=== PATIENT | female | born 1990 | race Caucasian/White ===

== ENCOUNTER → 2018-04-20 10:17 | Outpatient (CLI) | payer BC, SELFPAY ==
--- NOTE | 2018-04-20 10:20 | MR_ITS ---
MR head/brain wo/w con HISTORY: Right arm and shoulder pain and numbness, blurred vision, abnormal CT ITS.REASON: ABNORMAL FINDINGS ON DIAGNOSTIC IMAGING OF SKULL AND HEAD ORDERING PHYSICIAN: Anaya Vargas PATIENT AGE: 27 years Comparison: 04/11/2018 TECHNIQUE: Standard multiplanar multiecho sequences are performed without and with gadolinium enhancement. 15 mL ProHance given IV. FINDINGS: There is an expansile mass involves the right petrous bone measuring 3.2 cm in maximum transverse dimension and 2.6 cm AP with an anterior extension into the anterior aspect of the petrous bone laterally near the carotid canal. A CT of the skull base with contrast is suggested for better delineation of the structures. Cannot exclude involvement of the carotid canal.. This mass is hyperintense on T1 and hyperintense on T2 without significant enhancement and is consistent with a cholesterol granuloma. This does extend into the right cerebellopontine angle measuring 2.4 cm cephalad to caudad causing some minimal mass effect upon the midbrain on the right and mass effect on the right extracanalicular nerve VII and VIII complexes. No midline shift. No intracranial hemorrhage or hydrocephalus. There is some fluid in the right mastoid sinus. Years of patient has had prior nasomaxillary surgery. Please correlate with patient's surgical history. No acute infarction. The pituitary and optic chiasm have an unremarkable appearance. Hypertrophic changes are present at the odontoid but no cord compression. There is mild cerebellar tonsillar ectopia on the right of approximately 5 mm. No hydrocephalus. IMPRESSION: Right petrous bone mass 2.6 x 3.2 cm x 2.5 cm consistent with a cholesterol granuloma with extension into the right cerebellopontine angle and possibly anterior near the carotid canal region. Recommend thin section CT of the skull base/temporal bone without and with contrast for more thorough evaluation and to better evaluate the bony integrity of the petrous bone and possible carotid canal extension
== END ==
PROVIDERS: PCP Nurse Practitioner Family; Visit Provider Nurse Practitioner Family
DX: R93.0 Abnormal findings on diagnostic imaging of skull and head, not elsewhere classified (principal)
CPT/HCPCS: 70553; A9576

== ENCOUNTER 2018-10-08 13:30 | Outpatient (RCR) | payer BC, SELFPAY | END 2018-10-08 13:35 | disposition home or self-care (01) | LOC: OT 13:30 | DX: R53.1 Weakness (principal) | CPT/HCPCS: 97110; 97164; 97165 ==

== ENCOUNTER 2018-10-08 14:30 | Outpatient (RCR) | payer BC, SELFPAY | END 2018-10-08 14:35 | disposition home or self-care (01) | LOC: PT 14:30 | DX: G97.81 Other intraoperative complications of nervous system (principal); R53.1 Weakness | CPT/HCPCS: 97110; 97112; 97116; 97163; 97164 ==

== ENCOUNTER 2022-03-12 18:43 | Emergency (ER) | payer SELFPAY ==
[2022-03-12 18:45] VITALS: RESP 18; TEMP 37; O2SAT 98; BMI 26.6
[2022-03-12 19:02] LABS: Microscopic, Urine URINE MICROSCOPIC (MICROSCOPIC)
[2022-03-12 19:03] LABS: Appearance,Urine SL CLOUDY (Clear); Blood, Urine 3+ (Negative); Color,Urine YELLOW (Yellow); Glucose,Urine (UA) Negative (Negative); Ketones,Urine TRACE (Negative); Leukocyte Esterase,Urine 1+ (Negative); Nitrate,Urine Negative (Negative); Protein,Urine 1+ (Negative); Specific Gravity, Urine 1.025 (1.005-1.030)
--- NOTE | 2022-03-12 19:03 | CT_ITS ---
PROCEDURE INFORMATION: Exam: CT Abdomen And Pelvis With Contrast Exam date and time: 03/12/2022 7:26 PM Age: 31 years old Clinical indication: Abdominal pain; Localized; Right lower quadrant (rlq); Patient HX: Rlq pain since noon today. Patient stated it hurt when er md press on right lower quadrant. Patient has mirena iud. TECHNIQUE: Imaging protocol: Computed tomography of the abdomen and pelvis with contrast. Radiation optimization: All CT scans at this facility use at least one of these dose optimization techniques: automated exposure control; mA and/or kV adjustment per patient size (includes targeted exams where dose is matched to clinical indication); or iterative reconstruction. Contrast material: ISOVUE; Contrast volume: 75 ml; Contrast route: IV; Other protocol: This patient has received 0 known CTs and 0 known cardiac nuclear medicine studies in the 12 months prior to the current study. COMPARISON: CR CXR2V XR chest 2V 04/10/2018 11:19 PM FINDINGS: Liver: Normal. No mass. Gallbladder and bile ducts: Normal. No calcified stones. No ductal dilation. Pancreas: Normal. No ductal dilation. Spleen: Normal. No splenomegaly. Adrenal glands: Normal. No mass. Kidneys and ureters: Parapelvic cyst involving the left kidney. No obstructive uropathy. Stomach and bowel: Unremarkable. No obstruction. No mucosal thickening. Appendix: No evidence of appendicitis. Intraperitoneal space: Unremarkable. No free air. No significant fluid collection. Vasculature: Unremarkable. No abdominal aortic aneurysm. Lymph nodes: Unremarkable. No enlarged lymph nodes. Urinary bladder: Unremarkable as visualized. Reproductive: IUD. Bones/joints: Unremarkable. No acute fracture. Soft tissues: Unremarkable. IMPRESSION: No acute findings. COMMENTS: Consistent with the [employer]'s Incidental Findings Committee white paper (J Am Manan Radiol 2018): Any incidental renal lesion less than 1 cm or classified as too small to characterize, or any incidental cystic renal lesion characterized as simple-appearing, is likely benign. No follow-up imaging is recommended for these lesions per consensus recommendations based on imaging criteria.
--- NOTE | 2022-03-12 19:05 | PC.NURSE ---
shift change report given to ines schafer and maria teresarn
[2022-03-12 19:06] LABS: Urine Pregnancy, HCG Qual. Negative (Negative)
[2022-03-12 19:14] LABS: Bilirubin,Urine Negative (Negative)
[2022-03-12 19:19] LABS: Bacteria,Urine 3+ /lpf; Mucus,Urine 3+ /lpf; Squamous Epithelial Cell,Urine 20-50 #/hpf (0-5)
--- NOTE | 2022-03-12 19:19 | PC.NURSE ---
Pt gone to RAD via stretcher
[2022-03-12 19:23] LABS: Basophils # 0.1 K/mm3 (0-0.2); Basophils % 1.3 % (0.1-2.0); Eosinophils # 0.1 K/mm3 (0.0-0.4); Eosinophils % 2.1 % (0.1-12.0); Hemoglobin 14.4 g/dL (12.2-16.2); Lymphocytes # 0.9 K/mm3 (0.7-4.5); Lymphocytes % 17.2 % (10-50); Mean Corpuscular HGB Conc 34.2 g/dL (31.8-35.4); Mean Corpuscular Hemoglobin 29.1 pg (27.0-31.2); Mean Platelet Volume 8.5 fl (7.4-10.4); Monocytes # 0.3 K/mm3 (0.1-1.0); Monocytes % 5.3 % (1.7-9.3); Neutrophils # 3.9 K/mm3 (1.8-7.8); Neutrophils % 74.2 % (37.0-80.0); Platelet Count 200 K/mm3 (142-424); Red Blood Count 4.94 M/mm3 (4.20-5.40); Red Cell Distribution Width 13.3 % (11.5-17.5); White Blood Count 5.3 K/mm3 (4.8-10.8)
[2022-03-12 19:26] LABS: Chloride 105 mmol/L (98-107); Potassium 3.3 mmoL/L (3.5-5.1); Sodium 138 mmol/L (136-145)
[2022-03-12 19:28] LABS: Alanine Aminotransferase 21 U/L (12-78); Aspartate Amino Transferase 28 U/L (14-36); Blood Urea Nitrogen 14 mg/dl (7-17); Creatinine Clearance Estimated 127 mL/min (50-200); Estimated Glomerular Filt Rate 96 ml/min (>60); GFR (African American) 117 ML/MIN (>60)
[2022-03-12 19:29] LABS: Albumin Level 4.2 g/dl (3.5-5.0); Albumin/Globulin Ratio 1.4 (1.1-1.8); Alkaline Phosphatase 56 U/L (38-126); Anion Gap 12.3 mEq/L (5-15); Calcium 8.2 mg/dl (8.4-10.2); Carbon Dioxide 24 mmol/L (22.0-30.0); Globulin 2.9 g/dL (1.3-3.2); Glucose 85 mg/dl (74-100); Lipase 22 U/L (23-300); Total Protein,Serum 7.1 g/dl (6.3-8.2)
--- NOTE | 2022-03-12 19:43 | PC.NURSE ---
Pt back from RAD
--- NOTE | 2022-03-12 19:49 | HMH.EDGENADL ---
Discharge Plan Disposition Patient Disposition: Home, Self-Care Condition: Good Prescriptions Prescriptions: New nitrofurantoin monohyd/m-cryst [Macrobid] 100 mg capsule 100 mg PO Q12H 5 Days Qty: 10 0RF Rx Instructions: must administer with a meal/food phenazopyridine [Pyridium] 100 mg tablet 100 mg PO Q8H PRN (Reason: pain) Qty: 20 0RF ondansetron 4 mg tablet,disintegrating 4 mg PO Q8H PRN (Reason: nausea and vomiting) 4 Days Qty: 12 0RF No Action levonorgestrel [Mirena] 20 mcg/24 hr (5 years) intrauterine device 1 insert INTRAUTERI ONCE Referrals Follow up/Referrals: Anaya Vargas APRN [Primary Care Provider] - See instructions Activity Restrictions/Add. Instructions Additional Instructions/Restrictions: You were evaluated in the emergency department today. Please follow-up with your primary care provider over the next 48 hours. Return to the emergency department for any new or worsening symptoms. field service supervisor your prescriptions at the pharmacy and take the full course of antibiotics as prescribed. Take Tylenol and ibuprofen at home as needed for pain. Clinical Impressions Clinical Impression: UTI (urinary tract infection) Qualifiers: Urinary tract infection type: acute cystitis Hematuria presence: without hematuria Qualified Code(s): N30.00 - Acute cystitis without hematuria Abdominal pain Qualifiers: Abdominal location: right lower quadrant Qualified Code(s): R10.31 - Right lower quadrant pain Instructions Patient Instructions: DI for Urinary Tract Infection (UTI), DI for Acute Abdominal Pain Discharge ED Provider: Meseret Florentino General Adult HPI General Chief complaint: Abdominal Pain Stated complaint: lower RT side abd stabbing pain Time Seen by Provider: 03/12/22 19:03 Mode of Arrival: Ambulatory Source of Information: Patient Limitations: No Limitations Description of Symptoms (Recalled from ER Triage Doc. by RN): Patient began having lower abdominal pain last PM associated with some nausea/vomiting. Denies fever or chills History of Present Illness HPI narrative: This patient is a 31-year-old female with no significant past medical history presented to the emergency department for evaluation with concern for right lower quadrant abdominal pain. She states that last night, she began having nausea and vomiting. The pain started today, and she states it has been progressively worsening throughout the day. Nothing seems to make it better or worse. She is still able to eat and drink, but her appetite is significantly decreased. She denies any blood in her urine, changes in bowel movements, rashes, or swelling. Related Data Home Medications Medication Instructions Recorded Confirmed levonorgestrel 20 mcg/24 hours (8 1 insert intrauterine ONCE 02/20/17 03/12/22 yrs) 52 mg intrauterine device control (Mirena) Previous Rx's Medication Instructions Recorded nitrofurantoin 100 mg PO Q12H 5 days #10 caps 03/12/22 monohydrate/macrocrystals 100 mg capsule (Macrobid) ondansetron 4 mg disintegrating 4 mg PO Q8H PRN nausea and 03/12/22 tablet vomiting 4 days #12 tabs phenazopyridine 100 mg tablet 100 mg PO Q8H PRN pain 6 doses #20 03/12/22 (Pyridium) tabs Allergies Allergy/AdvReac Type Severity Reaction Status Date / Time No Known Allergies Allergy Verified 04/10/18 23:21 [facility] Disclaimer: The information contained in this section may have been updated after the patient was seen, as this information can be updated by other users. Social History Smoking Status: Never smoker alcohol intake: never substance use type: denies use current occupational status: employed Travel in the last 8 weeks: None current occupational exposures/hazards: No ROS Obtained: Yes All systems reviewed & no additional complaints except as documented 14 point review of systems obtained and neg
[2022-03-12 19:58] VITALS: BP 125/78; PULSE 81; RESP 18; TEMP 37; O2SAT 98
--- NOTE | 2022-03-12 19:58 | PC.NURSE ---
Dr. Florentino at to update pt on results
== END 2022-03-12 20:08 | disposition home or self-care (01) ==
PROVIDERS: Emergency Provider Emergency Medicine; PCP Nurse Practitioner Family
DX: N30.00 Acute cystitis without hematuria (principal); R10.31 Right lower quadrant pain
CPT/HCPCS: 74177; 80053; 81001; 81025; 83690; 85025; 87086; 87088; 96361; 96374; 96375; 99285; J2405; Q9967

== ENCOUNTER 2022-10-18 21:49 | Emergency (ER) | payer SELFPAY ==
[2022-10-18 21:51] VITALS: BP 129/74; PULSE 78; RESP 16; TEMP 36.6; O2SAT 100; BMI 29.0
[2022-10-18 22:14] LABS: Microscopic, Urine URINE MICROSCOPIC (MICROSCOPIC)
--- NOTE | 2022-10-18 22:19 | US_ITS ---
PROCEDURE INFORMATION: Exam: US , Transvaginal Exam date and time: 10/18/2022 10:55 PM Age: 32 years old Clinical indication: Lmp or gestational age (in weeks): 6w by US; Antepartum complications; Bleeding; ; Additional info: Bleeding, iup vs. Threatened ab. Vs. Ectopic LABS AND CLINICAL REPORTS: Last menstrual period start date: 08/19/2022 Gestational age (Established): 8 w 4 d Estimated due date (Established): 05/26/2023 TECHNIQUE: Imaging protocol: Real-time transvaginal obstetrical ultrasound of the maternal pelvis with image documentation. Transvaginal imaging was used for better evaluation of the fetus, adnexa, and/or cervix. COMPARISON: CT ABDOMEN PELVIS W CON 03/12/2022 7:26 PM FINDINGS: Gestation: Yolk sac measures 5.3 mm. heart rate: No cardiac activity detected. BIOMETRY: Gestational age (AUA): 5 weeks 7 days. Estimated due date (AUA): 06/13/2023 [employer]-Rump length (CRL): 3.35 mm. EGA (CRL) is 5 w 7 d MATERNAL: Right ovary/adnexa: Right ovary measures 3.11 cm x 1.91 cm x 2.32 cm. Right ovarian volume is 7.22 mL. Left ovary/adnexa: Left ovary measures 2.59 cm x 2.29 cm x 1.93 cm. Left ovarian volume is 5.99 mL. IMPRESSION: 1. Pyle intrauterine gestation with estimated gestational age based on today's ultrasound at 5 weeks 7 days. 2. No cardiac activity identified.
--- NOTE | 2022-10-18 22:19 | PC.NURSE ---
at bedside w/ ultrasound at this time.
--- NOTE | 2022-10-18 22:20 | PC.NURSE ---
George FRANKLIN called radiology to call in US.
--- NOTE | 2022-10-18 22:21 | HMH.EDGENADL ---
Discharge Plan Disposition Patient Disposition: Home, Self-Care Condition: Good Prescriptions Prescriptions: New nitrofurantoin macrocrystal 100 mg capsule 100 mg PO BID 5 Days Qty: 10 0RF Rx Instructions: must administer with a meal/food No Action progesterone micronized 200 mg capsule 200 mg PO DAILY folic acid 1 mg tablet 1 mg PO DAILY PNV cmb#95-ferrous fumarate-FA [] 28 mg iron- 800 mcg tablet 1 tab PO DAILY Referrals Follow up/Referrals: Anaya Vargas APRN [Primary Care Provider] - See instructions Mane León MD [Staff Physician] - See instructions Activity Restrictions/Add. Instructions Additional Instructions/Restrictions: Please follow-up with your primary care provider and your QUICK SERVICE TECHNICIAN. Feel free to call our QUICK SERVICE TECHNICIAN to begin establishing care here. Please take antibiotics as prescribed for asymptomatic bacteriuria. Please return to the emergency department if you develop any new or worsening symptoms or become concerned for your health. Clinical Impressions Clinical Impression: Intrauterine , Vaginal bleeding before 22 weeks gestation, Asymptomatic bacteriuria Discharge ED Provider: Francesco Santiago General Adult HPI <Francesco Santiago MD - Last Filed: 10/18/22 23:08> General Chief complaint: Vaginal Bleeding Stated complaint: covid + 10/13 poss miscarriage Time Seen by Provider: 10/18/22 22:09 Mode of Arrival: Ambulatory Source of Information: Patient Limitations: No Limitations Description of Symptoms (Recalled from ER Triage Doc. by RN): pt states she had ultrasound and hcg level check on thursday in ob office. was told there was a sac and was a early pregnacy. started on progestone on thursday. pt c/o pink tinge blood when wiping and today began passing clots. pt denies pain, cramping. pt tested positive for covid on thursday History of Present Illness HPI narrative: Patient is a 32-year-old female at 6 to 8 weeks by LMP presenting today with vaginal bleeding and some small clots. Denies any significant cramping. She had a home positive test and went to her QUICK SERVICE TECHNICIAN doctor stated that her hCG level is above 1500 they did an ultrasound on Thursday with solid gestational sac but no obvious pole or yolk sac and told her it was a of unknown location at this point. Told her to come to the emergency department with any worsening of her symptoms which is what prompted her visit tonight. She denies any urinary symptoms. No fevers or chills. No loss of fluid. She believes that her Rh status is positive she has not had to have RhoGAM in the past but she is unsure. No history of smoking no history of ectopic no history of pelvic inflammatory disease. Related Data Home Medications Medication Instructions Recorded Confirmed folic acid 1 mg tablet 1 mg PO DAILY Supplement 10/18/22 10/18/22 vit no.95-ferrous 1 tab PO DAILY Supplement 10/18/22 10/18/22 fumarate 28 mg-folic acid 800 mcg tablet () progesterone micronized 200 mg 200 mg PO DAILY . 10/18/22 10/18/22 capsule Previous Rx's Medication Instructions Recorded nitrofurantoin macrocrystal 100 mg 100 mg PO BID 5 days #10 caps 10/19/22 capsule Allergies Allergy/AdvReac Type Severity Reaction Status Date / Time No Known Allergies Allergy Verified 04/10/18 23:21 [facility] <Francesco Santiago MD - Last Filed: 10/18/22 23:08> PFS Disclaimer: The information contained in this section may have been updated after the patient was seen, as this information can be updated by other users. Social History Smoking Status: Never smoker alcohol intake: never substance use type: denies use current occupational status: employed Travel in the last 8 weeks: None current occupational exposures/hazards: No <Francesco Santiago MD - Last Filed: 10/18/22 23:08> ROS Obtained: Yes All syst
[2022-10-18 22:30] VITALS: BP 110/66; PULSE 78; O2SAT 98
[2022-10-18 22:34] LABS: Color,Urine Yellow (Yellow)
[2022-10-18 22:35] LABS: Appearance,Urine Slightly Cloudy (Clear); Blood, Urine 3+ (Negative); Glucose,Urine (UA) Negative (Negative); Ketones,Urine Negative (Negative); Nitrate,Urine Negative (Negative); Protein,Urine Negative (Negative); Specific Gravity, Urine >= 1.030 (1.005-1.030)
[2022-10-18 22:36] LABS: Bacteria,Urine 2+ /lpf; Bilirubin,Urine Negative (Negative); Leukocyte Esterase,Urine 2+ (Negative); RBC,Urine Occasional #/hpf (0-3)
--- NOTE | 2022-10-18 22:39 | PC.NURSE ---
BBK labs given to Uma in the LAB at bedside. Patient changing into gown and given warm blankets. Updated on wait time for labs and ultrasound. Patient agreeable. SAI, VSS
--- NOTE | 2022-10-18 22:45 | PC.NURSE ---
Rounded on patient, no concerns at this time.
[2022-10-18 22:47] LABS: Basophils % 0.5 % (0.1-2.0); Eosinophils # 0.2 K/mm3 (0.0-0.4); Hemoglobin 12.9 g/dL (12.2-16.2); Lymphocytes # 2.2 K/mm3 (0.7-4.5); Lymphocytes % 31.3 % (10-50); Mean Corpuscular HGB Conc 33.2 g/dL (31.8-35.4); Mean Corpuscular Hemoglobin 28.5 pg (27.0-31.2); Mean Corpuscular Volume 85.7 fl (81-99); Mean Platelet Volume 8.8 fl (7.4-10.4); Monocytes # 0.4 K/mm3 (0.1-1.0); Monocytes % 5.2 % (1.7-9.3); Neutrophils # 4.2 K/mm3 (1.8-7.8); Neutrophils % 60.1 % (37.0-80.0); Platelet Count 242 K/mm3 (142-424); Red Blood Count 4.55 M/mm3 (4.20-5.40); Red Cell Distribution Width 14.2 % (11.5-17.5)
--- NOTE | 2022-10-18 22:54 | PC.NURSE ---
Ultrasound has arrived and taking patient up to department at this time
[2022-10-18 22:57] LABS: Chloride 103 mmol/L (98-107); Potassium 3.8 mmoL/L (3.5-5.1); Sodium 137 mmol/L (136-145)
[2022-10-18 23:00] LABS: Alanine Aminotransferase 83 U/L (12-78); Albumin Level 3.9 g/dl (3.5-5.0); Albumin/Globulin Ratio 1.3 (1.1-1.8); Alkaline Phosphatase 64 U/L (38-126); Anion Gap 12.8 mEq/L (5-15); Aspartate Amino Transferase 80 U/L (14-36); Bilirubin,Total 0.4 mg/dl (0.2-1.3); Blood Urea Nitrogen 9 mg/dl (7-17); Calcium 9.2 mg/dl (8.4-10.2); Carbon Dioxide 25 mmol/L (22.0-30.0); Creatinine Clearance Estimated 137 mL/min (50-200); Estimated Glomerular Filt Rate 96 ml/min (>60); GFR (African American) 116 ML/MIN (>60); Glucose 84 mg/dl (74-100); Total Protein,Serum 6.9 g/dl (6.3-8.2)
[2022-10-18 23:07] LABS: Activated Partial Thrombo Time 31.2 seconds (22.8-30.6); INR 0.95 (0.9-1.1); Prothrombin Time 10.3 seconds (10.1-12.5)
--- NOTE | 2022-10-18 23:37 | PC.NURSE ---
Rounded on patient; nothing needed at this time. Call [facility] within reach of patient
[2022-10-18 23:52] LABS: HCG,Quantitative 25705 mIU/ml (0-5.42)
[2022-10-19 00:15] VITALS: BP 106/64; PULSE 83; RESP 16; TEMP 36.6; O2SAT 98
== END 2022-10-19 00:17 | disposition home or self-care (01) ==
PROVIDERS: Emergency Provider Student in an Organized Health Care Education/Training Program; PCP Nurse Practitioner Family
DX: O98.511 Other viral diseases complicating pregnancy, first trimester (principal); O23.41 Unspecified infection of urinary tract in pregnancy, first trimester; O26.851 Spotting complicating pregnancy, first trimester; U07.1 COVID-19; Z3A.01 Less than 8 weeks gestation of pregnancy
CPT/HCPCS: 76817; 80053; 81001; 84702; 85025; 85610; 85730; 86850; 87086; 99285

== ENCOUNTER 2022-10-29 10:44 | Emergency (ER) | payer SELFPAY ==
--- NOTE | 2022-10-29 10:58 | US_ITS ---
PROCEDURE INFORMATION: Exam: US , Transvaginal Exam date and time: 10/29/2022 11:35 AM Age: 32 years old Clinical indication: Lmp or gestational age (in weeks): 7-10w ? ; antepartum complications; Bleeding; ; Additional info: Concern for loss of tones LABS AND CLINICAL REPORTS: Last menstrual period start date: 08/19/2022 Gestational age (Established): 10 w 1 d Estimated due date (Established): 05/26/2023 TECHNIQUE: Imaging protocol: Real-time transvaginal obstetrical ultrasound of the maternal pelvis with image documentation. Transvaginal imaging was used for better evaluation of the fetus, adnexa, and/or cervix. Total images: 458 COMPARISON: US OB TRANSVAGINAL 10/18/2022 10:55 PM FINDINGS: Gestation: Yolk sac measures 4.2 mm. Single intrauterine gestation. No definite heart tones on today's examination as imaged. BIOMETRY: Gestational age (AUA): 6 w 5 d Estimated due date (AUA): 06/19/2023 Mean sac diameter: 2.95 cm. [employer]-Rump length (CRL): 3.4 mm. EGA (CRL) is 5 w 7 d MATERNAL: Right ovary/adnexa: Right ovary measures 2.99 cm x 2.36 cm x 1.96 cm. Right ovarian volume is 7.24 mL. Left ovary/adnexa: Left ovary measures 2.88 cm x 2.56 cm x 1.69 cm. Left ovarian volume is 6.52 mL. IMPRESSION: 1. Single intrauterine gestation. 2. Average gestational age 6 weeks 5 days. 3. No definite heart tones on today's examination as imaged. Short-term follow-up is recommended.
[2022-10-29 11:15] VITALS: BP 104/60; PULSE 82; RESP 18; TEMP 36.9; O2SAT 95; BMI 29.0
[2022-10-29 11:30] VITALS: BP 126/67; PULSE 85; O2SAT 97
--- NOTE | 2022-10-29 11:31 | PC.NURSE ---
To US via wheelchair
--- NOTE | 2022-10-29 11:35 | HMH.EDGENADL ---
Discharge Plan Disposition Patient Disposition: Home, Self-Care Chief Complaint: Urogenital-Female Prescriptions Prescriptions: No Action progesterone micronized 200 mg capsule 200 mg PO DAILY folic acid 1 mg tablet 1 mg PO DAILY PNV cmb#95-ferrous fumarate-FA [] 28 mg iron- 800 mcg tablet 1 tab PO DAILY nitrofurantoin macrocrystal 100 mg capsule 100 mg PO BID 5 Days Qty: 10 0RF Rx Instructions: must administer with a meal/food Referrals Follow up/Referrals: Anaya Vargas APRN [Primary Care Provider] - See instructions Activity Restrictions/Add. Instructions Additional Instructions/Restrictions: Follow-up with [facility] in 48 hours from now for repeat hCG. Call your family doctor to establish care for this visit to the emergency department and schedule follow-up within 48 hours to ensure improvement. If you have any worsening of your condition or any other concerning signs or symptoms, return to the emergency department or your primary care doctor for further evaluation. Clinical Impressions Clinical Impression: Intrauterine Instructions Patient Instructions: DI for Urinary Tract Infection (UTI), DI for Urinary Tract Infection in Children Discharge ED Provider: Phillip Long General Adult HPI General Chief complaint: Urogenital-Female Stated complaint: 7-8 weeks , can't find hb on ultrasound Time Seen by Provider: 10/29/22 10:52 Mode of Arrival: Ambulatory Source of Information: Patient Limitations: No Limitations Description of Symptoms (Recalled from ER Triage Doc. by RN): pt presents to ED for possible miscarriage. pt reports that she has been seen [facility]. pt is established at [facility], pt had last period in august/september. third . pt reports that [facility] is telling her there is no , but at [facility] she has been told there is a flicker . no cramping, no bleeding. History of Present Illness HPI narrative: 32-year-old female presenting with concern for loss of tones. Patient was told 2 weeks ago that she was about 6 weeks . Had follow-up appointment at outside hospital yesterday, was told that they did not see heart tones. Patient was told that she needs medication in order to expel the , but wanted to seek second opinion prior to starting medication. Came to the ER for further evaluation. No nausea, vomiting, fevers, chills, flank pain, dysuria, hematuria, abnormal vaginal discharge or bleeding, abdominal pain, or any other concerns. Related Data Home Medications Medication Instructions Recorded Confirmed folic acid 1 mg tablet 1 mg PO DAILY Supplement 10/18/22 10/18/22 vit no.95-ferrous 1 tab PO DAILY Supplement 10/18/22 10/18/22 fumarate 28 mg-folic acid 800 mcg tablet () progesterone micronized 200 mg 200 mg PO DAILY . 10/18/22 10/18/22 capsule Previous Rx's Medication Instructions Recorded nitrofurantoin macrocrystal 100 mg 100 mg PO BID 5 days #10 caps 10/19/22 capsule Allergies Allergy/AdvReac Type Severity Reaction Status Date / Time No Known Allergies Allergy Verified 04/10/18 23:21 [facility] Disclaimer: The information contained in this section may have been updated after the patient was seen, as this information can be updated by other users. Social History Smoking Status: Never smoker alcohol intake: never substance use type: denies use current occupational status: employed Travel in the last 8 weeks: None current occupational exposures/hazards: No ROS Obtained: Yes All systems reviewed & no additional complaints except as documented Physical Exam General General appearance: alert, in no apparent distress and other ( ) Head Head exam: atraumatic and normocephalic Eye Eye exam: Present normal appearance, PERRL and EOMI ENT ENT exam: Present mucous membranes m
[2022-10-29 13:06] LABS: HCG,Quantitative 35171 mIU/ml (0-5.42)
[2022-10-29 13:35] VITALS: BP 120/65; PULSE 75; RESP 17; TEMP 36.8; O2SAT 98
== END 2022-10-29 13:44 | disposition home or self-care (01) ==
PROVIDERS: Emergency Provider Emergency Medicine; PCP Nurse Practitioner Family
DX: O36.8310 Maternal care for abnormalities of the fetal heart rate or rhythm, first trimester, not applicable or unspecified (principal); Z3A.01 Less than 8 weeks gestation of pregnancy
CPT/HCPCS: 76817; 84702; 99284

== ENCOUNTER → 2022-10-30 10:38 | Outpatient (CLI) | payer SELFPAY ==
[2022-10-30 11:17] LABS: Basophils # 0.1 K/mm3 (0-0.2); Basophils % 0.7 % (0.1-2.0); Eosinophils # 0.2 K/mm3 (0.0-0.4); Eosinophils % 2.3 % (0.1-12.0); Hematocrit 41.5 % (37.0-47.0); Hemoglobin 13.6 g/dL (12.2-16.2); Lymphocytes # 1.8 K/mm3 (0.7-4.5); Mean Corpuscular HGB Conc 32.8 g/dL (31.8-35.4); Mean Corpuscular Hemoglobin 28.1 pg (27.0-31.2); Mean Corpuscular Volume 85.7 fl (81-99); Mean Platelet Volume 8.3 fl (7.4-10.4); Monocytes # 0.4 K/mm3 (0.1-1.0); Monocytes % 4.7 % (1.7-9.3); Neutrophils # 5.4 K/mm3 (1.8-7.8); Neutrophils % 69.3 % (37.0-80.0); Platelet Count 297 K/mm3 (142-424); Red Blood Count 4.84 M/mm3 (4.20-5.40); White Blood Count 7.7 K/mm3 (4.8-10.8)
[2022-10-30 11:42] LABS: Chloride 105 mmol/L (98-107); Sodium 140 mmol/L (136-145)
[2022-10-30 11:43] LABS: Potassium 3.9 mmoL/L (3.5-5.1)
[2022-10-30 11:45] LABS: Alanine Aminotransferase 28 U/L (12-78); Albumin Level 4.1 g/dl (3.5-5.0); Albumin/Globulin Ratio 1.6 (1.1-1.8); Alkaline Phosphatase 56 U/L (38-126); Anion Gap 14.9 mEq/L (5-15); Aspartate Amino Transferase 21 U/L (14-36); Bilirubin,Total 0.6 mg/dl (0.2-1.3); Blood Urea Nitrogen 9 mg/dl (7-17); Calcium 9.4 mg/dl (8.4-10.2); Carbon Dioxide 24 mmol/L (22.0-30.0); Estimated Glomerular Filt Rate 114 ml/min (>60); GFR (African American) 138 ML/MIN (>60); Globulin 2.5 g/dL (1.3-3.2); Glucose 85 mg/dl (74-100); Total Protein,Serum 6.6 g/dl (6.3-8.2)
== END ==
LOC: LAB 10:39
PROVIDERS: PCP Nurse Practitioner Family; Visit Provider Obstetrics & Gynecology
DX: O03.9 Complete or unspecified spontaneous abortion without complication (principal)
CPT/HCPCS: 36415; 80053; 85025; 86850

== ENCOUNTER 2022-11-04 07:06 | Day surgery (SDC) | payer SELFPAY ==
[2022-10-31 11:32] VITALS: BMI 28.8
[2022-11-04] VITALS (11 sets, daily range): BP systolic 97–117; BP diastolic 44–71; PULSE 65–72; RESP 16–189; TEMP 36.6–36.8; O2SAT 90–99
--- NOTE | 2022-11-04 08:20 | P.PNANES_ITS ---
[facility] Disclaimer: The information contained in this section may have been updated after the patient was seen, as this information can be updated by other users. Medical History Atypical chest pain Cholesterin granuloma Ora's disease Migraine Radicular neuropathy Surgical History H/O brain surgery Family History Grandmother Cancer Paternal-Breast (diagnosed at 58) Social History Smoking Status: Never smoker alcohol intake: never substance use type: denies use current occupational status: employed Travel in the last 8 weeks: None current occupational exposures/hazards: No [facility] Anesthesia Checklist Patient Identification Patient Identification: Arm Band Structural Data Admitted From: Home Planned Operative Procedure/s: D&C with Aida Suction Consent for Planned Operative Procedure(s) Verified: Yes Verified Documents: Surgical Consent and History and Physical NPO Status Verified Time NPO: 00:00 Additional verifications Anesthesia Reactions: No Hx Blood Transfusions: No Blood Transfusion Reaction: No Airway Assessment Mallampati Score:: Class II C-Spine Mobility Assessed: Yes TMJ Mobility Assessed: Yes Dentition: Good Dentition Neurological Assessment Level of Consciousness: Awake and Alert Anesthesia Plan Anesthesia Risk discussed: Yes Anesthesia Plan: Verified ASA Class: II Anesthesia Type: General
--- NOTE | 2022-11-04 08:44 | EXP.ANES.I ---
[facility] Anesthesia Record Part I Anesthesia Record I Intake, IV Amount: 700 Hydration: Adequate Estimated blood loss (mL): 20 Urine output (mL): 0 Blood Products used (#): none Blood Pressure: 117/44 SaO2: 92 Pulse Rate: 72 Airway Patency: Patent Respiratory Rate: 16 Temperature: 97.8 F Patient is:: Drowsy and Stable Stable to PACU at:: 08:40
--- NOTE | 2022-11-04 09:03 | EXP.OP.NOTE ---
Date of procedure: 11/04/22 Pre-op Diagnosis:: 1. 5week SAB 2. Desired surgical management 3. Rh positive Post-op Diagnosis:: 1. 5week SAB 2. Desired surgical management 3. Rh positive Procedure performed:: Dilation and suction curettage Surgeon:: Georgia Ruiz DO HOSPITAL NURSING ASSISTANT:: Tera Agarwal Anesthesia: GETA Estimated blood loss (mL): 25 Clinical Note:: Complications: None UOP: 200mL Operative findings:: Normal-appearing external genitalia. Cervical os was already dilated with a small amount of bleeding. The cervix was enlarged and very hard. A pap smear was collected secondary to a small suspicion for cervical dysplasia. Operative note:: Lillian Sutton is a 32yo G3, P2 presenting for surgical management of a spontaneous . Expectant, medical, and surgical management were explained to the patient and she elected to undergo surgical management. She was consented for suction D&C. Risk, benefits, and alternatives were reviewed. Risk including but not limited to uterine perforation, bleeding, and infection were discussed. Medications: Doxycycline 200 mg The patient was taken back to the operating room where anesthesia was administered. She was placed in the dorsolithotomy position with blue gildardo stirrups and sterilely prepped and draped with Hibiclens in the usual fashion. In and out catheter was used to drain her bladder. Weighted speculum and a right angle retractor was used to visualize the cervix. Cervix noted to be enlarged with a small amount of bleeding already occurring. A single-tooth tenaculum applied to the anterior lip cervix. Sen dilators were used to dilate the cervix which was noted to already be dilated enough to accommodate a #9 rigid suction curette. The suction curette was inserted to the fundus, hooked to suction, and twisted in a clockwise fashion until the curette was removed. Products noted in the tubing system. This process was repeated until all uterine contents were removed. Following this careful attention was given to the bleeding from the cervical os and was noted to be moderate. A ring forcep was applied to the posterior lip of the ectocervix secondary to bleeding. This was left in place for 2 minutes. Upon removal there was still a small amount of bleeding which was made hemostatic with silver nitrate stick. The single-tooth tenaculum was removed and hemostasis was noted. The speculum was removed and this completed the procedure. The patient tolerated the procedure well and all instrument and sponge counts were correct x2. The patient was awakened from general anesthesia and taken to the recovery room in a stable condition. The patient will be sent home after meeting all discharge criteria and follow-up with me in 2 weeks. Condition: stable Disposition: PACU Specimens:: Products of conception Complications:: None
--- NOTE | 2022-11-04 09:14 | SUR.PHASEI ---
Pt denies pain or any C/O. Still drowsy. VSS, scant vaginal bleeding. Pt stable for transfer to post op at this tiime. Report to Henrietta Iyer.
--- NOTE | 2022-11-04 10:52 | P.PNANES_ITS ---
[facility] Anesthesia Record Part II Anesthesia Record Part II Discharge Time: 09:11 Destination: Surgical Day Care (OP Surgery) PACU nurse assessment reviewed?: Yes Patient Condition:: Good Anesthesia Complications:: None Swallowing reflex intact?: Yes Airway Patency: Patent Cyanosis?: No Blood Pressure: 107/61 SaO2: 97 Respiratory Rate: 18 Pulse Rate: 65 Temperature: 97.8 F Mental Status: Alert & Oriented Pain level:: 0 Nausea and/or vomitting:: None Intake, IV Amount: 0 Hydration: Adequate
--- NOTE | 2022-11-04 10:52 | SUR.PHASEII ---
10:00-10:50 patient waiting on meds to beds.
== END 2022-11-04 10:53 | disposition home or self-care (01) ==
PROVIDERS: PCP Nurse Practitioner Family; Visit Provider Obstetrics & Gynecology
PROC: (CPT 59812; principal; 2022-11-04 08:30)
DX: O03.4 Incomplete spontaneous abortion without complication (principal); Z67.90 Unspecified blood type, Rh positive
CPT/HCPCS: 59812; 96374; J2405

== ENCOUNTER 2023-06-25 15:11 | Outpatient (CLI) | payer MEDICAID, SELFPAY ==
[2023-06-25 16:47] LABS: HCG,Quantitative 540 mIU/ml (0-5.42)
[2023-06-27 10:28] LABS: Progesterone 9.4 ng/mL (.)
== END 2023-06-25 23:59 | disposition home or self-care (01) ==
LOC: LAB 15:14
PROVIDERS: PCP Nurse Practitioner Family; Visit Provider Obstetrics & Gynecology
DX: N92.6 Irregular menstruation, unspecified (principal); Z32.00 Encounter for pregnancy test, result unknown
CPT/HCPCS: 36415; 84144; 84702

== ENCOUNTER 2023-06-27 09:56 | Outpatient (CLI) | payer MEDICAID, SELFPAY ==
[2023-06-27 10:45] LABS: HCG,Quantitative 1144 mIU/ml (0-5.42)
== END 2023-06-27 23:59 | disposition home or self-care (01) ==
PROVIDERS: PCP Nurse Practitioner Family; Visit Provider Obstetrics & Gynecology
DX: Z32.01 Encounter for pregnancy test, result positive (principal)
CPT/HCPCS: 84702

== ENCOUNTER 2023-06-29 15:34 | Outpatient (CLI) | payer MEDICAID, SELFPAY ==
[2023-06-29 17:12] LABS: HCG,Quantitative 3660 mIU/ml (0-5.42)
== END 2023-06-29 23:59 | disposition home or self-care (01) ==
LOC: LAB 15:35
PROVIDERS: PCP Nurse Practitioner Family; Visit Provider Obstetrics & Gynecology
DX: O26.891 Other specified pregnancy related conditions, first trimester (principal); Z3A.01 Less than 8 weeks gestation of pregnancy
CPT/HCPCS: 36415; 84702

== ENCOUNTER 2023-07-09 20:16 | Emergency (ER) | payer MEDICAID, SELFPAY ==
[2023-07-09 20:25] VITALS: BP 124/74; PULSE 82; RESP 18; O2SAT 100
[2023-07-09 20:28] VITALS: BP 124/74; PULSE 84; RESP 17; TEMP 37.7; O2SAT 100; BMI 29.7
[2023-07-09 20:30] VITALS: BP 104/68; PULSE 77; RESP 16; O2SAT 100
--- NOTE | 2023-07-09 20:32 | ED_ITS ---
<Statement entered by Francesco Santiago MD - 07/09/23 22:54> I was consulted by the ED, and we discussed the complexity of the problems being addressed. I approved the treatment and management plan for this patient's care in the emergency department, thus performing a substantive portion of the medical decision making. Francesco Santiago MD, AXEL, FACEP Discharge Plan Disposition Chief Complaint: Vaginal Bleeding Prescriptions Prescriptions: No Action nitrofurantoin monohyd/m-cryst [Macrobid] 100 mg capsule 100 mg PO BID 7 Days Qty: 14 0RF Rx Instructions: must administer with a meal/food progesterone micronized [Prometrium] 100 mg capsule 100 mg vaginal DAILY 30 Days Qty: 30 2RF Rx Instructions: Please place one tablet vaginally each night until 12 weeks gestation Referrals Follow up/Referrals: Isaac Vargas MD [Primary Care Provider] - See instructions Discharge ED Provider: Francesco Santiago General Adult HPI <STEFAN Watts - Last Filed: 07/09/23 22:29> General Chief complaint: Vaginal Bleeding Stated complaint: pos miscarriage Time Seen by Provider: 07/09/23 20:32 History of Present Illness HPI narrative: Patient presents for vaginal bleeding. Patient is approximately 8 weeks and is due to have a ultrasound next week however she started having abdominal cramping and bleeding after sex and has not stopped. Patient denies chest pain shortness of breath fever chills hemoptysis hematochezia melena nausea vomit diarrhea. Patient had previous miscarriage last fall. Related Data Previous Rx's Medication Instructions Recorded progesterone micronized 100 mg 100 mg vaginal DAILY 30 days #30 06/28/23 capsule (Prometrium) caps nitrofurantoin 100 mg PO BID 7 days #14 caps 06/29/23 monohydrate/macrocrystals 100 mg capsule (Macrobid) Allergies Allergy/AdvReac Type Severity Reaction Status Date / Time No Known Allergies Allergy Verified 11/18/22 13:57 PFS <STEFAN Watts - Last Filed: 07/09/23 22:29> [facility] Disclaimer: The information contained in this section may have been updated after the patient was seen, as this information can be updated by other users. Medical History Ora's disease Migraine Cholesterin granuloma Atypical chest pain Radicular neuropathy Surgical History (Updated 11/18/22 @ 13:58 by COREY Watson) Status post D&C H/O brain surgery Family History Grandmother Cancer Paternal-Breast (diagnosed at 58) Social History Smoking Status: Unknown if ever smoked alcohol intake: never substance use type: denies use current occupational status: employed Travel in the last 8 weeks: None current occupational exposures/hazards: No <STEFAN Watts - Last Filed: 07/09/23 22:29> ROS Obtained: Yes Systems reviewed as appropriate & no additional complaints except as documented Physical Exam <STEFAN Watts - Last Filed: 07/09/23 22:29> General General appearance: alert and in no apparent distress Respiratory Respiratory exam: Present normal lung sounds bilaterally Cardiovascular Cardiovascular exam: Present regular rate and normal rhythm Abdominal Exam Abdominal exam: Present soft, tenderness (Tender to palp in the bilateral lower quadrants mildly) and normal bowel sounds; Absent guarding, rebound or rigidity Back Exam Back exam: Present normal inspection and full ROM; Absent tenderness Neurological Exam Neurological exam: Present alert and oriented X3 Medical Decision Making <STEFAN Watts - Last Filed: 07/09/23 22:29> Medical Records Medical records reviewed: Yes I reviewed the patient's medical records. Zaid Inquiry Pt receiving controlled substance: No Vital Signs: 07/09/23 20:25 07/09/23 20:28 07/09/23 20:30 Temperature 100 F H Temperature Source Oral Pulse Rate 82 77 Pulse Rate [Right Brachial] 84 Respiratory Rate 18 17 16 Blood Pressure 124/74 104/68 L Blood Pressure [Right Arm] 124/74 Blood Pressure Mean [Right Arm] 90 Blood Pressure Source [Right Arm] Automatic Cuff Blood Pressure Position [Right Arm] Sitting 02 Sat by Pulse Oximetry 100 100 100 Oxygen Delivery Method Room Air Room Air Room Air 07/09/23 21:00 Temperature Temperature Source Pulse Rate 79 Pulse Rate [Right Brachial] Respiratory Rate 18 Blood Pressure 112/69 Blood Pressure [Right Arm] Blood Pressure Mean [Right Arm] Blood Pressure Source [Right Arm] Blood Pressure Position [Right Arm] 02 Sat by Pulse Oximetry 100 Oxygen Delivery Method Room Air Lab Data Lab results reviewed: Yes I reviewed the patient's lab results. Lab Results 07/09/23 20:32: WBC 11.2 H, RBC 4.68, Hgb 13.5, Hct 40.6, MCV 86.8, MCH 28.8, MCHC 33.2, RDW 14.2, Plt Count 264, MPV 8.5, Neut % (Auto) 68.6, Lymph % (Auto) 24.4, [place] % (Auto) 4.3, Eos % (Auto) 1.9, Baso % (Auto) 0.8, Neut # (Auto) 7.7, Lymph # (Auto) 2.7, [place] # (Auto) 0.5, Eos # (Auto) 0.2, Baso # (Auto) 0.1, Sodium 136, Potassium 3.4 L, Chloride 103 07/09/23 20:32 07/09/23 20:32 Orders (Tests/Meds): ORDERS Category Date Time Status POCUS Point of Care (ER Only) Stat Exams 07/09/23 21:23 Taken US transvaginal Stat Exams 07/09/23 22:15 Ordered CBC w/Auto Diff [Complete Blood Count Auto Diff] Stat Lab 07/09/23 20:32 Completed CMP [Comprehensive Metabolic Panel] Stat Lab 07/09/23 20:32 Results HCG,Quantitative Stat Lab 07/09/23 20:32 Received INR [Prothrombin Time INR] Stat Lab 07/09/23 20:32 Received Magnesium Stat Lab 07/09/23 20:32 Results Medical Decision Narrative: In summary patient is a 33-year-old female who presents to the emergency department for evaluation of vaginal bleeding. Patient is hemodynamically stable upon arrival, with a temperature of 100. Physical exam is remarkable for flushed facies and for mild bilateral lower quadrant pain to palpation with no rebound or guarding rigidity.. Differential diagnosis includes miscarriage versus tubal . Patient is Rh-. Initial workup will be conducted with [id number] ultrasound to potentially rule in intrauterine . Initial interventions include Tylenol. Initial workup reviewed by me shows that the [id number] ultrasound identified 2 sacs 1 of which a clear yolk sac was identified. Further lab work was then ordered and transvaginal ultrasound is also been ordered and is pending at the time of handoff at 2300 hrs. to the oncoming provider <Francesco Santiago MD - Last Filed: 07/09/23 22:18> Vital Signs: 07/09/23 20:25 07/09/23 20:28 07/09/23 20:30 Temperature 100 F H Temperature Source Oral Pulse Rate 82 77 Pulse Rate [Right Brachial] 84 Respiratory Rate 18 17 16 Blood Pressure 124/74 104/68 L Blood Pressure [Right Arm] 124/74 Blood Pressure Mean [Right Arm] 90 Blood Pressure Source [Right Arm] Automatic Cuff Blood Pressure Position [Right Arm] Sitting 02 Sat by Pulse Oximetry 100 100 100 Oxygen Delivery Method Room Air Room Air Room Air 07/09/23 21:00 Temperature Temperature Source Pulse Rate 79 Pulse Rate [Right Brachial] Respiratory Rate 18 Blood Pressure 112/69 Blood Pressure [Right Arm] Blood Pressure Mean [Right Arm] Blood Pressure Source [Right Arm] Blood Pressure Position [Right Arm] 02 Sat by Pulse Oximetry 100 Oxygen Delivery Method Room Air Lab Data Lab Results 07/09/23 20:32: WBC 11.2 H, RBC 4.68, Hgb 13.5, Hct 40.6, MCV 86.8, MCH 28.8, MCHC 33.2, RDW 14.2, Plt Count 264, MPV 8.5, Neut % (Auto) 68.6, Lymph % (Auto) 24.4, [place] % (Auto) 4.3, Eos % (Auto) 1.9, Baso % (Auto) 0.8, Neut # (Auto) 7.7, Lymph # (Auto) 2.7, [place] # (Auto) 0.5, Eos # (Auto) 0.2, Baso # (Auto) 0.1, Sodium 136, Potassium 3.4 L, Chloride 103 Orders (Tests/Meds): ORDERS Category Date Time Status POCUS Point of Care (ER Only) Stat Exams 07/09/23 21:23 Taken US transvaginal Stat Exams 07/09/23 22:15 Ordered CBC w/Auto Diff [Complete Blood Count Auto Diff] Stat Lab 07/09/23 20:32 Completed CMP [Comprehensive Metabolic Panel] Stat Lab 07/09/23 20:32 Results HCG,Quantitative Stat Lab 07/09/23 20:32 Received INR [Prothrombin Time INR] Stat Lab 07/09/23 20:32 Received Magnesium Stat Lab 07/09/23 20:32 Results Procedures <Francesco Santiago MD - Last Filed: 07/09/23 22:18> Miscellaneous Procedure Procedure Performed: Limited OB ultrasound Indication: Vaginal bleeding Identified structures: [-Uterus -Left adnexa -Right adnexa -Pouch of Woo] Findings: Uterus: There are 2 definitive and distinctly separate gestational sacs consistent with dates 1 is empty and appears to be possibly a blighted ovum the second has a discernible yolk sac there also appears to be a small subchorionic hemorrhage Right adnexa: No free Left adnexa: No free fluid Cul de sac: No free fluid Impression: 2 gestational sacs 1 that is empty and the second that appears to have a yolk sac consistent with a single living intrauterine also with a small subchorionic hemorrhage Images were saved to permanent archive The study was technically adequate CPT Transabdominal: 46575-85 This study was performed by me, and I personally interpreted all images/videos. Based on my clinical judgement, these images were adequate and did necessitate further imaging. Transvaginal ultrasound has been ordered for further evaluation. Critical Care <STEFAN Watts - Last Filed: 07/09/23 22:29> Critical Care Time Critical Care Time: No
[2023-07-09 21:00] VITALS: BP 112/69; PULSE 79; RESP 18; O2SAT 100
--- NOTE | 2023-07-09 21:59 | PC.NURSE ---
urine sent to lab. pt up to bathroom changing pad at this time
--- NOTE | 2023-07-09 22:15 | US_ITS ---
PROCEDURE INFORMATION: Exam: US First Trimester, Transabdominal and US , Transvaginal Exam date and time: 07/09/2023 10:40 PM Age: 33 years old Clinical indication: Pain; Other: Cramping and bleeding; Additional info: Vaginal bleeding TECHNIQUE: Imaging protocol: Real-time transabdominal obstetrical ultrasound of the maternal pelvis and a first trimester , less than 14 weeks 0 days, with image documentation. Transvaginal imaging was used for better evaluation of the fetus, adnexa, and/or cervix. COMPARISON: US OB TRANSVAGINAL 10/29/2022 11:35 AM FINDINGS: GESTATION: Gestation: Two intrauterine gestational sacs. One of the gestational sacs labeled as fetus A with a mean sac diameter of 1.42 cm contains a yolk sac and pole with demonstrable cardiac activity. The 2nd gestational sac with surrounding decidual reaction and a mean sac diameter of 1.5 cm contains no yolk sac or pole. Embryonic/ heart rate: Cardiac activity visualized within fetus A, although a heart rate was not calculated. Extra-embryonic membranes/Placenta: Moderate sized subchorionic hemorrhage. Amniotic/Chorionic fluid: Amniotic and extra-amniotic fluid are normal for gestational age. BIOMETRY: Gestational age (AUA): 6 weeks 1 day (Fetus A) MATERNAL: Uterus: Unremarkable. Cervix: Unremarkable. Right ovary/adnexa: Unremarkable right ovary. Right paraovarian cystic lesion measuring 0.9 x 0.7 x 1.1 cm Left ovary/adnexa: Unremarkable ovary. Intraperitoneal space: No intraperitoneal free fluid. IMPRESSION: 1. Two intrauterine gestational sacs. Live intrauterine gestation (fetus A) measuring 6 weeks 1 day. Second intrauterine gestational sac measuring 1.5 cm containing no yolk sac or pole with differential considerations to include early intrauterine and failed 1st trimester . Recommend close clinical follow-up and serial imaging as clinically indicated. 2. Moderate sized subchorionic hemorrhage. 3. 1.1 cm right paraovarian cyst.
[2023-07-09 22:22] LABS: Basophils # 0.1 K/mm3 (0-0.2); Basophils % 0.8 % (0.1-2.0); Eosinophils # 0.2 K/mm3 (0.0-0.4); Eosinophils % 1.9 % (0.1-12.0); Hematocrit 40.6 % (37.0-47.0); Hemoglobin 13.5 g/dL (12.2-16.2); Lymphocytes # 2.7 K/mm3 (0.7-4.5); Lymphocytes % 24.4 % (10-50); Mean Corpuscular HGB Conc 33.2 g/dL (31.8-35.4); Mean Corpuscular Hemoglobin 28.8 pg (27.0-31.2); Mean Corpuscular Volume 86.8 fl (81-99); Mean Platelet Volume 8.5 fl (7.4-10.4); Monocytes # 0.5 K/mm3 (0.1-1.0); Monocytes % 4.3 % (1.7-9.3); Neutrophils # 7.7 K/mm3 (1.8-7.8); Neutrophils % 68.6 % (37.0-80.0); Platelet Count 264 K/mm3 (142-424); Red Blood Count 4.68 M/mm3 (4.20-5.40); Red Cell Distribution Width 14.2 % (11.5-17.5); White Blood Count 11.2 K/mm3 (4.8-10.8)
[2023-07-09 22:24] LABS: Chloride 103 mmol/L (98-107); Sodium 136 mmol/L (136-145)
[2023-07-09 22:25] LABS: Potassium 3.4 mmoL/L (3.5-5.1)
[2023-07-09 22:27] LABS: Alanine Aminotransferase 28 U/L (12-78); Albumin Level 4.4 g/dl (3.5-5.0); Albumin/Globulin Ratio 1.6 (1.1-1.8); Alkaline Phosphatase 71 U/L (38-126); Anion Gap 12.4 mEq/L (5-15); Aspartate Amino Transferase 28 U/L (14-36); Bilirubin,Total 0.4 mg/dl (0.2-1.3); Blood Urea Nitrogen 11 mg/dl (7-17); Calcium 9.9 mg/dl (8.4-10.2); Carbon Dioxide 24 mmol/L (22.0-30.0); Creatinine Clearance Estimated 162 mL/min (50-200); Estimated Glomerular Filt Rate 114 ml/min (>60); GFR (African American) 138 ML/MIN (>60); Globulin 2.8 g/dL (1.3-3.2); Glucose 94 mg/dl (74-100); Total Protein,Serum 7.2 g/dl (6.3-8.2)
[2023-07-09 22:28] LABS: INR 0.94 (0.9-1.1); Magnesium 1.6 mg/dl (1.6-2.3); Prothrombin Time 10.2 seconds (10.1-12.5)
[2023-07-09 23:10] LABS: HCG,Quantitative 43149 mIU/ml (0-5.42)
[2023-07-10 01:58] VITALS: BP 128/70; PULSE 64; RESP 18; TEMP 37.2; O2SAT 99
== END 2023-07-10 01:59 | disposition home or self-care (01) ==
PROVIDERS: Physician Assistant; Emergency Provider Emergency Medicine; PCP Family Medicine
DX: O26.851 Spotting complicating pregnancy, first trimester (principal); Z3A.08 8 weeks gestation of pregnancy; R10.813 Right lower quadrant abdominal tenderness; R10.814 Left lower quadrant abdominal tenderness
CPT/HCPCS: 76830; 80053; 83735; 84702; 85025; 85610; 99284

== ENCOUNTER 2023-07-14 12:41 | Outpatient (CLI) | payer MEDICAID, SELFPAY ==
--- NOTE | 2023-07-14 12:41 | US_ITS ---
PROCEDURE: US OB <= 14 WEEKS FETUS CLINICAL INDICATION: Bleeding in Early Prengnacy , f/u US from ER COMPARISON: No exams were available for comparison FINDINGS: Transvaginal and transabdominal sonographic images of the pelvis were obtained. From her last menstrual period she is 8weeks 6days. Two intrauterine gestational sacs are present with a pole with a crown-rump length of 0.29cm This correlates to a gestational age of 6weeks 0 days. There appears to be 2 separate sacs. One sac appears to be empty. There is a hemorrhagic clot lateral to the gestational sacs. heart tones not definitively seen. Yolk sac is noted. The yolk sac measures 4.6mm. The right ovary is seen and appears normal. The left ovary is seen and appears normal. The ovary is seen transabdominally as it was difficult to see transvaginally. There is no fluid in the cul-de-sac. IMPRESSION: 1. Two separate gestational sacs with a yolk sac and pole seen in 1 sac. The 2nd sac is empty. 2. heart tones are not clearly identified today. 3. There appears to be a hemorrhagic area lateral to the gestational sacs. 4. Both ovaries are seen and appear normal. 5. Suggest repeat ultrasound in 1 week. Dictated by: Mane León MD 07/14/2023 16:44 Mane León MD in OV 07/14/2023 16:44
== END 2023-07-14 23:59 | disposition home or self-care (01) ==
LOC: RAD 12:41
PROVIDERS: PCP Nurse Practitioner Family; Visit Provider Obstetrics & Gynecology
DX: O20.8 Other hemorrhage in early pregnancy (principal)
CPT/HCPCS: 76801

== ENCOUNTER 2023-07-14 13:39 | Outpatient (CLI) | payer MEDICAID, SELFPAY ==
[2023-07-14 17:19] LABS: HCG,Quantitative 72805 mIU/ml (0-5.42)
== END 2023-07-14 23:59 | disposition home or self-care (01) ==
LOC: LAB 13:40
PROVIDERS: PCP Nurse Practitioner Family; Visit Provider Obstetrics & Gynecology
DX: O20.9 Hemorrhage in early pregnancy, unspecified (principal)
CPT/HCPCS: 36415; 84702

== ENCOUNTER 2023-07-15 17:09 | Outpatient (CLI) | payer MEDICAID, SELFPAY | END 2023-07-15 23:59 | disposition home or self-care (01) | LOC: LAB.DROPOF 17:09 | PROVIDERS: PCP Obstetrics & Gynecology; Visit Provider Obstetrics & Gynecology | DX: O26.891 Other specified pregnancy related conditions, first trimester (principal) | CPT/HCPCS: 87086 ==

== ENCOUNTER 2023-07-21 14:24 | Outpatient (CLI) | payer MEDICAID, SELFPAY ==
[2023-07-21 14:49] LABS: Basophils % 0.6 % (0.1-2.0); Eosinophils # 0.1 K/mm3 (0.0-0.4); Eosinophils % 1.2 % (0.1-12.0); Hemoglobin 12.6 g/dL (12.2-16.2); Lymphocytes # 1.8 K/mm3 (0.7-4.5); Lymphocytes % 22.8 % (10-50); Mean Corpuscular HGB Conc 33.3 g/dL (31.8-35.4); Mean Corpuscular Hemoglobin 28.4 pg (27.0-31.2); Mean Corpuscular Volume 85.3 fl (81-99); Mean Platelet Volume 8.3 fl (7.4-10.4); Monocytes # 0.3 K/mm3 (0.1-1.0); Monocytes % 4.1 % (1.7-9.3); Neutrophils # 5.6 K/mm3 (1.8-7.8); Neutrophils % 71.4 % (37.0-80.0); Platelet Count 246 K/mm3 (142-424); Red Blood Count 4.45 M/mm3 (4.20-5.40); Red Cell Distribution Width 14.5 % (11.5-17.5); White Blood Count 7.9 K/mm3 (4.8-10.8)
[2023-07-21 15:12] LABS: Alanine Aminotransferase 29 U/L (12-78); Albumin/Globulin Ratio 1.6 (1.1-1.8); Alkaline Phosphatase 49 U/L (38-126); Anion Gap 13.5 mEq/L (5-15); Aspartate Amino Transferase 26 U/L (14-36); Bilirubin,Total 0.4 mg/dl (0.2-1.3); Blood Urea Nitrogen 6 mg/dl (7-17); Calcium 9.4 mg/dl (8.4-10.2); Carbon Dioxide 22 mmol/L (22.0-30.0); Chloride 104 mmol/L (98-107); Estimated Glomerular Filt Rate 114 ml/min (>60); GFR (African American) 138 ML/MIN (>60); Globulin 2.5 g/dL (1.3-3.2); Glucose 121 mg/dl (74-100); Potassium 3.5 mmoL/L (3.5-5.1); Sodium 136 mmol/L (136-145); Total Protein,Serum 6.5 g/dl (6.3-8.2)
== END 2023-07-21 23:59 | disposition home or self-care (01) ==
LOC: LAB 14:24
PROVIDERS: PCP Nurse Practitioner Family; Visit Provider Obstetrics & Gynecology
DX: O03.9 Complete or unspecified spontaneous abortion without complication (principal); Z3A.10 10 weeks gestation of pregnancy
CPT/HCPCS: 36415; 80053; 85025; 86850

== ENCOUNTER 2023-07-24 07:55 | Day surgery (SDC) | payer MEDICAID, SELFPAY ==
[2023-07-24] VITALS (9 sets, daily range): BP systolic 100–149; BP diastolic 53–92; PULSE 62–72; RESP 14–18; TEMP 36.1–36.6; O2SAT 94–98; BMI 29.5
[2023-07-24] MEDS: LACTATED RINGERS 1000ML 1,000 ML 25 ML IV (08:26)
--- NOTE | 2023-07-24 08:51 | P.PNANES_ITS ---
[facility] Disclaimer: The information contained in this section may have been updated after the patient was seen, as this information can be updated by other users. Medical History Ora's disease Migraine Cholesterin granuloma Atypical chest pain Radicular neuropathy Surgical History Status post D&C H/O brain surgery Family History Grandmother Cancer Other Family history of diabetes mellitus Social History Smoking Status: Never smoker alcohol intake: never substance use type: denies use current occupational status: employed Travel in the last 8 weeks: None current occupational exposures/hazards: No [facility] Anesthesia Checklist Patient Identification Patient Identification: Arm Band and Verbal (Name & ) Structural Data Admitted From: Home Planned Operative Procedure/s: Clayton D & C Consent for Planned Operative Procedure(s) Verified: Yes NPO Status Verified Time NPO: 00:00 Chart Verification Results Verified: CBC Additional verifications Anesthesia Reactions: No Hx Blood Transfusions: No Blood Transfusion Reaction: No Airway Assessment Mallampati Score:: Class II C-Spine Mobility Assessed: Yes TMJ Mobility Assessed: Yes Dentition: Good Dentition Neurological Assessment Level of Consciousness: Awake Hx Seizures: No Numbness or tingling in extremities: No Anesthesia Plan Anesthesia Risk discussed: Yes Anesthesia Plan: Verified ASA Class: II Anesthesia Type: MAC
--- NOTE | 2023-07-24 09:02 | EXP.OP.NOTE ---
Date of procedure: 07/24/23 Pre-op Diagnosis:: 1. 6 weeks spontaneous 2. Desires surgical management 3. Rh+ 4. Desires genetic testing Post-op Diagnosis:: 1. 6 weeks spontaneous 2. Desires surgical management 3. Rh+ 4. Desires genetic testing Procedure performed:: Dilation and suction curettage Surgeon:: Georgia Ruiz DO [employer] SUPERVISOR:: Daxa Mena Anesthesia: GETA Estimated blood loss (mL): 100 Clinical Note:: Complications: None Operative findings:: Normal-appearing external genitalia. Dilated cervical os without bleeding. Operative note:: Lillian Sutton is a 33yo who presented with a 6-week spontaneous . Expectant, medical, and surgical management were explained to the patient and she elected to undergo surgical management. She was consented for suction D&C. Risk, benefits, and alternatives were reviewed. Risk including but not limited to uterine perforation, bleeding, and infection were discussed. Medications: Doxycycline 200 mg and 30 units of IV Pitocin The patient was taken back to the operating room where anesthesia was administered. She was placed in the dorsolithotomy position with yellowfin stirrups and sterilely prepped and draped with CHG in the usual fashion. In and out catheter was used to drain her bladder. Weighted speculum and a right angle retractor was used to visualize the cervix. A single-tooth tenaculum applied to the anterior lip cervix. Sen dilators were used to dilate the cervix to accommodate a #7 rigid suction curette. The suction curette was inserted to the fundus, hooked to suction, and twisted in a clockwise fashion until the curette was removed. Products noted in the tubing system previously discussed sending these products for [facility] genetic testing. This process was repeated until all uterine contents were removed. There were minimal contents noted but there was poor uterine cry or uterine contractility. The outer pulido of the endometrium was curetted with a number for sharp curette. This also did not achieve uterine cry and the uterus was felt to be atonic. There was very minimal bleeding noted though. Decision was made to give 30 units of IV Pitocin. Following this careful attention was given to the bleeding from the cervical os and was noted to be minimal. The single-tooth tenaculum was removed and hemostasis was noted. The speculum was removed and this completed the procedure. [facility] instructions were completed carefully and products were sent. The patient tolerated the procedure well and all instrument and sponge counts were correct x2. The patient was awakened from general anesthesia and taken to the recovery room in a stable condition. The patient will be sent home after meeting all discharge criteria and follow-up with me in 2 weeks. Condition: stable Disposition: PACU Specimens:: Products of conception sent for genetic testing Complications:: None
--- NOTE | 2023-07-24 09:39 | EXP.ANES.I ---
[facility] Anesthesia Record Part I Anesthesia Record I Intake, IV Amount: 500 Hydration: Adequate Estimated blood loss (mL): 100 Urine output (mL): 0 Blood Products used (#): none Blood Pressure: 146/89 SaO2: 94 Pulse Rate: 68 Airway Patency: Patent Respiratory Rate: 14 Temperature: 96.9 F Patient is:: Awake and Stable Stable to PACU at:: 09:35
--- NOTE | 2023-07-24 10:04 | SUR.OPER ---
specimens were obtained during the procedure to be sent out in a kit provided by the patients insurance company, all specimen containers were labeled appropriately with the date and personnel who obtained the specimen
[2023-07-24] MEDS: DOXYCYCLINE HYCL 100 MG TABLET 200 MG PO (10:17)
--- NOTE | 2023-07-24 10:21 | EXP.ANES.II ---
[facility] Anesthesia Record Part II Anesthesia Record Part II Discharge Time: 09:50 Destination: Surgical Day Care (OP Surgery) PACU nurse assessment reviewed?: Yes Patient Condition:: Good Anesthesia Complications:: None Swallowing reflex intact?: Yes Airway Patency: Patent Cyanosis?: No Blood Pressure: 145/86 SaO2: 98 Respiratory Rate: 18 Pulse Rate: 62 Temperature: 97.6 F Mental Status: Alert & Oriented Pain level:: 0 Nausea and/or vomitting:: None Intake, IV Amount: 500 Hydration: Adequate
== END 2023-07-24 10:31 | disposition home or self-care (01) ==
PROVIDERS: PCP Nurse Practitioner Family; Visit Provider Obstetrics & Gynecology
DX: A41.9 Sepsis, unspecified organism (principal)
CPT/HCPCS: J1100; J1885; J2250; J2405; J3010; J7120

== ENCOUNTER 2023-07-26 18:09 | Inpatient (IN) | payer MEDICAID, SELFPAY ==
[2023-07-26] VITALS (10 sets, daily range): BP systolic 102–126; BP diastolic 56–79; PULSE 96–125; RESP 14–20; TEMP 36.8–39.3; O2SAT 95–99; BMI 31.8
--- NOTE | 2023-07-26 18:16 | CT_ITS ---
PROCEDURE INFORMATION: Exam: CT Abdomen And Pelvis With Contrast Exam date and time: 07/26/2023 8:02 PM Age: 33 years old Clinical indication: Abdominal pain; Additional info: Recent d c, now febrile sirs + TECHNIQUE: Imaging protocol: Computed tomography of the abdomen and pelvis with contrast. Radiation optimization: All CT scans at this facility use at least one of these dose optimization techniques: automated exposure control; mA and/or kV adjustment per patient size (includes targeted exams where dose is matched to clinical indication); or iterative reconstruction. Contrast material: ISOVUE; Contrast volume: 70 ml; Contrast route: IV; COMPARISON: 1. CT ABDOMEN PELVIS W CON 03/12/2022 7:26 PM 2. US TRANSVAGINAL 07/26/2023 7:28 PM 3. US OB <= 14 WEEKS FETUS 07/20/2023 10:51 AM FINDINGS: Lungs: Scattered areas of bronchial wall thickening which are likely chronic inflammatory. A few areas of subpleural reticulation are noted, nonspecific. Pleural spaces: There are trace bilateral pleural effusions. Liver: Normal. Gallbladder and bile ducts: No acute process. Pancreas: Normal. Spleen: Normal. Adrenal glands: The adrenal glands appear normal. Kidneys and ureters: Moderate-sized left-sided parapelvic renal cyst is noted. There is mild bilateral pelvicaliectasis, possibly due to the significantly distended urinary bladder. Stomach and bowel: The stomach, small bowel, and colon are well-distended and show no evidence of wall thickening, masses, or obstruction. Appendix: No evidence of appendicitis. Intraperitoneal space: Unremarkable. Vasculature: There is atherosclerotic disease of the visualized aorta and its major branch vessels. Lymph nodes: No lymphadenopathy. Urinary bladder: See Kidneys and ureters finding. Reproductive: Small volume of free fluid in the endometrial canal with mild thickening, endometritis cannot be diagnosed by imaging. Please see the dedicated ultrasound. Bones/joints: There is diffuse degenerative disease of the visualized osseous structures. Soft tissues: There is a small fat containing umbilical hernia. IMPRESSION: Prominent endometrial lining better evaluated on concurrently performed ultrasound. Otherwise, unremarkable CT of the abdomen and pelvis. COMMENTS: Consistent with the [employer]'s Incidental Findings Committee white paper (J Am Manan Radiol 2018): Any incidental renal lesion less than 1 cm or classified as too small to characterize, or any incidental cystic renal lesion characterized as simple-appearing, is likely benign. No follow-up imaging is recommended for these lesions per consensus recommendations based on imaging criteria.
--- NOTE | 2023-07-26 18:16 | CT_ITS ---
PROCEDURE INFORMATION: Exam: CTA Chest With Contrast Exam date and time: 07/26/2023 8:02 PM Age: 33 years old Clinical indication: Fever; Additional info: Recent d c for miscarriage, now febrile, tachy TECHNIQUE: Imaging protocol: Computed tomographic angiography of the chest with contrast. Exam focused on the arteries. 3D rendering (Not supervised by radiologist): MIP and/or 3D reconstructed images were created by the technologist. Radiation optimization: All CT scans at this facility use at least one of these dose optimization techniques: automated exposure control; mA and/or kV adjustment per patient size (includes targeted exams where dose is matched to clinical indication); or iterative reconstruction. Contrast material: ISOVUE; Contrast volume: 70 ml; Contrast route: INTRAVENOUS (IV); COMPARISON: 1. CR CXR2V XR chest 2V 04/10/2018 11:[address] ABDOMEN PELVIS W CON 07/26/2023 8:[address] ABDOMEN PELVIS W CON 03/12/2022 7:26 PM FINDINGS: Pulmonary arteries: There is fair opacification of the pulmonary arterial tree. No central pulmonary arterial filling defect is seen. Aorta: Unremarkable. No aortic aneurysm. No aortic dissection. Other arteries: Subsegmental vessels are not well evaluated due to technical factors. Lungs: There is mild pulmonary edema. Parenchymal consolidations at the bases could be on the basis of atelectasis but underlying infection is not completely excluded. Pleural spaces: Unremarkable. No pneumothorax. No pleural effusion. Heart: Unremarkable. No cardiomegaly. No pericardial effusion. Lymph nodes: Unremarkable. No enlarged lymph nodes. Intraperitoneal space: Please see the dedicated interpretation of abdomen and pelvis for findings in that region. Bones/joints: Unremarkable. No acute fracture. Soft tissues: Unremarkable. IMPRESSION: 1. There is mild pulmonary edema. 2. No central pulmonary arterial filling defect is seen. Subsegmental vessels are not well evaluated due to technical factors. 3. Parenchymal consolidations at the bases could be on the basis of atelectasis but underlying infection is not completely excluded. 4. Please see the dedicated interpretation of abdomen and pelvis for findings in that region.
--- NOTE | 2023-07-26 18:18 | PC.NURSE ---
respiratory aware of vbg order
--- NOTE | 2023-07-26 18:19 | HMH.EDGENADL ---
Discharge Plan Disposition Patient Disposition: Admitted Clinical Impressions Clinical Impression: SIRS (systemic inflammatory response syndrome), Thickened endometrium, H/O dilation and curettage Discharge ED Provider: Meseret Florentino Adult HPI General Chief complaint: Weakness Stated complaint: weakness Time Seen by Provider: 07/26/23 18:12 History of Present Illness HPI narrative: This patient is a 33-year-old female with history of recent D&C 07/24/2023 for spontaneous at approximately 6 weeks estimated gestational age presenting with concern for feeling unwell. According to the patient's , she has not moved much for the last day and has been very sick. When asked what is going on, the patient states that she hurts all over. She is very tearful and anxious, and she does not provide further history. also reports that the patient had a syncopal episode prior to arrival. Related Data Previous Rx's Medication Instructions Recorded acetaminophen 500 mg tablet 500 mg PO Q6H PRN fever #30 tabs 07/24/23 ibuprofen 800 mg tablet 800 mg PO Q8H PRN pain #60 tabs 07/24/23 oxycodone 5 mg tablet 5 mg PO Q8H PRN pain #5 tabs 07/24/23 Allergies Allergy/AdvReac Type Severity Reaction Status Date / Time No Known Allergies Allergy Verified 07/26/23 18:28 [facility] Disclaimer: The information contained in this section may have been updated after the patient was seen, as this information can be updated by other users. Medical History Ora's disease Migraine Cholesterin granuloma Atypical chest pain Radicular neuropathy Surgical History Status post D&C H/O brain surgery Family History Grandmother Cancer Other Family history of diabetes mellitus Social History Smoking Status: Never smoker alcohol intake: never substance use type: denies use current occupational status: employed Travel in the last 8 weeks: None current occupational exposures/hazards: No ROS Obtained: Yes All systems reviewed & no additional complaints except as documented Physical Exam General General appearance: alert and anxious Comment: Anxious appearing. Arrives in a wheelchair and required almost total assistance to stand from the wheelchair and get over to the bed. Head Head exam: atraumatic and normocephalic Eye Eye exam: Present normal appearance, PERRL and EOMI ENT ENT exam: Present normal exam, normal oropharynx, mucous membranes dry and normal external ear exam Neck Neck exam: Present normal inspection, full ROM and trachea midline; Absent tenderness Chest Chest inspection: Present normal inspection and symmetric chest wall rise; Absent tenderness Respiratory Respiratory exam: Present normal lung sounds bilaterally; Absent respiratory distress, wheezes, stridor or accessory muscle use Cardiovascular Cardiovascular exam: Present normal rhythm and tachycardia Abdominal Exam Abdominal exam: Present soft and tenderness (Lower abdomen); Absent distention, guarding, rebound or rigidity Extremities Exam Extremities exam: Present normal inspection, full ROM and normal capillary refill; Absent tenderness or edema Back Exam Back exam: Present normal inspection and full ROM; Absent tenderness Neurological Exam Neurological exam: Present alert, oriented X3, CN II-XII intact and normal gait; Absent motor sensory deficit Psychiatric Psychiatric exam: Present anxious Skin Skin exam: Present warm, dry and pallor Medical Decision Making Medical Records Medical records reviewed: Yes I reviewed the patient's medical records. Zaid Inquiry Pt receiving controlled substance: No Vital Signs: 07/26/23 18:11 07/26/23 18:17 07/26/23 18:30 Temperature 102.7 F H Temperature Source Oral Pulse Rate 122 H 99 H Pulse Rate [Left] 125 H Respiratory Rate 19 Blood Pressure 126/79 119/70 Blood Pressure [Right Arm] 126/79 Blood Pressure Mean Blood Pressure Mean [Right Arm] 94 Blood Pressure Source Blood Pressure Source [Right Arm] Automatic Cuff Blood Pressure Position Blood Pressure Position [Right Arm] Sitting 02 Sat by Pulse Oximetry 98 98 99 Oxygen Delivery Method Room Air Room Air Room Air 07/26/23 18:59 07/26/23 18:59 07/26/23 19:00 Temperature 101.3 F H 101.3 F H Temperature Source Oral Oral Pulse Rate 105 H Pulse Rate [Left] Respiratory Rate Blood Pressure 105/58 L Blood Pressure [Right Arm] Blood Pressure Mean 73 Blood Pressure Mean [Right Arm] Blood Pressure Source Blood Pressure Source [Right Arm] Blood Pressure Position Blood Pressure Position [Right Arm] 02 Sat by Pulse Oximetry 95 Oxygen Delivery Method 07/26/23 20:29 07/26/23 20:29 07/26/23 20:30 Temperature 98.5 F Temperature Source Oral Pulse Rate 102 H 96 H 105 H Pulse Rate [Left] Respiratory Rate 20 Blood Pressure 105/62 L 105/62 L 109/61 L Blood Pressure [Right Arm] Blood Pressure Mean 73 70 Blood Pressure Mean [Right Arm] Blood Pressure Source Automatic Cuff Blood Pressure Source [Right Arm] Blood Pressure Position Supine Blood Pressure Position [Right Arm] 02 Sat by Pulse Oximetry 97 95 98 Oxygen Delivery Method Room Air 07/26/23 21:28 Temperature 98.5 F Temperature Source Pulse Rate 101 H Pulse Rate [Left] Respiratory Rate 14 Blood Pressure 109/61 L Blood Pressure [Right Arm] Blood Pressure Mean Blood Pressure Mean [Right Arm] Blood Pressure Source Blood Pressure Source [Right Arm] Blood Pressure Position Blood Pressure Position [Right Arm] 02 Sat by Pulse Oximetry Oxygen Delivery Method Lab Data Lab results reviewed: Yes I reviewed the patient's lab results. Lab Results 07/26/23 18:15: WBC 5.2, RBC 4.23, Hgb 12.0 L, Hct 36.3 L, MCV 85.7, MCH 28.4, MCHC 33.1, RDW 14.7, Plt Count 186, MPV 8.2, Neut % (Auto) 76.3, Lymph % (Auto) 16.3, [place] % (Auto) 6.2, Eos % (Auto) 0.6, Baso % (Auto) 0.6, Neut # (Auto) 4.0, Lymph # (Auto) 0.8, Jefferson # (Auto) 0.3, Eos # (Auto) 0.0, Baso # (Auto) 0.0, PT 10.8, INR 1.00, Sodium 133 L, Potassium 3.5, Chloride 101, Carbon Dioxide 23, Anion Gap 12.5, BUN 8, Creatinine 0.70, Estimated Creat Clear 145, Estimated GFR 95, Est GFR ( Amer) 115, Glucose 86, Calcium 8.8, Total Bilirubin 0.5, AST 25, ALT 26, Alkaline Phosphatase 51, Total Protein 6.3, Albumin 3.7, Globulin 2.6, Albumin/Globulin Ratio 1.4, Lipase 37, Procalcitonin 0.084, TSH 0.73, Thyroxine (T4) 11.4 H, HCG, Quant 8438 H 07/26/23 18:17: Chlamy pneumoniae PCR Not detected, Adenovirus (PCR) Not detected, B. pertussis DNA (PCR) Not detected, Coronavirus OC43 (PCR) Not detected, Coronavirus HKU1 (PCR) Not detected, Coronavirus 229E (PCR) Not detected, SARS-CoV-2 (PCR) Not detected 07/26/23 18:17: SARS-CoV-2 (PCR) Not detected, Coronavirus NL63 (PCR) Not detected, Human Metapneumovir PCR Not detected, Influenza A (H1) PCR Not detected, Influ A (H1N1/09) PCR Not detected, Influenza A (H3) PCR Not detected, Influenza Type A (PCR) Not detected, Influenza A Untype (PCR) Not detected, Influenza Type B (PCR) Not detected 07/26/23 18:17: Influenza Type B (PCR) Not detected, M. pneumoniae (PCR) Not detected, Parainfluenza 1 (PCR) Not detected, Parainfluenza 2 (PCR) Not detected, Parainfluenza 3 (PCR) Not detected, Parainfluenza 4 (PCR) Not detected, RSV (PCR) Not detected, Entero/Rhino (PCR) Not detected 07/26/23 18:18: VBG pH 7.44 H, VBG pCO2 32.4 L, VBG pO2 30.0, VBG HCO3 21.5 L, VBG Total CO2 22.5 L, VBG O2 Saturation 63.0, VBG Base Excess -2.6 L, VBG Lactic Acid 1.5 07/26/23 19:28: Urine Color Yellow, Urine Appearance Clear, Urine pH 7.5, Ur Specific [place] 1.020, Urine Protein Negative, Urine Glucose (UA) Negative, Urine Ketones Negative, Urine Blood 3+, Urine Nitrate Negative, Urine Bilirubin Negative, Urine Urobilinogen 1.0, Ur Leukocyte Esterase Negative, Urine RBC 10-20, Urine WBC Occasional, Ur Squamous Epith Cells 10-20, Urine Bacteria Trace 07/26/23 18:15 07/26/23 18:15 Orders (Tests/Meds): ED MEDICATIONS Generic Name Dose Route Start Last Admin Trade Name Freq PRN Reason Stop Dose Admin Acetaminophen 1,000 mg 07/26/23 21:49 Acetaminophen 500mg Tab PO 08/25/23 21:48 Q6HP PRN Fever or Mild-Mod Pain Piperacillin Sod/Tazobactam 50 mls @ 100 mls/hr 07/26/23 21:11 07/26/23 21:16 Sod 3.375 gm/ Sodium Chloride IV 07/26/23 21:40 100 mls/hr ONCE ONE Administration Doxycycline Hyclate 200 mg/ 250 mls @ 166.667 mls/hr 07/26/23 21:10 Sodium Chloride IV 07/26/23 21:11 ONCE ONE Metronidazole 500 mg in 100 mls @ 100 mls/hr 07/26/23 21:10 07/26/23 22:17 Flagyl 500mg/100ml Ivpb IV 07/26/23 22:09 100 mls/hr ONCE ONE Administration Lactated Ringer's 1,000 mls @ 125 mls/hr 07/26/23 22:30 Lactated Ringer's 1000 Ml Bag IV 08/25/23 22:29 .Q8H GABRIELLE Ibuprofen 800 mg 07/26/23 22:00 Ibuprofen 800 Mg Tablet PO 08/25/23 21:59 Q8H GABRIELLE Ondansetron HCl 4 mg 07/26/23 21:50 Ondansetron 4mg/2ml Vial IV 08/25/23 21:49 Q4HP PRN Nausea Oxycodone HCl 5 mg 07/26/23 21:51 07/26/23 22:17 Oxycodone 5mg Immediate Release Tablet PO 08/25/23 21:50 5 mg Q4HP PRN Administration MODERATE PAIN Sodium Chloride 10 ml 07/26/23 20:05 Sodium Chloride 0.9% 10ml Syr (Rad Only) IV 08/25/23 20:04 NEEDED PRN Maintain IV Site Discontinued Medications Generic Name Dose Route Start Last Admin Trade Name Freq PRN Reason Stop Dose Admin Acetaminophen 1,000 mg 07/26/23 18:16 07/26/23 18:30 Acetaminophen 1,000mg/100ml Vial IV 07/26/23 18:17 1,000 mg ONCE ONE Administration Acetaminophen 650 mg 07/26/23 21:12 Acetaminophen 325mg Tab PO 08/25/23 21:11 Q6HP PRN Fever or Mild Pain (1-3) Lactated Ringer's 1,570 mls @ 785 mls/hr 07/26/23 18:30 07/26/23 18:30 Lactated Ringer's 1000 Ml Bag 30 ml/kg infuse over 2 hr (1570 ml) 07/26/23 20:29 785 mls/hr IV Administration .Q2H ONE Ibuprofen 600 mg 07/26/23 21:12 Ibuprofen 600 Mg Tablet PO 08/25/23 21:11 Q6HP PRN Fever or Mild Pain (1-3) Iopamidol 70 ml 07/26/23 20:05 07/26/23 20:11 Iopamidol-370 (76%);100ml Bottle IV 07/26/23 20:06 70 ml ONCE ONE Administration Ketorolac Tromethamine 30 mg 07/26/23 19:02 07/26/23 20:23 Ketorolac 30mg/Ml Vial IV 07/26/23 19:03 30 mg ONCE ONE Administration Ondansetron HCl 4 mg 07/26/23 18:12 07/26/23 18:29 Ondansetron 4mg/2ml Vial IV 07/26/23 18:13 4 mg ONCE ONE Administration Sodium Chloride 50 ml 07/26/23 20:05 07/26/23 20:10 0.9 % Sodium Chloride 50 Ml Vial IV 07/26/23 20:06 50 ml ONCE ONE Administration ORDERS Category Date Time Status CT abdomen pelvis w con Stat Cat Scan 07/26/23 18:16 Completed CTA Chest [CT angio chest PE protocol] Stat Cat Scan 07/26/23 18:16 Completed US transvaginal Stat Exams 07/26/23 19:17 Completed Complete Blood Count Auto Diff Stat Lab 07/26/23 18:15 Completed Comprehensive Metabolic Panel Stat Lab 07/26/23 18:15 Completed Full Resp Panel w/COVID (H) Routine Lab 07/26/23 18:17 Completed HCG,Quantitative Stat Lab 07/26/23 18:15 Completed Lipase Stat Lab 07/26/23 18:15 Completed Procalcitonin Stat Lab 07/26/23 18:15 Completed Prothrombin Time INR Stat Lab 07/26/23 18:15 Completed Rapid PCR Covid and Flu A/B Stat Lab 07/26/23 18:17 Completed T4 (Thyroxine) Stat Lab 07/26/23 18:15 Completed TSH [Thyroid Stimulating Hormone] Stat Lab 07/26/23 18:15 Completed UA [Urinalysis and Microscopic] Stat Lab 07/26/23 19:28 Completed Blood Culture Stat Micro 07/26/23 18:15 Received VBG [Venous Blood Gas] Stat RT 07/26/23 18:18 Completed ECG Data Tracing #1: I reviewed this ECG and interpreted as documented below: Sinus tachycardia with a ventricular rate of [address] changes concerning for ischemia. Normal axis and intervals. ECG initial impression date: 07/26/23 ECG initial impression time: 18:14 Medical Decision Narrative: In summary, this patient is a 33-year-old female presenting to the Emergency Department for evaluation of generally feeling unwell in the setting of D&C 2 days ago for spontaneous . Patient also had a syncopal episode. Differential diagnoses considered include but are not limited to sepsis, retained products of conception, PE, viral syndrome, pneumonia, urinary tract infection. Ruling out the most morbid conditions drove assessment. I reviewed patient's past medical records and noted D&C 2 days ago. On exam, the patient is very anxious appearing and tearful. She requires repetitive questioning to obtain history, and she does not provide a very detailed history. She appears overall very weak and had to have total assistance to stand from the wheelchair and pivot over to the bed. She is febrile to 102.7 ?F and is tachycardic, but otherwise blood pressure and oxygen saturation are normal on cardiac telemetry. Workup included broad lab evaluation including infectious and metabolic workup as well as transvaginal ultrasound, CT PE, CT abdomen pelvis with IV contrast, and EKG. EKG obtained is reassuring with the exception of sinus tachycardia with a rate in the 120s. Patient was given a sepsis bolus of IV fluids. On reassessment, the patient is resting comfortably in bed. She is more alert and conversational after administration of antipyretics and fluids. She complains of pain all over, mostly in her low back. She was given IV Toradol for this. Labs are overall reassuring at this point with no significant leukocytosis, no significant neutrophilic predominance, normal lactic acid, and normal metabolic panel. hCG is elevated at 8438 in the setting of D&C 2 days ago. This was obtained for trending purposes so that it can be trended downward given her recent miscarriage. COVID and flu swab was negative, full respiratory panel was added on which was also negative. I independently interpreted CT scans and ultrasound prior to the radiologist read and noted endometrial thickening. Please see their read for final interpretation. At this time, I cannot find any other potential source of infection aside from the potential endometrial thickening related to her recent miscarriage and D&C. I called and had an interactive discussion with Dr. Ruiz with gynecology who advised she would recommend starting the patient on broad-spectrum antibiotics and admitting her for observation with cultures sent. After discussion, patient started on IV Zosyn, Flagyl, and given IV doxycycline. On multiple subsequent reassessments, the patient is resting comfortably with improvement in her heart rate and vital signs after administration of fluids and medications. She is feeling better and is overall less weak. Patient admitted in stable condition for further sepsis workup to OBGYN. Critical Care Critical Care Time Critical Care Time: No
[2023-07-26 18:21] LABS: Coronavirus 19, PCR Not Detected (NotDetected); Influenza A, PCR Not Detected (NotDetected); Influenza B, PCR Not Detected (NotDetected)
[2023-07-26 18:23] LABS: Lactate Venous 1.5 mmol/L (0.4-2.0); VBG Base Excess -2.6 mmol/L (-2.4-2.3); VBG HCO3 21.5 mmol/L (23-30); VBG PCO2 32.4 mmol/L (35-51); VBG PH 7.44 mmol/L (7.31-7.41); VBG Total CO2 22.5 mmol/L (23-27)
[2023-07-26] MEDS: ONDANSETRON 4MG/2ML VIAL 4 MG IV (18:29)
[2023-07-26] MEDS: ACETAMINOPHEN 1,000MG/100ML VIAL 1000 MG IV (18:30)
[2023-07-26] MEDS: LACTATED RINGERS 1000ML 1,570 ML 785 ML IV (18:30)
--- NOTE | 2023-07-26 18:30 | ECG_ITS ---
APPROVED REPORT Exam: Resting ECG HR:120 bpm ECG Measurements Heart Rate 120 AXES IL 131 P 56 QRSd 84 QRS 75 QT 312 T 26 QTc 383 Conclusion SINUS TACHYCARDIA NONSPECIFIC T-WAVE ABNORMALITY ABNORMAL RHYTHM ECG Electronically signed by : ALLIE ASHRAF, 07/26/2023 23:24:24
[2023-07-26 18:43] LABS: Basophils % 0.6 % (0.1-2.0); Eosinophils % 0.6 % (0.1-12.0); Hematocrit 36.3 % (37.0-47.0); Lymphocytes # 0.8 K/mm3 (0.7-4.5); Lymphocytes % 16.3 % (10-50); Mean Corpuscular HGB Conc 33.1 g/dL (31.8-35.4); Mean Corpuscular Hemoglobin 28.4 pg (27.0-31.2); Mean Corpuscular Volume 85.7 fl (81-99); Mean Platelet Volume 8.2 fl (7.4-10.4); Monocytes # 0.3 K/mm3 (0.1-1.0); Monocytes % 6.2 % (1.7-9.3); Neutrophils % 76.3 % (37.0-80.0); Platelet Count 186 K/mm3 (142-424); Red Blood Count 4.23 M/mm3 (4.20-5.40); Red Cell Distribution Width 14.7 % (11.5-17.5); White Blood Count 5.2 K/mm3 (4.8-10.8)
[2023-07-26 18:48] LABS: Prothrombin Time 10.8 seconds (10.1-12.5)
[2023-07-26 18:49] LABS: Lipase 37 U/L (23-300)
[2023-07-26 18:50] LABS: Alanine Aminotransferase 26 U/L (12-78); Albumin Level 3.7 g/dl (3.5-5.0); Albumin/Globulin Ratio 1.4 (1.1-1.8); Alkaline Phosphatase 51 U/L (38-126); Anion Gap 12.5 mEq/L (5-15); Aspartate Amino Transferase 25 U/L (14-36); Bilirubin,Total 0.5 mg/dl (0.2-1.3); Blood Urea Nitrogen 8 mg/dl (7-17); Calcium 8.8 mg/dl (8.4-10.2); Carbon Dioxide 23 mmol/L (22.0-30.0); Chloride 101 mmol/L (98-107); Creatinine Clearance Estimated 145 mL/min (50-200); Estimated Glomerular Filt Rate 95 ml/min (>60); GFR (African American) 115 ML/MIN (>60); Globulin 2.6 g/dL (1.3-3.2); Glucose 86 mg/dl (74-100); Potassium 3.5 mmoL/L (3.5-5.1); Sodium 133 mmol/L (136-145); Total Protein,Serum 6.3 g/dl (6.3-8.2)
[2023-07-26 19:07] LABS: Procalcitonin 0.084 ng/mL (0.0-2.0)
[2023-07-26 19:08] LABS: HCG,Quantitative 8438 mIU/ml (0-5.42); T4 (Thyroxine) 11.4 ug/dl (5.53-11.0)
[2023-07-26 19:15] LABS: Adenovirus,PCR Not Detected (NotDetected); Bordetella Pertussis Not Detected (NotDetected); Chlamydophila Pneumoniae, PCR Not Detected (NotDetected); Coronavirus 19, PCR Not Detected (NotDetected); Coronavirus 229E Not Detected (NotDetected); Coronavirus NL63 Not Detected (NotDetected); Coronavirus OC43 Not Detected (NotDetected); Coronovirus HKU1,PCR Not Detected (NotDetected); Human Metapneumovirus Not Detected (NotDetected); Influenza A, PCR Not Detected (NotDetected); Influenza AH1, 2009 Not Detected (NotDetected); Influenza AH1, PCR Not Detected (NotDetected); Influenza AH3,PCR Not Detected (NotDetected); Influenza B, PCR Not Detected (NotDetected); Mycoplasma Pneumoniae, PCR Not Detected (NotDetected); Parainfluenza 1, PCR Not Detected (NotDetected); Parainfluenza 2, PCR Not Detected (NotDetected); Parainfluenza 3, PCR Not Detected (NotDetected); Parainfluenza 4, PCR Not Detected (NotDetected); Respiratory Syncytial Virus Not Detected (NotDetected); Rhinovirus/Enterovirus Not Detected (NotDetected)
--- NOTE | 2023-07-26 19:17 | US_ITS ---
PROCEDURE INFORMATION: Exam: US Pelvis, Transvaginal, Non-Obstetric Exam date and time: 07/26/2023 7:28 PM Age: 33 years old Clinical indication: Pelvic pain; Prior surgery; Surgery date: 3-7 days post-operative; Surgery type: D/c; Additional info: Fever after d c TECHNIQUE: Imaging protocol: Real-time transvaginal pelvic (non-obstetric) ultrasound with image documentation. Transvaginal imaging was used for better evaluation of the endometrium, adnexa, and/or cervix. COMPARISON: US TRANSVAGINAL 07/09/2023 10:40 PM FINDINGS: Uterus: Endometrium appears mildly thickened measuring up to 1.3 cm with a small volume of fluid. Uterus measures 12.5 x 7.4 x 9.0 cm. Right ovary/adnexa: Right ovary measures four 2 x 2 4 x 2 4 cm. There is normal arterial and venous flow to the right ovary. Left ovary/adnexa: Left ovary measures 3.7 x 2 4 x 1.8 cm. There is normal arterial and venous flow to the left ovary. Urinary bladder: Urinary bladder is limited. Intraperitoneal space: No free fluid. IMPRESSION: Somewhat bulky uterus with thickened endometrial lining.
[2023-07-26 19:22] LABS: Thyroid Stimulating Hormone 0.73 uIU/mL (0.465-4.68)
[2023-07-26 19:38] LABS: Microscopic, Urine URINE MICROSCOPIC (MICROSCOPIC)
[2023-07-26 19:40] LABS: Appearance,Urine CLEAR (Clear); Bilirubin,Urine Negative (Negative); Blood, Urine 3+ (Negative); Color,Urine YELLOW (Yellow); Glucose,Urine (UA) Negative (Negative); Ketones,Urine Negative (Negative); Leukocyte Esterase,Urine Negative (Negative); Nitrate,Urine Negative (Negative); PH,Urine 7.5 (5.0-8.5); Protein,Urine Negative (Negative)
[2023-07-26 19:58] LABS: Bacteria,Urine Trace /lpf; WBC,Urine Occasional #/hpf (0-3)
[2023-07-26] MEDS: 0.9 % SODIUM CHLORIDE 50 ML VIAL IV (20:10)
[2023-07-26] MEDS: IOPAMIDOL-370 (76%);100ML BOTTLE 70 ML IV (20:11)
[2023-07-26] MEDS: KETOROLAC 30MG/ML VIAL 30 MG IV (20:23)
--- NOTE | 2023-07-26 21:11 | PC.NURSE ---
Dr Florentino spoke with Dr Ruiz.
--- NOTE | 2023-07-26 21:15 | PC.NURSE ---
Patient admitted to room [address] Ruiz for sepsis; observation status.
[2023-07-26] MEDS: PIPERACILLIN/TAZO 3.375 GM in 0.9 % SODIUM CHLORIDE 50 ML IV (21:16)
--- NOTE | 2023-07-26 21:20 | PC.NURSE ---
Dr. Ruiz called at this time to inform us of this patient being admitted, ordered 800mg Motrin PO Q8 scheduled for fever/pain, 1,000mg Tylenol PO Q6 PRN for fever/pain, Oxycodone 5mg PO Q4 PRN for moderate pain, Zofran 4mg IV Q4hr for nausea, and LR @125ml/hr. orders verified and read back by this RN.
--- NOTE | 2023-07-26 21:26 | PC.NURSE ---
report received from Ky Alfonso RN
--- NOTE | 2023-07-26 21:26 | PC.NURSE ---
Report called to Selina FRANKLIN
[2023-07-26] MEDS: METRONIDAZ/SOD CHL 500 MG/100 ML PIGGYBACK 100 MG IV (22:17)
[2023-07-26] MEDS: OXYCODONE 5MG IMMEDIATE RELEASE TABLET 5 MG PO (22:17)
--- NOTE | 2023-07-26 22:44 | P.HP_ITS ---
History of Present Illness *Admission Date: 07/26/23 *Reason for visit:: fever *History of present illness: Lillian Sutton is a 33 yo POD#2 from an uncomplicated suction D&C after a 6wk SAB. Of note she had a suction D&C in 10/2022 secondary to a SAB as well. Lillian states that for the first 12 hours after her D&C she felt similar to her previous surgery. States she really started feeling bad last night. States her fever started last night or maybe this morning. On arrival it was 102+ and with that temperature she has a syncopal episode that was reported by her significant other and per ED physician was having difficulty holding a conversation. After her fever improved she has communicated well with me and my history was obtained soley from the patient, her spouse was home caring for their children. Reports she just generally feels unwell. Reports she has right lower quadrant pain that radiates to her back and up her spine also causing a headache. Endorses this also occasionally occurs on the left as well. Reports she is voiding without difficulty. Near her bedside table is Rare Pink fries and a coke which she has consumed about half. She had a sandwich and a slice of pizza yesterday without emesis. She states she feels a little nauseous but denies any vomiting. She is passing flatus but has not had a bowel movement since surgery. She has not had any vaginal bleeding, reports only some scant spotting similar to what she previously experienced with her D&C. [facility] Disclaimer: The information contained in this section may have been updated after the patient was seen, as this information can be updated by other users. Medical History Ora's disease Migraine Cholesterin granuloma Atypical chest pain Radicular neuropathy Surgical History Status post D&C H/O brain surgery Family History Grandmother Cancer Other Family history of diabetes mellitus Social History Smoking Status: Never smoker alcohol intake: never substance use type: denies use current occupational status: employed Travel in the last 8 weeks: None current occupational exposures/hazards: No Review of Systems Review of Systems Review of systems (narrative): Review of Systems Constitutional: endorses fever, chills, and sweats Eyes: Denies vision change/ pain Respiratory: Denies cough and shortness of breath Cardiovascular: Denies chest pain and lightheadedness. endorses fatigue and malaise Gastrointestinal: Admits abdominal pain and pelvic pain. endorses nausea. Denies vomiting. Genitourinary: Denies dysuria and incontinence Musculoskeletal: Denies shoulder pain. endorses back pain Neurological: Denies change in speech or headaches Meds Home Medications and Allergies Home Medications Medication Instructions Recorded Confirmed Type acetaminophen 500 mg tablet 500 mg PO Q6H PRN fever #30 tabs 07/24/23 Rx ibuprofen 800 mg tablet 800 mg PO Q8H PRN pain #60 tabs 07/24/23 Rx oxycodone 5 mg tablet 5 mg PO Q8H PRN pain #5 tabs 07/24/23 Rx New Prescriptions to Start Prescriptions: Allergies Allergy/AdvReac Type Severity Reaction Status Date / Time No Known Allergies Allergy Verified 07/26/23 18:28 Exam Data for Last 24 hours Vital signs and Labs for Last 24 Hours: Temp Pulse Resp BP Pulse Ox O2 Del Method 98.3 F 98 H 17 102/56 L 96 Room Air 07/26/23 21:40 07/26/23 21:40 07/26/23 21:40 07/26/23 21:40 07/26/23 21:56 07/26/23 21:56 Laboratory Results - last 24 hr 07/26/23 18:15: WBC 5.2, RBC 4.23, Hgb 12.0 L, Hct 36.3 L, MCV 85.7, MCH 28.4, MCHC 33.1, RDW 14.7, Plt Count 186, MPV 8.2, Neut % (Auto) 76.3, Lymph % (Auto) 16.3, [place] % (Auto) 6.2, Eos % (Auto) 0.6, Baso % (Auto) 0.6, Neut # (Auto) 4.0, Lymph # (Auto) 0.8, [place] # (Auto) 0.3, Eos # (Auto) 0.0, Baso # (Auto) 0.0, PT 10.8, INR 1.00, Sodium 133 L, Potassium 3.5, Chloride 101, Carbon Dioxide 23, Anion Gap 12.5, BUN 8, Creatinine 0.70, Estimated Creat Clear 145, Estimated GFR 95, Est GFR ( Amer) 115, Glucose 86, Calcium 8.8, Total Bilirubin 0.5, AST 25, ALT 26, Alkaline Phosphatase 51, Total Protein 6.3, Albumin 3.7, Globulin 2.6, Albumin/Globulin Ratio 1.4, Lipase 37, Procalcitonin 0.084, TSH 0.73, Thyroxine (T4) 11.4 H, HCG, Quant 8438 H 07/26/23 18:17: Chlamy pneumoniae PCR Not detected, Adenovirus (PCR) Not detected, B. pertussis DNA (PCR) Not detected, Coronavirus OC43 (PCR) Not detected, Coronavirus HKU1 (PCR) Not detected, Coronavirus 229E (PCR) Not detected, SARS-CoV-2 (PCR) Not detected 07/26/23 18:17: SARS-CoV-2 (PCR) Not detected, Coronavirus NL63 (PCR) Not detected, Human Metapneumovir PCR Not detected, Influenza A (H1) PCR Not detected, Influ A (H1N1/09) PCR Not detected, Influenza A (H3) PCR Not detected, Influenza Type A (PCR) Not detected, Influenza A Untype (PCR) Not detected, Influenza Type B (PCR) Not detected 07/26/23 18:17: Influenza Type B (PCR) Not detected, M. pneumoniae (PCR) Not detected, Parainfluenza 1 (PCR) Not detected, Parainfluenza 2 (PCR) Not detected, Parainfluenza 3 (PCR) Not detected, Parainfluenza 4 (PCR) Not detected, RSV (PCR) Not detected, Entero/Rhino (PCR) Not detected 07/26/23 18:18: VBG pH 7.44 H, VBG pCO2 32.4 L, VBG pO2 30.0, VBG HCO3 21.5 L, VBG Total CO2 22.5 L, VBG O2 Saturation 63.0, VBG Base Excess -2.6 L, VBG Lactic Acid 1.5 07/26/23 19:28: Urine Color Yellow, Urine Appearance Clear, Urine pH 7.5, Ur Specific [place] 1.020, Urine Protein Negative, Urine Glucose (UA) Negative, Urine Ketones Negative, Urine Blood 3+, Urine Nitrate Negative, Urine Bilirubin Negative, Urine Urobilinogen 1.0, Ur Leukocyte Esterase Negative, Urine RBC 10- 20, Urine WBC Occasional, Ur Squamous Epith Cells 10-20, Urine Bacteria Trace I & O for Last 24 hours: Intake & Output 07/23/23 07/24/23 07/25/23 07/26/23 23:59 23:59 23:59 23:59 Output Total 0 / 0 Balance 0 / 0 Weight 180 lb *Routine HEENT Exam Head: Present normocephalic and atraumatic Eye: Present EOMI, PERRL and normal accommodation; Absent conjunctival icterus, scleral injection, nystagmus or exophthalmos ENT: Present mucous membranes moist *Routine Neck Exam Neck: Present supple and full ROM *Routine Respiratory Exam Respiratory: Present CTA bilaterally, normal respiratory effort, able to speak in complete sentences and symmetric chest movement; Absent accessory muscle use, decreased breath sounds, rales, respiratory distress, wheezes, distant breath sounds or diminished air movement *Routine Cardiovascular Exam Cardiovascular: Present RRR, Normal S1 and Normal S2; Absent murmur or gallop Comments: tachycardia had resolved on my exam *Routine Abdominal Exam Abdominal: Present soft, normoactive bowel sounds (BS appreciated in all 4 quadrants ), tenderness (generalized in all 4 quadrants, worse with pushing in and relief with letting off pressure) and hernia (fat containing hernia noted on CT); Absent distended, rebound, guarding, firm or rigid *Routine Rectal Exam Rectal:: deferred *Routine Genitalia Exam Genitalia:: normal female *Routine Extremities Exam Extremities: Present full ROM; Absent cyanosis or clubbing Routine Back/Spine/Pelvis Exam Back/Spine: Present full ROM and paraspinal tenderness; Absent CVA tenderness *Routine Skin Exam Skin: Present intact; Absent cyanosis, erythema, dry, pallor, mottling or petechiae *Routine Neurological Exam Neurological: Present alert, oriented X3, normal reflexes, moving all extremities and normal speech; Absent sensory deficit or motor deficit Routine Psychiatric Exam Psychiatric: Present normal affect, normal thought process, cooperative, good insight and good judgment Assessment and Plan *Assessment and plan (1) H/O dilation and curettage: Status: Acute Category: Surgical Code(s): Z98.890 - Other specified postprocedural states (2) SIRS (systemic inflammatory response syndrome): Status: Acute Category: Medical Code(s): R65.10 - Systemic inflammatory response syndrome (SIRS) of non-infectious origin without acute organ dysfunction Plan Decision was made to admit her and keep her for prolonged observation. My differential at this time includes but is not limited to: Septic , endometritis, sepsis, uterine perforation, uterine perforation with bowel injury, retained products of conception, UTI, atelectasis, or PNA -Blood and urine cultures obtained -1 dose of 200 mg IV doxycycline ordered -Continue Zosyn 3.375 g every 6 hours -Continue metronidazole 500 mg IV every 12 hours -Ibuprofen 800 mg every 8 hours scheduled for fever and pain -Acetaminophen 1000 mg every 6 hours as needed fever and pain -Oxycodone 5 mg every 4 hours as needed pain -Zofran as needed nausea -continue monitor closely for abdominal distension or increasing abdominal tenderness. -Low threshold to repeat CT to scan for pneumoperitoneum or gas in the abdomen. -monitor I&O -DIC labs normal -Hgb has remains stable -No leukocytosis -Negative respiratory panel -Mild tachycardia which appears to possibly be the patient's baseline continue monitoring -Blood pressure is currently 109/61. Review of blood pressures through 2017 shows several blood pressures at 109/72, 116/70, 110/66 indicating that this may Possibly be the patient's baseline. We will continue monitoring Imagin. Transvaginal ultrasound reviewed which was significant for a thickened endometrial lining 2. Chest CT reviewed significant for possible atelectasis underlying infection not completely excluded 3. Abdominal CT reviewed significant for: * Trace bilateral pleural effusions * Moderate left-sided parapelvic renal cyst (previously noted on older scan), mild bilateral pelvicaliectasis, possibly secondary to a distended bladder * Stomach, small bowel, and colon are well-distended and show no evidence of wall thickening, masses, or obstruction. * No evidence of appendicitis * Small free fluid in the endometrial canal with mild thickening
--- NOTE | 2023-07-26 22:51 | PC.NURSE ---
Dr. Ruiz at bedside, orders to check temperature Q2hrs to monitor for fever received, order verified and read back.
[2023-07-26] MEDS: LACTATED RINGERS 1000ML 1,000 ML 125 ML IV (23:19)
[2023-07-26] MEDS: DOXYCYCLINE HYCLATE 200 MG in 0.9 % SODIUM CHLORIDE 250 ML 166.667000000000002 MG IV (23:19)
[2023-07-27] VITALS (10 sets, daily range): BP systolic 93–108; BP diastolic 47–72; PULSE 69–88; RESP 16–18; TEMP 36.4–38.2; O2SAT 94–100
[2023-07-27] MEDS: PIPERACILLIN/TAZO 3.375 GM in 0.9 % SODIUM CHLORIDE 50 ML IV ×4 (04:01→22:55)
[2023-07-27] MEDS: ACETAMINOPHEN 500MG TAB 1000 MG PO ×2 (04:02→20:07)
[2023-07-27] MEDS: IBUPROFEN 800 MG TABLET PO (04:02)
--- NOTE | 2023-07-27 04:09 | PC.NURSE ---
patient laying in bed for reassessment, pt has rested throughout the night, lung sounds clear bilaterally throughout, bowel sounds active in all quadrants, pt has voided on commode with stand by assist to the bathroom, vitals have been stable, temperature remains in the 98 degree range throughout the night. patient woke up shivering and rating pain 6/10 at this time temperature was 98.2 oral and 98.4 axiliary. scheduled motrin given with PRN tylenol. patient denies other needs at this time.
[2023-07-27] MEDS: OXYCODONE 5MG IMMEDIATE RELEASE TABLET 5 MG PO (04:44)
[2023-07-27 06:50] LABS: Basophils % 1.2 % (0.1-2.0); Eosinophils # 0.1 K/mm3 (0.0-0.4); Eosinophils % 2.1 % (0.1-12.0); Hematocrit 31.9 % (37.0-47.0); Lactic Acid 0.8 mmol/L (0.7-2.1); Lymphocytes # 0.6 K/mm3 (0.7-4.5); Lymphocytes % 18.9 % (10-50); Mean Corpuscular HGB Conc 33.4 g/dL (31.8-35.4); Mean Corpuscular Hemoglobin 28.7 pg (27.0-31.2); Mean Corpuscular Volume 85.9 fl (81-99); Mean Platelet Volume 8.8 fl (7.4-10.4); Monocytes # 0.3 K/mm3 (0.1-1.0); Monocytes % 7.4 % (1.7-9.3); Neutrophils # 2.4 K/mm3 (1.8-7.8); Neutrophils % 70.3 % (37.0-80.0); Platelet Count 165 K/mm3 (142-424); Red Blood Count 3.71 M/mm3 (4.20-5.40); Red Cell Distribution Width 14.5 % (11.5-17.5); White Blood Count 3.4 K/mm3 (4.8-10.8)
[2023-07-27 06:51] LABS: Chloride 106 mmol/L (98-107); Potassium 3.4 mmoL/L (3.5-5.1); Sodium 134 mmol/L (136-145)
[2023-07-27 06:54] LABS: Alanine Aminotransferase 18 U/L (12-78); Albumin/Globulin Ratio 1.3 (1.1-1.8); Alkaline Phosphatase 52 U/L (38-126); Anion Gap 6.4 mEq/L (5-15); Aspartate Amino Transferase 20 U/L (14-36); Bilirubin,Total 0.4 mg/dl (0.2-1.3); Blood Urea Nitrogen 9 mg/dl (7-17); Carbon Dioxide 25 mmol/L (22.0-30.0); Creatinine Clearance Estimated 145 mL/min (50-200); Estimated Glomerular Filt Rate 95 ml/min (>60); GFR (African American) 115 ML/MIN (>60); Globulin 2.3 g/dL (1.3-3.2); Total Protein,Serum 5.3 g/dl (6.3-8.2)
[2023-07-27 06:55] LABS: Glucose 83 mg/dl (74-100)
[2023-07-27 07:19] LABS: Amylase 31 U/L (30-110)
[2023-07-27 07:25] LABS: C-Reactive Protein 72.9 mg/L (0-4)
--- NOTE | 2023-07-27 07:55 | PC.NURSE ---
here to see pt. Labs reviewed. Awaiting new lab results from this morning. CT reviewed. No new orders at this time.
[2023-07-27 08:20] LABS: Hemoglobin 10.7 g/dL (12.2-16.2)
--- NOTE | 2023-07-27 08:35 | EXP.ACUTE.PN ---
Subjective *Date: 07/27/23 *Time: 09:39 Interval history: Lillian is doing okay. She admits abdominal pain is unchanged. She is still having normal cramping after a D&C but is also having sharp pains. Oral pain medication takes the edge off. She reports lightheadedness, nausea and decreased appetite. She is having minimal vaginal bleeding. Voiding without difficulty and passing flatus. Denies chest pain and shortness of breath. She has not had any more fevers since last night but she is taking Ibuprofen scheduled for pain. Denies vomiting. She does admit to feeling like her abdomen is a little bloated. Medical Exam Vital signs and Labs for Last 24 Hours: Vital Signs Temp Pulse Pulse Resp BP BP Pulse Ox 07/27/23 06:20 97.9 F 07/27/23 04:00 98.2 F 86 16 103/68 L 98 07/27/23 03:20 07/27/23 02:00 98 F 07/27/23 01:45 07/27/23 00:00 97.9 F 88 16 101/47 L 94 L 07/26/23 23:03 07/26/23 21:56 96 07/26/23 21:40 98.3 F 98 H 17 102/56 L 96 07/26/23 21:28 98.5 F 101 H 14 109/61 L 07/26/23 20:30 105 H 109/61 L 98 07/26/23 20:29 96 H 105/62 L 95 07/26/23 20:29 98.5 F 102 H 20 105/62 L 97 07/26/23 19:00 105 H 105/58 L 95 07/26/23 18:59 101.3 F H 07/26/23 18:59 101.3 F H 07/26/23 18:30 99 H 119/70 99 07/26/23 18:17 102.7 F H 125 H 19 126/79 98 07/26/23 18:11 122 H 126/79 98 O2 Del Method 07/27/23 06:20 07/27/23 04:00 Room Air 07/27/23 03:20 Room Air 07/27/23 02:00 07/27/23 01:45 Room Air 07/27/23 00:00 Room Air 07/26/23 23:03 Room Air 07/26/23 21:56 Room Air 07/26/23 21:40 Room Air 07/26/23 21:28 07/26/23 20:30 07/26/23 20:29 07/26/23 20:29 Room Air 07/26/23 19:00 07/26/23 18:59 07/26/23 18:59 07/26/23 18:30 Room Air 07/26/23 18:17 Room Air 07/26/23 18:11 Room Air Intake and Output 07/26/23 07/27/23 07/27/23 23:59 07:59 15:59 Output Total 200 / 200 800 / 800 Balance -200 / -200 -800 / -800 Output: Output, Urine Amount 200 / 200 800 / 800 Other: Weight 180 lb Laboratory Results - last 24 hr 07/26/23 18:15: WBC 5.2, RBC 4.23, Hgb 12.0 L, Hct 36.3 L, MCV 85.7, MCH 28.4, MCHC 33.1, RDW 14.7, Plt Count 186, MPV 8.2, Neut % (Auto) 76.3, Lymph % (Auto) 16.3, [place] % (Auto) 6.2, Eos % (Auto) 0.6, Baso % (Auto) 0.6, Neut # (Auto) 4.0, Lymph # (Auto) 0.8, [place] # (Auto) 0.3, Eos # (Auto) 0.0, Baso # (Auto) 0.0, PT 10.8, INR 1.00, Sodium 133 L, Potassium 3.5, Chloride 101, Carbon Dioxide 23, Anion Gap 12.5, BUN 8, Creatinine 0.70, Estimated Creat Clear 145, Estimated GFR 95, Est GFR ( Amer) 115, Glucose 86, Calcium 8.8, Total Bilirubin 0.5, AST 25, ALT 26, Alkaline Phosphatase 51, Total Protein 6.3, Albumin 3.7, Globulin 2.6, Albumin/Globulin Ratio 1.4, Lipase 37, Procalcitonin 0.084, TSH 0.73, Thyroxine (T4) 11.4 H, HCG, Quant 8438 H 07/26/23 18:17: Chlamy pneumoniae PCR Not detected, Adenovirus (PCR) Not detected, B. pertussis DNA (PCR) Not detected, Coronavirus OC43 (PCR) Not detected, Coronavirus HKU1 (PCR) Not detected, Coronavirus 229E (PCR) Not detected, SARS-CoV-2 (PCR) Not detected 07/26/23 18:17: SARS-CoV-2 (PCR) Not detected, Coronavirus NL63 (PCR) Not detected, Human Metapneumovir PCR Not detected, Influenza A (H1) PCR Not detected, Influ A (H1N1/09) PCR Not detected, Influenza A (H3) PCR Not detected, Influenza Type A (PCR) Not detected, Influenza A Untype (PCR) Not detected, Influenza Type B (PCR) Not detected 07/26/23 18:17: Influenza Type B (PCR) Not detected, M. pneumoniae (PCR) Not detected, Parainfluenza 1 (PCR) Not detected, Parainfluenza 2 (PCR) Not detected, Parainfluenza 3 (PCR) Not detected, Parainfluenza 4 (PCR) Not detected, RSV (PCR) Not detected, Entero/Rhino (PCR) Not detected 07/26/23 18:18: VBG pH 7.44 H, VBG pCO2 32.4 L, VBG pO2 30.0, VBG HCO3 21.5 L, VBG Total CO2 22.5 L, VBG O2 Saturation 63.0, VBG Base Excess -2.6 L, VBG Lactic Acid 1.5 07/26/23 19:28: Urine Color Yellow, Urine Appearance Clear, Urine pH 7.5, Ur Specific [place] 1.020, Urine Protein Negative, Urine Glucose (UA) Negative, Urine Ketones Negative, Urine Blood 3+, Urine Nitrate Negative, Urine Bilirubin Negative, Urine Urobilinogen 1.0, Ur Leukocyte Esterase Negative, Urine RBC 10-20, Urine WBC Occasional, Ur Squamous Epith Cells 10-20, Urine Bacteria Trace 07/27/23 06:20: WBC 3.4 L D, RBC 3.71 L, Hgb 10.7 L D, Hct 31.9 L, MCV 85.9, MCH 28.7, MCHC 33.4, RDW 14.5, Plt Count 165, MPV 8.8, Neut % (Auto) 70.3, Lymph % (Auto) 18.9, [place] % (Auto) 7.4, Eos % (Auto) 2.1, Baso % (Auto) 1.2, Neut # (Auto) 2.4, Lymph # (Auto) 0.6 L, [place] # (Auto) 0.3, Eos # (Auto) 0.1, Baso # (Auto) 0.0, Sodium 134 L, Potassium 3.4 L, Chloride 106, Carbon Dioxide 25, Anion Gap 6.4, BUN 9, Creatinine 0.70, Estimated Creat Clear 145, Estimated GFR 95, Est GFR ( Amer) 115, Glucose 83, Lactate 0.8, Calcium 8.0 L, Total Bilirubin 0.4, AST 20, ALT 18 D, Alkaline Phosphatase 52, C-Reactive Protein 72.9 H, Total Protein 5.3 L, Albumin 3.0 L D, Globulin 2.3, Albumin/Globulin Ratio 1.3, Amylase 31 I & O for Labs for Last 24 Hours: Intake & Output 07/24/23 07/25/23 07/26/23 07/27/23 23:59 23:59 23:59 23:59 Output Total 200 / 200 800 / 800 Balance -200 / -200 -800 / -800 Weight 180 lb Constitutional: Present mild distress and cooperative Head: Present atraumatic and normocephalic ENT: Present normal exam Neck: Present full ROM Respiratory: Present CTA bilaterally and normal respiratory effort Cardiac: Present Reg Rate and Rhythm GI: Present soft, distention (mild distension), tenderness (mild generalized tenderness, Lower abdomen > upper abdomen) and hypoactive bowel sounds (lower quadrant BS are hypoactive); Absent guarding Rectal (female): Present deferred (female): Present deferred Extremities: Present full ROM; Absent edema Neuro: Present alert and awake Assessment and Plan *Assessment and plan (1) H/O dilation and curettage: Status: Acute Category: Surgical Code(s): Z98.890 - Other specified postprocedural states (2) Thickened endometrium: Status: Acute Category: Medical Code(s): R93.89 - Abnormal findings on diagnostic imaging of other specified body structures Plan Continue antibiotics CT abdomen with contrast did not demonstrated any signs of bowel injury or bowel pathology. Regular diet as tolerated Pelvic ultrasound demonstrated bulky uterus without somewhat thickened endometrium. Ovaries appeared within normal limits WBC this morning is WNL Continue PO pain medication Blood and urine cultures pending Will continue to monitor closely
[2023-07-27] MEDS: LACTATED RINGERS 1000ML 1,000 ML 125 ML IV ×2 (08:38→23:51)
[2023-07-27] MEDS: METRONIDAZ/SOD CHL 500 MG/100 ML PIGGYBACK 100 MG IV (08:44)
[2023-07-27] MEDS: ONDANSETRON 4MG/2ML VIAL 4 MG IV (11:50)
[2023-07-27] MEDS: IBUPROFEN 400 MG TABLET 800 MG PO (11:51)
[2023-07-27] MEDS: SODIUM CHLORIDE 0.9% 10ML FLUSH SYRINGE 10 ML IV (11:51)
--- NOTE | 2023-07-27 12:12 | PC.NURSE ---
Moderate amt (300-400mls) of brown, clear emesis. States that vomiting did not help with her nausea, that she remains just as nauseated as before vomiting.
--- NOTE | 2023-07-27 12:30 | PC.NURSE ---
in department. Informed about recent emesis episode. V/U. discussed POC with stone and concrete washer surgeon (). V/O received for Phenergan 12.5mg IV q6hr prn and CT of ABD with oral contrast. R/V. Radiology notified.
--- NOTE | 2023-07-27 12:50 | CT_ITS ---
FINAL REPORT TECHNIQUE: Axial CT images of the abdomen and pelvis were obtained before and after the administration of IV contrast. Oral contrast was administered.This study was performed with techniques to keep radiation doses as low as reasonably achievable (ALARA). Individualized dose reduction techniques using automated exposure control or adjustment of mA and/or kV according to the patient''s size were employed. CLINICAL HISTORY: ABDOMINAL PAIN COMPARISON: Report from CT dated 07/26/2023 FINDINGS: ABDOMEN There are small pleural effusions. There is mild bibasilar atelectasis.. The heart is normal in size. The liver has an unremarkable appearance, without evidence of mass or biliary duct dilatation. . The spleen is unremarkable. No adrenal masses present. The pancreas has an unremarkable appearance. The kidneys enhance normally. The aorta is normal in caliber. There is no free fluid or adenopathy. No mass or abnormal fluid collection is seen. There is an umbilical hernia containing fat. Precontrast images demonstrate no evidence of nephrolithiasis. PELVIS The appendix is normal. The urinary bladder is unremarkable. The uterus is moderately enlarged. There is a heterogeneous, partially contrast-enhancing area involving the left uterine fundus with prominent adjacent parauterine veins. This is of uncertain significance and could represent localized inflammation. There is no adenopathy. There is no evidence of bowel obstruction. IMPRESSION: Heterogeneous, partially contrast-enhancing area involving the left uterine fundus of uncertain significance. This could represent localized inflammation. A poorly defined mass is not excluded but felt to be less likely. Follow-up CT or ultrasound may be beneficial. Reviewed, Interpreted and Dictated by Kraig Romeo III, MD Transcribed by Corina Zelaya Authenticated and [facility]
[2023-07-27] MEDS: 0.9 % SODIUM CHLORIDE 25 ML 100 ML IV (13:02)
[2023-07-27] MEDS: PROMETHAZINE HCL 25MG/ML 1ML VIAL 12.5 MG IV (13:03)
--- NOTE | 2023-07-27 13:05 | PC.NURSE ---
Pt being medicated with Phenergan 12.5mg IV rt now. on phone with discussing POC.
--- NOTE | 2023-07-27 13:33 | PC.NURSE ---
Pt given oral contrast per aviation electrical technician.
[2023-07-27] MEDS: DIATRIZOATE MEG 66% & DIATRIZOATE NA 10% 30ML UDC 30 ML PO (13:39)
--- NOTE | 2023-07-27 13:48 | PC.NURSE ---
Pt notified staff that she has finished drinking her contrast. Radiology notified. Verbalized understanding.
--- NOTE | 2023-07-27 13:49 | HMH.ITSTN ---
pt finished drinking contrast @1350 per RN. pt will be ready for scan @1550.
--- NOTE | 2023-07-27 14:18 | PC.NURSE ---
Lab personnel at to draw blood.
[2023-07-27 14:31] LABS: Basophils % 0.7 % (0.1-2.0); Eosinophils # 0.1 K/mm3 (0.0-0.4); Hematocrit 32.8 % (37.0-47.0); Lymphocytes # 0.5 K/mm3 (0.7-4.5); Lymphocytes % 20.7 % (10-50); Mean Corpuscular HGB Conc 33.5 g/dL (31.8-35.4); Mean Corpuscular Hemoglobin 28.7 pg (27.0-31.2); Mean Corpuscular Volume 85.6 fl (81-99); Mean Platelet Volume 9.3 fl (7.4-10.4); Monocytes # 0.2 K/mm3 (0.1-1.0); Monocytes % 8.8 % (1.7-9.3); Neutrophils # 1.8 K/mm3 (1.8-7.8); Neutrophils % 67.8 % (37.0-80.0); Platelet Count 160 K/mm3 (142-424); Red Blood Count 3.84 M/mm3 (4.20-5.40); Red Cell Distribution Width 14.5 % (11.5-17.5); White Blood Count 2.6 K/mm3 (4.8-10.8)
--- NOTE | 2023-07-27 15:42 | PC.NURSE ---
Patient leaving department with radiology personnel for CT.
--- NOTE | 2023-07-27 15:58 | PC.NURSE ---
Pt returned from CT, assisted to bed in low semi-hernandez's position with bed locked and in lowest position, side rails up x2. Warm blanket provided, no other needs voiced.
[2023-07-27] MEDS: IOPAMIDOL-370 (76%);100ML BOTTLE 75 ML IV (16:05)
--- NOTE | 2023-07-27 18:07 | PC.NURSE ---
discussing POC with (hospitalist).
--- NOTE | 2023-07-27 18:20 | PC.NURSE ---
discussing POC with .
[2023-07-27] MEDS: KETOROLAC 30MG/ML VIAL 30 MG IV (20:08)
[2023-07-27] MEDS: VANCOMYCIN/WATER FOR INJ (PEG) 1.25 GM/250 ML PIGGYBACK IV (20:09)
--- NOTE | 2023-07-27 20:24 | PC.NURSE ---
called Dr. Georges at this time, informed her of patient symptoms and findings, Md orders to have hospitalist consult and give her 1mg of IV dilaudid for pain Q2 PRN. orders verified and read back
--- NOTE | 2023-07-27 20:45 | PC.NURSE ---
hospitalist and Dr. Georges at patients bedside at this time
--- NOTE | 2023-07-27 21:03 | P.CONS_ITS ---
History of Present Illness *Admission Date: 07/26/23 *Reason for visit:: Meets Criteria for Likely secondary to Received 30ml/kg fluid administr *History of present illness: HPI aided by OB physician: Lillian Sutton is a 33 yo POD#2 from an uncomplicated suction D&C after a 6wk SAB. Of note she had a suction D&C in 10/2022 secondary to a SAB as well. Lillian states that for the first 12 hours after her D&C she felt similar to her previous surgery. States she really started feeling bad last night. States her fever started last night or maybe this morning. On arrival it was 102+ and with that temperature she has a syncopal episode that was reported by her significant other and per ED physician was having difficulty holding a conversation. After her fever improved she has communicated well with me and my history was obtained soley from the patient, her spouse was home caring for their children. Reports she just generally feels unwell. Reports she has right lower quadrant pain that radiates to her back and up her spine also causing a headache. Endorses this also occasionally occurs on the left as well. Reports she is voiding without difficulty. Near her bedside table is [employer] fries and a coke which she has consumed about half. She had a sandwich and a slice of pizza yesterday without emesis. She states she feels a little nauseous but denies any vomiting. She is passing flatus but has not had a bowel movement since surgery. She has not had any vaginal bleeding, reports only some scant spotting similar to what she previously experienced with her D&C. This evening medicine was consulted for secondary management of sepsis. Patient initially was on scheduled Motrin and Tylenol today for postsurgical pain but was changed to as needed medications this afternoon. Patient now has a temp of 100.7. Earlier today, patient was broadened out with antibiotics to vancomycin, Flagyl and Zosyn. On my exam patient is visibly uncomfortable with flushed skin and reddened sclera of the eyes with skin temperature hot to touch. Patient complaining of severe suprapubic abdominal pain and severe lower back pain. No CVA tenderness noted on my exam. Bowel sounds hypoactive in all 4 quadrants. Patient does endorse mild passing of flatulence. Denies any recent bowel movement. Abdomen mildly distended but compressible, TTP all over but most prominent suprapubically. Does endorse having to urinate every 10 minutes. [facility] Disclaimer: The information contained in this section may have been updated after the patient was seen, as this information can be updated by other users. Medical History Ora's disease Migraine Cholesterin granuloma Atypical chest pain Radicular neuropathy Surgical History Status post D&C H/O brain surgery Family History Grandmother Cancer Other Family history of diabetes mellitus Social History Smoking Status: Never smoker alcohol intake: never substance use type: denies use current occupational status: employed Travel in the last 8 weeks: None current occupational exposures/hazards: No Review of Systems Review of Systems Review of systems (narrative): Review of systems negative except for HPI Exam Data for Last 24 hours Vital signs and Labs for Last 24 Hours: Temp Pulse Resp BP Pulse Ox O2 Del Method 98.4 F 69 16 104/64 L 100 Room Air 07/27/23 16:15 07/27/23 16:15 07/27/23 16:15 07/27/23 16:15 07/27/23 16:15 07/27/23 16:15 Laboratory Results - last 24 hr 07/27/23 06:20: WBC 3.4 L D, RBC 3.71 L, Hgb 10.7 L D, Hct 31.9 L, MCV 85.9, MCH 28.7, MCHC 33.4, RDW 14.5, Plt Count 165, MPV 8.8, Neut % (Auto) 70.3, Lymph % (Auto) 18.9, [place] % (Auto) 7.4, Eos % (Auto) 2.1, Baso % (Auto) 1.2, Neut # (Auto) 2.4, Lymph # (Auto) 0.6 L, [place] # (Auto) 0.3, Eos # (Auto) 0.1, Baso # (Auto) 0.0, Sodium 134 L, Potassium 3.4 L, Chloride 106, Carbon Dioxide 25, Anion Gap 6.4, BUN 9, Creatinine 0.70, Estimated Creat Clear 145, Estimated GFR 95, Est GFR ( Amer) 115, Glucose 83, Lactate 0.8, Calcium 8.0 L, Total Bilirubin 0.4, AST 20, ALT 18 D, Alkaline Phosphatase 52, C-Reactive Protein 72.9 H, Total Protein 5.3 L, Albumin 3.0 L D, Globulin 2.3, Albumin/Globulin Ratio 1.3, Amylase 31 07/27/23 14:20: WBC 2.6 L, RBC 3.84 L, Hgb 11.0 L, Hct 32.8 L, MCV 85.6, MCH 28.7, MCHC 33.5, RDW 14.5, Plt Count 160, MPV 9.3, Neut % (Auto) 67.8, Lymph % (Auto) 20.7, [place] % (Auto) 8.8, Eos % (Auto) 2.0, Baso % (Auto) 0.7, Neut # (Auto) 1.8, Lymph # (Auto) 0.5 L, [place] # (Auto) 0.2, Eos # (Auto) 0.1, Baso # (Auto) 0.0 I & O for Last 24 hours: Intake & Output 07/24/23 07/25/23 07/26/23 07/27/23 23:59 23:59 23:59 23:59 Output Total 200 / 200 2600 / 2600 Balance -200 / -200 -2600 / -2600 Weight 81.647 kg Microbiology Reports for the Last 24 Hours: Microbiology 07/26/23 18:15 Blood Blood Culture - Preliminary NO GROWTH AFTER 24 HOURS 07/26/23 18:05 Blood Blood Culture - Preliminary NO GROWTH AFTER 24 HOURS Meds Home Medications and Allergies Home Medications Medication Instructions Recorded Confirmed Type acetaminophen 500 mg tablet 500 mg PO Q6H PRN fever #30 tabs 07/24/23 07/27/23 Rx ibuprofen 800 mg tablet 800 mg PO Q8H PRN pain #60 tabs 07/24/23 07/27/23 Rx New Prescriptions to Start Prescriptions: Allergies Allergy/AdvReac Type Severity Reaction Status Date / Time No Known Allergies Allergy Verified 07/26/23 18:28 Results Labs 07/27/23 14:20 07/27/23 06:20 Labs: Abnormal lab results 07/27/23 07/27/23 Range/Units 06:20 14:20 WBC 3.4 L D 2.6 L (4.8-10.8) K/mm3 RBC 3.71 L 3.84 L (4.20-5.40) M/mm3 Hgb 10.7 L D 11.0 L (12.2-16.2) g/dL Hct 31.9 L 32.8 L (37.0-47.0) % Lymph # (Auto) 0.6 L 0.5 L (0.7-4.5) K/mm3 Sodium 134 L (136-145) mmol/L Potassium 3.4 L (3.5-5.1) mmoL/L Calcium 8.0 L (8.4-10.2) mg/dl C-Reactive Protein 72.9 H (0-4) mg/L Total Protein 5.3 L (6.3-8.2) g/dl Albumin 3.0 L D (3.5-5.0) g/dl H & H 07/26/23 07/27/23 07/27/23 Range/Units 18:15 06:20 14:20 Hgb 12.0 L 10.7 L D 11.0 L (12.2-16.2) g/dL Hct 36.3 L 31.9 L 32.8 L (37.0-47.0) % Coagulation 07/26/23 Range/Units 18:15 INR 1.00 (0.9-1.1) All other labs normal. Assessment and Plan *Assessment and plan (1) Sepsis: Status: Acute Category: Medical Code(s): A41.9 - Sepsis, unspecified organism (2) H/O dilation and curettage: Status: Acute Category: Surgical Code(s): Z98.890 - Other specified postprocedural states (3) Abdominal pain: Status: Acute Qualifiers: Abdominal location: right lower quadrant Qualified Code(s): R10.31 - Right lower quadrant pain Category: Medical Code(s): R10.9 - Unspecified abdominal pain Plan Dr. Zamora at bedside during my assessment. Labs this morning at 6:00 AM noticeable for white blood cell count of 2.6, CRP of 72, normal LFTs, lactic of 0.8 normal creatinine, normal gap, potassium of 3.4 blood cultures and urine cultures pending. Given continued fever after ceasing of scheduled NSAIDs, will repeat labs now. CT abdomen pelvis obtained today with IV/oral contrast and does not appear to have bowel injury. Heterogenous contrast-enhancing area involving the left uterine fundus that could represent localized inflammation or poorly defined mass. Per Dr. Zamora, she spoke with Dr. Romero and low likelihood there is bowel injury given CT results. Given suprapubic abdominal pain and lower back pain, likely source uterine/pelvic in nature. Sepsis Abdominal pain History of dilatation and curettage meets criteria for tachycardia, fever likely infection source uterine in nature Repeat labs now including * CBC * CMP * Procalcitonin * Urinalysis * Lactic acid * VBG Continue BSA with Vancomycin, Flagyl and Zosyn Keep antipyretic medications as needed Continue IV Dilaudid for pain control Will keep close monitoring overnight with direct conversation with OB team
[2023-07-27 21:06] LABS: Microscopic, Urine URINE MICROSCOPIC (MICROSCOPIC)
[2023-07-27 21:10] LABS: Appearance,Urine CLEAR (Clear); Bilirubin,Urine Negative (Negative); Blood, Urine 3+ (Negative); Color,Urine RED (Yellow); Glucose,Urine (UA) Negative (Negative); Ketones,Urine Negative (Negative); Leukocyte Esterase,Urine 1+ (Negative); Nitrate,Urine Negative (Negative); Protein,Urine TRACE (Negative)
[2023-07-27] MEDS: HYDROMORPHONE 2MG/ML SYRINGE 1 MG IV (21:14)
[2023-07-27 21:30] LABS: Eosinophils # 0.1 K/mm3 (0.0-0.4); Eosinophils % 2.1 % (0.1-12.0); Hematocrit 32.8 % (37.0-47.0); Hemoglobin 10.8 g/dL (12.2-16.2); Lymphocytes # 0.7 K/mm3 (0.7-4.5); Lymphocytes % 19.3 % (10-50); Mean Corpuscular HGB Conc 32.9 g/dL (31.8-35.4); Mean Corpuscular Volume 85.3 fl (81-99); Monocytes # 0.2 K/mm3 (0.1-1.0); Monocytes % 6.2 % (1.7-9.3); Neutrophils # 2.6 K/mm3 (1.8-7.8); Neutrophils % 71.4 % (37.0-80.0); Platelet Count 192 K/mm3 (142-424); Red Blood Count 3.84 M/mm3 (4.20-5.40); Red Cell Distribution Width 14.4 % (11.5-17.5); White Blood Count 3.7 K/mm3 (4.8-10.8)
[2023-07-27 21:35] LABS: Bacteria,Urine 1+ /lpf; RBC,Urine TNTC #/hpf (0-3)
[2023-07-27 21:43] LABS: Chloride 105 mmol/L (98-107); Potassium 3.6 mmoL/L (3.5-5.1); Sodium 134 mmol/L (136-145)
[2023-07-27 21:45] LABS: Lactic Acid 0.6 mmol/L (0.7-2.1)
[2023-07-27 21:46] LABS: Alanine Aminotransferase 23 U/L (12-78); Albumin Level 3.2 g/dl (3.5-5.0); Albumin/Globulin Ratio 1.3 (1.1-1.8); Alkaline Phosphatase 51 U/L (38-126); Anion Gap 9.6 mEq/L (5-15); Aspartate Amino Transferase 29 U/L (14-36); Bilirubin,Total 0.3 mg/dl (0.2-1.3); Blood Urea Nitrogen 7 mg/dl (7-17); Calcium 8.3 mg/dl (8.4-10.2); Carbon Dioxide 23 mmol/L (22.0-30.0); Creatinine Clearance Estimated 169 mL/min (50-200); Estimated Glomerular Filt Rate 114 ml/min (>60); GFR (African American) 138 ML/MIN (>60); Globulin 2.5 g/dL (1.3-3.2); Glucose 81 mg/dl (74-100); Total Protein,Serum 5.7 g/dl (6.3-8.2)
[2023-07-27] MEDS: CLINDAMYCIN PHOSPHATE/D5W 900 MG/50 ML PIGGYBACK 100 MG IV (22:07)
[2023-07-27 22:39] LABS: Procalcitonin 0.097 ng/mL (0.0-2.0)
[2023-07-27 22:50] LABS: Lactate Venous 0.8 mmol/L (0.4-2.0); VBG Base Excess -3.7 mmol/L (-2.4-2.3); VBG HCO3 21.2 mmol/L (23-30); VBG Oxygen Saturation 89.9 % (50-70); VBG PCO2 35.5 mmol/L (35-51); VBG PH 7.39 mmol/L (7.31-7.41); VBG PO2 57.3 mmol/L (28-40); VBG Total CO2 22.3 mmol/L (23-27)
[2023-07-28] VITALS (8 sets, daily range): BP systolic 94–124; BP diastolic 58–74; PULSE 80–107; RESP 16–17; TEMP 36.6–37.1; O2SAT 91–100
--- NOTE | 2023-07-28 | CA_ITS ---
APPROVED REPORT EXAM: Comprehensive 2D, Doppler, and color-flow Echocardiogram Skiver Hand: Hoda Wadsworth, NEO, RVS Ht: 5 ft 3 in Wt: 180lbs BSA: 1.85 BP: 100/70 mmHg Indications: sepsis, SOA, Ora;s Pleural effusion 2D Dimensions IVSd 0.92 cm LVEF (Visual) 62.60 % PWd 0.93 cm LA Volume 31.80 mL LVDd 4.51 cm LA Volume Index [id number] mL/m2 (M/F) 16-34 LVDs 2.99 cm Left Atrium 2.77 cm M-Mode Dimensions LA Diam 3.62 cm (1.9-4.0) EPSs 0.18 cm TAPSE 2.33 (<1.7) LV Diastology E Decel Time 170 (160-240 msec) E/A Ratio 1.60 MED A' 13.20 cm/s LAT A' 10.40 cm/s Aortic Valve MICHELL Index 1.51 cm2/m2 AoV Peak Indra. 126.0 (50-130 cm/s) AO Peak GR. 6.30 mmHg AO Mean GR. 3.10 (<5 mmHg) AO VTI 26.0 (18-25 cm) MICHELL (VTI) 2.86 (2.5-4.5 cm2) Mitral Valve MV A Velocity 43.0 (40-130 cm/s) E/A Ratio 1.60 Pulmonary Valve NC End VMAX 168.0 cm/s Tricuspid Valve TR P. Velocity 195.00 cm/s RAP Estimate 10.00 mmHg RVSP 25.20 mmHg Left Ventricle The left ventricle is normal size. The left ventricular systolic function is normal. The left ventricular ejection fraction is within the normal range. There is normal left ventricular wall thickness. There is normal LV segmental wall motion. The left ventricular diastolic function is normal. LVEF is 60%. Right Ventricle Right ventricle is mildly dilated. The right ventricular systolic function is normal. Atria The left atrium size is normal. The right atrium size is normal. There is no Doppler evidence of interatrial shunt. Aortic Valve The aortic valve opens well. There is no aortic valvular stenosis. Trace aortic regurgitation. There is no aortic valvular vegetation. Mitral Valve The mitral valve is normal in structure. No evidence of mitral valve stenosis. Mild mitral regurgitation. There is no evidence of mitral valve vegetations. Tricuspid Valve The tricuspid valve leaflets are thin and pliable. Mild tricuspid regurgitation. RVSP is normal. There is no tricuspid valve vegetations. Pulmonic Valve The pulmonary valve is normal in structure. Trace pulmonic regurgitation. There is no pulmonic valve vegetations. Great Vessels The aortic root is normal in size. The ascending aorta is not well visualized. IVC is normal in size and collapses >50% with inspiration. Pericardium There is no pericardial effusion. Other Information Study Quality: Adequate Conclusion Normal biventricular systolic function. Mild RV dilation. Mild MR, mild TR. No obvious evidence of vegetations of this TTE (in the setting of known sepsis). However, note that TTE does not entirely rule out vegetations. Clinical correlation is recommended. Electronically signed by : Adeline Arias MD 07/28/2023 11:31:21
[2023-07-28] MEDS: PIPERACILLIN/TAZO 3.375 GM in 0.9 % SODIUM CHLORIDE 50 ML IV (04:06)
--- NOTE | 2023-07-28 04:06 | PC.NURSE ---
Pt has rested throughout the night comfortably, pt states she feels better during reassessment. bilateral lung sounds clear throughout, bowel sounds hypoactive in all quadrants, vitals have been stable throughout the night, pt had one temperature of 100.7 around 2100, but has been afebrile since. pt has used a bedside commode tonight per MDs request. pt denies needs at this time.
--- NOTE | 2023-07-28 06:05 | PC.NURSE ---
called hospitalist at this time to report patients complaint of chest heaviness and neck and jaw pain on her right side. hospitalist said she will put new orders in.
[2023-07-28] MEDS: CLINDAMYCIN PHOSPHATE/D5W 900 MG/50 ML PIGGYBACK 100 MG IV (06:08)
[2023-07-28] MEDS: KETOROLAC 30MG/ML VIAL 30 MG IV ×2 (06:08→13:28)
--- NOTE | 2023-07-28 06:32 | ECG_ITS ---
APPROVED REPORT Exam: Resting ECG HR:84 bpm ECG Measurements Heart Rate 84 AXES PA 148 P 31 QRSd 89 QRS 84 QT 352 T 47 QTc 394 Conclusion SINUS RHYTHM NORMAL ECG UNCONFIRMED REPORT Electronically signed by : Travis Nieves MD 07/29/2023 15:03:46
--- NOTE | 2023-07-28 06:32 | PC.NURSE ---
respiratory at bedside for EKG
[2023-07-28] MEDS: LACTATED RINGERS 1000ML 500 ML IV (06:40)
[2023-07-28 06:54] LABS: Basophils % 1.5 % (0.1-2.0); Eosinophils # 0.1 K/mm3 (0.0-0.4); Eosinophils % 3.3 % (0.1-12.0); Hematocrit 31.1 % (37.0-47.0); Hemoglobin 10.5 g/dL (12.2-16.2); Lymphocytes # 0.6 K/mm3 (0.7-4.5); Lymphocytes % 25.2 % (10-50); Mean Corpuscular HGB Conc 33.7 g/dL (31.8-35.4); Mean Corpuscular Hemoglobin 29.2 pg (27.0-31.2); Mean Corpuscular Volume 86.6 fl (81-99); Monocytes # 0.2 K/mm3 (0.1-1.0); Monocytes % 8.8 % (1.7-9.3); Neutrophils # 1.5 K/mm3 (1.8-7.8); Neutrophils % 61.3 % (37.0-80.0); Platelet Count 149 K/mm3 (142-424); Red Blood Count 3.59 M/mm3 (4.20-5.40); Red Cell Distribution Width 14.4 % (11.5-17.5); White Blood Count 2.5 K/mm3 (4.8-10.8)
[2023-07-28 06:58] LABS: Chloride 105 mmol/L (98-107); Potassium 3.6 mmoL/L (3.5-5.1); Sodium 135 mmol/L (136-145)
[2023-07-28 07:01] LABS: Alanine Aminotransferase 23 U/L (12-78); Albumin Level 2.9 g/dl (3.5-5.0); Albumin/Globulin Ratio 1.2 (1.1-1.8); Alkaline Phosphatase 47 U/L (38-126); Anion Gap 9.6 mEq/L (5-15); Aspartate Amino Transferase 26 U/L (14-36); Bilirubin,Total 0.4 mg/dl (0.2-1.3); Blood Urea Nitrogen 7 mg/dl (7-17); Carbon Dioxide 24 mmol/L (22.0-30.0); Creatinine Clearance Estimated 145 mL/min (50-200); Estimated Glomerular Filt Rate 95 ml/min (>60); GFR (African American) 115 ML/MIN (>60); Globulin 2.4 g/dL (1.3-3.2); Total Protein,Serum 5.3 g/dl (6.3-8.2)
[2023-07-28 07:02] LABS: Calcium 8.1 mg/dl (8.4-10.2); Glucose 86 mg/dl (74-100)
[2023-07-28] MEDS: LACTATED RINGERS 1000ML 1,000 ML 125 ML IV ×2 (07:04→23:53)
[2023-07-28 07:07] LABS: C-Reactive Protein 53.2 mg/L (0-4)
--- NOTE | 2023-07-28 07:40 | P.CONPHA_ITS ---
Pharmacy Consult Date: 07/28/23 Time: 07:40 Referring provider: DR. VILLAGOMEZ Reason for Consult:: VANCOMYCIN DOSING Allergies Allergy/AdvReac Type Severity Reaction Status Date / Time No Known Allergies Allergy Verified 07/26/23 18:28 Home Medications Medication Instructions Recorded Confirmed Type acetaminophen 500 mg tablet 500 mg PO Q6H PRN fever #30 tabs 07/24/23 07/27/23 Rx ibuprofen 800 mg tablet 800 mg PO Q8H PRN pain #60 tabs 07/24/23 07/27/23 Rx New Prescriptions to Start Prescriptions: Height: 1.6 m Weight: 81.647 kg Laboratory Results:: Laboratory Results - last 24 hr 07/27/23 06:20: WBC 3.4 L D, RBC 3.71 L, Hgb 10.7 L D, Hct 31.9 L, MCV 85.9, MCH 28.7, MCHC 33.4, RDW 14.5, Plt Count 165, MPV 8.8, Neut % (Auto) 70.3, Lymph % (Auto) 18.9, [place] % (Auto) 7.4, Eos % (Auto) 2.1, Baso % (Auto) 1.2, Neut # (Auto) 2.4, Lymph # (Auto) 0.6 L, [place] # (Auto) 0.3, Eos # (Auto) 0.1, Baso # (Auto) 0.0 07/27/23 14:20: WBC 2.6 L, RBC 3.84 L, Hgb 11.0 L, Hct 32.8 L, MCV 85.6, MCH 28.7, MCHC 33.5, RDW 14.5, Plt Count 160, MPV 9.3, Neut % (Auto) 67.8, Lymph % (Auto) 20.7, [place] % (Auto) 8.8, Eos % (Auto) 2.0, Baso % (Auto) 0.7, Neut # (Auto) 1.8, Lymph # (Auto) 0.5 L, [place] # (Auto) 0.2, Eos # (Auto) 0.1, Baso # (Auto) 0.0 07/27/23 20:59: Urine Color Red, Urine Appearance Clear, Urine pH 8.0, Ur Specific [place] 1.020, Urine Protein Trace, Urine Glucose (UA) Negative, Urine Ketones Negative, Urine Blood 3+, Urine Nitrate Negative, Urine Bilirubin Negative, Urine Urobilinogen 1.0, Ur Leukocyte Esterase 1+ A, Urine RBC Tntc, Urine WBC 3-5, Ur Squamous Epith Cells 5-10, Urine Bacteria 1+ 07/27/23 21:00: VBG pH 7.39, VBG pCO2 35.5, VBG pO2 57.3 H, VBG HCO3 21.2 L, VBG Total CO2 22.3 L, VBG O2 Saturation 89.9 H, VBG Base Excess -3.7 L, VBG Lactic Acid 0.8 07/27/23 21:18: WBC 3.7 L D, RBC 3.84 L, Hgb 10.8 L, Hct 32.8 L, MCV 85.3, MCH 28.0, MCHC 32.9, RDW 14.4, Plt Count 192, MPV 9.0, Neut % (Auto) 71.4, Lymph % (Auto) 19.3, [place] % (Auto) 6.2, Eos % (Auto) 2.1, Baso % (Auto) 1.0, Neut # (Auto) 2.6, Lymph # (Auto) 0.7, [place] # (Auto) 0.2, Eos # (Auto) 0.1, Baso # (Auto) 0.0, Sodium 134 L, Potassium 3.6, Chloride 105, Carbon Dioxide 23, Anion Gap 9.6, BUN 7, Creatinine 0.60, Estimated Creat Clear 169, Estimated GFR 114, Est GFR ( Amer) 138, Glucose 81, Lactate 0.6 L, Calcium 8.3 L, Total Bilirubin 0.3, AST 29 D, ALT 23 D, Alkaline Phosphatase 51, Total Protein 5.7 L, Albumin 3.2 L, Globulin 2.5, Albumin/Globulin Ratio 1.3, Procalcitonin 0.097 07/28/23 06:30: WBC 2.5 L D, RBC 3.59 L, Hgb 10.5 L, Hct 31.1 L, MCV 86.6, MCH 29.2, MCHC 33.7, RDW 14.4, Plt Count 149, MPV 9.0, Neut % (Auto) 61.3, Lymph % (Auto) 25.2, [place] % (Auto) 8.8, Eos % (Auto) 3.3, Baso % (Auto) 1.5, Neut # (Auto) 1.5 L, Lymph # (Auto) 0.6 L, [place] # (Auto) 0.2, Eos # (Auto) 0.1, Baso # (Auto) 0.0, Sodium 135 L, Potassium 3.6, Chloride 105, Carbon Dioxide 24, Anion Gap 9.6, BUN 7, Creatinine 0.70, Estimated Creat Clear 145, Estimated GFR 95, Est GFR ( Amer) 115, Glucose 86, Lactate 1.0, Calcium 8.1 L, Total Bilirubin 0.4, AST 26, ALT 23, Alkaline Phosphatase 47, C-Reactive Protein 53.2 H D, Total Protein 5.3 L, Albumin 2.9 L, Globulin 2.4, Albumin/Globulin Ratio 1.2 Medical History: Medical History (Updated 07/27/23 @ 21:[address] [facility]) Ora's disease Migraine Cholesterin granuloma Atypical chest pain Radicular neuropathy Assessment and Plan Assessment and plan all Dx Assessment and Plan for all problems:: Pharmacokinetic dosing service Objective: Patient: Floor: Age: 33 yo Serum creatinine: 0.70 mg/dL Height: 63.0 Inches Weight (kg): 81.6 Assessment: IBW (kg): 52.40 Dosing wt(kg): 81.6 Estimated Creatinine clearance (ml/min): 92.8 CRCL method: Cockcroft and Gault using ibw(default). Drug selected: Vancomycin Loading dose (mg): Vd (liters): 65.3 (factor used: 0.8 L/kg) Stephen (hr-1): 0.081 Half life (hrs): 8.56 CLvanco=?? 5.289 L/hr Recommended dose: 1500 mg Interval: 12 hrs Infusion time (hrs): 2.0 Predicted peak (mcg/mL): 34.1 Predicted trough (mcg/mL): 15.17 Total body weight is being used for vancomycin dosing. Recommendations: Give Vancomycin 1500 mg q 12 hrs with an expected Cpeak of 34.1 mcg/ml and an expected Ctrough of 15.17 mcg/ml AUC 0-24 /KAE Data: KAE 0.5 mcg/mL:?? AUC/KAE:? 1134.4 KAE 1.0 mcg/mL:?? AUC/KAE:? 567.2 --------- KAE 1.5 mcg/mL:?? AUC/KAE:? 378.1 KAE 2.0 mcg/mL:?? AUC/KAE:? 283.6 Thank you for the consult, will continue to follow. -SONIYA SUAREZ, QUED
--- NOTE | 2023-07-28 08:01 | PC.NURSE ---
LARRY AT BEDSIDE AT THIS TIME.
--- NOTE | 2023-07-28 08:09 | XR_ITS ---
FINAL REPORT CLINICAL HISTORY: CHEST PAIN COMPARISON: None FINDINGS: A single portable view of the chest was obtained. Cardiomegaly is present. The mediastinum is within normal limits. Mild bibasilar opacities were noted, favor atelectasis. A small left pleural effusion is noted. The bony thorax is intact. IMPRESSION: Cardiomegaly, with mild bibasilar opacities, favor atelectasis. Small left pleural effusion. Reviewed, Interpreted and Dictated by Kraig Romeo III, MD Transcribed by Nina Tabor Authenticated and [facility]
--- NOTE | 2023-07-28 08:09 | US_ITS ---
PROCEDURE: US PELVIC CLINICAL INDICATION: PAIN COMPARISON: US US OB <= 14 WEEKS FETUS from 07/20/[address] ABDOMEN PELVIS WO/W CON from 07/27/2023 FINDINGS: Transvaginal and transabdominal sonographic images of the pelvis were obtained. UTERUS: 11.6 cm x 9.0cmx 6.3cm anteverted with a combined endometrial thickness of 14.7mm. Transvaginally the endometrium appears to be thinner and measures up to 8.3 mm. No evidence of retained products. There is a hyperechoic area at the fundus measuring 3.4 cm x 1.5 cm. This could represent an area of inflammation. LEFT OVARY: 2.6 cmx2.7 cmx1.7cm with a volume of 6.3ml. Left ovary is only seen transabdominally. RIGHT OVARY: 2.6 cmx 2.2cmx2.2cm with a volume of 6.3ml. Both ovaries are seen and appear normal. Doppler flow to both ovaries are seen. There is no fluid in the cul-de-sac. IMPRESSION: 1. Anteverted, enlarged uterus. At the fundus of the uterus within the myometrium there is a 3.4 x 1.5 hyperechoic area that could represent an area of inflammation. The serosa of the uterus at the fundus around this hyperechoic area appears irregular. 2. The endometrium is better visualized transvaginally and the thickness appears up to 8.3 mm. No evidence of retained products. 3. Both ovaries are seen and appear normal. The left ovary is visualized transabdominally. 4. No fluid in the cul-de-sac. Dictated by: Mane León MD 07/28/2023 14:19 Mane León MD in OV 07/28/2023 14:19
[2023-07-28 08:13] LABS: Procalcitonin 0.093 ng/mL (0.0-2.0)
[2023-07-28] MEDS: HYDROMORPHONE 2MG/ML SYRINGE 1 MG IV ×2 (08:19→20:01)
[2023-07-28] MEDS: VANCOMYCIN/WATER FOR INJ (PEG) 1.5 GM/300 ML PIGGYBACK IV ×2 (08:20→19:55)
--- NOTE | 2023-07-28 08:21 | EXP.PN ---
Subjective *Date: 07/28/23 *Time: 08:21 Interval history: Overnight Lillian had a fever at 0930 after we discontinued her scheduled Ibuprofen. She was given antipyretics at 2000 and has been afebrile since. This morning she reports that she continues to not feel well. Endorses generalized abdominal tenderness and just overall not feeling well. She also states this morning she is developed chest pain. Exam Data for Last 24 hours Vital signs and Labs for Last 24 Hours: Temp Pulse Resp BP Pulse Ox O2 Del Method 97.8 F 80 17 94/58 L 100 Room Air 07/28/23 04:07/28/23 04:07/28/23 04:07/28/23 04:07/28/23 04:07/28/23 05:20 Laboratory Results - last 24 hr 07/27/23 14:20: WBC 2.6 L, RBC 3.84 L, Hgb 11.0 L, Hct 32.8 L, MCV 85.6, MCH 28.7, MCHC 33.5, RDW 14.5, Plt Count 160, MPV 9.3, Neut % (Auto) 67.8, Lymph % (Auto) 20.7, [place] % (Auto) 8.8, Eos % (Auto) 2.0, Baso % (Auto) 0.7, Neut # (Auto) 1.8, Lymph # (Auto) 0.5 L, [place] # (Auto) 0.2, Eos # (Auto) 0.1, Baso # (Auto) 0.0 07/27/23 20:59: Urine Color Red, Urine Appearance Clear, Urine pH 8.0, Ur Specific [place] 1.020, Urine Protein Trace, Urine Glucose (UA) Negative, Urine Ketones Negative, Urine Blood 3+, Urine Nitrate Negative, Urine Bilirubin Negative, Urine Urobilinogen 1.0, Ur Leukocyte Esterase 1+ A, Urine RBC Tntc, Urine WBC 3-5, Ur Squamous Epith Cells 5-10, Urine Bacteria 1+ 07/27/23 21:00: VBG pH 7.39, VBG pCO2 35.5, VBG pO2 57.3 H, VBG HCO3 21.2 L, VBG Total CO2 22.3 L, VBG O2 Saturation 89.9 H, VBG Base Excess -3.7 L, VBG Lactic Acid 0.8 07/27/23 21:18: WBC 3.7 L D, RBC 3.84 L, Hgb 10.8 L, Hct 32.8 L, MCV 85.3, MCH 28.0, MCHC 32.9, RDW 14.4, Plt Count 192, MPV 9.0, Neut % (Auto) 71.4, Lymph % (Auto) 19.3, [place] % (Auto) 6.2, Eos % (Auto) 2.1, Baso % (Auto) 1.0, Neut # (Auto) 2.6, Lymph # (Auto) 0.7, [place] # (Auto) 0.2, Eos # (Auto) 0.1, Baso # (Auto) 0.0, Sodium 134 L, Potassium 3.6, Chloride 105, Carbon Dioxide 23, Anion Gap 9.6, BUN 7, Creatinine 0.60, Estimated Creat Clear 169, Estimated GFR 114, Est GFR ( Amer) 138, Glucose 81, Lactate 0.6 L, Calcium 8.3 L, Total Bilirubin 0.3, AST 29 D, ALT 23 D, Alkaline Phosphatase 51, Total Protein 5.7 L, Albumin 3.2 L, Globulin 2.5, Albumin/Globulin Ratio 1.3, Procalcitonin 0.097 07/28/23 06:30: WBC 2.5 L D, RBC 3.59 L, Hgb 10.5 L, Hct 31.1 L, MCV 86.6, MCH 29.2, MCHC 33.7, RDW 14.4, Plt Count 149, MPV 9.0, Neut % (Auto) 61.3, Lymph % (Auto) 25.2, [place] % (Auto) 8.8, Eos % (Auto) 3.3, Baso % (Auto) 1.5, Neut # (Auto) 1.5 L, Lymph # (Auto) 0.6 L, [place] # (Auto) 0.2, Eos # (Auto) 0.1, Baso # (Auto) 0.0, Sodium 135 L, Potassium 3.6, Chloride 105, Carbon Dioxide 24, Anion Gap 9.6, BUN 7, Creatinine 0.70, Estimated Creat Clear 145, Estimated GFR 95, Est GFR ( Amer) 115, Glucose 86, Lactate 1.0, Calcium 8.1 L, Total Bilirubin 0.4, AST 26, ALT 23, Alkaline Phosphatase 47, C-Reactive Protein 53.2 H D, Total Protein 5.3 L, Albumin 2.9 L, Globulin 2.4, Albumin/Globulin Ratio 1.2 I & O for Last 24 hours: Intake & Output 07/25/23 07/26/23 07/27/23 07/28/23 23:59 23:59 23:59 23:59 Output Total 200 / 200 2870 / 2870 300 / 300 Balance -200 / -200 -2870 / -2870 -300 / -300 Weight 180 lb 180 lb Microbiology Reports for the Last 24 Hours: Microbiology 07/26/23 18:15 Blood Blood Culture - Preliminary NO GROWTH AFTER 24 HOURS 07/26/23 18:05 Blood Blood Culture - Preliminary NO GROWTH AFTER 24 HOURS Narrative: Constitutional: mild distress and cooperative. Facial flushing noted Head: atraumatic and normocephalic Neck: Present full ROM Respiratory: Present CTA bilaterally and normal respiratory effort Cardiac: Present Reg Rate and Rhythm. No tachycardia noted GI: soft, mild distension, generalized lower abdominal tenderness. She also has tenderness in the upper abdomen. Diffuse hypoactive bowel sounds. No rigidity or guarding noted Extremities: Present full ROM; Absent edema. SCDs in place Neuro: Present alert and awake Assessment and Plan *Assessment and plan (1) Sepsis: Status: Acute Category: Medical Code(s): A41.9 - Sepsis, unspecified organism (2) H/O dilation and curettage: Status: Acute Category: Surgical Code(s): Z98.890 - Other specified postprocedural states Plan Transvaginal ultrasound ordered. Patient will be given a dose of Dilaudid prior to ultrasound. Specifically we will evaluate the left ovary if possible Chest x-ray ordered Encourage incentive spirometer CT scan reviewed with an irregularity noted at theleft adnexa Calling madai to see if they culture the POC or if that is possible at this point Continue vancomycin, clindamycin, and Zosyn. Will increase her Zosyn dose. Appreciate the hospitalist following and their recommendations
--- NOTE | 2023-07-28 08:34 | PC.NURSE ---
RADIOLOGY AT BEDSIDE FOR U/S AND CHEST XRAY
--- NOTE | 2023-07-28 10:18 | CT_ITS ---
FINAL REPORT CLINICAL HISTORY: PER MD chest pain, soa COMPARISON: 07/26/2023 FINDINGS: Thin section axial CT images of the chest were obtained with contrast. 3D reformatted images were also obtained. This study was performed with techniques to keep radiation doses as low as reasonably achievable (ALARA). Individualized dose reduction techniques using automated exposure control or adjustment of mA and/or kV according to the patient''s size were employed. There is no evidence of pulmonary embolism. There is no evidence of thoracic aortic aneurysm or dissection. There is no evidence of mediastinal or hilar mass or adenopathy. There is no evidence of pulmonary mass or nodule. There are worsening bibasilar opacities which are consistent with worsening bibasilar atelectasis. There is small bilateral pleural effusions. Limited images of the upper abdomen demonstrate probable sludge or stones in the gallbladder. IMPRESSION: No evidence of pulmonary embolism. Worsening bibasilar atelectasis and small bilateral pleural effusions. Reviewed, Interpreted and Dictated by Kraig Romeo III, MD Transcribed by Enedina Woo Authenticated and [facility]
[2023-07-28] MEDS: PIPERACILLIN/TAZO 4.5 GM in 0.9 % SODIUM CHLORIDE 100 ML IV ×3 (10:28→22:12)
--- NOTE | 2023-07-28 10:36 | PC.NURSE ---
ECHO BEING DONE AT BEDSIDE AT THIS TIME
--- NOTE | 2023-07-28 11:14 | PC.NURSE ---
PT DOWN TO CT AT THIS TIME
[2023-07-28] MEDS: IOPAMIDOL-370 (76%);100ML BOTTLE 70 ML IV (11:25)
[2023-07-28] MEDS: SODIUM CHLORIDE 0.9% 10ML SYR (RAD ONLY) 10 ML IV (11:25)
[2023-07-28] MEDS: 0.9 % SODIUM CHLORIDE 50 ML VIAL IV (11:25)
--- NOTE | 2023-07-28 14:00 | PC.NURSE ---
Just assisted pt up to bs toilet to void. 300mls clear, yellow urine noted.
--- NOTE | 2023-07-28 14:08 | P.CONCA_ITS ---
History of Present Illness History of Present Illness Consult date: 07/28/23 Requesting physician: Celia Georges Chief complaint: abdominal pain History of present illness: 33-year-old white female without known cardiovascular disease we are consulted to see for evaluation of chest pain. Patient reports she had a spontaneous miscarriage at 6 weeks gestation and underwent dilation and curettage on July 23. She reports the following day she developed severe lower abdominal pain which radiated to her back associated with severe weakness, confusion, syncope. She was transported to the ER by her . She has been diagnosed with sepsis and is on broad-spectrum antibiotics. Since admission she has complaints of severe abdominal discomfort with fever. CT abdomen showed possible inflammation or mass in the left uterine fundus. This morning patient developed diffuse chest pain over her entire chest which is worse with deep breathing and coughing. EKG shows sinus rhythm with early repolarization. Chest x-ray was re ad as cardiomegaly. She underwent repeat CTA chest which was negative for PE but does show possible small mild bilateral pleural effusions. 2D echo is within normal limits. On exam patient states her pain is worse with deep breathing and somewhat worse with leaning forward. [facility] Disclaimer: The information contained in this section may have been updated after the patient was seen, as this information can be updated by other users. Medical History Ora's disease Migraine Cholesterin granuloma Atypical chest pain Radicular neuropathy Surgical History Status post D&C H/O brain surgery Family History Grandmother Cancer Other Family history of diabetes mellitus Social History Smoking Status: Never smoker alcohol intake: never substance use type: denies use current occupational status: employed Travel in the last 8 weeks: None current occupational exposures/hazards: No Review of Systems Constitutional Constitutional: Denies fatigue and Denies weakness Eyes Eyes: Denies loss of vision ENT Ears, Nose, Mouth, and Throat: Denies hearing loss and Denies vertigo *Cardiovascular Cardiovascular: Denies chest pain, Denies dyspnea and Denies syncope *Respiratory Respiratory: Denies cough and Denies dyspnea *Gastrointestinal Gastrointestinal: Denies change in stool character, Denies nausea and Denies vomiting *Musculoskeletal Musculoskeletal: Denies muscle weakness Integumentary/Breasts Skin/Breast: Denies changing lesions *Neurologic Neurologic: Denies loss of vision, Denies syncope, Denies vertigo and Denies weakness Endocrine Endocrine: Denies fatigue Exam Data for Last 24 hours Vital signs and Labs for Last 24 Hours: Temp Pulse Resp BP Pulse Ox O2 Del Method 98.2 F 86 16 124/74 96 Room Air 07/28/23 12:07/28/23 12:07/28/23 12:07/28/23 12:07/28/23 12:07/28/23 13:24 Laboratory Results - last 24 hr 07/27/23 14:20: WBC 2.6 L, RBC 3.84 L, Hgb 11.0 L, Hct 32.8 L, MCV 85.6, MCH 28.7, MCHC 33.5, RDW 14.5, Plt Count 160, MPV 9.3, Neut % (Auto) 67.8, Lymph % (Auto) 20.7, [place] % (Auto) 8.8, Eos % (Auto) 2.0, Baso % (Auto) 0.7, Neut # (Auto) 1.8, Lymph # (Auto) 0.5 L, [place] # (Auto) 0.2, Eos # (Auto) 0.1, Baso # (Auto) 0.0 07/27/23 20:59: Urine Color Red, Urine Appearance Clear, Urine pH 8.0, Ur Specific [place] 1.020, Urine Protein Trace, Urine Glucose (UA) Negative, Urine Ketones Negative, Urine Blood 3+, Urine Nitrate Negative, Urine Bilirubin Negative, Urine Urobilinogen 1.0, Ur Leukocyte Esterase 1+ A, Urine RBC Tntc, Urine WBC 3-5, Ur Squamous Epith Cells 5-10, Urine Bacteria 1+ 07/27/23 21:00: VBG pH 7.39, VBG pCO2 35.5, VBG pO2 57.3 H, VBG HCO3 21.2 L, VBG Total CO2 22.3 L, VBG O2 Saturation 89.9 H, VBG Base Excess -3.7 L, VBG Lactic Acid 0.8 07/27/23 21:18: WBC 3.7 L D, RBC 3.84 L, Hgb 10.8 L, Hct 32.8 L, MCV 85.3, MCH 28.0, MCHC 32.9, RDW 14.4, Plt Count 192, MPV 9.0, Neut % (Auto) 71.4, Lymph % (Auto) 19.3, [place] % (Auto) 6.2, Eos % (Auto) 2.1, Baso % (Auto) 1.0, Neut # (Auto) 2.6, Lymph # (Auto) 0.7, [place] # (Auto) 0.2, Eos # (Auto) 0.1, Baso # (Auto) 0.0, Sodium 134 L, Potassium 3.6, Chloride 105, Carbon Dioxide 23, Anion Gap 9.6, BUN 7, Creatinine 0.60, Estimated Creat Clear 169, Estimated GFR 114, Est GFR ( Amer) 138, Glucose 81, Lactate 0.6 L, Calcium 8.3 L, Total Bilirubin 0.3, AST 29 D, ALT 23 D, Alkaline Phosphatase 51, Total Protein 5.7 L, Albumin 3.2 L, Globulin 2.5, Albumin/Globulin Ratio 1.3, Procalcitonin 0.097 07/28/23 06:30: WBC 2.5 L D, RBC 3.59 L, Hgb 10.5 L, Hct 31.1 L, MCV 86.6, MCH 29.2, MCHC 33.7, RDW 14.4, Plt Count 149, MPV 9.0, Neut % (Auto) 61.3, Lymph % (Auto) 25.2, [place] % (Auto) 8.8, Eos % (Auto) 3.3, Baso % (Auto) 1.5, Neut # (Auto) 1.5 L, Lymph # (Auto) 0.6 L, [place] # (Auto) 0.2, Eos # (Auto) 0.1, Baso # (Auto) 0.0, Sodium 135 L, Potassium 3.6, Chloride 105, Carbon Dioxide 24, Anion Gap 9.6, BUN 7, Creatinine 0.70, Estimated Creat Clear 145, Estimated GFR 95, Est GFR ( Amer) 115, Glucose 86, Lactate 1.0, Calcium 8.1 L, Total Bilirubin 0.4, AST 26, ALT 23, Alkaline Phosphatase 47, C-Reactive Protein 53.2 H D, Total Protein 5.3 L, Albumin 2.9 L, Globulin 2.4, Albumin/Globulin Ratio 1.2, Procalcitonin 0.093 I & O for Last 24 hours: Intake & Output 07/25/23 07/26/23 07/27/23 07/28/23 23:59 23:59 23:59 23:59 Output Total 200 / 200 2870 / 2870 1500 / 1500 Balance -200 / -200 -2870 / -2870 -1500 / -1500 Weight 180 lb 180 lb Microbiology Reports for the Last 24 Hours: Microbiology 07/26/23 18:15 Blood Blood Culture - Preliminary NO GROWTH AFTER 24 HOURS 07/26/23 18:05 Blood Blood Culture - Preliminary NO GROWTH AFTER 24 HOURS Constitutional Constitutional: no acute distress and cooperative Comments: Patient is not in distress but she appears acutely uncomfortable and slightly sedated from her Dilaudid *Routine HEENT Exam Eye: Present PERRL *Routine Respiratory Exam Respiratory: Present CTA bilaterally; Absent accessory muscle use, wheezes or crackles *Routine Cardiovascular Exam Cardiovascular: Present RRR, Normal S1 and Normal S2; Absent murmur, gallop or rubs Comments: Chest pain is slightly worse leaning forward, worse with deep breath *Routine Abdominal Exam Abdominal: Present soft; Absent tenderness *Routine Extremities Exam Extremities: Present pulses intact; Absent cyanosis or edema *Routine Skin Exam Skin: Present intact; Absent erythema or wounds *Routine Neurological Exam Neurological: Present alert and oriented X3 Routine Psychiatric Exam Psychiatric: Present cooperative Meds Home Medications and Allergies Home Medications Medication Instructions Recorded Confirmed Type acetaminophen 500 mg tablet 500 mg PO Q6H PRN fever #30 tabs 07/24/23 07/27/23 Rx ibuprofen 800 mg tablet 800 mg PO Q8H PRN pain #60 tabs 07/24/23 07/27/23 Rx New Prescriptions to Start Prescriptions: Allergies Allergy/AdvReac Type Severity Reaction Status Date / Time No Known Allergies Allergy Verified 07/26/23 18:28 Assessment and Plan *Assessment and plan (1) Pleuritic chest pain: Status: Acute Category: Medical Code(s): R07.81 - Pleurodynia (2) Sepsis: Status: Acute Category: Medical Code(s): A41.9 - Sepsis, unspecified organism (3) H/O dilation and curettage: Status: Acute Category: Surgical Code(s): Z98.890 - Other specified postprocedural states Plan Pleuritic chest pain -Patient has constant mild diffuse chest discomfort worse with deep breathing -Her EKG, echo, CTA are unremarkable for cardiac etiology -She also reports aching over her entire body not just her chest, I think this is likely due to her underlying sepsis/infection Sepsis -Presumed secondary to her miscarriage and subsequent procedure -She is on antibiotics and followed by [facility] 07/27 CV summary: Patient has pleuritic pain and her cardiac workup including EKG, ECHO, and CTA are unremarkable. I suspect her pain is likely due to her underlying fever infection and diffuse abdominal pain radiating to her chest. No further inpatient cardiac workup is warranted at this time but please feel free to reach out if there are any further cardiac concerns prior to discharge.
[2023-07-28] MEDS: OXYCODONE 5MG IMMEDIATE RELEASE TABLET 5 MG PO (16:25)
--- NOTE | 2023-07-28 16:38 | PC.NURSE ---
A&OX4. TOLERATING RA WELL. PT HAS BEEN UP TO THE BEDSIDE COMMODE MULTIPLE TIMES TODAY WITH ASSISTANCE. GREAT URINE OUTPUT. HAS BEEN IN BED RESTING MAJORITY OF THE DAY. HAS C/O INTERMITTENT GENERALIZED PAIN, MOSTLY ABD RADIATING TO BACK AND NECK/HEAD. TX PER MAR, EFFECTIVENESS NOTED. PT CONTINUES TO STATE THAT SHE HAS A HEAVINESS TO HER CHEST AND FEELS SOA AT TIMES. O2 SAT 97% AT THIS TIME. MD AWARE. TOLERATED ALL TESTS WELL TODAY. WE ARE GOING TO TRY TO STICK WITH PO PAIN MEDICATION. PT HAD SOME MASHED POTATOES FOR LUNCH, TOLERATED WELL. NO OTHER NEEDS OR C.O NOTED, VSS.
[2023-07-28] MEDS: ENOXAPARIN 40MG/0.4ML SYRINGE 40 MG SQ (17:00)
[2023-07-28 17:40] LABS: Lactic Acid 0.8 mmol/L (0.7-2.1)
[2023-07-28 17:57] LABS: Alanine Aminotransferase 32 U/L (12-78); Albumin Level 3.9 g/dl (3.5-5.0); Albumin/Globulin Ratio 1.5 (1.1-1.8); Alkaline Phosphatase 51 U/L (38-126); Anion Gap 13.5 mEq/L (5-15); Aspartate Amino Transferase 40 U/L (14-36); Bilirubin,Total 0.6 mg/dl (0.2-1.3); Blood Urea Nitrogen 6 mg/dl (7-17); C-Reactive Protein 47.8 mg/L (0-4); Calcium 8.5 mg/dl (8.4-10.2); Carbon Dioxide 24 mmol/L (22.0-30.0); Chloride 102 mmol/L (98-107); Creatinine Clearance Estimated 127 mL/min (50-200); Estimated Glomerular Filt Rate 82 ml/min (>60); GFR (African American) 99 ML/MIN (>60); Globulin 2.6 g/dL (1.3-3.2); Glucose 67 mg/dl (74-100); Potassium 3.5 mmoL/L (3.5-5.1); Sodium 136 mmol/L (136-145); Total Protein,Serum 6.5 g/dl (6.3-8.2)
[2023-07-28 18:10] LABS: Procalcitonin 0.101 ng/mL (0.0-2.0)
--- NOTE | 2023-07-28 18:15 | PC.NURSE ---
AT 1800 CHECK, PT STATES SHE IS FEELING LIGHT-HEADED AND FLUSHED. HER FACE IS RED, TEMP 97.9. LABS REVIEWED, PT GLUCOSE IS 67 AT THIS TIME. UPDATED PT, ENCOURAGED TO EAT OR DRINK, PT STATES SHE DOESN'T FEEL LIKE EATING OR DRINKING JUICE BUT WILL EAT ON A PUDDING. COLD RAG PROVIDED. WILL UPDATE NEXT SHIFT TO CHECK FSBS SHORTLY.
--- NOTE | 2023-07-28 18:33 | P.PN_ITS ---
Subjective *Date: 07/28/23 *Time: 18:33 Exam Data for Last 24 hours Vital signs and Labs for Last 24 Hours: Temp Pulse Resp BP Pulse Ox O2 Del Method 98.7 F 85 16 106/63 L 97 Room Air 07/28/23 16:00 07/28/23 16:00 07/28/23 16:00 07/28/23 16:00 07/28/23 16:00 07/28/23 18:06 Laboratory Results - last 24 hr 07/27/23 20:59: Urine Color Red, Urine Appearance Clear, Urine pH 8.0, Ur Specific [place] 1.020, Urine Protein Trace, Urine Glucose (UA) Negative, Urine Ketones Negative, Urine Blood 3+, Urine Nitrate Negative, Urine Bilirubin Negative, Urine Urobilinogen 1.0, Ur Leukocyte Esterase 1+ A, Urine RBC Tntc, Urine WBC 3-5, Ur Squamous Epith Cells 5-10, Urine Bacteria 1+ 07/27/23 21:00: VBG pH 7.39, VBG pCO2 35.5, VBG pO2 57.3 H, VBG HCO3 21.2 L, VBG Total CO2 22.3 L, VBG O2 Saturation 89.9 H, VBG Base Excess -3.7 L, VBG Lactic Acid 0.8 07/27/23 21:18: WBC 3.7 L D, RBC 3.84 L, Hgb 10.8 L, Hct 32.8 L, MCV 85.3, MCH 28.0, MCHC 32.9, RDW 14.4, Plt Count 192, MPV 9.0, Neut % (Auto) 71.4, Lymph % (Auto) 19.3, [place] % (Auto) 6.2, Eos % (Auto) 2.1, Baso % (Auto) 1.0, Neut # (Auto) 2.6, Lymph # (Auto) 0.7, [place] # (Auto) 0.2, Eos # (Auto) 0.1, Baso # (Auto) 0.0, Sodium 134 L, Potassium 3.6, Chloride 105, Carbon Dioxide 23, Anion Gap 9.6, BUN 7, Creatinine 0.60, Estimated Creat Clear 169, Estimated GFR 114, Est GFR ( Amer) 138, Glucose 81, Lactate 0.6 L, Calcium 8.3 L, Total Bilirubin 0.3, AST 29 D, ALT 23 D, Alkaline Phosphatase 51, Total Protein 5.7 L, Albumin 3.2 L, Globulin 2.5, Albumin/Globulin Ratio 1.3, Procalcitonin 0.097 07/28/23 06:30: WBC 2.5 L D, RBC 3.59 L, Hgb 10.5 L, Hct 31.1 L, MCV 86.6, MCH 29.2, MCHC 33.7, RDW 14.4, Plt Count 149, MPV 9.0, Neut % (Auto) 61.3, Lymph % (Auto) 25.2, [place] % (Auto) 8.8, Eos % (Auto) 3.3, Baso % (Auto) 1.5, Neut # (Auto) 1.5 L, Lymph # (Auto) 0.6 L, [place] # (Auto) 0.2, Eos # (Auto) 0.1, Baso # (Auto) 0.0, Sodium 135 L, Potassium 3.6, Chloride 105, Carbon Dioxide 24, Anion Gap 9.6, BUN 7, Creatinine 0.70, Estimated Creat Clear 145, Estimated GFR 95, Est GFR ( Amer) 115, Glucose 86, Lactate 1.0, Calcium 8.1 L, Total Bilirubin 0.4, AST 26, ALT 23, Alkaline Phosphatase 47, C-Reactive Protein 53.2 H D, Total Protein 5.3 L, Albumin 2.9 L, Globulin 2.4, Albumin/Globulin Ratio 1.2, Procalcitonin 0.093 07/28/23 17:13: Sodium 136, Potassium 3.5, Chloride 102, Carbon Dioxide 24, Anion Gap 13.5, BUN 6 L, Creatinine 0.80, Estimated Creat Clear 127, Estimated GFR 82, Est GFR ( Amer) 99, Glucose 67 L D, Lactate 0.8, Calcium 8.5, Total Bilirubin 0.6, AST 40 H D, ALT 32 D, Alkaline Phosphatase 51, C-Reactive Protein 47.8 H, Total Protein 6.5, Albumin 3.9 D, Globulin 2.6, Albumin/Globulin Ratio 1.5, Procalcitonin 0.101 I & O for Last 24 hours: Intake & Output 07/25/23 07/26/23 07/27/23 07/28/23 23:59 23:59 23:59 23:59 Output Total 200 / 200 2870 / 2870 2700 / 2700 Balance -200 / -200 -2870 / -2870 -2700 / -2700 Weight 81.647 kg 81.647 kg Microbiology Reports for the Last 24 Hours: Microbiology 07/26/23 18:15 Blood Blood Culture - Preliminary NO GROWTH AFTER 48 HOURS 07/26/23 18:05 Blood Blood Culture - Preliminary NO GROWTH AFTER 48 HOURS
[2023-07-28 18:38] LABS: Activated Partial Thrombo Time 32.2 seconds (22.8-30.6); Fibrinogen 395 mg/dL (229.9-363.5); INR 0.98 (0.9-1.1); Prothrombin Time 10.6 seconds (10.1-12.5)
[2023-07-29] MEDS: ACETAMINOPHEN 500MG TAB 1000 MG PO (03:15)
[2023-07-29] MEDS: PIPERACILLIN/TAZO 4.5 GM in 0.9 % SODIUM CHLORIDE 100 ML IV ×4 (03:15→21:12)
[2023-07-29 03:19] VITALS: BP 92/54; PULSE 103; RESP 18; TEMP 36.6; O2SAT 95
--- NOTE | 2023-07-29 03:19 | PC.NURSE ---
Pt laying in bed for reassessment, pt has slept on and off throughout shift. lung sounds clear bilaterally, bowel sounds active in all quadrants, vitals have been stable, pt has been afebrile throughout shift, pain medications given per pts request, see EMAR. pt has voided using bedside commode with standby assist, pt c/o headache at time of reassessment pt was medicated with tylenol. pt denies other needs at this time.
[2023-07-29 06:44] LABS: MANUAL DIFFERENTIAL MANUAL DIFFERENTIAL (MANUAL DIFF)
[2023-07-29 06:58] LABS: Basophils % 0.7 % (0.1-2.0); Eosinophils % 2.1 % (0.1-12.0); Hematocrit 30.5 % (37.0-47.0); Hemoglobin 10.3 g/dL (12.2-16.2); Lymphocytes # 0.6 K/mm3 (0.7-4.5); Lymphocytes % 28.5 % (10-50); Mean Corpuscular HGB Conc 33.7 g/dL (31.8-35.4); Mean Corpuscular Hemoglobin 28.9 pg (27.0-31.2); Mean Corpuscular Volume 85.7 fl (81-99); Mean Platelet Volume 8.7 fl (7.4-10.4); Monocytes # 0.2 K/mm3 (0.1-1.0); Monocytes % 8.8 % (1.7-9.3); Neutrophils # 1.2 K/mm3 (1.8-7.8); Platelet Count 164 K/mm3 (142-424); Red Blood Count 3.56 M/mm3 (4.20-5.40)
[2023-07-29 07:01] LABS: Lactic Acid 0.5 mmol/L (0.7-2.1)
[2023-07-29 07:03] LABS: Activated Partial Thrombo Time 31.3 seconds (22.8-30.6); Fibrinogen 315 mg/dL (229.9-363.5); INR 1.04 (0.9-1.1); Prothrombin Time 11.2 seconds (10.1-12.5)
[2023-07-29 07:06] LABS: Chloride 105 mmol/L (98-107); Potassium 3.4 mmoL/L (3.5-5.1); Sodium 136 mmol/L (136-145)
[2023-07-29 07:09] LABS: Alanine Aminotransferase 29 U/L (12-78); Albumin Level 3.1 g/dl (3.5-5.0); Albumin/Globulin Ratio 1.4 (1.1-1.8); Alkaline Phosphatase 50 U/L (38-126); Anion Gap 12.4 mEq/L (5-15); Aspartate Amino Transferase 34 U/L (14-36); Bilirubin,Total 0.5 mg/dl (0.2-1.3); Blood Urea Nitrogen 4 mg/dl (7-17); Carbon Dioxide 22 mmol/L (22.0-30.0); Creatinine Clearance Estimated 145 mL/min (50-200); Estimated Glomerular Filt Rate 95 ml/min (>60); GFR (African American) 115 ML/MIN (>60); Globulin 2.2 g/dL (1.3-3.2); Total Protein,Serum 5.3 g/dl (6.3-8.2)
[2023-07-29 07:10] LABS: Calcium 8.1 mg/dl (8.4-10.2); Glucose 88 mg/dl (74-100)
[2023-07-29 07:16] LABS: C-Reactive Protein 31.9 mg/L (0-4)
[2023-07-29 08:00] VITALS: PULSE 90
--- NOTE | 2023-07-29 08:02 | P.PN_ITS ---
Subjective *Date: 07/29/23 *Time: 08:02 Interval history: When I saw the patient this morning she was resting in bed but shortly after got up to walk to the bathroom because it felt like she needed to have a bowel movement. The patient states that she does feel like she feels a little bit better although she is very fatigued. Attributes some fatigue to laying in the bed for too long. She endorses continued abdominal pain and a headache. This morning she complains of a ringing in her ear and jaw pain. Yesterday cardiology saw the patient and her evaluation was normal. The patient was able to eat mashed potatoes and a cup of pudding without any emesis yesterday. She is hopeful to get a shower, and see her children today. Patient was started on Lovenox yesterday for VTE prophylaxis. She is complaining of significant pain at her abdominal injection site and desires to discontinue this medication. Exam Data for Last 24 hours Vital signs and Labs for Last 24 Hours: Temp Pulse Resp BP Pulse Ox O2 Del Method 97.8 F 103 H 18 92/54 L 95 Room Air 07/29/23 03:19 07/29/23 03:19 07/29/23 03:19 07/29/23 03:19 07/29/23 03:19 07/29/23 03:19 Laboratory Results - last 24 hr 07/28/23 06:30: Procalcitonin 0.093 07/28/23 17:13: PT 10.6, INR 0.98, APTT 32.2 H, Fibrinogen 395 H, Sodium 136, Potassium 3.5, Chloride 102, Carbon Dioxide 24, Anion Gap 13.5, BUN 6 L, Creatinine 0.80, Estimated Creat Clear 127, Estimated GFR 82, Est GFR ( Amer) 99, Glucose 67 L D, Lactate 0.8, Calcium 8.5, Total Bilirubin 0.6, AST 40 H D, ALT 32 D, Alkaline Phosphatase 51, C-Reactive Protein 47.8 H, Total Protein 6.5, Albumin 3.9 D, Globulin 2.6, Albumin/Globulin Ratio 1.5, Procalcitonin 0.101 07/29/23 06:33: WBC 2.0 L, RBC 3.56 L, Hgb 10.3 L, Hct 30.5 L, MCV 85.7, MCH 28.9, MCHC 33.7, RDW 14.0, Plt Count 164, MPV 8.7, Neut % (Auto) 60.0, Lymph % (Auto) 28.5, [place] % (Auto) 8.8, Eos % (Auto) 2.1, Baso % (Auto) 0.7, Neut # (Auto) 1.2 L, Lymph # (Auto) 0.6 L, [place] # (Auto) 0.2, Eos # (Auto) 0.0, Baso # (Auto) 0.0, PT 11.2, INR 1.04, APTT 31.3 H, Fibrinogen 315, Sodium 136, Potassium 3.4 L, Chloride 105, Carbon Dioxide 22, Anion Gap 12.4, BUN 4 L D, Creatinine 0.70, Estimated Creat Clear 145, Estimated GFR 95, Est GFR ( Amer) 115, Glucose 88 D, Lactate 0.5 L, Calcium 8.1 L, Total Bilirubin 0.5, AST 34, ALT 29, Alkaline Phosphatase 50, C-Reactive Protein 31.9 H D, Total Protein 5.3 L, Albumin 3.1 L D, Globulin 2.2, Albumin/Globulin Ratio 1.4 I & O for Last 24 hours: Intake & Output 07/26/23 07/27/23 07/28/23 07/29/23 23:59 23:59 23:59 23:59 Output Total 200 / 200 2870 / 2870 3800 / 3800 400 / 400 Balance -200 / -200 -2870 / -2870 -3800 / -3800 -400 / -400 Weight 180 lb 180 lb Microbiology Reports for the Last 24 Hours: Microbiology 07/26/23 18:15 Blood Blood Culture - Preliminary NO GROWTH AFTER 48 HOURS 07/26/23 18:05 Blood Blood Culture - Preliminary NO GROWTH AFTER 48 HOURS Narrative: Constitutional: No acute distress and cooperative. Facial pallor significantly improving and the color has returned to her cheeks and lips Head: atraumatic and normocephalic Neck: Present full ROM Respiratory: Present CTA bilaterally and normal respiratory effort Cardiac: Present Reg Rate and Rhythm. No tachycardia noted GI: soft, mild distension, generalized lower abdominal tenderness> tenderness in the upper abdomen. Lower quadrant hypoactive bowel sounds. Upper quadrant bowel sounds are improved but still hypoactive. No rigidity or guarding noted Extremities: Present full ROM; 1+ edema. SCDs in place Neuro: Present alert and awake Assessment and Plan *Assessment and plan (1) Sepsis: Status: Acute Category: Medical Code(s): A41.9 - Sepsis, unspecified organism (2) H/O dilation and curettage: Status: Acute Category: Surgical Code(s): Z98.890 - Other specified postprocedural states Plan #Postop fever #Postop pain #Sepsis -Markers of inflammation significantly improved -Persistent leukopenia -Continue Zosyn, vancomycin, and clindamycin -Patient has been receiving Toradol 30 mg as needed IV every 6 hours -Acetaminophen 1000 mg p.o. every 6 as needed -Yesterday the patient received 2 doses of Toradol, 2 doses of 1 mg of Dilaudid, and 1 dose of 5 mg of oxycodone -Today the patient has had 1000 g of Tylenol for pain management. We will attempt to discontinue her IV narcotic medication today. -Will consider repeating the CT scan today or tomorrow to evaluate the left uterine cornua/adnexa -[facility]ing [facility] #DVT PPX -Discussed discontinuation of the Lovenox. If the patient is able to sit in the chair and ambulate around the room we can discontinue the Lovenox. Explained to her that while being stationary in the bed, postop, and is sick as she is she is at an increased risk of VTE. -CTPE completed yesterday and negative for PE #Hypocalcemia #Low potassium -1000 mg p.o. calcium carbonate and 40 mEq of p.o. potassium ordered -Recheck in the a.m. along with a magnesium level and supplement as appropriate #Postop atelectasis -Continue incentive spirometry I appreciate the prompt cardiac evaluation that was completed and they are very helpful recommendations of the case. Appreciate the help of the hospitalist and the recommendations on this case as well.
[2023-07-29 08:40] LABS: Eosinophils % 1 % (0-3); Hypochromasia 1+; Lymphocytes % 23 % (10-50); Monocytes % 6 % (2-9); Neutrophils % 70 % (42-76); Platelet Estimate Normal; Total Cells Counted 100
[2023-07-29 09:15] LABS: Vancomycin,Trough 8.9 ug/mL (5.0-10.0)
[2023-07-29] MEDS: CALCIUM CARBONATE 500MG CHEWTAB 1000 MG PO (09:16)
[2023-07-29] MEDS: LACTOBACILLUS PROBIOTIC COMB CAPSULE 1 CAP PO (09:17)
[2023-07-29] MEDS: POTASSIUM CHLORIDE 20MEQ TAB 40 MEQ PO (09:17)
[2023-07-29 09:32] VITALS: BP 92/61; PULSE 94; PULSE 97; RESP 17; TEMP 36.4; O2SAT 97
[2023-07-29] MEDS: VANCOMYCIN/WATER FOR INJ (PEG) 1.5 GM/300 ML PIGGYBACK IV ×2 (09:53→17:32)
--- NOTE | 2023-07-29 11:25 | EXP.PHA.CONS ---
Pharmacy Consult Date: 07/29/23 Time: 11:25 Referring provider: DR. ALVAREZ Reason for Consult:: VANCOMYCIN LEVEL Allergies Allergy/AdvReac Type Severity Reaction Status Date / Time No Known Allergies Allergy Verified 07/26/23 18:28 Home Medications Medication Instructions Recorded Confirmed Type acetaminophen 500 mg tablet 500 mg PO Q6H PRN fever #30 tabs 07/24/23 07/27/23 Rx ibuprofen 800 mg tablet 800 mg PO Q8H PRN pain #60 tabs 07/24/23 07/27/23 Rx New Prescriptions to Start Prescriptions: Height: 1.6 m Weight: 81.647 kg Laboratory Results:: Laboratory Results - last 24 hr 07/28/23 17:13: PT 10.6, INR 0.98, APTT 32.2 H, Fibrinogen 395 H, Sodium 136, Potassium 3.5, Chloride 102, Carbon Dioxide 24, Anion Gap 13.5, BUN 6 L, Creatinine 0.80, Estimated Creat Clear 127, Estimated GFR 82, Est GFR ( Amer) 99, Glucose 67 L D, Lactate 0.8, Calcium 8.5, Total Bilirubin 0.6, AST 40 H D, ALT 32 D, Alkaline Phosphatase 51, C-Reactive Protein 47.8 H, Total Protein 6.5, Albumin 3.9 D, Globulin 2.6, Albumin/Globulin Ratio 1.5, Procalcitonin 0.101 07/29/23 06:33: WBC 2.0 L, RBC 3.56 L, Hgb 10.3 L, Hct 30.5 L, MCV 85.7, MCH 28.9, MCHC 33.7, RDW 14.0, Plt Count 164, MPV 8.7, Neut % (Auto) 60.0, Lymph % (Auto) 28.5, [place] % (Auto) 8.8, Eos % (Auto) 2.1, Baso % (Auto) 0.7, Neut # (Auto) 1.2 L, Lymph # (Auto) 0.6 L, [place] # (Auto) 0.2, Eos # (Auto) 0.0, Baso # (Auto) 0.0, Total Counted 100, Neutrophils % (Manual) 70, Lymphocytes % (Manual) 23, Monocytes % (Manual) 6, Eosinophils % (Manual) 1, Platelet Estimate Normal, Hypochromasia 1+, PT 11.2, INR 1.04, APTT 31.3 H, Fibrinogen 315, Sodium 136, Potassium 3.4 L, Chloride 105, Carbon Dioxide 22, Anion Gap 12.4, BUN 4 L D, Creatinine 0.70, Estimated Creat Clear 145, Estimated GFR 95, Est GFR ( Amer) 115, Glucose 88 D, Lactate 0.5 L, Calcium 8.1 L, Total Bilirubin 0.5, AST 34, ALT 29, Alkaline Phosphatase 50, C-Reactive Protein 31.9 H D, Total Protein 5.3 L, Albumin 3.1 L D, Globulin 2.2, Albumin/Globulin Ratio 1.4, Procalcitonin 0.110, Vancomycin Trough 8.9 Medical History: Medical History (Updated 07/28/23 @ 14:15 by STEFAN Marrufo) Ora's disease Migraine Cholesterin granuloma Atypical chest pain Radicular neuropathy Assessment and Plan Assessment and plan all Dx Assessment and Plan for all problems:: CHANGE DOSE TO VANCOMYCIN 1500 MG Q8H AT THIS TIME.
[2023-07-29 16:08] VITALS: BP 100/64; PULSE 82; RESP 16; TEMP 36.7; O2SAT 95
--- NOTE | 2023-07-29 16:09 | PC.NURSE ---
A&OX4. TOLERATING RA WELL. HAS BEEN UP INDEPENDENTLY TO BATHROOM. HAS HAD ADEQUATE U/O. HAS HAD 2 LOOSE BMS. STATES SHE IS STILLHAVING SOME PAIN BUT IT IS TOLERABLE AND IS NOT WANTING ANY PAIN MEDICATION. HAS BEEN EATING/DRINKING WELL. IN BETTER SPIRITS. REFUSING LOVENOX SHOT BUT IS AMBULATING IN ROOM. NO OTHER NEEDS OR C/O NOTED. VSS.
--- NOTE | 2023-07-29 16:53 | EXP.PN ---
Subjective *Date: 07/28/23 *Time: 10:00 Interval history: patient is seen at bedside, denied CP, SOB, N/V Exam Data for Last 24 hours Vital signs and Labs for Last 24 Hours: Temp Pulse Resp BP Pulse Ox O2 Del Method 98.0 F 82 16 100/64 L 95 Room Air 07/29/23 16:08 07/29/23 16:08 07/29/23 16:08 07/29/23 16:08 07/29/23 16:08 07/29/23 16:08 Laboratory Results - last 24 hr 07/28/23 17:13: PT 10.6, INR 0.98, APTT 32.2 H, Fibrinogen 395 H, Sodium 136, Potassium 3.5, Chloride 102, Carbon Dioxide 24, Anion Gap 13.5, BUN 6 L, Creatinine 0.80, Estimated Creat Clear 127, Estimated GFR 82, Est GFR ( Amer) 99, Glucose 67 L D, Lactate 0.8, Calcium 8.5, Total Bilirubin 0.6, AST 40 H D, ALT 32 D, Alkaline Phosphatase 51, C-Reactive Protein 47.8 H, Total Protein 6.5, Albumin 3.9 D, Globulin 2.6, Albumin/Globulin Ratio 1.5, Procalcitonin 0.101 07/29/23 06:33: WBC 2.0 L, RBC 3.56 L, Hgb 10.3 L, Hct 30.5 L, MCV 85.7, MCH 28.9, MCHC 33.7, RDW 14.0, Plt Count 164, MPV 8.7, Neut % (Auto) 60.0, Lymph % (Auto) 28.5, [place] % (Auto) 8.8, Eos % (Auto) 2.1, Baso % (Auto) 0.7, Neut # (Auto) 1.2 L, Lymph # (Auto) 0.6 L, [place] # (Auto) 0.2, Eos # (Auto) 0.0, Baso # (Auto) 0.0, Total Counted 100, Neutrophils % (Manual) 70, Lymphocytes % (Manual) 23, Monocytes % (Manual) 6, Eosinophils % (Manual) 1, Platelet Estimate Normal, Hypochromasia 1+, PT 11.2, INR 1.04, APTT 31.3 H, Fibrinogen 315, Sodium 136, Potassium 3.4 L, Chloride 105, Carbon Dioxide 22, Anion Gap 12.4, BUN 4 L D, Creatinine 0.70, Estimated Creat Clear 145, Estimated GFR 95, Est GFR ( Amer) 115, Glucose 88 D, Lactate 0.5 L, Calcium 8.1 L, Total Bilirubin 0.5, AST 34, ALT 29, Alkaline Phosphatase 50, C-Reactive Protein 31.9 H D, Total Protein 5.3 L, Albumin 3.1 L D, Globulin 2.2, Albumin/Globulin Ratio 1.4, Procalcitonin 0.110, Vancomycin Trough 8.9 I & O for Last 24 hours: Intake & Output 07/26/23 07/27/23 07/28/23 07/29/23 23:59 23:59 23:59 23:59 Output Total 200 / 200 2870 / 2870 3800 / 3800 400 / 400 Balance -200 / -200 -2870 / -2870 -3800 / -3800 -400 / -400 Weight 81.647 kg 81.647 kg 81.647 kg Microbiology Reports for the Last 24 Hours: Microbiology 07/26/23 19:28 Urine,Clean Catch Urine Culture - Final 07/27/23 20:59 Urine,Clean Catch Urine Culture - Final 07/26/23 18:15 Blood Blood Culture - Preliminary NO GROWTH AFTER 48 HOURS 07/26/23 18:05 Blood Blood Culture - Preliminary NO GROWTH AFTER 48 HOURS Constitutional Constitutional: no acute distress *Routine HEENT Exam Head: Present normocephalic Eye: Present EOMI and PERRL ENT: Present mucous membranes moist *Routine Neck Exam Neck: Present supple; Absent lymphadenopathy *Routine Respiratory Exam Respiratory: Present CTA bilaterally *Routine Cardiovascular Exam Cardiovascular: Present RRR *Routine Abdominal Exam Abdominal: Present soft and normoactive bowel sounds; Absent tenderness *Routine Extremities Exam Extremities: Absent cyanosis, clubbing or edema *Routine Skin Exam Skin: Present warm; Absent rash *Routine Neurological Exam Neurological: Present alert and oriented X3 Assessment and Plan *Assessment and plan (1) Sepsis: Status: Acute Category: Medical Code(s): A41.9 - Sepsis, unspecified organism (2) H/O dilation and curettage: Status: Acute Category: Surgical Code(s): Z98.890 - Other specified postprocedural states (3) Abdominal pain: Status: Acute Qualifiers: Abdominal location: right lower quadrant Qualified Code(s): R10.31 - Right lower quadrant pain Category: Medical Code(s): R10.9 - Unspecified abdominal pain Plan Dr. Zamora at bedside during my assessment. Labs this morning at 6:00 AM noticeable for white blood cell count of 2.6, CRP of 72, normal LFTs, lactic of 0.8 normal creatinine, normal gap, potassium of 3.4 blood cultures and urine cultures pending. Given continued fever after ceasing of scheduled NSAIDs, will repeat labs now. CT abdomen pelvis obtained today with IV/oral contrast and does not appear to have bowel injury. Heterogenous contrast-enhancing area involving the left uterine fundus that could represent localized inflammation or poorly defined mass. Per Dr. Zamora, she spoke with Dr. Romero and low likelihood there is bowel injury given CT results. Given suprapubic abdominal pain and lower back pain, likely source uterine/pelvic in nature. Sepsis Abdominal pain History of dilatation and curettage meets criteria for tachycardia, fever likely infection source uterine in nature Continue BSA with Vancomycin, Flagyl and Zosyn Keep antipyretic medications as needed Continue IV Dilaudid for pain control Will keep close monitoring overnight with direct conversation with OB team continue IV abx, blood cultures negative to date, monitor CBC, BMP
--- NOTE | 2023-07-29 17:22 | PC.NURSE ---
REPORT GIVEN TO AARON ON SECOND FLOOR AT THIS TIME.
[2023-07-29 17:36] VITALS: BP 107/78; PULSE 82; RESP 18; TEMP 36.7; O2SAT 99; BMI 30.9
[2023-07-29] MEDS: KETOROLAC 30MG/ML VIAL 30 MG IV (19:56)
[2023-07-29 20:00] VITALS: BP 111/67; PULSE 79; RESP 16; TEMP 36.8; O2SAT 96
[2023-07-30] VITALS: BP 102/69; PULSE 69; RESP 16; TEMP 36.7; O2SAT 97
[2023-07-30] MEDS: VANCOMYCIN/WATER FOR INJ (PEG) 1.5 GM/300 ML PIGGYBACK IV ×3 (01:17→18:09)
[2023-07-30] MEDS: PIPERACILLIN/TAZO 4.5 GM in 0.9 % SODIUM CHLORIDE 100 ML IV ×4 (03:04→22:00)
[2023-07-30 04:00] VITALS: BP 103/57; PULSE 72; RESP 16; TEMP 36.6; O2SAT 94; BMI 31.6
--- NOTE | 2023-07-30 04:58 | PC.NURSE ---
PATIENT HAS NOT REPORTED ANY MORE ABDOMINAL PAIN SINCE TORODOL 30 MG GIVEN IV AT 1999. PAIN DESCRIBED AT SHARP STABBING ACROSS THR ABDOMEN AND RADIATING AROUND TO LOWER BACK. VITAL SIGNS STABLE/AFEBRILE.
[2023-07-30 08:00] VITALS: BP 114/61; PULSE 79; RESP 16; TEMP 36.8; O2SAT 97
[2023-07-30] MEDS: LACTOBACILLUS PROBIOTIC COMB CAPSULE 1 CAP PO (09:46)
[2023-07-30 09:59] LABS: Vancomycin,Trough 15.9 ug/mL (5.0-10.0)
--- NOTE | 2023-07-30 09:59 | P.EN_ITS ---
patient seen, note to follow
--- NOTE | 2023-07-30 09:59 | EXP.EVENT.NO ---
patient seen, note to follow
--- NOTE | 2023-07-30 10:19 | P.PN_ITS ---
Subjective *Date: 07/30/23 *Time: 10:19 Interval history: Feeling better this morning. Resting comfortably in bed. She admits pain, including headache is much better. She reports that vaginal bleeding has increased some and is red. No odor noted. She is tolerating bland diet. No nausea or vomiting. She reports diarrhea. She had 8 BMs yesterday. She denies odor to BM. She is voiding without difficulty. She denies fever/chills, chest pain and shortness of breath. She has been up to shower and is ambulating well ad edd. Medical Exam Vital signs and Labs for Last 24 Hours: Vital Signs Temp Pulse Resp BP Pulse Ox O2 Del Method 07/30/23 08:00 98.2 F 79 16 114/61 97 Room Air 07/30/23 06:37 Room Air 07/30/23 05:00 Room Air 07/30/23 04:00 97.8 F 72 16 103/57 L 94 L 07/30/23 03:00 Room Air 07/30/23 01:00 Room Air 07/30/23 00:00 98.1 F 69 16 102/69 L 97 07/29/23 23:00 Room Air 07/29/23 21:00 Room Air 07/29/23 20:00 96 Room Air 07/29/23 20:00 98.3 F 79 16 111/67 96 Room Air 07/29/23 18:32 Room Air 07/29/23 17:36 98.0 F 82 18 107/78 L 99 Room Air 07/29/23 17:00 Room Air 07/29/23 16:08 98.0 F 82 16 100/64 L 95 Room Air 07/29/23 15:00 Room Air 07/29/23 13:00 Room Air 07/29/23 11:00 Room Air Intake and Output 07/29/23 07/30/23 07/30/23 23:59 07:59 15:59 Intake Total 1280 / 1280 Output Total 0 / 400 0 / 0 Balance 0 / 480 1280 / 1280 Intake: Intake, Oral Amount 480 / 480 Intake, Total IV Amount 800 / 800 Piperacillin/Tazo 4.5 gm In 0.9 200 / 200 % Sodium Chloride 100 ml @ 200 mls/hr IV Q6H [facility] Rx#:[id number] Vancomycin/Water For Inj (Peg) 600 / 600 1.5 gm In 300 ml @ 150 mls/hr IV Q8H [facility] Rx#:[id number] Output: Output, Urine Amount 0 / 400 0 / 0 Other: Number of Voids 4 Number of Unmeasured Voids 1 1 Weight 180 lb 185 lb Patient Weight 07/30/23 23:59 Weight 185 lb Laboratory Results - last 24 hr 07/30/23 09:11: Vancomycin Trough 15.9 H I & O for Labs for Last 24 Hours: Intake & Output 07/27/23 07/28/23 07/29/23 07/30/23 23:59 23:59 23:59 23:59 Intake Total 1280 / 1280 Output Total 2870 / 2870 3800 / 3800 400 / 400 0 / 0 Balance -2870 / -2870 -3800 / -3800 -400 / 480 1280 / 1280 Weight 180 lb 180 lb 185 lb Microbiology Reports for the Last 24 Hours: Microbiology 07/26/23 19:28 Urine,Clean Catch Urine Culture - Final 07/27/23 20:59 Urine,Clean Catch Urine Culture - Final Head: Present atraumatic and normocephalic ENT: Present mucous membranes moist Neck: Present normal inspection Respiratory: Present CTA bilaterally and normal respiratory effort Cardiac: Present Reg Rate and Rhythm GI: Present soft, tenderness (mild tenderness to palpation) and normal bowel sounds; Absent distention, guarding or rebound Rectal (female): Present deferred (female): Present deferred Extremities: Present normal inspection; Absent edema or calf tenderness Neuro: Present alert, awake and moves all extremities Assessment and Plan *Assessment and plan (1) Sepsis: Status: Acute Category: Medical Code(s): A41.9 - Sepsis, unspecified organism (2) H/O dilation and curettage: Status: Acute Category: Surgical Code(s): Z98.890 - Other specified postprocedural states (3) Pleuritic chest pain: Status: Acute Category: Medical Code(s): R07.81 - Pleurodynia Plan Feeling better this morning Continue current abx regimen Yesterday she had 8 BMs. So far this morning she admits to 1 BM that seemed to be thickening up compared to yesterday. Continue probiotics. Will continue to monitor BM. Will consider stool culture if no improvement in BMs Labwork ordered this morning Hold Tylenol and Toradol/ibuprofen to see if she remains afebrile Oxy 5 mg PRN pain SCDs and Lovenox for DVT prophylaxis PO intake has increased. Saline lock IV. If continues to have good PO intake and BM improving will consider d/c IV
--- NOTE | 2023-07-30 10:32 | EXP.PHA.CONS ---
Pharmacy Consult Date: 07/30/23 Time: 10:32 Referring provider: DR. VILLAGOMEZ Reason for Consult:: VANCOMYCIN TROUGH LEVEL Allergies Allergy/AdvReac Type Severity Reaction Status Date / Time No Known Allergies Allergy Verified 07/26/23 18:28 Home Medications Medication Instructions Recorded Confirmed Type acetaminophen 500 mg tablet 500 mg PO Q6H PRN fever #30 tabs 07/24/23 07/27/23 Rx ibuprofen 800 mg tablet 800 mg PO Q8H PRN pain #60 tabs 07/24/23 07/27/23 Rx New Prescriptions to Start Prescriptions: Height: 1.63 m Weight: 83.915 kg Laboratory Results:: Laboratory Results - last 24 hr 07/30/23 09:11: Vancomycin Trough 15.9 H Medical History: Medical History (Updated 07/28/23 @ 14:15 by STEFAN Marrufo) Ora's disease Migraine Cholesterin granuloma Atypical chest pain Radicular neuropathy Assessment and Plan Assessment and plan all Dx Assessment and Plan for all problems:: VANCOMYCIN TROUGH LEVEL TODAY IS 15.9. RECOMMEND CONTINUING CURRENT DOSE OF VANCOMYCIN AT 1,500MG EVERY 8 HOURS. PHARMACY WILL CONTINUE TO FOLLOW. -SONIYA SUAREZ, QUED
[2023-07-30 10:38] LABS: Basophils % 1.1 % (0.1-2.0); Eosinophils # 0.2 K/mm3 (0.0-0.4); Eosinophils % 8.7 % (0.1-12.0); Hematocrit 34.6 % (37.0-47.0); Hemoglobin 11.5 g/dL (12.2-16.2); Lymphocytes # 0.7 K/mm3 (0.7-4.5); Lymphocytes % 32.4 % (10-50); Mean Corpuscular HGB Conc 33.1 g/dL (31.8-35.4); Mean Corpuscular Volume 87.5 fl (81-99); Mean Platelet Volume 8.1 fl (7.4-10.4); Monocytes # 0.1 K/mm3 (0.1-1.0); Monocytes % 6.3 % (1.7-9.3); Neutrophils # 1.1 K/mm3 (1.8-7.8); Neutrophils % 51.5 % (37.0-80.0); Platelet Count 180 K/mm3 (142-424); Red Blood Count 3.95 M/mm3 (4.20-5.40); Red Cell Distribution Width 14.4 % (11.5-17.5); White Blood Count 2.2 K/mm3 (4.8-10.8)
[2023-07-30 10:39] LABS: Alanine Aminotransferase 51 U/L (12-78); Albumin Level 3.5 g/dl (3.5-5.0); Albumin/Globulin Ratio 1.3 (1.1-1.8); Alkaline Phosphatase 51 U/L (38-126); Anion Gap 10.9 mEq/L (5-15); Aspartate Amino Transferase 58 U/L (14-36); Bilirubin,Total 0.3 mg/dl (0.2-1.3); Blood Urea Nitrogen 5 mg/dl (7-17); Calcium 8.5 mg/dl (8.4-10.2); Carbon Dioxide 25 mmol/L (22.0-30.0); Chloride 108 mmol/L (98-107); Creatinine Clearance Estimated 173 mL/min (50-200); Estimated Glomerular Filt Rate 114 ml/min (>60); GFR (African American) 138 ML/MIN (>60); Globulin 2.6 g/dL (1.3-3.2); Glucose 91 mg/dl (74-100); Potassium 3.9 mmoL/L (3.5-5.1); Sodium 140 mmol/L (136-145); Total Protein,Serum 6.1 g/dl (6.3-8.2)
[2023-07-30 10:44] LABS: C-Reactive Protein 17.7 mg/L (0-4)
[2023-07-30 10:58] LABS: Procalcitonin 0.098 ng/mL (0.0-2.0)
[2023-07-30 12:00] VITALS: BP 117/63; PULSE 74; RESP 16; TEMP 36.7; O2SAT 99
[2023-07-30] MEDS: FAMOTIDINE 20MG/2ML VIAL 20 MG IV (12:15)
[2023-07-30] MEDS: diphenhydrAMINE 50MG/ML VIAL 50 MG IV (12:15)
--- NOTE | 2023-07-30 13:51 | PC.NURSE ---
at 1205 patient stated that she had a rash in right underarm. RN notified Tabitha Georges. Dr. Georges ordered 50 mg IV benadryl and 20 mg IV pepcid. Partient was given these medications and vanc stopped. As meds were IVP patient started feeling SOA and coughing. VS obtained and o2 99, Patient helped back to bed and o2 placed on pt. 5 minutes later patient was calmed down and at baseline. Patient currently resting comfortably in bed and is a&ox4.
--- NOTE | 2023-07-30 15:25 | P.PN_ITS ---
Subjective *Date: 07/30/23 *Time: 15:25 Interval history: patient is seen in person, sitting in couch, talking over the phone, appears comfortable, denied any complains , denied CP, SOB, N/V Exam Data for Last 24 hours Vital signs and Labs for Last 24 Hours: Temp Pulse Resp BP Pulse Ox O2 Del Method 98.0 F 74 16 117/63 99 Room Air 07/30/23 12:00 07/30/23 12:00 07/30/23 12:00 07/30/23 12:07/30/23 12:07/30/23 12:00 Laboratory Results - last 24 hr 07/30/23 09:11: WBC 2.2 L, RBC 3.95 L, Hgb 11.5 L, Hct 34.6 L, MCV 87.5, MCH 29.0, MCHC 33.1, RDW 14.4, Plt Count 180, MPV 8.1, Neut % (Auto) 51.5, Lymph % (Auto) 32.4, [place] % (Auto) 6.3, Eos % (Auto) 8.7, Baso % (Auto) 1.1, Neut # (Auto) 1.1 L, Lymph # (Auto) 0.7, [place] # (Auto) 0.1, Eos # (Auto) 0.2, Baso # (Auto) 0.0, Sodium 140, Potassium 3.9, Chloride 108 H, Carbon Dioxide 25, Anion Gap 10.9, BUN 5 L, Creatinine 0.60, Estimated Creat Clear 173, Estimated GFR 114, Est GFR ( Amer) 138, Glucose 91, Calcium 8.5, Total Bilirubin 0.3, AST 58 H D, ALT 51 D, Alkaline Phosphatase 51, C-Reactive Protein 17.7 H D, Total Protein 6.1 L, Albumin 3.5 D, Globulin 2.6, Albumin/Globulin Ratio 1.3, Procalcitonin 0.098, Vancomycin Trough 15.9 H I & O for Last 24 hours: Intake & Output 07/27/23 07/28/23 07/29/23 07/30/23 23:59 23:59 23:59 23:59 Intake Total 1550 / 1550 Output Total 2870 / 2870 3800 / 3800 400 / 400 0 / 0 Balance -2870 / -2870 -3800 / -3800 -400 / 480 1550 / 1550 Weight 81.647 kg 81.647 kg 83.915 kg Constitutional Constitutional: no acute distress *Routine HEENT Exam Head: Present normocephalic Eye: Present EOMI and PERRL ENT: Present mucous membranes moist *Routine Neck Exam Neck: Present supple; Absent lymphadenopathy *Routine Respiratory Exam Respiratory: Present CTA bilaterally *Routine Cardiovascular Exam Cardiovascular: Present RRR *Routine Abdominal Exam Abdominal: Present soft and normoactive bowel sounds; Absent tenderness *Routine Extremities Exam Extremities: Absent cyanosis, clubbing or edema *Routine Skin Exam Skin: Present warm; Absent rash *Routine Neurological Exam Neurological: Present alert and oriented X3 Assessment and Plan *Assessment and plan (1) Sepsis: Status: Acute Category: Medical Code(s): A41.9 - Sepsis, unspecified organism (2) H/O dilation and curettage: Status: Acute Category: Surgical Code(s): Z98.890 - Other specified postprocedural states (3) Abdominal pain: Status: Acute Qualifiers: Abdominal location: right lower quadrant Qualified Code(s): R10.31 - Right lower quadrant pain Category: Medical Code(s): R10.9 - Unspecified abdominal pain Plan Dr. Zamora at bedside during my assessment. Labs this morning at 6:00 AM noticeable for white blood cell count of 2.6, CRP of 72, normal LFTs, lactic of 0.8 normal creatinine, normal gap, potassium of 3.4 blood cultures and urine cultures pending. Given continued fever after ceasing of scheduled NSAIDs, will repeat labs now. CT abdomen pelvis obtained today with IV/oral contrast and does not appear to have bowel injury. Heterogenous contrast-enhancing area involving the left uterine fundus that could represent localized inflammation or poorly defined mass. Per Dr. Zamora, she spoke with Dr. Romero and low likelihood there is bowel injury given CT r esults. Given suprapubic abdominal pain and lower back pain, likely source uterine/pelvic in nature. Sepsis - improved Abdominal pain History of dilatation and curettage meets criteria for tachycardia, fever likely infection source uterine in nature Continue BSA with Vancomycin, Flagyl and Zosyn Keep antipyretic medications as needed Continue IV Dilaudid for pain control Will keep close monitoring overnight with direct conversation with OB team continue IV abx, blood cultures negative to date, monitor CBC, BMP, ok to DC when ok with OBGYN
[2023-07-30 15:48] VITALS: BP 110/66; PULSE 77; RESP 16; TEMP 36.7; O2SAT 96
[2023-07-30 20:00] VITALS: BP 114/63; PULSE 90; RESP 18; TEMP 36.5; O2SAT 96
[2023-07-31] VITALS: BP 101/57; PULSE 80; RESP 16; TEMP 36.8; O2SAT 97
[2023-07-31] MEDS: FAMOTIDINE 20MG/2ML VIAL 20 MG IV (00:59)
[2023-07-31] MEDS: VANCOMYCIN/WATER FOR INJ (PEG) 1.5 GM/300 ML PIGGYBACK IV (01:44)
[2023-07-31 04:00] VITALS: BP 105/61; PULSE 74; RESP 16; TEMP 36.4; O2SAT 97; BMI 31.7
[2023-07-31] MEDS: PIPERACILLIN/TAZO 4.5 GM in 0.9 % SODIUM CHLORIDE 100 ML IV ×2 (05:16→08:45)
--- NOTE | 2023-07-31 05:50 | PC.NURSE ---
HAS HAS A QUIET AND UNEVENTFUL NIGHT. NO C/O PAIN. AMBULATORY TO BR INDEPENDENTLY. VITAL SIGNS STABLE. ABEBRILE. RASH ALMOST COMPLETELY RESOLVED.
--- NOTE | 2023-07-31 07:33 | EXP.DC.SUM ---
General Admission date:: 07/26/23 Discharge date: 07/31/23 HPI HPI HPI: Lillian is resting in bed this morning. She is feeling much better. Admits her abdomen is carbonation equipment tender but much better. She did not need any pain medication yesterday. She has been afebrile for >48 hours. She is voiding without difficulty and passing flatus. BM improved yesterday. She admits she had 4 BMs but they are getting back to normal (two days ago she had 8 BMs in one day and stool was very soft/liquid). Tolerating regular diet. No chest pain, shortness of breath. No lower extremity swelling or calf pain. Ambulating well ad edd. Hospital Course Hospital Course Hospital Course: Lillian Sutton is a 33 yo POD#2 from an uncomplicated suction D&C after a 6wk SAB. Of note she had a suction D&C in 10/2022 secondary to a SAB as well. Lillian states that for the first 12 hours after her D&C she felt similar to her previous surgery. States she really started feeling bad last night. States her fever started last night or maybe this morning. On arrival it was 102+ and with that temperature she has a syncopal episode that was reported by her significant other and per ED physician was having difficulty holding a conversation. After her fever improved she has communicated well with me and my history was obtained soley from the patient, her spouse was home caring for their children. Reports she just generally feels unwell. Reports she has right lower quadrant pain that radiates to her back and up her spine also causing a headache. Endorses this also occasionally occurs on the left as well. Reports she is voiding without difficulty. Near her bedside table is [employer] and a coke which she has consumed about half. She had a sandwich and a slice of pizza yesterday without emesis. She states she feels a little nauseous but denies any vomiting. She is passing flatus but has not had a bowel movement since surgery. She has not had any vaginal bleeding, reports only some scant spotting similar to what she previously experienced with her D&C. Patient was admitted for postop abdominal pain, fever and SIRS that progressed to Sepsis. Hospital day 1 she developed vomiting after eating. She was treated with triple antibiotic regimen that was tailored to cover endometritis and Group A strep. She had blood and urine cultures that demonstrated no growth. CT abdomen and pelvis with oral and IV contrast demonstrated heterogeneous, partially contrast-enhancing area involving the left uterine fundus of uncertain significance. Pelvic ultrasound anteverted, enlarged uterus. At the fundus of the uterus within the myometrium there is a 3.4 x 1.5 hyperechoic area that could represent an area of inflammation. The serosa of the uterus at the fundus around this hyperechoic area appears irregular. 2. The endometrium is better visualized transvaginally and the thickness appears up to 8.3 mm. No evidence of retained products. Internal medicine was consulted for any additional recommendations regarding sepsis management. During hospital stay she developed chest pain and shortness of breath. Cardiology was consulted and evaluation was negative. She slowly improved each day with antibiotic regimen and pain medication. Today, hospital day 6, she was feeling much better, afebrile > 48 hours. Labs were stable and inflammatory markers trending down. Leukopenia persisted, stable. She was voiding without difficulty, passing flatus, she had 4 BM yesterday but states they were getting back to normal . No chest pain or shortness of breath. Tolerating regular diet. Ambulating well ad edd. Discharged home on hospital day #6 with 5 days of penicillin 500 mg PO TID and probiotic. She was instructed to follow-up with Dr. Ruiz next week. Exam Data for Last 24 hours Vital signs and Labs for Last 24 Hours: Temp Pulse Resp BP Pulse Ox O2 Del Method 97.6 F 74 16 105/61 L 97 Room Air 07/31/23 04:00 07/31/23 04:00 07/31/23 04:00 07/31/23 04:00 07/31/23 04:00 07/31/23 06:40 Laboratory Results - last 24 hr 07/30/23 09:11: WBC 2.2 L, RBC 3.95 L, Hgb 11.5 L, Hct 34.6 L, MCV 87.5, MCH 29.0, MCHC 33.1, RDW 14.4, Plt Count 180, MPV 8.1, Neut % (Auto) 51.5, Lymph % (Auto) 32.4, [place] % (Auto) 6.3, Eos % (Auto) 8.7, Baso % (Auto) 1.1, Neut # (Auto) 1.1 L, Lymph # (Auto) 0.7, [place] # (Auto) 0.1, Eos # (Auto) 0.2, Baso # (Auto) 0.0, Sodium 140, Potassium 3.9, Chloride 108 H, Carbon Dioxide 25, Anion Gap 10.9, BUN 5 L, Creatinine 0.60, Estimated Creat Clear 173, Estimated GFR 114, Est GFR ( Amer) 138, Glucose 91, Calcium 8.5, Total Bilirubin 0.3, AST 58 H D, ALT 51 D, Alkaline Phosphatase 51, C-Reactive Protein 17.7 H D, Total Protein 6.1 L, Albumin 3.5 D, Globulin 2.6, Albumin/Globulin Ratio 1.3, Procalcitonin 0.098, Vancomycin Trough 15.9 H I & O for Last 24 hours: Intake & Output 07/28/23 07/29/23 07/30/23 07/31/23 23:59 23:59 23:59 23:59 Intake Total 2640 / 2640 400 / 400 Output Total 3800 / 3800 400 / 400 1 / 1 0 / 0 Balance -3800 / -3800 -400 / 480 2639 / 2639 400 / 400 Weight 180 lb 180 lb 185 lb 185 lb 14.4 oz Microbiology Reports for the Last 24 Hours: Microbiology 07/26/23 18:15 Blood Blood Culture - Preliminary NO GROWTH AFTER 4 DAYS 07/26/23 18:05 Blood Blood Culture - Preliminary NO GROWTH AFTER 4 DAYS Constitutional Constitutional: no acute distress and cooperative *Routine HEENT Exam Head: Present normocephalic and atraumatic Eye: Absent conjunctivae pink ENT: Present mucous membranes moist *Routine Neck Exam Neck: Present full ROM *Routine Respiratory Exam Respiratory: Present CTA bilaterally and normal respiratory effort *Routine Cardiovascular Exam Cardiovascular: Present RRR *Routine Abdominal Exam Abdominal: Present soft, normoactive bowel sounds and tenderness (mild tenderness to palpation); Absent distended, rebound or guarding *Routine Rectal Exam Patient deferred: visual exam *Routine Exam Patient deferred: external exam *Routine Extremities Exam Extremities: Present full ROM; Absent edema or calf tenderness *Routine Neurological Exam Neurological: Present alert, moving all extremities and normal speech Routine Psychiatric Exam Psychiatric: Present normal affect and cooperative Results Data Completed and Pending Labs on day of discharge: Labs from last 24 hours 07/30/23 09:11 WBC 2.2 L RBC 3.95 L Hgb 11.5 L Hct 34.6 L MCV 87.5 MCH 29.0 MCHC 33.1 RDW 14.4 Plt Count 180 MPV 8.1 Neut % (Auto) 51.5 Lymph % (Auto) 32.4 [place] % (Auto) 6.3 Eos % (Auto) 8.7 Baso % (Auto) 1.1 Neut # (Auto) 1.1 L Lymph # (Auto) 0.7 [place] # (Auto) 0.1 Eos # (Auto) 0.2 Baso # (Auto) 0.0 Sodium 140 Potassium 3.9 Chloride 108 H Carbon Dioxide 25 Anion Gap 10.9 BUN 5 L Creatinine 0.60 Estimated Creat Clear 173 Estimated GFR 114 Est GFR ( Amer) 138 Glucose 91 Calcium 8.5 Total Bilirubin 0.3 AST 58 H D ALT 51 D Alkaline Phosphatase 51 C-Reactive Protein 17.7 H D Total Protein 6.1 L Albumin 3.5 D Globulin 2.6 Albumin/Globulin Ratio 1.3 Procalcitonin 0.098 Vancomycin Trough 15.9 H Preliminary micro results at discharge 07/26/23 18:15 Blood Culture - Preliminary Blood NO GROWTH AFTER 4 DAYS 07/26/23 18:05 Blood Culture - Preliminary Blood NO GROWTH AFTER 4 DAYS DS: Diagnosis Discharge Diagnosis (1) Sepsis: Status: Acute Code(s): A41.9 - Sepsis, unspecified organism (2) H/O dilation and curettage: Status: Acute Code(s): Z98.890 - Other specified postprocedural states (3) Abdominal pain: Status: Acute Code(s): R10.9 - Unspecified abdominal pain Qualifiers: Abdominal location: right lower quadrant Qualified Code(s): R10.31 - Right lower quadrant pain Meds Home Medications and Allergies Home Medications Medication Instructions Recorded Confirmed Type acetaminophen 500 mg tablet 500 mg PO Q6H PRN fever #30 tabs 07/24/23 07/27/23 Rx ibuprofen 800 mg tablet 800 mg PO Q8H PRN pain #60 tabs 07/24/23 07/27/23 Rx L.acidophilus-L.paracasei-B.bifidum-S.thermophl 1 cap PO DAILY #30 caps 07/31/23 Rx 8 billion cell capsule (RisaQuad) penicillin V potassium 500 mg 500 mg PO TID 5 days #15 tabs 07/31/23 Rx tablet New Prescriptions to Start Prescriptions: L.acid,para-B.bifidum-S.therm [RisaQuad] Celia Georges penicillin V potassium Celia Georges Allergies Allergy/AdvReac Type Severity Reaction Status Date / Time No Known Allergies Allergy Verified 07/26/23 18:28 Discharge Plan Disposition Patient Disposition: Home, Self-Care Condition: Good Discharge Order Discharge Orders: Discharge Order (Routine); Ordered 07/31/23 Ordered By: Celia Georges Follow up Plan Follow up with: Georgia Ruiz DO [Staff Physician] - Enter time for follow up Prescriptions/Medication Reconciliation: New penicillin V potassium 500 mg tablet 500 mg PO TID 5 Days Qty: 15 0RF RisaQuad 8 billion cell Capsule 1 cap PO DAILY Qty: 30 0RF Continued ibuprofen 800 mg tablet 800 mg PO Q8H PRN (Reason: pain) Qty: 60 2RF acetaminophen 500 mg tablet 500 mg PO Q6H PRN (Reason: fever) Qty: 30 3RF Problem Reconciliation Problems Reviewed?: Yes Patient Discharge Instructions ACTIVITY: Limited activity DIET: regular diet Patient Instructions: DI for Sepsis -- Adult Providers Primary Care Provider: Provider,Referral Admit Provider: Georgia Ruiz Attending Provider: Georgia Ruiz
[2023-07-31 08:00] VITALS: BP 99/61; PULSE 82; RESP 18; TEMP 36.6; O2SAT 96
--- NOTE | 2023-08-04 13:40 | CARE MANAGER ---
Contacted patient related to hospital discharge. She states that she she is hurting in all her joints. She hasn't gotten the prescribed probiotic as the pharmacy had to order, but is using one over the counter at this point. She is on her way to her appointment with Dr. Ruiz and is going to discuss her joint pain with her. Denies other questions ro concerns at this time. RIGOBERTO Leo
== END 2023-07-31 09:44 | disposition home or self-care (01) | DRG 872 ==
LOC: ER 21:14 → OB 07-27 04:28 → 2ND 07-29 17:31
PROVIDERS: Nurse Practitioner Acute Care; Obstetrics & Gynecology; Admitting Provider Obstetrics & Gynecology; Emergency Provider Emergency Medicine; Visit Provider Obstetrics & Gynecology
DX: A41.9 Sepsis, unspecified organism (principal); J98.11 Atelectasis; R93.89 Abnormal findings on diagnostic imaging of other specified body structures; R07.81 Pleurodynia; E83.51 Hypocalcemia
CPT/HCPCS: 36415; 71045; 71275; 74177; 74178; 76830; 76856; 80053; 80202; 81001; 82150; 82803; 83605; 83690; 84145; 84436; 84443; 84702; 85007; 85014; 85018; 85025; 85048; 85049; 85384; 85610; 85730; 86140; 87040; 87086; 87581; 87632; 87635; 87636; 87798; 93005; 93306; 99285; J0131; J1100; J1170; J1650; J1885; J2250; J2405; J2543; J2550; J3010; J7120; Q9963; Q9967

== ENCOUNTER 2023-08-07 07:57 | Outpatient (CLI) | payer MEDICAID, SELFPAY ==
--- NOTE | 2023-08-07 07:57 | CT_ITS ---
FINAL REPORT TECHNIQUE: Axial images through the abdomen and pelvis were performed. This study was performed with techniques to keep radiation doses as low as reasonably achievable, (ALARA). Individualized dose reduction techniques using automated exposure control or adjustment of mA and/or kV according to the patient's size were employed. CLINICAL HISTORY: history of sepsis on post op patient recent d & C COMPARISON: 07/27/2023 FINDINGS: Abdomen: Lung bases are clear. Liver has an unremarkable CT appearance. The spleen, pancreas and adrenal glands are unremarkable. Precontrast imaging shows no renal stone disease. Postcontrast imaging of the kidneys shows no mass or obstruction. An extrarenal pelvis is present in the left kidney. No bowel obstruction or fluid collection is seen. An umbilical hernia containing fat is present. Pelvis: The appendix is is normal in appearance. The ovaries are unremarkable. Pelvic bowel loops are unremarkable. No fluid collection or adenopathy is seen. There is slight heterogeneous enhancement of the uterus near the left side of the fundus of the uterus without a discrete measurable lesion. This may represent small fibroids or adenomyomatosis. There is some subtle hypervascularity in the left endometrium, and a subtle endometrial mass is not excluded. Prominent periuterine veins are once again noted. IMPRESSION: Persistent heterogeneous enhancement and enlargement of the left fundus and cornu of the uterus as described above, with underlying endometrial mass not excluded. Correlation with gynecologic exam is suggested. Reviewed, Interpreted and Dictated by Ky Dwyer MD Transcribed by Nina Tabor Authenticated and [facility]
[2023-08-07] MEDS: IOPAMIDOL-370 (76%);100ML BOTTLE 75 ML IV (08:25)
[2023-08-07] MEDS: SODIUM CHLORIDE 0.9% 10ML SYR (RAD ONLY) 10 ML IV (08:25)
== END 2023-08-07 23:59 | disposition home or self-care (01) ==
LOC: RAD 07:57
PROVIDERS: PCP Nurse Practitioner Family; Visit Provider Obstetrics & Gynecology
DX: N85.2 Hypertrophy of uterus (principal); R10.9 Unspecified abdominal pain; Z86.19 Personal history of other infectious and parasitic diseases
CPT/HCPCS: 74178; Q9967

== ENCOUNTER 2023-08-14 10:22 | Day surgery (SDC) | payer MEDICAID, SELFPAY ==
[2023-08-13 10:09] VITALS: BMI 29.3
[2023-08-14] VITALS (10 sets, daily range): BP systolic 103–119; BP diastolic 64–90; PULSE 82–110; RESP 16–22; TEMP 36.7–36.8; O2SAT 95–100
[2023-08-14] MEDS: LACTATED RINGERS 1000ML 1,000 ML 25 ML IV (11:04)
--- NOTE | 2023-08-14 12:10 | EXP.ANES.CKL ---
[facility] Disclaimer: The information contained in this section may have been updated after the patient was seen, as this information can be updated by other users. Medical History Leukopenia Sepsis SAB (spontaneous ) Ora's disease Migraine Cholesterin granuloma Atypical chest pain Radicular neuropathy Surgical History H/O dilation and curettage Status post D&C H/O brain surgery Family History Grandmother Cancer Other Family history of diabetes mellitus Social History Smoking Status: Never smoker alcohol intake: never substance use type: denies use current occupational status: employed Travel in the last 8 weeks: None current occupational exposures/hazards: No [facility] Anesthesia Checklist Patient Identification Patient Identification: Arm Band and Verbal (Name & ) Structural Data Admitted From: Home Planned Operative Procedure/s: Dx lap Consent for Planned Operative Procedure(s) Verified: Yes Verified Documents: Surgical Consent NPO Status Verified Time NPO: 00:00 Chart Verification Results Verified: CBC, BMP and HCG Additional verifications Anesthesia Reactions: No Hx Blood Transfusions: No Blood Transfusion Reaction: No Airway Assessment Mallampati Score:: Class II C-Spine Mobility Assessed: Yes TMJ Mobility Assessed: Yes Dentition: Good Dentition Neurological Assessment Level of Consciousness: Awake Hx Seizures: No Numbness or tingling in extremities: No Anesthesia Plan Anesthesia Risk discussed: Yes Anesthesia Plan: Verified ASA Class: II Anesthesia Type: General
[2023-08-14] MEDS: CEFAZOLIN SODIUM 2 GM in 0.9 % SODIUM CHLORIDE 100 ML IV (13:31)
[2023-08-14] MEDS: ROPIVACAINE 0.5% 30ML VIAL 150 MG (13:59)
[2023-08-14] MEDS: LIDOCAINE 1% 20ML MDV 20 ML (13:59)
--- NOTE | 2023-08-14 14:10 | EXP.ANES.I ---
[facility] Anesthesia Record Part I Anesthesia Record I Intake, IV Amount: 800 Hydration: Adequate Estimated blood loss (mL): 5 Urine output (mL): 0 Blood Pressure: 119/84 SaO2: 100 Pulse Rate: 109 Airway Patency: Patent Respiratory Rate: 22 Temperature: 98.3 F Patient is:: Drowsy Stable to PACU at:: 14:05
--- NOTE | 2023-08-14 14:29 | P.OP_ITS ---
Date of procedure: 08/14/23 Pre-op Diagnosis:: 1. Significant pelvic pain 2. Persistent postoperative pain 3. Left cornua and inflammation on CT Post-op Diagnosis:: 1. Significant pelvic pain 2. Persistent postoperative pain 3. Left cornua and inflammation on CT 4. Endometriosis Procedure performed:: Diagnostic laparoscopy Surgeon:: Georgia Ruiz DO City Editor(s):: Celia Georges DO SOLO TRUCK DRIVER:: Juan Adan Anesthesia: GETA Estimated blood loss (mL): 5 Operative findings:: 1. Bimanual examination revealed an anteverted 8-week size uterus with smooth contour without any adnexal masses. 2. Laparoscopic exam revealed normal-appearing uterus, ovaries, fallopian tubes and liver. There was extensive endometriosis noted throughout the pelvis. The uterus was enlarged and boggy no significant adhesions noted Operative note:: The patient was taken to the operating room where general anesthesia was obtained and noted to be adequate. SCDs were placed for thromboembolism prophylaxis and found to be working. The patient was placed in the dorsal lithotomy position using yellowfin stirrups. Timeout verified the correct patient and procedure. The patient was prepped and draped in a usual sterile fashion. A catheter was used to drain her bladder. A sponge stick was placed in the vagina for uterine manipulation. 10mL of Lidocaine with epinepherine was injected infraumbilically and a scalpel was used to make a 5 mm infraumbilical incision with the assistance from a hemostat. The skin was tented and Optiview blunt trocar was introduced into the abdomen in the usual fashion. CO2 gas was connected with an initial pressure of 6 mmHg noted. Pneumoperitoneum was created to a pressure of 15 mmHg. The laparoscopic camera was inserted and a quick survey of the abdomen revealed grossly normal anatomy. The uterus appeared to be anteverted and as described above, enlarged and boggy. The patient was placed in Trendelenburg. 10mLs of local anesthetic was injected and a 5mm incision was then made in the left lower quadrant with careful attention to avoid the rectus muscles and vasculature and under direct laparoscopic visualization a blunt trocar was introduced into the abdominal cavity. The fallopian tubes were identified on the cornu of the uterus and followed out to the ovaries which revealed grossly appearing anatomy. The ovaries were evaluated bilaterally and noted to be grossly normal, however just slightly enlarged. There was no abnormalities noted at the left uterine fundus/cornua. There were no abnormalities of the left adnexa. There is no omentum involved. There were no significant scarring or adhesions noted. Endometriosis was noted along the fallopian tubes, on the ovaries, and the posterior cul-de-sac, on the uterosacral ligaments, on the pelvic sidewalls, and there were 1-2 spots noted above the pelvic brim. Since we were not expecting endometriosis and the patient was not previously consented for removal of endometriosis and she desires future fertility I elected to abort the procedure and offer the patient medical management of endometriosis. Several images were obtained of the pelvis and the endometriosis lesions. The pneumoperitoneum reduced, and all ports removed. The 2 abdominal incisions were closed with a single simple interrupted suture using 4-0 Monocryl. Dermabond was applied to each skin incision. The [place] uterine manipulator was removed. All counts were correct x2, per nursing. The patient was extubated, stable, and transferred to the PACU. She will be discharged after meeting all DC criteria to include voiding, ambulating and tolerating PO independently. Condition: stable Disposition: same day Complications:: None
[2023-08-14] MEDS: MORPHINE 2MG/ML SYRINGE 2 MG IV (14:32)
[2023-08-14] MEDS: MEPERIDINE 25MG/ML 1ML SYRINGE 25 MG IV (14:36)
== END 2023-08-14 15:32 | disposition home or self-care (01) ==
PROVIDERS: PCP Nurse Practitioner Family; Visit Provider Obstetrics & Gynecology
PROC: (CPT 49320; principal; 2023-08-14 12:00)
DX: R10.2 Pelvic and perineal pain (principal); G89.18 Other acute postprocedural pain; N71.9 Inflammatory disease of uterus, unspecified; N80.203 Endometriosis of bilateral fallopian tubes, unspecified depth; N80.103 Endometriosis of bilateral ovaries, unspecified depth; N80.329 Endometriosis of the posterior cul-de-sac, unspecified depth
CPT/HCPCS: 49320; 96374; J3490; J0690; J1100; J2175; J2250; J2270; J2405; J3010; J7120

== ENCOUNTER 2023-08-21 09:30 | Outpatient (CLI) | payer MEDICAID, SELFPAY ==
[2023-08-21 09:50] LABS: Basophils # 0.1 K/mm3 (0-0.2); Basophils % 1.5 % (0.1-2.0); Eosinophils # 0.4 K/mm3 (0.0-0.4); Eosinophils % 5.2 % (0.1-12.0); Hematocrit 33.7 % (37.0-47.0); Hemoglobin 12.2 g/dL (12.2-16.2); Lymphocytes # 1.8 K/mm3 (0.7-4.5); Lymphocytes % 26.4 % (10-50); Mean Corpuscular HGB Conc 36.3 g/dL (31.8-35.4); Mean Corpuscular Hemoglobin 31.5 pg (27.0-31.2); Mean Corpuscular Volume 86.7 fl (81-99); Mean Platelet Volume 8.3 fl (7.4-10.4); Monocytes # 0.4 K/mm3 (0.1-1.0); Neutrophils # 4.3 K/mm3 (1.8-7.8); Neutrophils % 61.9 % (37.0-80.0); Platelet Count 224 K/mm3 (142-424); Red Blood Count 3.88 M/mm3 (4.20-5.40); Red Cell Distribution Width 15.1 % (11.5-17.5); White Blood Count 6.9 K/mm3 (4.8-10.8)
[2023-08-21 10:26] LABS: Chloride 110 mmol/L (98-107)
[2023-08-21 10:27] LABS: Sodium 140 mmol/L (136-145)
[2023-08-21 10:29] LABS: Alanine Aminotransferase 26 U/L (12-78); Aspartate Amino Transferase 25 U/L (14-36); Blood Urea Nitrogen 8 mg/dl (7-17); Estimated Glomerular Filt Rate 114 ml/min (>60); GFR (African American) 138 ML/MIN (>60)
[2023-08-21 10:30] LABS: Albumin Level 4.4 g/dl (3.5-5.0); Albumin/Globulin Ratio 1.7 (1.1-1.8); Alkaline Phosphatase 59 U/L (38-126); Bilirubin,Total 0.5 mg/dl (0.2-1.3); Calcium 9.4 mg/dl (8.4-10.2); Carbon Dioxide 23 mmol/L (22.0-30.0); Globulin 2.6 g/dL (1.3-3.2); Glucose 88 mg/dl (74-100)
== END 2023-08-21 23:59 | disposition home or self-care (01) ==
LOC: LAB 09:30
PROVIDERS: PCP Nurse Practitioner Family; Visit Provider Obstetrics & Gynecology
DX: N80.9 Endometriosis, unspecified (principal)
CPT/HCPCS: 36415; 80053; 85025

== ENCOUNTER 2023-09-01 15:50 | Outpatient (CLI) | payer MEDICAID, SELFPAY ==
[2023-09-01 16:12] LABS: Basophils # 0.1 K/mm3 (0-0.2); Basophils % 1.1 % (0.1-2.0); Eosinophils # 0.4 K/mm3 (0.0-0.4); Hematocrit 34.1 % (37.0-47.0); Hemoglobin 11.4 g/dL (12.2-16.2); Lymphocytes # 1.8 K/mm3 (0.7-4.5); Lymphocytes % 22.9 % (10-50); Mean Corpuscular HGB Conc 33.3 g/dL (31.8-35.4); Mean Corpuscular Hemoglobin 28.5 pg (27.0-31.2); Mean Corpuscular Volume 85.4 fl (81-99); Mean Platelet Volume 8.5 fl (7.4-10.4); Monocytes # 0.3 K/mm3 (0.1-1.0); Monocytes % 4.2 % (1.7-9.3); Neutrophils # 5.2 K/mm3 (1.8-7.8); Neutrophils % 66.8 % (37.0-80.0); Platelet Count 246 K/mm3 (142-424); Red Blood Count 3.99 M/mm3 (4.20-5.40); Red Cell Distribution Width 15.2 % (11.5-17.5); White Blood Count 7.8 K/mm3 (4.8-10.8)
[2023-09-01 17:14] LABS: HCG,Quantitative 11 mIU/ml (0-5.42)
== END 2023-09-01 23:59 | disposition home or self-care (01) ==
LOC: LAB 15:52
PROVIDERS: PCP Nurse Practitioner Family; Visit Provider Obstetrics & Gynecology
DX: D72.819 Decreased white blood cell count, unspecified (principal); N80.9 Endometriosis, unspecified; Z33.1 Pregnant state, incidental; R10.2 Pelvic and perineal pain
CPT/HCPCS: 36415; 84702; 85025

== ENCOUNTER 2023-09-08 15:29 | Outpatient (CLI) | payer MEDICAID, SELFPAY ==
[2023-09-08 16:57] LABS: HCG,Quantitative 4 mIU/ml (0-5.42)
== END 2023-09-08 23:59 | disposition home or self-care (01) ==
LOC: LAB 15:29
PROVIDERS: PCP Nurse Practitioner Family; Visit Provider Obstetrics & Gynecology
DX: O03.9 Complete or unspecified spontaneous abortion without complication (principal)
CPT/HCPCS: 36415; 84702

== ENCOUNTER 2023-09-14 15:32 | Outpatient (CLI) | payer MEDICAID, SELFPAY ==
[2023-09-14 17:01] LABS: HCG,Quantitative < 2 mIU/ml (0-5.42)
== END 2023-09-14 23:59 | disposition home or self-care (01) ==
LOC: LAB 15:33
PROVIDERS: PCP Nurse Practitioner Family; Visit Provider Obstetrics & Gynecology
DX: R10.2 Pelvic and perineal pain; Z33.1 Pregnant state, incidental
CPT/HCPCS: 36415; 84702

== ENCOUNTER 2023-12-02 16:02 | Outpatient (CLI) | payer MEDICAID, SELFPAY ==
[2023-12-02 18:31] LABS: Thyroid Stimulating Hormone 3.21 uIU/mL (0.465-4.68)
[2023-12-02 18:39] LABS: HCG,Quantitative < 2 mIU/ml (0-5.42)
[2023-12-15 13:17] LABS: Miscellaneous Test SCANNED IMAGE
== END 2023-12-02 23:59 | disposition home or self-care (01) ==
LOC: LAB 16:03
PROVIDERS: PCP Nurse Practitioner Family; Visit Provider Obstetrics & Gynecology
DX: N96 Recurrent pregnancy loss (principal); N91.2 Amenorrhea, unspecified
CPT/HCPCS: 83036; 84443; 84702

== ENCOUNTER 2024-08-24 08:47 | Outpatient (CLI) | payer MEDICAID, SELFPAY ==
--- OUTSIDE RECORDS SUMMARY | 2024-08-24 08:50 | XMS_ITS | Continuity of Care Document ---
Author Organization [facility] Address [address] [place] [address] Assessment No assessment recorded. Plan of Treatment Reminders Order Date Submit Date Provider Last Modified By Organization Details Last Modified Time Details Appointments None recorded. Lab rf (rheumatoid factor), serum 2024 025 MARCELA [facility], [address], Michael F, [place], [address], 5 14:37:07 C reactive protein, QN, serum or plasma 2024 025 MARCELA [facility], [address], Michael F, [place], [address], 5 14:37:10 MELISSA (antinuclea r antibodies) screen, serum 2024 025 MARCELA [facility], [address], Michael F, [place], [address], 5 14:37:09 TSH + free T4, serum 2024 025 MARCELA [facility], [address], [place] F, [place], [address], 5 14:37:03 CMP, serum or plasma 2024 025 MARCELA [facility], [address], Michael F, [place], [address], 5 14:37:05 iron + total iron-bindin g capacity (TIBC), serum 2024 025 MARCELA [facility], [address], Michael F, [place], [address], 5 14:37:05 HbA1c (hemoglobin A1c), blood 2024 025 MARCELA [facility], [address], Michael F, [place], [address], 5 14:37:07 CBC w/ auto diff 2024 025 MARCELA [facility], [address], Michael F, [place], [address], 5 14:37:04 ESR (erythrocyt e sedimentati on rate), blood 2024 025 MARCELA [facility], [address], Michael F, [place], [address], 5 14:37:09 cobalamin and folate panel, serum 2024 025 MARCELA [facility], [address], Michael F, [place], [address], 5 14:37:06 vitamin D, 25-hydroxy, total, serum 2024 025 MARCELA [facility], [address], Michael F, [place], [address], 5 14:37:08 Referral None recorded. Procedures None recorded. Surgeries None recorded. Imaging None recorded. Medication Orders None recorded. Patient TargetsNo targets recorded. Patient Instructions Encounter Date Encounter Id Patient Instructions Last Modified By Organization Details Last Modified Time 08/01/2024 [id number] numbness and tingling: care instructions [id number] Not available 08/01/2024 15:31:35 Reason for Referral None Reported. Problems Name Problem SNOMED Code Status Onset Date Resolution Date Notes Provider Name and Address Organization Details Recorded Time Muscle weakness 66026084 Active 2019 RIght Luanne Nemo null, [place] - [facility] 3 11:29:58 Neuropat hy 851020387 Active 2019 intermit tent comes and goes [facility] [address], [place], [address] , [place] - [facility] 3 15:49:25 Hashimot o thyroidi tis 10128406 Active 2020 per rheumato logy labs, [facility] [address], [place], [address] , [place] - [facility] 3 15:49:24 Vitamin D deficien cy 18360894 Active 2020 Scott Lincoln, [facility] [employer] [address], [place], [address] , [facility] - [facility] 5 14:48:19 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 Olsen at [facility] [address], [place], [address] , [place] - [facility] 3 15:49:25 Antenata l screenin g Completed [ ]Mat21-d iscussed at obhx, desires [-]AFP-d iscussed at obhx, pt declined [x]CF- negative [facility] [address], [place], [address] , [place] - [facility] 3 15:49:24 History of abnormal cervical Papanico laou smear 564952684 Completed 2022 LSIL, HPV+ colpo: CIN1, neg ECC [facility] [address], [place], [address] , [place] - [facility] 3 15:49:25 History of abnormal cervical Papanico laou smear 914784965 Active 2022 LSIL, HPV+ colpo: CIN1, neg ECC [facility] [address], [place], [address] , [facility] - [facility] 3 15:49:25 Contrace ption care manageme nt Completed unsure [facility] [address], [place], [address] , [place] - [facility] 3 15:49:25 Body mass index 30+ - obesity 207632021 Completed BMI: 30.6 starting wgt: 173 recommen ded wgt gain: 15-25 In[facility] Nurse [facility] [address], [place], [address] , [facility] - [facility] 3 15:49:25 Active immuniza tion Completed [-]Covid -decline d at obhx [ ]Tdap- [ ]Flu- Infusion Nurse [facility] [address], [place], [address] , [facility] - [facility] 3 15:49:24 Neuropat hy 947184450 Completed 2019 intermit tent comes and goes Infusion Nurse [facility] [address], [place], [address] , [facility] - [facility] 3 15:49:25 Hashimot o thyroidi tis 92220694 Completed 2020 per rheumato logy labs, Infusion Nurse [facility] [address], [place], [address] , [facility] - [facility] 3 15:49:24 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 Olsen at Infusion Nurse [facility] [address], [place], [address] , [facility] - [facility] 3 15:49:25 Obesity 677340445 Active BMI: 30.6 Infusion Nurse [facility] [address], [place], [address] , [facility] - [facility] 3 15:49:25 Obesity 969269390 Completed BMI: 30.6 Infusion Nurse [facility] [address], [place], [address] , [facility] - [facility] 3 15:49:25 Normal pregnanc y 17359781 Completed 201603/16/2017 In[facility] [address], [place], [address] , [facility] - [facility] 8 14:00:16 Pregnanc y 41923947 Completed 201603/16/2017 Luanne [place], [place] - [facility] 3 09:05:42 Nausea and vomiting 30919688 Completed fluids in office and at hosp [facility] [address], [place], [address] , [place] - [facility] 8 13:59:46 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 63171024 Completed [place]: ENT Dr Olsen & [place] [facility] Dr Campa right petrous apex choleste rol granulom a [facility] [address], [place], [address] , [place] - [facility] 8 13:59:46 Antenata l screenin g Completed 04/03/16 FTS Normal NT, Serum = REqueste d 09/03 [facility] [address], [place], [address] , [place] - [facility] 8 13:59:46 Tendinit is 84949040 Active 2024 Viky Restrepo, [facility] [employer], [place], [address] , [place] - [facility] 5 15:46:56 Fatigue 33335617 Active 2024 Scott Lincoln, [employer], [place], [address] , [place] [facility] 5 08:42:52 Butterfl y rash 01523962 Active 2024 Scott Lincoln, [employer], [place], [address] , [place] [facility] 5 08:50:46 Paresthe karen of hand 240242240 Active 2024 Scott Lincoln, [employer], [place], [address] , [place] [facility] 5 08:54:36 Problem Notes None recorded. Procedures Surgical History Date Name Laterality Status Provider Name and Address Organization Details Recorded Time 023 OB Ultrasound Summary completed Lexi Gutierrez [place] - [facility] 10/28/2022 16:25:13 023 OB Ultrasound Summary completed Lexi NICHOLAS - [facility] 10/24/2022 14:29:34 023 OB Ultrasound Summary completed Lexi Gutierrez [place] - [facility] 10/15/2022 14:00:05 023 IUD Removal completed Malaika Umana, [employer], [place], [address], [place] - [facility] 03/13/2022 14:02:13 023 Date of Last Pap Smear completed Malaika Umana, [employer] [address], [place], [address], [place] - [facility] 03/18/2022 10:45:46 023 removal of intrauterine device completed Malaika Umana, [employer] [address], [place], [address], [place] - [facility] 03/13/2022 14:11:29 019 Medication Reconcilliation completed Deep Keane [place] - [facility] 04/14/2018 10:49:20 018 insertion of intrauterine contraceptive device completed Luanne Chester [place] - [facility] 03/12/2022 11:36:29 017 OB Ultrasound Summary completed Misty Alex [place] - [facility] 05/28/2016 17:09:03 017 OB Ultrasound Summary completed Rochelle Louise [place] - [facility] 04/30/2016 10:38:28 017 OB Ultrasound Summary completed Elizabet Schumacher [place] - [facility] 03/26/2016 16:11:11 017 OB Ultrasound Summary completed Elizabet Schumacher [place] - [facility] 03/10/2016 14:04:59 016 IUD Removal completed Marcellamarla Atkins [place] - [facility] 02/21/2016 15:05:42 016 Nsl/sins ndsc frnt tiss rmvl completed Marcella Milly [place] - [facility] 02/22/2016 15:08:58 014 Colposcopy completed Marcella Milly [place] - [facility] 02/21/2016 15:31:12 014 Colposcopy completed Marcella Milly [place] - [facility] 02/21/2016 15:31:40 011 IUD Insertion completed Luanne Chester [place] - [facility] 03/12/2022 11:35:46 Imaging Results None recorded. Procedure Notes None recorded. Medical Equipment None Reported. Allergies No known drug allergies Medications Name Sig Start Date Stop Date Status Note LastModified by Organization Details LastModified Time cyclobenz aprine 10 mg tablet Take 1 tablet 3 times a day by oral route for 14 days. 09/05 completed Not Available Not Available Not Available amoxicill in 500 mg capsule 04/25 completed Not Available Not Available Not Available Mirena 21 mcg/24 hr (up to 8 years) 52 mg intrauter ine device Take by intraute rine route. 03/13 completed Not Available Not Available Not Available prednison e 10 mg tablet TAKE ONE (1) TABLET TWICE A DAY BY ORAL ROUTE FOR FIVE (5) DAYS. 08/01 completed Not Available Not Available Not Available ibuprofen 800 mg tablet TAKE ONE TABLET BY MOUTH EVERY 8 HOURS NEEDED FOR PAIN --TAKE WITH FOOD-- 04/25 completed Not Available Not Available Not Available fluconazo le 150 mg tablet one table now and repeat in 3 days in still having sx's 10/12 completed Not Available Not Available Not Available sulfameth oxazole 400 mg-trimet hoprim 80 mg tablet 09/21 completed Not Available Not Available Not Available hydrocodo ne 5 mg-acetam inophen 325 mg tablet 02/21 completed Not Available Not Available Not Available promethaz ine 25 mg rectal supposito ry Insert 1 supposit ory every 6 hours by rectal route as needed. 03/26 completed Not Available Not Available Not Available prednison e 20 mg tablet Take 1 tablet every day by oral route for 5 days. 04/25 completed Not Available Not Available Not Available lactated Ringers intraveno us solution Inject 1000 mL as needed by intraven ous route as directed for 1 day. 03/26 completed Not Available Not Available Not Available penicilli n V potassium 500 mg tablet TAKE ONE TABLET BY MOUTH THREE TIMES DAILY FOR 5 DAYS -- FINISH ALL MEDICINE -- 04/25 completed Not Available Not Available Not Available metronida zole 500 mg tablet Take 1 tablet twice a day by oral route with meals for 7 days. 10/12 completed Not Available Not Available Not Available sulfameth oxazole 800 mg-trimet hoprim 160 mg tablet 02/21 completed Not Available Not Available Not Available acetamino phen 500 mg tablet TAKE ONE TABLET BY MOUTH EVERY 6 HOURS NEEDED FOR FEVER 04/25 completed Not Available Not Available Not Available butalbita l-acetami nophen-ca ffeine 50 mg-325 mg-40 mg tablet 09/21 completed Not Available Not Available Not Available amoxicill in 500 mg tablet Take 1 tablet every 8 hours by oral route for 7 days. 04/25 completed Not Available Not Available Not Available Vitamin tablet take 1 tablet by oral route once daily for 30 days 09/17 completed Vitamin Oral Tablet;R ecorded Status: Recorded on: 12/19/19 10 3:34PM;D iscontin ued Status: Disconti nued on: 09/18/19 11 2:03PM;U ser: youngk;E st. Completi on: 12/14/19 11;Indic ation: Pregnanc y - (.[id number]);Prin ellen: 12/19/19 10 Not Available Not Available Not Available nortripty line 25 mg capsule 09/21 completed Not Available Not Available Not Available Miconazol e-7 2 % vaginal cream Insert 1 applicat orful every day by vaginal route for 7 days. 10/12 completed Not Available Not Available Not Available Metrogel Vaginal 0.75 % (37.5 mg/5 gram) insert 1 applicat orful (37.5 mg) by vaginal route once daily at bedtime for 5 days 09/06 completed Metrogel Vaginal 0.75 % vaginal gel;Dmitri rded Status: Recorded on: 09/18/19 11 2:36PM;D iscontin ued Status: Disconti nued on: 09/07/19 13 3:41PM;U ser: youngk;E st. Completi on: 09/23/19 11;Indic ation: Bacteria l Vaginosi s - (.[id number] 00) Not Available Not Available Not Available Synthroid 25 mcg tablet Take 1 tablet every day by oral route in the morning for 30 days. 02/25 completed Not Available Not Available Not Available ferrous sulfate 325 mg (65 mg iron) tablet take 1 tablet (325 mg) by oral route 3 times per day for 30 days 09/17 completed ferrous sulfate 325 mg (65 mg iron) oral tablet;R ecorded Status: Recorded on: 12/19/19 10 3:34PM;D iscontin ued Status: Disconti nued on: 09/18/19 11 2:03PM;U ser: youngk;E st. Completi on: 12/14/19 11;Print ed: 12/19/19 10 Not Available Not Available Not Available promethaz ine 25 mg/mL injection solution Take 1 mL as needed by injectio n route as directed . 03/26 completed 25 mg in 50 ml of ns given by Wanda Garcia IV Piggybapelon k Not Available Not Available Not Available promethaz ine 25 mg tablet take 1 tablet by oral route every 6 hours as needed 04/25 completed Not Available Not Available Not Available progester one micronize d 200 mg capsule Take 1 capsule every day by oral route for 12 days. 02/13 completed Not Available Not Available Not Available simethico ne 125 mg chewable tablet CHEW AND SWALLOW 1 TABLET BY MOUTH EVERY DAY NEEDED FOR ABDOMINA L DISTENTI ON 04/25 completed Not Available Not Available Not Available folic acid 1 mg tablet Take 1 tablet every day by oral route for 90 days. 04/25 completed Not Available Not Available Not Available Proventil HFA 90 mcg/actua tion aerosol inhaler 05/02 completed Proventi l HFA 90 mcg/actu ation inhalati on HFA aerosol inhaler; Recorded Status: Recorded on: 06/12/19 10 1:12PM;D iscontin ued Status: Disconti nued on: 05/03/19 14 8:27AM;U ser: vesth Not Available Not Available Not Available mupirocin 2 % topical ointment 09/21 completed Not Available Not Available Not Available codeine sulfate 30 mg tablet 09/21 completed Not Available Not Available Not Available methylpre dnisolone 4 mg tablets in a dose pack Take as directed 09/21 completed Not Available Not Available Not Available Vitamin D2 1,250 mcg (50,000 unit) capsule Take 1 capsule every week by oral route. 04/25 completed Not Available Not Available Not Available ketorolac 60 mg/2 mL intramusc ular solution Inject 1 mL by intramus cular route. 09/21 completed Not Available Not Available Not Available doxycycli ne hyclate 100 mg tablet TAKE ONE TABLET BY MOUTH TWICE DAILY FOR FOURTEEN DAYS 04/25 completed Not Available Not Available Not Available naproxen 500 mg tablet 04/25 completed Not Available Not Available Not Available progester one micronize d [address] CAPSULE VAGINALL Y EACH NIGHT FOR 30 DAYS UNTIL 12 WEEKS GESTATIO N. 04/25 completed Not Available Not Available Not Available amoxicill in 875 mg-potass ium clavulana te 125 mg tablet TAKE ONE TABLET BY MOUTH TWICE DAILY FOR 5 DAYS -- FINISH ALL MEDICINE -- 04/25 completed Not Available Not Available Not Available oxycodone 5 mg tablet TAKE ONE TABLET BY MOUTH TWICE DAILY FOR PAIN 04/25 completed Not Available Not Available Not Available Vitamin 27 mg iron-0.8 mg tablet Take 1 tablet every day by oral route for 90 days. 10/08 completed Not Available Not Available Not Available azithromy tatianna 500 mg tablet take 2 tablets (1,000 mg) by oral route once 03/13 completed azithrom ycin 500 mg oral tablet;R ecorded Status: Recorded on: 02/05/20 10 10:22AM; Disconti nued Status: Disconti nued on: 03/13/19 11 11:23AM; User: gerda; Est. Completi on: 02/06/20 10;Indic ation: Chlamydi a Cervicit is - ();Prin ellen: 02/05/20 10 Not Available Not Available Not Available nitrofura ntoin monohydra te/macroc rystals 100 mg capsule 04/25 completed Not Available Not Available Not Available duloxetin e 30 mg capsule,d elayed release Take 1 capsule every day by oral route for 30 days. 11/02 completed not taking Not Available Not Available Not Available cholecalc iferol (vitamin D3) 1,250 mcg (50,000 unit) capsule Take 1 capsule every week by oral route for 90 days. active Not Available Not Available No t Available cholecalc iferol (vitamin D3) 50 mcg (2,000 unit) capsule Take 1 capsule every day by oral route for 90 days. 03/12 completed Not Available Not Available Not Available 28 mg iron-800 mcg tablet Take 1 tablet by oral route for 90 days. 04/25 completed Not Available Not Available Not Available Estarylla 0.25 mg-0.035 mg tablet TAKE ONE TABLET BY MOUTH EVERY DAY active Not Available Not Available No t Available Diclegis 10 mg-10 mg tablet,de layed release Take 1 tablet twice a day by oral route as directed for 30 days. 10/12 completed Not Available Not Available Not Available Gummy 400 mcg-35 mg-25 mg-5 mg chewable tablet Take 1 tablet by oral route. 10/12 completed Not Available Not Available Not Available Myfembree 40 mg-1 mg-0.5 mg tablet TAKE ONE TABLET BY MOUTH EVERY DAY 04/25 completed Not Available Not Available Not Available Vitals Date Recorded Body height Body mass index (BMI) Body weight Heart rate Oxygen saturation Oxygen saturation in Arterial blood by Pulse oximetry Respiratory rate Systolic And Diastolic Provider Name and Address Organization Details Last Updated DateTime 5 160.02 cm 32.1 kg/m2 76025.9 2 g 88 /min 98 % 98 % 18 /min 116/76 mm[Hg] Mireya kilpatrick [place] - [facility] 5 08:37:16 Social History Question Answer Notes LastModified by Organizat ion Details LastModified Time Tobacco Smoking Status Never Smoker Marcella [place], [place] - [facility] 02/22/2016 15:06:05 Do You Have An Advance Directive? No [email or web address] Information not available 03/12/2022 If You Are , What Was Your Level Of Alcohol Consumption Prior To ? None [email or web address] Information not available 03/12/2022 Are You Blind Or Do You Have Difficulty Seeing? No Information not available 03/12/2022 Is Blood Transfusion Acceptable In An Emergency? Yes Information not available 02/22/2016 What Is Your Level Of Caffeine Consumption? Occasional Information not available 02/22/2016 Live With Cats/exposure To Cat Litter No Information not available 02/22/2016 How Much Tobacco Do You Chew? None Information not available 02/22/2016 In The 14 Days Before Symptom Onset, Have You Had Close Contact With A Laboratory-confir med COVID-19 While That Case Was Ill? No [email or web address] Information not available 03/12/2022 In The 14 Days Before Symptom Onset, Have You Had Close Contact With A Person Who Is Under Investigation For COVID-19 While That Person Was Ill? No [email or web address] Information not available 03/12/2022 Have You Been To An Area Known To Be High Risk For COVID-19? No [email or web address] Information not available 03/12/2022 Are You Deaf Or Do You Have Serious Difficulty Hearing? No [email or web address] Information not available 03/12/2022 Diabetes No Information no t available 02/22/2016 What Type Of Diet Are You Following? REGULAR Information not available 02/22/2016 Which Illicit Or Recreational Drugs Have You Used? No Hx Information not available 02/22/2016 Have You Processed Blood Or Body Fluids From An Ebola Virus Disease Patient Without Appropriate PPE? No [email or web address] Information not available 03/12/2022 Do You Reside In Or Have You Traveled To An Area Where Ebola Virus Transmission Is Active? No [email or web address] Information not available 03/12/2022 Education 12 [email or web address] Information no t available 03/12/2022 What Is The Highest Grade Or Level Of School You Have Completed Or The Highest Degree You Have Received? DF44098-3 [email or web address] Information not available 03/12/2022 Have There Been Any Changes To Your Family Or Social Situation? No Information no t available 02/22/2016 What Is The Fluoride Status Of Your Home? Fluoridated [email or web address] Information not available 03/12/2022 Frequent Air Travel No Information not available 02/22/2016 Have You Recently Or Are You Planning To Travel To An Area With Zika Virus? No [email or web address] Information not available 03/12/2022 High Blood Pressure No Information not available 02/22/2016 High Cholesterol No Informat ion not available 02/22/2016 Illicit Drugs Pre- None Information not available 02/22/2016 Live Alone Or With Others? With Others Information not available 02/22/2016 Do You Have A Medical Power Of Music Executive? Yes [email or web address] Information not available 03/12/2022 What Was The Date Of Your Most Recent Tobacco Screening? 04/25/2024 Information not available 04/25/2024 How Many Children Do You Have? 2 Information not available 10/08/2022 Do You Have Any Pets? No Information not available 02/22/2016 Do You Use Protection During Sex? No [email or web address] Information not available 03/12/2022 Do You Use Protection Against STDs? No [email or web address] Information not available 03/12/2022 What Is Your Relationship Status? [email or web address] Information not available 03/12/2022 Seat Belts Used Routinely Yes Information not available 02/22/2016 Are You Sexually Active? Yes Information not available 02/22/2016 Do You Have Smoke And Carbon Monoxide Detectors In Your Home? Yes Information not available 02/22/2016 Are You Passively Exposed To Smoke? No Information no t available 02/22/2016 How Much Tobacco Do You Smoke? No Information not available 02/22/2016 Smoking Pre- No Information not available 02/22/2016 General Stress Level Medium Information not available 02/22/2016 Do You Use Sunscreen Routinely? Yes Information not available 02/22/2016 Has Tobacco Cessation Counseling Been Provided? Yes Information not available 02/11/2023 On What Date Was Tobacco Cessation Counseling Provided? 04/25/2024 Information not available 04/25/2024 How Many Years Have You Smoked Tobacco? 0 Information not available 02/22/2016 Do You Have Difficulty Walking Or Climbing Stairs? No [email or web address] Information not available 03/12/2022 Do You Have Symptoms Associated With Zika Virus (fever, Rash, Joint Pain, Or Conjunctivitis)? No Information not available 02/22/2016 Have You Recently (within The Last 12 Weeks, Or During A Current ) Traveled To Or Lived In A Zika-affected Area? No Information not available 02/22/2016 What Contraceptive Method Was Reported At Start Of This Visit? None Information not available 10/08/2022 Was Counseling Provided To Achieve ? No [email or web address] Information not available 03/12/2022 Do You Want To Talk About Contraception Or Prevention During Your Visit Today? No - I Do Not Want To Talk About Contraception Today Because I Am Here For Something Else Information not available 10/15/2022 What Is Your Reason For Having No Contraceptive Method At Start Of This Visit? Other [email or web address] Information not available 10/15/2022 Sex: Female Functional Status Question Answer Note LastModified by Organizat ion Details LastModified Time Do you or have you ever used smokeless tobacco? Never used smokeless tobacco Information not available 07/25/2020 Are you currently employed? Yes Information not available 02/22/2016 Do you have transportation difficulties? No [email or web address] Information not available 03/12/2022 Are you able to care for yourself? Yes [email or web address] Information n ot available 03/12/2022 Do you have difficulty dressing or bathing? No [email or web address] Information not available 03/12/2022 Do you or have you ever used e-cigarettes or vape? Never used electronic cigarettes Information not available 07/25/2020 What is your exercise level? Occasional Information not available 02/22/2016 Do you use any illicit or recreational drugs? No Information not available 10/08/2022 Do you or have you ever used any other forms of tobacco or nicotine? No Information not available 10/08/2022 What is your level of alcohol consumption? None Information not available 02/22/2016 What is your status? Information no t available 10/08/2022 Are you able to walk? [email or web address] Information not available 03/12/2022 Do you have difficulty doing errands alone? 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 [id number] [email or web address] Information not available 03/12/2022 Do you have difficulty concentrating, remembering or making decisions? No [id number] Information no t available 03/12/2022 Family History Relationship Description Onset Age of this Age Resolved Age Notes LastModified by Organization Details LastModified Time Father Chronic obstructive pulmonary disease Not available 2016 15:51:26 Paternal Grandmother Diabetes mellitus Not available 2016 15:51:51 Maternal Grandfather Diabetes mellitus Not available 2016 15:51:51 Paternal Grandfather Diabetes mellitus Not available 2016 15:51:51 Medical History Condition Response Blood Diseases N Hyperthyroidism N Rheumatoid arthritis N Blood Transfusion N amputation N Depression N Pneumonia N Incontinence N Edema N Anxiety Disorder N Obesity Y Restless Leg Syndrome N Infertility N Polyps N Carpal Tunnel N Acid Reflux (GERD) N Stroke N Varicosities N Tendonitis N Skin Cancer N Fibromyalgia N Anal Fissure N Irritable Bowel Syndrome N Kidney Disease N Hospitalizations Y Gallstones N Goiter N Acne N Eating Disorder N Ramírez's Esophagus N Hypertriglyceridemia N Constipation N Embolism N Deviated Septum N Myocardial Infarction N Asthma N Vertigo N Chicken Pox Y Von Willebrands Disease N Lung Disease N Defects or Inherited Disease N Ovarian Cyst N Anesthesia Complications N Testosterone Deficiency N Interstitial Cystitis N Congenital Anomalies N Hypoglycemia N Blood clot N Cellulitis N Endometriosis N Fracture N Panic Disorder N Schizophrenia N Spina Bifida N Parkinson's Disease N STI N Angina N Thyroid Problems N GI Problems N ADD/ADHD N Anemia N Multiple Sclerosis N Lumbago N Psychiatric Illness N Diabetes N Hyperlipidemia N Syncope N Abuse/Domestic Violence N Attention Deficient Disorder N Ulcerative colitis N Aneurysm N Bronchitis N Heart Disease N Hypertension N Pre-Eclampsia N Suicidal Ideation N Pancreatitis N Other N Atrial Fibrillation N congenital heart disease N Erectile Dysfunction N Skin Lesions N Murmur N Alzheimer's Disease N Migraine Headaches N Tobacco Abuse N Hemorrhoids N Vision or Eye Problems N Arthritis N Cancer N Crohn's Disease N Hypercholesterolemia N Headaches N Heart Problems N Kidney or Bladder Problems N Vitamin B12 Deficiency N AIDS/HIV N Mitral Valve Disorders N Hepatitis N Thyroid Cancer N Neuropathy N History of DVT N Herniated Disc N Autism Spectrum Disorder (ASD) N Thrombophilias N Breast Cancer N Hernia N Plantar Fasciitis N Hypothyroidism N Breast Problem N Vitamin D Deficiency N Bladder or Kidney Problems N Colorectal Cancer N Concussion N Osteoarthritis N Disc Protrusion N Esophagitis N Abnormal PAP Y Mental Illness N Ovarian Cancer N Degenerative Disc Disease N Seizures/Epilepsy N Insomnia N Eczema N Dementia N Cerebrovascular Disease N Depression N Guillain-Dante N Sleep Apnea N Osteoporosis N Gynecological History Statement/Question Response Date of Last Mammogram Flow Moderate Date of LMP 04/16/2024 STIs/STDs Y Date of Last Colonoscopy Desired Control Method None Abnormal Pap Yes On BCP's at Conception? N Colposcopy 05/26/2013 HPV Vaccine N Duration of Flow (days) 7 Current Control Method None Age at Menarche 10 Age at First Child 19 Last Annual Exam/Provider 03/13/22 Frequency of Cycle (Q days) 28 Most Recent Bone Density Sexually Active? Y Date of Last Cervical Culture 03/13/2022 Menses Monthly Y Date of Last Pap Smear 03/13/2022 Sexual Problems? N LMP Approximate Obstetrics History GPAL:G 3 P 2 0 1 2 Type Value Full Term 2 Spontaneous 1 Living 2 Total 3 Past Encounters Encounter ID Performer Location Encounter Start Date Encounter Closed Date Diagnosis/Indication Diagnosis SNOMED-CT Code Diagnosis ICD10 Code Diagnosis Note [id number] Scott Lincoln APRN [place] [address] [place] [id number] 08/01/2024 08:31:06 08/01/2024 09:20:53 Ora thyroiditis 49287379 E06.3 hx of Ora' s, will check labs as patient having increased fatigue, weight gain.Notif y with results, f/u pending labs. Fatigue 84840413 R53.83 PE noted with butterfly appearing rash to face. Will check labs at this time. Advised to continue working on improved diet with reduced processed foods, sugars, focus on whole foods. Increase exercise 5 days 30min. F/U 3-4 weeks or sooner pending labs. Butterfly rash [id number] R21 PE noted with butterfly rash will check labs, concern for possible lupus or other autoimmune disease considerin g worsening fatigue, joint pain, malar rash, edema. Will notify with results once available. F/u 3-4 weeks or sooner pending labs. Paresthesia of hand [id number] [id number] R20.2 PE noted with decreased sensation to light touch in right fingers otherwise was normal in bilateral upper extremitie s. Will check labs and notify with results once available. F/U 3-4 weeks or sooner pending labs. Health Concerns Section Related Observation LastModified by Organization Detai ls LastModified Time None Recorded Concern Status LastModified by Organization Details LastModified Time None Recorded Payers Encounter Date Sequence Insurance Name Policy Number Policy English Covered Member ID English Member ID Guarantor Name 08/01/2024 1 [employer] (MEDICAID REPLACEMENT - HMO) Lillian Maldonado [id number] Lillian Sutton Notes Date Note Type Note Provider Name and Address Organization Details Recorded Time 08/01/2024 text/html 34 yo presents f or Ora Thyroiditis and wanting to have labs checked. 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 She reports now that she is having increased weight gain despite working on diet and exercise. she reports she had 2 miscarriages last year and was put on oral control. She states she has stopped control about one month ago. She states that she is noticing increased fatigue, weight gain over last 6 months. She admits she was down to 158 and now has increased to 181 at this time. She reports she feels swollen in fingers and feet. She reports also having redness across cheeks and nose. She states she has ongoing joint pain in hands knees and legs reports entire body. She also states numbness and tingling ongoing in bilateral hands, with right side worse occuring in shoulder radiating down arm to hand. Denies any weakness but does have some cramping in right hand with increased use. She reports all of these symptoms have occurred over the last 6 months. She denies any dyspnea, chest pain, n/v, diarrhea, constipation. 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 She reprots increased post nasal drainage but this has remained at baseline and was expected post brain sx. Denies any chest pain, dyspnea, n/v, diarrhea, constipation, urinary complaints. Denies any other concerns. Scott Lincoln, [employer] [address], [place], [address], [place] - [facility] 08/01/2024 15:31:54 OBGyn Episode No OBEpisode recorded.
--- OUTSIDE RECORDS SUMMARY | 2024-08-24 08:50 | XMS_ITS | Data Portability ---
Author Organization SORAYA ANSON Perez [facility] Address [address] [place] [address] Care Team Providers Care Straight Knife Cutter Machine Name Role Phone MARTHAREGI Primary Care Provider Assessment Encounter Date Assessment Date Assessment LastModified by Organization Details LastModified Time 11/25/2018 11/25/2018 Assessment: 1. Paresthesias 2. Subjective transient weakness; normal neuro exam today w/o objective weakness 3. subjective limited stamina 4. Off work since Mar 2018, 5. She has had several evaluations at , has seen Neurosurgery, Neurology had MS evaluation with review MRI which did not find a disorder had Ophthalmology exam good report I advised that I do not find any evidence of a neurological disorder I advised that her testing at has been thorough I do not see need to repeat stdies at this time No further neurological testing needed at this time I recommended that she she should follow through with her doctors I do not find any new insight or issues today I advised that the her subjective symptoms with normal exam, and with normal neuro testing indicate that no disease process has been identified. I advised that she can safely watch her symptoms and report to her caregiver if new symptoms occur. I advised no further testing needed at this time . She does not needed follow up with me I advised she should next follow up with her doctors as planned. I did suggest some screening lab studies today Plan: 1. Blood work today 2. No follow-up scheduled Addendum normal blood tests today TSH, T$, CBC CMP ESR Good results; all info to be phoned to patient [email or web address] Not available 12/03/2018 07:45:13 Plan of Treatment Reminders Order Date Submit Date Provider Last Modified By Organization Details Last Modified Time Details Appointments None recorded. Lab TSH, serum or plasma 2018 019 [facility], [address] [place] [address], [id number], 9 07:05:43 T4, free, serum 2018 019 [facility], [address] [place] [address], [address], 9 07:05:43 CBC w/ auto diff 2018 019 [email or web address] [facility], [address] [place] [address], [address], 9 07:05:43 CMP, serum or plasma 2018 019 [email or web address] [facility], [address] [place] [address], [address], 9 07:05:43 ESR (erythrocyt e sedimentati on rate), blood 2018 [email or web address] [facility], [address] [place] [address], [address], 9 07:05:43 Referral None recorded. Procedures None recorded. Surgeries None recorded. Imaging None recorded. Medication Orders None recorded. Patient TargetsNo targets recorded. Patient Instructions Encounter Date Encounter Id Patient Instructions Last Modified By Organization Details Last Modified Time 11/25/2018 [id number] eating healthy foods: care instructions [email or web address] Not available 11/26/2018 07:05:43 Reason for Referral None Reported. Results Created Date Observation Date Name Description Value Unit Range Abnormal Flag Note LastModifiedBy Organization Detail LastModifiedTime 11/26/19 19 11/25/2018 CBC w/ auto diff white blood cells 6.8 K/uL 3.8-10 .8 normal Not Available [facility] [address] [place] [address], [address], 11/25/2018 11:52:56 11/26/1911/25/2018 CBC w/ auto diff red blood cells 4.82 M/uL 3.80-5 .20 normal Not Available [facility] [address] [place], [address], 11/25/2018 11:52:56 11/26/1911/25/2018 CBC w/ auto diff hemoglobin 13.8 g/dL 12.0-1 6.0 normal Not Available [facility] [address] [place], [address], 11/25/2018 11:52:56 11/26/1911/25/2018 CBC w/ auto diff hematocrit 40.5 % 35.0-4 7.0 normal Not Available [facility] [address] [place] [address], [address], 11/25/2018 11:52:56 11/26/1911/25/2018 CBC w/ auto diff MCV 84 fL 80-100 normal Not Available [facility] [address] [place], [address], 11/25/2018 11:52:56 11/26/1911/25/2018 CBC w/ auto diff MCH 29 pg 26-35 normal Not Available [facility] [address] [place] [address], [address], 11/25/2018 11:52:56 11/26/1911/25/2018 CBC w/ auto diff MCHC 34 g/dL 32-36 normal Not Available [facility] [address] [place], [address], 11/25/2018 11:52:56 11/26/1911/25/2018 CBC w/ auto diff RDW 13.9 % 11.0-1 5.0 normal Not Available [facility] [address] [place], [address], 11/25/2018 11:52:56 11/26/1911/25/2018 CBC w/ auto diff MPV 8.5 fL 6.2-10 .5 normal Not Available [facility] [address] [place] [address], [address], 11/25/2018 11:52:56 11/26/1911/25/2018 CBC w/ auto diff platelet count 237 K/uL 130-40 0 normal Not Available [facility] [address] [place] [address], [address], 11/25/2018 11:52:56 11/26/1911/25/2018 CBC w/ auto diff neutrophil,a bsolute 3.9 K/uL 1.6-8. 4 normal Not Available [facility] [address] [place] [address], [address], 11/25/2018 11:52:56 11/26/1911/25/2018 CBC w/ auto diff lymphocyte,a bsolute 2.2 K/uL 0.4-5. 1 normal Not Available [facility] [address] [place] [address], [address], 11/25/2018 11:52:56 11/26/1911/25/2018 CBC w/ auto diff monocyte,abs olute 0.5 K/uL 0.0-1. 2 normal Not Available [facility] [address] [place] [address], [address], 11/25/2018 11:52:56 11/26/1911/25/2018 CBC w/ auto diff eosinophil,a bsolute 0.2 K/uL 0.0-0. 8 normal Not Available [facility] [address] [place] [address], [address], 11/25/2018 11:52:56 11/26/1911/25/2018 CBC w/ auto diff basophil,abs olute 0.1 K/uL 0.0-0. 3 normal Not Available [facility] [address] [place] [address], [address], 11/25/2018 11:52:56 11/26/1911/25/2018 CBC w/ auto diff % neutrophils 58.1 % 42.0-7 8.0 normal Not Available [facility] [address] [place] [address], [address], 11/25/2018 11:52:56 11/26/1911/25/2018 CBC w/ auto diff % lymphocytes 31.8 % 11.0-4 7.0 normal Not Available [facility] [address] [place] [address], [address], 11/25/2018 11:52:56 11/26/1911/25/2018 CBC w/ auto diff % monocytes 6.7 % 0.0-11 .0 normal Not Available [facility] [address] [place] [address], [address], 11/25/2018 11:52:56 11/26/1911/25/2018 CBC w/ auto diff % eosinophils 2.5 % 0.0-7. 0 normal Not Available [facility] [address] [place] [address], [address], 11/25/2018 11:52:56 11/26/1911/25/2018 CBC w/ auto diff % basophils 0.9 % 0.0-3. 0 normal Not Available [facility] [address] [place] [address], [address], 11/25/2018 11:52:56 11/26/1911/25/2018 CBC w/ auto diff nucleated red cells 0.0 % 0.0-0. 9 normal Not Available [facility] [address] [place] [address], [address], 11/25/2018 11:52:56 11/26/1911/25/2018 CBC w/ auto diff nucleated RBCs, absolute 0.00 K/uL not estab. normal Not Available [facility] [address] [place] [address], [address], 11/25/2018 11:52:56 11/26/1911/25/2018 CMP, serum or plasm a glucose 87 mg/dL 74-100 normal Not Available [facility] [address] [place] [address], [address], 11/25/2018 12:20:54 11/26/19 19 11/25/2018 CMP, serum or plasm a blood urea nitrogen 12 mg/dL 6-20 normal Not Available [facility] [address] [place] [address], [address], 11/25/2018 12:20:54 11/26/1911/25/2018 CMP, serum or plasm a creatinine 0.65 mg/dL 0.50-0 .95 normal Not Available [facility] [address] [place] [address], [address], 11/25/2018 12:20:54 11/26/1911/25/2018 CMP, serum or plasm a BUN/creatini ne ratio 18 (calc ) 10-20 normal Not Available [facility] [address] [place] [address], [address], 11/25/2018 12:20:54 11/26/1911/25/2018 CMP, serum or plasm a sodium 138 mmol/ L 136-14 5 normal Not Available [facility] [address] [place] [address], [address], 11/25/2018 12:20:54 11/26/1911/25/2018 CMP, serum or plasm a potassium 3.9 mmol/ L 3.4-5. 0 normal Not Available [facility] [address] [place] [address], [address], 11/25/2018 12:20:54 11/26/1911/25/2018 CMP, serum or plasm a chloride 100 mmol/ L 98-107 normal Not Available [facility] [address] [place] [address], [address], 11/25/2018 12:20:54 11/26/19 19 11/25/2018 CMP, serum or plasm a carbon dioxide 24 mmol/ L 20-32 normal Not Available [facility] [address] [place] [address], [address], 11/25/2018 12:20:54 11/26/19 19 11/25/2018 CMP, serum or plasm a anion gap 14 (calc ) 7-25 normal Not Available [facility] [address] [place] [address], [address], 11/25/2018 12:20:54 11/26/19 19 11/25/2018 CMP, serum or plasm a calcium 9.1 mg/dL 8.6-10 .2 normal Not Available [facility] [address] [place] [address], [address], 11/25/2018 12:20:54 11/26/19 19 11/25/2018 CMP, serum or plasm a total protein 7.1 g/dL 6.4-8. 3 normal Not Available [facility] [address] [place] [address], [address], 11/25/2018 12:20:54 11/26/1911/25/2018 CMP, serum or plasm a albumin 4.7 g/dL 3.5-5. 2 normal Not Available [facility] [address] [place] [address], [address], 11/25/2018 12:20:54 11/26/1911/25/2018 CMP, serum or plasm a globulin 2.4 g/dL_ (calc ) 1.5-4. 5 normal Not Available [facility] [address] [place] [address], [address], 11/25/2018 12:20:54 11/26/1911/25/2018 CMP, serum or plasm a albumin/glob ulin ratio 2.0 (calc ) 1.1-2. 5 normal Not Available [facility] [address] [place] [address], [address], 11/25/2018 12:20:54 11/26/1911/25/2018 CMP, serum or plasm a bilirubin, total 0.3 mg/dL 0.1-1. 2 normal Not Available [facility] [address] [place], [address], 11/25/2018 12:20:54 11/26/1911/25/2018 CMP, serum or plasm a alkaline phosphatase 59 U/L 35-105 normal Not Available [facility] [address] [place], [address], 11/25/2018 12:20:54 11/26/1911/25/2018 CMP, serum or plasm a AST 14 U/L 0-32 normal Not Available [facility] [address] [place] [address], [address], 11/25/2018 12:20:54 11/26/1911/25/2018 CMP, serum or plasm a ALT 15 U/L 0-33 normal Not Available [facility] [address] [place], [address], 11/25/2018 12:20:54 11/26/1911/25/2018 CMP, serum or plasm a GFR 138 >= 60 normal Not Available [facility] [address] [place], [address], 11/25/2018 12:20:54 11/26/1911/25/2018 CMP, serum or plasm a GFR non- 119 >= 60 normal NOT E NEW calcu latio n for GFR is based on the Natio nal Kidne y Found ation CKD-E PI equat ion and allow s for repor ting GFR value s great er than 60 mL/mi n/1.7 3 m2. This calcu latio n has not been valid ated for patie nts less than 18 yrs., pregn ant women and Hispa nics. Chron ic kidne y disea se is defin ed as kidne y damag e or GFR less than 60 mL/mi n/1.7 3 m2 for 3 month s or longe r. Not Available [facility] [address] [place], [address], 11/25/2018 12:20:54 11/26/1911/25/2018 T4, free, serum T4,free 1.24 NG/dL 0.93-1 .70 normal Not Available [facility] [address] [place], [address], 11/25/2018 12:28:12 11/26/19 19 11/25/2018 TSH, serum or plasm a TSH 1.360 uIU/m L 0.290- 5.500 normal Not Available [facility] [address] [place], [address], 11/25/2018 12:31:52 11/26/1911/25/2018 ESR (eryt hrocy te sedim entat ion rate) , blood ESR, automated <1 mm/HR 0-19 normal RESUL TS RECHE CKED. Not Available [facility] [address] [place] [address], [address], 11/25/2018 14:45:53 Result Notes None recorded. Problems Name Problem SNOMED Code Status Onset Date Resolution Date Notes Provider Name and Address Organization Details Recorded Time Muscle weakness 80564985 [facility] Problem Notes None recorded. Procedures Surgical History Date Name Laterality Status Provider Name and Address Organization Details Recorded Time 9 procedure on brain completed Molly Alejandra [facility] 11/25/2018 09:51:32 6 procedure on brain completed Molly Alejandra [facility] 11/25/2018 09:51:28 5 procedure on brain completed Molly Alejandra [facility] 11/25/2018 09:51:24 Imaging Results None recorded. Procedure Notes None recorded. Medical Equipment None Reported. Allergies No known drug allergies Medications Name Sig Start Date Stop Date Status Note LastModified by Organization Details LastModified Time naproxen 500 mg tablet Two times a day 11/25 completed Frequen cy: bid;Alt Frequen cy: prn;Med ication Descrip tion: naproxe n; Dosage: 1; Route:o ral; refills :5; Quantit y:60 tablet Not Available Not Available Not Available Mirena active Not Available Not Availa ble Not Available Vitals Date Recorded Body weight Body mass index (BMI) Body height Systolic And Diastolic Provider Name and Address Organization Details Last Updated DateTime 11/25/2018 29197.78 g 28.3 kg/m2 160.02 cm 103/78 mm[Hg] Molly Alejandra [facility] 11/25/2018 09:54:18 Social History Question Answer Notes LastModified by iLost Details LastModified Time Tobacco Smoking Status Never Smoker Molly Roberts [facility] 11/25/2018 09:50:18 How Much Tobacco Do You Chew? None Information not available 11/25/2018 Live Alone Or With Others? With Others Information not available 11/25/2018 Marital Status Single Christopher Sutton Information not available 11/25/2018 How Much Tobacco Do You Smoke? No Information not available 11/25/2018 Sex: Unknown Functional Status Question Answer Note LastModified by iLost Details LastModified Time What is your level of alcohol consumption? None Information not available 11/25/2018 Do you or have you ever used smokeless tobacco? 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 Never used electronic cigarettes Information not available 11/25/2018 Mental Status None recorded. Family History Relationship Description Onset Age of this Age Resolved Age Notes LastModified by Organization Details LastModified Time Maternal Grandmother Hypertensive disorder Not available 2018 09:48:03 Maternal Grandmother Heart disease Not available 2018 09:48:14 Maternal Grandmother Cerebrovascu lar accident Not available 11/2018 09:48:23 Maternal Grandmother Family history of malignant neoplasm Not available 2018 09:48:38 Maternal Grandmother Diabetes mellitus Not available 2018 09:49:06 Paternal Grandmother Hypertensive disorder Not available 2018 09:48:03 Paternal Grandmother Family history of malignant neoplasm Not available 2018 09:48:38 Paternal Grandmother Diabetes mellitus Not available 2018 09:49:06 Paternal Grandmother Obesity Not available 11/25 09:50:00 Paternal Grandfather Family history of malignant neoplasm Not available 2018 09:49:21 Paternal Grandfather Diabetes mellitus Not available 2018 09:49:46 Medical History Condition Response Migraines Y Gynecological HistoryNo gynecological history recorded. Obstetrics History GPAL:G 0 P 0 0 0 0 Past Encounters Encounter ID Performer Location Encounter Start Date Encounter Closed Date Diagnosis/Indication Diagnosis SNOMED-CT Code Diagnosis ICD10 Code Diagnosis Note [id number] RAVEN ALVAREZ MD [facility]UROLOG[facility] [address] [place] [address] 11/25/2018 09:10:41 11/25/2018 11:35:28 Muscle weakness 03810797 M62.81 Paresthesia 86187380 R20 .2 Health Concerns Section Related Observation LastModified by Organization Detai ls LastModified Time None Recorded Concern Status LastModified by Organization Details LastModified Time None Recorded Advance Directives Directive None Recorded Payers Insurance Date Sequence Insurance Name Policy Number Policy English Covered Member ID English Member ID Guarantor Name 07/22/2019 1 [place] [id number] Lillian N Erica [id number] Lillian Emperatriz Erica 11/25/2018 1 [place] [id number] Q Lillian N Erica [id number] Lillian Emperatriz Erica Notes Date Note Type Note Provider Name and Address Organization Details Recorded Time 11/25/2018 text/html This is my first time to evaluate this 28 year old woman at the request of Regi Vargas APRN in [facility]. right sided weakness arm and leg it started after surgery surgery on brain, done at done thru nose inpatient ENT and neurosurgeon in hospital x 1 week this is second surgery first surgery ws 2014, follows with Dr. 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
--- OUTSIDE RECORDS SUMMARY | 2024-08-24 08:50 | XMS_ITS | Data Portability ---
Author Organization [facility] Address [address] [place] [address] Assessment Encounter Date Assessment Date Assessment LastModified by Organization Details LastModified Time 02/11/2023 02/11/2023 begin meds as written today. advised warm moist compresses to sinuses, saline rinse as tolerated and increased fluids. will call with serum results rtc or call should any new questions or concerns arise. Not available 02/13/2023 02:22:36 Plan of Treatment Reminders Order Date Submit Date Provider Last Modified By Organization Details Last Modified Time Details Appointments None recorded. Lab rf (rheumatoid factor), serum 2024 025 MARCELA [facility], [address], Michael F, [place], [address], 5 14:37:07 C reactive protein, QN, serum or plasma 2024 025 MARCELA [facility], [address], Michael F, [place], [address], 5 14:37:10 MELISSA (antinuclea r antibodies) screen, serum 2024 025 MARCELA [facility], [address], Michael F, [place], [address], 5 14:37:09 TSH + free T4, serum 2024 025 MARCELA [facility], [address], Michael F, [place], [address], 5 14:37:03 CMP, serum or plasma 2024 025 MARCELA [facility], [address], Michael F, [place], [address], 5 14:37:05 iron + total iron-bindin g capacity (TIBC), serum 2024 025 MARCELA [facility], [address], Michael F, [place], [address], 5 14:37:05 HbA1c (hemoglobin A1c), blood 2024 025 MARCELA [facility], [address], Michael F, [place], [address], 5 14:37:07 CBC w/ auto diff 2024 025 MARCELA [facility], [address], Michael F, [place], [address], 5 14:37:04 ESR (erythrocyt e sedimentati on rate), blood 2024 025 MARCELA [facility], [address], Michael F, [place], [address], 5 14:37:09 cobalamin and folate panel, serum 2024 025 MARCELA [facility], [address], Michael F, [place], [address], 5 14:37:06 vitamin D, 25-hydroxy, total, serum 2024 025 MARCELA [facility], [address], Michael F, [place], [address], 5 14:37:08 TSH + free T4, serum 2022 023 MARCELA [facility], [address], Michael F, [place], [address], 3 07:37:10 T3, free, serum or plasma 2022 023 MARCELA [facility], [address], Michael F, [place], [address], 3 07:37:19 thyroid peroxidase (tpo) Ab, serum 2022 023 MARCELA [facility], [address], Michael F, [place], [address], 3 07:37:19 CMP, serum or plasma 2022 023 MARCELA [facility], [address], Michael F, [place], [address], 3 07:37:13 progesteron e, serum 2022 023 MARCELA [facility], [address], Michael F, [place], [address], 3 07:37:18 estradiol, serum 2022 023 MARCELA [facility], [address], Michael F, [place], [address], 3 07:37:16 lh + FSH, serum 2022 023 MARCELA [facility], [address], Michael F, [place], [address], 3 07:37:15 vitamin D, 25-hydroxy, total, serum 2022 023 MARCELA [facility], [address], Michael F, [place], [address], 3 07:37:17 vitamin B12 + folate, serum or blood 2022 023 MARCELA [facility], [address], Michael F, [place], [address], 3 07:37:15 CBC w/ auto diff 2022 023 [facility], [address], Michael F, [place], [address], 3 07:37:12 iron + total iron-bindin g capacity (TIBC), serum 2022 023 [place] [facility], [address], Michael F, [place], [address], 3 07:37:14 urinalysis, dipstick 2022 023 [facility], [address] [place] [address] , [place], [address], 3 15:14:14 Referral None recorded. Procedures None recorded. Surgeries None recorded. Imaging US, obstetric, 1st trimester 2022 023 [facility], [address] [place] [address] , [place], [address], 3 16:56:17 US, obstetric, 1st trimester 2022 023 [facility], [address] [place] [address] , [place], [address], 3 15:14:14 Medication Orders prednisone 10 mg tablet 2024 025 [facility], [address] [facility] [facility] [address], [place], [address], 5 09:35:29 prednisone 20 mg tablet 2022 023 [email or web address] [facility], [address] [place] [address], [place], [address], 5 15:15:02 amoxicillin 500 mg tablet 2022 023 [email or web address] [facility], [address] [place] [address], [address], 15:14:44 Patient TargetsNo targets recorded. Patient Instructions Encounter Date Encounter Id Patient Instructions Last Modified By Organization Details Last Modified Time 10/28/2022 [id number] incomplete miscarriage: care instructions deonte Not available 10/28/2022 16:56:32 04/25/2024 [id number] learning about healthy weight Not available 04/25/2024 17:56:57 body mass index: care instructions Not available 04/25/2024 17:56:57 Advised to take medication as directed Discussed using brace to wrist for support Advised to limit / avoid NSAIDs while taking steroid To call office for questions, concerns or issues Not available 04/25/2024 16:50:23 08/01/2024 [id number] numbness and tingling: care instructions [email or web address] Not available 08/01/2024 15:31:35 Reason for Referral None Reported. Results Created Date Observation Date Name Description Value Unit Range Abnormal Flag Note LastModifiedBy Organization Detail LastModifiedTime 10/09/1910/09/2022 PREGN JASMIN, INITI AL SCREE N HBsAg screen Negati ve negati ve Not Available [facility] ([facility]) [address] [place], [address], 10/10/2022 15:10:06 10/09/1910/09/2022 PREGN JASMIN, INITI AL SCREE N HCV Ab Non Reacti ve non reacti ve Not Available [facility] ([facility]) [address] [place], [address], 10/10/2022 15:10:06 10/09/1910/09/2022 PREGN JASMIN, INITI AL SCREE N interpretati on: Commen t Not infec ellen with HCV unles s early or acute infec tion is suspe cted (whic h may be delay ed in an immun ocomp romis ed indiv idual ), or other evide nce exist s to indic ate HCV infec tion. Not Available [facility] ([facility]) [address] [facility], [place], [address], 10/10/2022 15:10:06 10/09/19 23 10/09/2022 PREGN JASMIN, INITI AL SCREE N RPR Non Reacti ve non reacti ve Not Available [facility] ([facility]) [address] [facility], [place], [address], 10/10/2022 15:10:06 10/09/1910/09/2022 PREGN JASMIN, INITI AL SCREE N rubella antibodies, IgG 2.32 index immune >0.99 Non-i mmune <0.90 Equiv ocal 0.90 - 0.99 Immun e >0.99 Not Available [facility] ([facility]) [address] [facility], [place], [address], 10/10/2022 15:10:06 10/09/19 23 10/09/2022 PREGN JASMIN, INITI AL SCREE N ABO grouping O Not Available [facility] ([facility]) [address] [facility], [place], [address], 10/10/2022 15:10:06 10/09/1910/09/2022 PREGN JASMIN, INITI AL SCREE N Rh factor Positi ve Pleas e note: Prior recor ds for this patie nt's ABO / Rh type are not avail able for addit ional verif icati on. Not Available [facility] ([facility]) [address] [facility], [place], [address], 10/10/2022 15:10:06 10/09/1910/09/2022 PREGN JASMIN, INITI AL SCREE N antibody screen Negati ve negati ve Not Available [facility] ([facility]) [address] [facility], [place], [address], 10/10/2022 15:10:06 10/09/19 23 10/09/2022 PREGN JASMIN, INITI AL SCREE N HIV Ab/P24 Ag screen Non Reacti ve non reacti ve HIV Negat jon HIV-1 /HIV- 2 antib odies and HIV-1 p24 antig en were NOT detec ellen. There is no labor atory evide nce of HIV infec tion. Not Available [facility] ([facility]) [address] [place], [address], 10/10/2022 15:10:06 10/09/19 23 10/09/2022 PREGN JASMIN, INITI AL SCREE N chlamydia trachomatis, ESTHER Negati ve negati ve Not Available [facility] ([facility]) [address] [place], [address], 10/10/2022 15:10:06 10/09/1910/09/2022 PREGN JASMIN, INITI AL SCREE N neisseria gonorrhoeae, ESTHER Negati ve negati ve Not Available [facility] ([facility]) [address] [facility], [place], [address], 10/10/2022 15:10:06 10/09/1910/09/2022 PREGN JASMIN, INITI AL SCREE N WBC 7.4 x10e3 /uL 3.4-10 .8 Not Available [facility] ([facility]) [address] [place], [address], 10/10/2022 15:10:06 10/09/1910/09/2022 PREGN JASMIN, INITI AL SCREE N RBC 4.53 x10e6 /uL 3.77-5 .28 Not Available [facility] ([facility]) [address] [place], [address], 10/10/2022 15:10:06 10/09/19 23 10/09/2022 PREGN JASMIN, INITI AL SCREE N hemoglobin 12.8 g/dL 11.1-1 5.9 Not Available [facility] ([facility]) [address] [place], [address], 10/10/2022 15:10:06 10/09/1910/09/2022 PREGN JASMIN, INITI AL SCREE N hematocrit 38.7 % 34.0-4 6.6 Not Available [facility] ([facility]) [address] [place], [address], 10/10/2022 15:10:06 10/09/1910/09/2022 PREGN JASMIN, INITI AL SCREE N MCV 85 fL 79-97 Not Available [facility] ([facility]) [address] [place], [address], 10/10/2022 15:10:06 10/09/1910/09/2022 PREGN JASMIN, INITI AL SCREE N MCH 28.3 pg 26.6-3 3.0 Not Available [facility] ([facility]) [address] [place], [address], 10/10/2022 15:10:06 10/09/1910/09/2022 PREGN JASMIN, INITI AL SCREE N MCHC 33.1 g/dL 31.5-3 5.7 Not Available [facility] ([facility]) [address] [place], [address], 10/10/2022 15:10:06 10/09/1910/09/2022 PREGN JASMIN, INITI AL SCREE N RDW 13.8 % 11.7-1 5.4 Not Available [facility] ([facility]) [address] [place], [address], 10/10/2022 15:10:06 10/09/1910/09/2022 PREGN JASMIN, INITI AL SCREE N platelets 250 x10e3 /uL 150-45 0 Not Available [facility] ([facility]) [address] [place], [address], 10/10/2022 15:10:06 10/09/19 23 10/09/2022 PREGN JASMIN, INITI AL SCREE N neutrophils 70 % not estab. Not Available [facility] ([facility]) [address] [facility], [place], [address], 10/10/2022 15:10:06 10/09/19 23 10/09/2022 PREGN JASMIN, INITI AL SCREE N lymphs 21 % not estab. Not Available [facility] ([facility]) [address] [facility], [place], [address], 10/10/2022 15:10:06 10/09/19 23 10/09/2022 PREGN JASMIN, INITI AL SCREE N monocytes 5 % not estab. Not Available [facility] ([facility]) [address] [facility], [place], [address], 10/10/2022 15:10:06 10/09/19 23 10/09/2022 PREGN JASMIN, INITI AL SCREE N eos 2 % not estab. Not Available [facility] ([facility]) [address] [facility], [place], [address], 10/10/2022 15:10:06 10/09/19 23 10/09/2022 PREGN JASMIN, INITI AL SCREE N basos 1 % not estab. Not Available [facility] ([facility]) [address] [facility], [place], [address], 10/10/2022 15:10:06 10/09/19 23 10/09/2022 PREGN JASMIN, INITI AL SCREE N immature cells [employer] Not Available [facility] ([facility]) [address] [facility], [place], [address], 10/10/2022 15:10:06 10/09/19 23 10/09/2022 PREGN JASMIN, INITI AL SCREE N neutrophils (absolute) 5.3 x10e3 /uL 1.4-7. 0 Not Available [facility] ([facility]) [address] [facility], [place], [address], 10/10/2022 15:10:06 10/09/19 23 10/09/2022 PREGN JASMIN, INITI AL SCREE N lymphs (absolute) 1.5 x10e3 /uL 0.7-3. 1 Not Available [facility] ([facility]) [address] [place], [address], 10/10/2022 15:10:06 10/09/19 23 10/09/2022 PREGN JASMIN, INITI AL SCREE N monocytes(ab solute) 0.4 x10e3 /uL 0.1-0. 9 Not Available [facility] ([facility]) [address] [place], [address], 10/10/2022 15:10:06 10/09/19 23 10/09/2022 PREGN JASMIN, INITI AL SCREE N eos (absolute) 0.1 x10e3 /uL 0.0-0. 4 Not Available [facility] ([facility]) [address] [place], [address], 10/10/2022 15:10:06 10/09/19 23 10/09/2022 PREGN JASMIN, INITI AL SCREE N baso (absolute) 0.1 x10e3 /uL 0.0-0. 2 Not Available [facility] ([facility]) [address] [place], [address], 10/10/2022 15:10:06 10/09/19 23 10/09/2022 PREGN JASMIN, INITI AL SCREE N immature granulocytes 1 % not estab. Not Available [facility] ([facility]) [address] [place], [address], 10/10/2022 15:10:06 10/09/19 23 10/09/2022 PREGN JASMIN, INITI AL SCREE N immature grans (abs) 0.0 x10e3 /uL 0.0-0. 1 Not Available [facility] ([facility]) [address] [place], [address], 10/10/2022 15:10:06 10/09/19 23 10/09/2022 PREGN JASMIN, INITI AL SCREE N NRBC [employer] Not Available [facility] ([facility]) [address] [facility], [place], [address], 10/10/2022 15:10:06 10/09/19 23 10/09/2022 PREGN JASMIN, INITI AL SCREE N hematology comments: [employer] Not Available [facility] ([facility]) [address] [facility], [place], [address], 10/10/2022 15:10:06 10/09/1910/09/2022 PREGN JASMIN, INITI AL SCREE N specific gravity 1.015 1.005- 1.030 Not Available [facility] ([facility]) [address] [facility], [place], [address], 10/10/2022 15:10:06 10/09/19 23 10/09/2022 PREGN JASMIN, INITI AL SCREE N pH 7.5 5.0-7. 5 Not Available [facility] ([facility]) [address] [facility], [place], [address], 10/10/2022 15:10:06 10/09/19 23 10/09/2022 PREGN JASMIN, INITI AL SCREE N urine-color Yellow yellow Not Available [facility] ([facility]) [address] [place], [address], 10/10/2022 15:10:06 10/09/19 23 10/09/2022 PREGN JASMIN, INITI AL SCREE N appearance Clear clear Not Available [facility] ([facility]) [address] [place], [address], 10/10/2022 15:10:06 10/09/19 23 10/09/2022 PREGN JASMIN, INITI AL SCREE N WBC esterase 2+ negati ve abnormal Not Available [facility] ([facility]) [address] [facility], [place], [address], 10/10/2022 15:10:06 10/09/1910/09/2022 PREGN JASMIN, INITI AL SCREE N protein Negati ve negati ve/tra ce Not Available [facility] ([facility]) [address] [place], [address], 10/10/2022 15:10:06 10/09/1910/09/2022 PREGN JASMIN, INITI AL SCREE N glucose Negati ve negati ve Not Available [facility] ([facility]) [address] [place], [address], 10/10/2022 15:10:06 10/09/19 23 10/09/2022 PREGN JASMIN, INITI AL SCREE N ketones Negati ve negati ve Not Available [facility] ([facility]) [address] [place], [address], 10/10/2022 15:10:06 10/09/1910/09/2022 PREGN JASMIN, INITI AL SCREE N occult blood 1+ negati ve abnormal Not Available [facility] ([facility]) [address] [place], [address], 10/10/2022 15:10:06 10/09/1910/09/2022 PREGN JASMIN, INITI AL SCREE N bilirubin Negati ve negati ve Not Available [facility] ([facility]) [address] [place], [address], 10/10/2022 15:10:06 10/09/1910/09/2022 PREGN JASMIN, INITI AL SCREE N urobilinogen ,semi-qn 1.0 mg/dL 0.2-1. 0 Not Available [facility] ([facility]) [address] [place], [address], 10/10/2022 15:10:06 10/09/19 23 10/09/2022 PREGN JASMIN, INITI AL SCREE N nitrite, urine Negati ve negati ve Not Available [facility] ([facility]) [address] [facility], [place], [address], 10/10/2022 15:10:06 10/09/19 23 10/09/2022 PREGN JASMIN, INITI AL SCREE N microscopic examination See below: Not Available [facility] ([facility]) [address] [facility], [place], [address], 10/10/2022 15:10:06 10/09/19 23 10/09/2022 PREGN JASMIN, INITI AL SCREE N WBC 6-10 /hpf 0 - 5 abnormal Not Available [facility] ([facility]) [address] [facility], [place], [address], 10/10/2022 15:10:06 10/09/19 23 10/09/2022 PREGN JASMIN, INITI AL SCREE N RBC None seen /hpf 0 - 2 Not Available [facility] ([facility]) [address] [facility], [place], [address], 10/10/2022 15:10:06 10/09/19 23 10/09/2022 PREGN JASMIN, INITI AL SCREE N epithelial cells (non renal) 0-10 /hpf 0 - 10 Not Available [facility] ([facility]) [address] [facility], [place], [address], 10/10/2022 15:10:06 10/09/19 23 10/09/2022 PREGN JASMIN, INITI AL SCREE N epithelial cells (renal) [employer] Not Available [facility] ([facility]) [address] [place], [address], 10/10/2022 15:10:06 10/09/19 23 10/09/2022 PREGN JASMIN, INITI AL SCREE N casts None seen /lpf none seen Not Available [facility] ([facility]) [address] [facility], [place], [address], 10/10/2022 15:10:06 10/09/19 23 10/09/2022 PREGN JASMIN, INITI AL SCREE N cast type [employer] Not Available [facility] ([facility]) [address] [facility], [place], [address], 10/10/2022 15:10:06 10/09/19 23 10/09/2022 PREGN JASMIN, INITI AL SCREE N crystals [employer] Not Available [facility] ([facility]) [address] [facility], [place], [address], 10/10/2022 15:10:06 10/09/19 23 10/09/2022 PREGN JASMIN, INITI AL SCREE N crystal type [employer] Not Available [facility] ([facility]) [address] [facility], [place], [address], 10/10/2022 15:10:06 10/09/19 23 10/09/2022 PREGN JASMIN, INITI AL SCREE N mucus threads [employer] Not Available [facility] ([facility]) [address] [facility], [place], [address], 10/10/2022 15:10:06 10/09/19 23 10/09/2022 PREGN JASMIN, INITI AL SCREE N bacteria Few none seen/f ew Not Available [facility] ([facility]) [address] [place], [address], 10/10/2022 15:10:06 10/09/19 23 10/09/2022 PREGN JASMIN, INITI AL SCREE N yeast [employer] Not Available [facility] ([facility]) [address] [place], [address], 10/10/2022 15:10:06 10/09/19 23 10/09/2022 PREGN JASMIN, INITI AL SCREE N trichomonas [employer] Not Available [facility] ([facility]) [address] [facility], [place], [address], 10/10/2022 15:10:06 10/09/1910/09/2022 PREGN JASMIN, INITI AL SCREE N comment [employer] Not Available [facility] ([facility]) [address] [facility], [place], [address], 10/10/2022 15:10:06 10/09/1910/09/2022 PREGN JASMIN, INITI AL SCREE N microscopic examination [employer] Not Available [facility] ([facility]) [address] [facility], [place], [address], 10/10/2022 15:10:06 10/09/1910/10/2022 PREGN JASMIN, INITI AL SCREE N urine culture,pren atal, w/gbs Final report Not Available [facility] ([facility]) [address] [facility], [place], [address], 10/10/2022 15:10:06 10/09/1910/10/2022 PREGN JASMIN, INITI AL SCREE N result 1 COMMEN T Mixed uroge nital nathaniel 25,00 0-50, 000 colon y formi ng units per mL Not Available [facility] ([facility]) [address] [facility], [place], [address], 10/10/2022 15:10:06 10/09/1910/09/2022 HEMOG LOBIN A1C hemoglobin A1C 5.2 % 4.8-5. 6 Predi abete s: 5.7 - 6.4 Diabe sascha: >6.4 Glyce matias contr ol for adult s with diabe sascha: <7.0 Not Available [facility] ([facility]) [address] [facility], [place], [address], 10/10/2022 15:10:08 10/09/19 23 10/09/2022 VARIC LANEY- ZOSTE R V AB, IGG varicella zoster IgG 397 index immune >165 Negat jon <135 Equiv ocal 135 - 165 Posit jon >165 A posit jon resul t gener ally indic ates expos ure to the patho gen or admin istra tion of speci fic immun oglob ulins , but it is not indic ation of activ e infec tion or stage of disea se. Not Available [facility] ([facility]) [address] [facility], [place], [address], 10/10/2022 15:10:09 10/09/1910/16/2022 COMPL IANCE DRUG DOMINIQUE SIS, UR summary report (summary) FINAL ===== ===== ===== ===== ===== ===== ===== ===== ===== ===== ===== ===== ===== === TOXAS SURE COMP DRUG DOMINIQUE SIS,U R ===== ===== ===== ===== ===== ===== ===== ===== ===== ===== ===== ===== ===== === Test Resul t Flag Units Drug Prese nt Aceta minop hen PRESE NT ===== ===== ===== ===== ===== ===== ===== ===== ===== ===== ===== ===== ===== === Test Resul t Flag Units Ref Range Creat inine 83 mg/dL >=20 ===== ===== ===== ===== ===== ===== ===== ===== ===== ===== ===== ===== ===== === Decla red Medic ation s: Medic ation list was not provi ded. ===== ===== ===== ===== ===== ===== ===== ===== ===== ===== ===== ===== ===== === For clini fercho consu ltati on, pleas e call [phone]. ===== ===== ===== ===== ===== ===== ===== ===== ===== ===== ===== ===== ===== === Not Available [facility] ([facility]) [address] [facility], [place], [address], 10/16/2022 20:08:39 10/09/19 23 10/16/2022 COMPL IANCE DRUG DOMINIQUE SIS, UR pdf . Not Available [facility] ([facility]) [address] [facility], [place], [address], 10/16/2022 20:08:39 10/09/19 23 10/08/2022 pregn jasmin test, urine HCG positi ve Not Available [facility] [address] [place] [address] , [place], [address], 10/07/2022 13:24:57 10/16/19 23 10/16/2022 HCG,B ETA SUBUN IT, QNT HCG,beta subunit,qnt, serum 01196 mIU/m L Femal e (Non- pregn ant) 0 - 5 (Post menop ausal ) 0 - 8 Femal e (Preg nant) Weeks of Gesta tion 3 6 - 71 4 10 - 750 5 950 - 1345 6 297 - 84135 7 7881 -3528 63 8 89971 -4155 71 9 02144 -1514 10 10 92042 -0864 77 12 14223 -8396 12 14 47186 - 03413 15 06624 - 78296 16 8776 - 45561 17 2951 - 49476 18 6389 - 65144 Resul ts confi rmed on dilut ion. Leonardo ECLIA metho dolog y Not Available [facility] ([facility]) [address] [facility], [place], [address], 10/16/2022 05:09:36 10/16/19 23 10/16/2022 PROGE STERO NE progesterone 5.9 NG/mL Folli cular phase 0.1 - 0.9 Lutea l phase 1.8 - 23.9 Ovula tion phase 0.1 - 12.0 Pregn ant First trime ster 11.0 - 44.3 Secon d trime ster 25.4 - 83.3 Third trime ster 58.7 - 214.0 Postm enopa usal 0.0 - 0.1 Not Available [facility] ([facility]) [address] [facility], [place], [address], 10/16/2022 05:09:37 10/16/19 23 10/15/2022 rapid SARS CoV + SARS CoV 2 Ag, QL IA, respi rator y speci men SARS CoV antigen Positi ve Not Available [facility] [address] [place] [address] , [place], [address], 10/15/2022 14:24:03 10/16/19 23 10/15/2022 rapid flu (A+B) Flu negati ve Not Available [facility] [address] [place] [address] , [place], [address], 10/15/2022 14:24:01 10/16/19 23 10/15/2022 rapid flu (A+B) Type Both A & B Not Available [facility] [address] [place] [address] , [place], [address], 10/15/2022 14:24:01 02/12/20 23 02/12/2023 TSH+F REE T4 TSH 2.520 uIU/m L 0.450- 4.500 Not Available [facility] ([facility]) [address] [place], [address], 02/12/2023 07:37:10 02/12/20 23 02/12/2023 TSH+F REE T4 T4,free(dire ct) 1.05 NG/dL 0.82-1 .77 Not Available [facility] ([facility]) [address] [facility], [place], [address], 02/12/2023 07:37:10 02/12/20 23 02/12/2023 CBC WITH DIFFE RENTI AL/PL ATELE T WBC 9.0 x10e3 /uL 3.4-10 .8 Not Available [facility] ([facility]) [address] [facility], [place], [address], 02/12/2023 07:37:12 02/12/20 23 02/12/2023 CBC WITH DIFFE RENTI AL/PL ATELE T RBC 4.79 x10e6 /uL 3.77-5 .28 Not Available [facility] ([facility]) [address] [facility], [place], [address], 02/12/2023 07:37:12 02/12/20 23 02/12/2023 CBC WITH DIFFE RENTI AL/PL ATELE T hemoglobin 13.3 g/dL 11.1-1 5.9 Not Available [facility] ([facility]) [address] [facility], [place], [address], 02/12/2023 07:37:12 02/12/20 23 02/12/2023 CBC WITH DIFFE RENTI AL/PL ATELE T hematocrit 40.1 % 34.0-4 6.6 Not Available [facility] ([facility]) [address] [place], [address], 02/12/2023 07:37:12 02/12/20 23 02/12/2023 CBC WITH DIFFE RENTI AL/PL ATELE T MCV 84 fL 79-97 Not Available [facility] ([facility]) [address] [place], [address], 02/12/2023 07:37:12 02/12/20 23 02/12/2023 CBC WITH DIFFE RENTI AL/PL ATELE T MCH 27.8 pg 26.6-3 3.0 Not Available [facility] ([facility]) [address] [facility], [place], [address], 02/12/2023 07:37:12 02/12/20 23 02/12/2023 CBC WITH DIFFE RENTI AL/PL ATELE T MCHC 33.2 g/dL 31.5-3 5.7 Not Available [facility] ([facility]) [address] [facility], [place], [address], 02/12/2023 07:37:12 02/12/20 23 02/12/2023 CBC WITH DIFFE RENTI AL/PL ATELE T RDW 12.3 % 11.7-1 5.4 Not Available [facility] ([facility]) [address] [facility], [place], [address], 02/12/2023 07:37:12 02/12/20 23 02/12/2023 CBC WITH DIFFE RENTI AL/PL ATELE T platelets 324 x10e3 /uL 150-45 0 Not Available [facility] ([facility]) [address] [facility], [place], [address], 02/12/2023 07:37:12 02/12/20 23 02/12/2023 CBC WITH DIFFE RENTI AL/PL ATELE T neutrophils 64 % not estab. Not Available [facility] ([facility]) [address] [facility], [place], [address], 02/12/2023 07:37:12 02/12/20 23 02/12/2023 CBC WITH DIFFE RENTI AL/PL ATELE T lymphs 25 % not estab. Not Available [facility] ([facility]) [address] [facility], [place], [address], 02/12/2023 07:37:12 02/12/20 23 02/12/2023 CBC WITH DIFFE RENTI AL/PL ATELE T monocytes 6 % not estab. Not Available [facility] ([facility]) [address] [facility], [place], [address], 02/12/2023 07:37:12 02/12/20 23 02/12/2023 CBC WITH DIFFE RENTI AL/PL ATELE T eos 3 % not estab. Not Available [facility] ([facility]) [address] [facility], [place], [address], 02/12/2023 07:37:12 02/12/2002/12/2023 CBC WITH DIFFE RENTI AL/PL ATELE T basos 1 % not estab. Not Available [facility] ([facility]) [address] [facility], [place], [address], 02/12/2023 07:37:12 02/12/20 23 02/12/2023 CBC WITH DIFFE RENTI AL/PL ATELE T immature cells [employer] Not Available [facility] ([facility]) [address] [facility], [place], [address], 02/12/2023 07:37:12 02/12/20 23 02/12/2023 CBC WITH DIFFE RENTI AL/PL ATELE T neutrophils (absolute) 5.8 x10e3 /uL 1.4-7. 0 Not Available [facility] ([facility]) [address] [facility], [place], [address], 02/12/2023 07:37:12 02/12/20 23 02/12/2023 CBC WITH DIFFE RENTI AL/PL ATELE T lymphs (absolute) 2.2 x10e3 /uL 0.7-3. 1 Not Available [facility] ([facility]) [address] [facility], [place], [address], 02/12/2023 07:37:12 02/12/20 23 02/12/2023 CBC WITH DIFFE RENTI AL/PL ATELE T monocytes(ab solute) 0.6 x10e3 /uL 0.1-0. 9 Not Available [facility] ([facility]) [address] [facility], [place], [address], 02/12/2023 07:37:12 02/12/20 23 02/12/2023 CBC WITH DIFFE RENTI AL/PL ATELE T eos (absolute) 0.3 x10e3 /uL 0.0-0. 4 Not Available [facility] ([facility]) [address] [facility], [place], [address], 02/12/2023 07:37:12 02/12/20 23 02/12/2023 CBC WITH DIFFE RENTI AL/PL ATELE T baso (absolute) 0.1 x10e3 /uL 0.0-0. 2 Not Available [facility] ([facility]) [address] [facility], [place], [address], 02/12/2023 07:37:12 02/12/20 23 02/12/2023 CBC WITH DIFFE RENTI AL/PL ATELE T immature granulocytes 1 % not estab. Not Available [facility] ([facility]) [address] [facility], [place], [address], 02/12/2023 07:37:12 02/12/20 23 02/12/2023 CBC WITH DIFFE RENTI AL/PL ATELE T immature grans (abs) 0.1 x10e3 /uL 0.0-0. 1 Not Available [facility] ([facility]) [address] [facility], [place], [address], 02/12/2023 07:37:12 02/12/20 23 02/12/2023 CBC WITH DIFFE RENTI AL/PL ATELE T NRBC [employer] Not Available [facility] ([facility]) [address] [facility], [place], [address], 02/12/2023 07:37:12 02/12/20 23 02/12/2023 CBC WITH DIFFE RENTI AL/PL ATELE T hematology comments: [employer] Not Available [facility] ([facility]) [address] [facility], [place], [address], 02/12/2023 07:37:12 02/12/20 23 02/12/2023 COMP. METAB OLIC PANEL (14) glucose 70 mg/dL 70-99 Not Available [facility] ([facility]) [address] [facility], [place], [address], 02/12/2023 07:37:13 02/12/20 23 02/12/2023 COMP. METAB OLIC PANEL (14) BUN 10 mg/dL 6-20 Not Available [facility] ([facility]) [address] [place], [address], 02/12/2023 07:37:13 02/12/20 23 02/12/2023 COMP. METAB OLIC PANEL (14) creatinine 0.65 mg/dL 0.57-1 .00 Not Available [facility] ([facility]) [address] [facility], [place], [address], 02/12/2023 07:37:13 02/12/20 23 02/12/2023 COMP. METAB OLIC PANEL (14) eGFR 118 mL/mi n/1.7 3 >59 Not Available [facility] ([facility]) [address] [place], [address], 02/12/2023 07:37:13 02/12/20 23 02/12/2023 COMP. METAB OLIC PANEL (14) BUN/creatini ne ratio 15 9-23 Not Available [facility] ([facility]) [address] [place], [address], 02/12/2023 07:37:13 02/12/20 23 02/12/2023 COMP. METAB OLIC PANEL (14) sodium 140 mmol/ L 134-14 4 Not Available [facility] ([facility]) [address] [facility] [place], [address], 02/12/2023 07:37:13 02/12/20 23 02/12/2023 COMP. METAB OLIC PANEL (14) potassium 4.0 mmol/ L 3.5-5. 2 Not Available [facility] ([facility]) [address] [place], [address], 02/12/2023 07:37:13 02/12/20 23 02/12/2023 COMP. METAB OLIC PANEL (14) chloride 103 mmol/ L 96-106 Not Available [facility] ([facility]) [address] [place], [address], 02/12/2023 07:37:13 02/12/20 23 02/12/2023 COMP. METAB OLIC PANEL (14) carbon dioxide, total 21 mmol/ L 20-29 Not Available [facility] ([facility]) [address] [place], [address], 02/12/2023 07:37:13 02/12/20 23 02/12/2023 COMP. METAB OLIC PANEL (14) calcium 9.2 mg/dL 8.7-10 .2 Not Available [facility] ([facility]) [address] [place], [address], 02/12/2023 07:37:13 02/12/20 23 02/12/2023 COMP. METAB OLIC PANEL (14) protein, total 6.7 g/dL 6.0-8. 5 Not Available [facility] ([facility]) [address] [facility] [place], [address], 02/12/2023 07:37:13 02/12/20 23 02/12/2023 COMP. METAB OLIC PANEL (14) albumin 4.6 g/dL 3.9-4. 9 Not Available [facility] ([facility]) [address] [facility] [place], [address], 02/12/2023 07:37:13 02/12/20 23 02/12/2023 COMP. METAB OLIC PANEL (14) globulin, total 2.1 g/dL 1.5-4. 5 Not Available [facility] ([facility]) [address] [facility], [place], [address], 02/12/2023 07:37:13 02/12/20 23 02/12/2023 COMP. METAB OLIC PANEL (14) A/G ratio 2.2 1.2-2. 2 Not Available [facility] ([facility]) [address] [facility], [place], [address], 02/12/2023 07:37:13 02/12/20 23 02/12/2023 COMP. METAB OLIC PANEL (14) bilirubin, total 0.3 mg/dL 0.0-1. 2 Not Available [facility] ([facility]) [address] [facility], [place], [address], 02/12/2023 07:37:13 02/12/20 23 02/12/2023 COMP. METAB OLIC PANEL (14) alkaline phosphatase 72 IU/L 44-121 Not Available [facility] ([facility]) [address] [place], [address], 02/12/2023 07:37:13 02/12/20 23 02/12/2023 COMP. METAB OLIC PANEL (14) AST (SGOT) 13 IU/L 0-40 Not Available [facility] ([facility]) [address] [place], [address], 02/12/2023 07:37:13 02/12/20 23 02/12/2023 COMP. METAB OLIC PANEL (14) ALT (SGPT) 16 IU/L 0-32 Not Available [facility] ([facility]) [address] [place], [address], 02/12/2023 07:37:13 02/12/20 23 02/12/2023 IRON AND TIBC iron bind.cap.(TI BC) 378 ug/dL 250-45 0 Not Available [facility] ([facility]) [address] [facility], [place], [address], 02/12/2023 07:37:14 02/12/20 23 02/12/2023 IRON AND TIBC UIBC 318 ug/dL 131-42 5 Not Available [facility] ([facility]) [address] [place], [address], 02/12/2023 07:37:14 02/12/20 23 02/12/2023 IRON AND TIBC iron 60 ug/dL 27-159 Not Available [facility] ([facility]) [address] [place], [address], 02/12/2023 07:37:14 02/12/20 23 02/12/2023 IRON AND TIBC iron saturation 16 % 15-55 Not Available [facility] ([facility]) [address] [place], [address], 02/12/2023 07:37:14 02/12/20 23 02/12/2023 VITAM IN B12 AND FOLAT E vitamin B12 340 pg/mL 232-12 45 Not Available [facility] ([facility]) [address] [place], [address], 02/12/2023 07:37:14 02/12/20 23 02/12/2023 VITAM IN B12 AND FOLAT E folate (folic acid), serum 8.6 NG/mL >3.0 A serum folat e joceline ntrat ion of less than 3.1 ng/mL is consi dered to repre sent clini fercho defic iency . Not Available [facility] ([facility]) [address] [facility], [place], [address], 02/12/2023 07:37:14 02/12/20 23 02/12/2023 FSH AND LH LH 18.4 mIU/m L Adult Femal e Range Folli cular phase 2.4 - 12.6 Ovula tion phase 14.0 - 95.6 Lutea l phase 1.0 - 11.4 Postm enopa usal 7.7 - 58.5 Not Available [facility] ([facility]) [address] [place], [address], 02/12/2023 07:37:15 02/12/20 23 02/12/2023 FSH AND LH FSH 5.5 mIU/m L Adult Femal e Range Folli cular phase 3.5 - 12.5 Ovula tion phase 4.7 - 21.5 Lutea l phase 1.7 - 7.7 Postm enopa usal 25.8 - 134.8 Not Available [facility] ([facility]) [address] [place], [address], 02/12/2023 07:37:15 02/12/2002/12/2023 ESTRA DIOL estradiol 78.3 pg/mL Adult Femal e Range Folli cular phase 12.5 - 166.0 Ovula tion phase 85.8 - 498.0 Lutea l phase 43.8 - 211.0 Postm enopa usal <6.0 - 54.7 Pregn jasmin 1st trime ster 215.0 - >4300 .0 Leonardo ECLIA metho dolog y Not Available [facility] ([facility]) [address] [place], [address], 02/12/2023 07:37:16 02/12/20 23 02/12/2023 VITAM IN D, 25-HY DROXY vitamin D, 25-hydroxy 18.4 NG/mL 30.0-1 00.0 below low normal Vitam in D defic iency has been defin ed by the Insti tute of Medic ine and an Endoc rine Socie ty pract ice guide line as a level of serum 25-OH vitam in D less than 20 ng/mL (1,2) . The Endoc rine Socie ty went on to furth er defin e vitam in D insuf ficie ncy as a level betwe en 21 and 29 ng/mL (2). 1. IOM (Inst itute of Medic ine). 2010. Dieta ry refer ence juan es for calci um and D. Adriana lopez [place]: [facility] . 2. Mark holloway [place], Bink[place] ey [place], Bisch off-F errar i ATKINS, et al. Evalu ation , treat ment, and preve ntion of vitam in D defic iency : an Endoc rine Socie ty clini fercho pract ice guide line. JCEM. 2010; 96(7) :1911 -30. Not Available [facility] ([facility]) [address] [place], [address], 02/12/2023 07:37:17 02/12/20 23 02/12/2023 PROGE STERO NE progesterone 0.3 NG/mL Folli cular phase 0.1 - 0.9 Lutea l phase 1.8 - 23.9 Ovula tion phase 0.1 - 12.0 Pregn ant First trime ster 11.0 - 44.3 Secon d trime ster 25.4 - 83.3 Third trime ster 58.7 - 214.0 Postm enopa usal 0.0 - 0.1 Not Available [facility] ([facility]) [address] [place], [address], 02/12/2023 07:37:18 02/12/20 23 02/12/2023 THYRO ID PEROX IDASE (TPO) AB thyroid peroxidase (tpo) Ab 85 IU/mL 0-34 above high normal Not Available [facility] ([facility]) [address] [place], [address], 02/12/2023 07:37:19 02/12/2002/12/2023 TRIIO DOTHY KATERINA E (T3), FREE triiodothyro nine (T3), free 2.9 pg/mL 2.0-4. 4 Not Available [facility] ([facility]) [address] [place], [address], 02/12/2023 07:37:19 08/02/19 25 08/02/2024 TSH+F REE T4 TSH 1.470 uIU/m L 0.450- 4.500 normal Not Available [facility] ([facility]) [address] [place], [address], 08/02/2024 14:37:03 08/02/19 25 08/02/2024 TSH+F REE T4 T4,free(dire ct) 1.07 NG/dL 0.82-1 .77 normal Not Available [facility] ([facility]) [address] [place], [address], 08/02/2024 14:37:03 08/02/19 25 08/02/2024 CBC WITH DIFFE RENTI AL/PL ATELE T WBC 6.5 x10e3 /uL 3.4-10 .8 normal Not Available [facility] ([facility]) [address] [place], [address], 08/02/2024 14:37:04 08/02/19 25 08/02/2024 CBC WITH DIFFE RENTI AL/PL ATELE T RBC 4.67 x10e6 /uL 3.77-5 .28 normal Not Available [facility] ([facility]) [address] [place], [address], 08/02/2024 14:37:04 08/02/19 25 08/02/2024 CBC WITH DIFFE RENTI AL/PL ATELE T hemoglobin 13.1 g/dL 11.1-1 5.9 normal Not Available [facility] ([facility]) [address] [place], [address], 08/02/2024 14:37:04 08/02/19 25 08/02/2024 CBC WITH DIFFE RENTI AL/PL ATELE T hematocrit 40.5 % 34.0-4 6.6 normal Not Available [facility] ([facility]) [address] [place], [address], 08/02/2024 14:37:04 08/02/19 25 08/02/2024 CBC WITH DIFFE RENTI AL/PL ATELE T MCV 87 fL 79-97 normal Not Available [facility] ([facility]) [address] [facility], [place], [address], 08/02/2024 14:37:04 08/02/19 25 08/02/2024 CBC WITH DIFFE RENTI AL/PL ATELE T MCH 28.1 pg 26.6-3 3.0 normal Not Available [facility] ([facility]) [address] [place], [address], 08/02/2024 14:37:04 08/02/19 25 08/02/2024 CBC WITH DIFFE RENTI AL/PL ATELE T MCHC 32.3 g/dL 31.5-3 5.7 normal Not Available [facility] ([facility]) [address] [facility], [place], [address], 08/02/2024 14:37:04 08/02/19 25 08/02/2024 CBC WITH DIFFE RENTI AL/PL ATELE T RDW 12.9 % 11.7-1 5.4 Not Available [facility] ([facility]) [address] [place], [address], 08/02/2024 14:37:04 08/02/19 25 08/02/2024 CBC WITH DIFFE RENTI AL/PL ATELE T platelets 271 x10e3 /uL 150-45 0 normal Not Available [facility] ([facility]) [address] [place], [address], 08/02/2024 14:37:04 08/02/19 25 08/02/2024 CBC WITH DIFFE RENTI AL/PL ATELE T neutrophils 62 % not estab. normal Not Available [facility] ([facility]) [address] [place], [address], 08/02/2024 14:37:04 08/02/19 25 08/02/2024 CBC WITH DIFFE RENTI AL/PL ATELE T lymphs 25 % not estab. normal Not Available [facility] ([facility]) [address] [facility], [place], [address], 08/02/2024 14:37:04 08/02/19 25 08/02/2024 CBC WITH DIFFE RENTI AL/PL ATELE T monocytes 8 % not estab. normal Not Available [facility] ([facility]) [address] [facility], [place], [address], 08/02/2024 14:37:04 08/02/19 25 08/02/2024 CBC WITH DIFFE RENTI AL/PL ATELE T eos 3 % not estab. normal Not Available [facility] ([facility]) [address] [facility], [place], [address], 08/02/2024 14:37:04 08/02/19 25 08/02/2024 CBC WITH DIFFE RENTI AL/PL ATELE T basos 1 % not estab. normal Not Available [facility] ([facility]) [address] [facility], [place], [address], 08/02/2024 14:37:04 08/02/19 25 08/02/2024 CBC WITH DIFFE RENTI AL/PL ATELE T immature cells [employer] Not Available [facility] ([facility]) [address] [place], [address], 08/02/2024 14:37:04 08/02/19 25 08/02/2024 CBC WITH DIFFE RENTI AL/PL ATELE T neutrophils (absolute) 4.1 x10e3 /uL 1.4-7. 0 normal Not Available [facility] ([facility]) [address] [place], [address], 08/02/2024 14:37:04 08/02/19 25 08/02/2024 CBC WITH DIFFE RENTI AL/PL ATELE T lymphs (absolute) 1.7 x10e3 /uL 0.7-3. 1 normal Not Available [facility] ([facility]) [address] [place], [address], 08/02/2024 14:37:04 08/02/19 25 08/02/2024 CBC WITH DIFFE RENTI AL/PL ATELE T monocytes(ab solute) 0.5 x10e3 /uL 0.1-0. 9 normal Not Available [facility] ([facility]) [address] [facility], [place], [address], 08/02/2024 14:37:04 08/02/19 25 08/02/2024 CBC WITH DIFFE RENTI AL/PL ATELE T eos (absolute) 0.2 x10e3 /uL 0.0-0. 4 normal Not Available [facility] ([facility]) [address] [place], [address], 08/02/2024 14:37:04 08/02/19 25 08/02/2024 CBC WITH DIFFE RENTI AL/PL ATELE T baso (absolute) 0.1 x10e3 /uL 0.0-0. 2 normal Not Available [facility] ([facility]) [address] [place], [address], 08/02/2024 14:37:04 08/02/19 25 08/02/2024 CBC WITH DIFFE RENTI AL/PL ATELE T immature granulocytes 1 % not estab. Not Available [facility] ([facility]) [address] [place], [address], 08/02/2024 14:37:04 08/02/19 25 08/02/2024 CBC WITH DIFFE RENTI AL/PL ATELE T immature grans (abs) 0.0 x10e3 /uL 0.0-0. 1 Not Available [facility] ([facility]) [address] [place], [address], 08/02/2024 14:37:04 08/02/19 25 08/02/2024 CBC WITH DIFFE RENTI AL/PL ATELE T NRBC [employer] Not Available [facility] ([facility]) [address] [facility], [place], [address], 08/02/2024 14:37:04 08/02/19 25 08/02/2024 CBC WITH DIFFE RENTI AL/PL ATELE T hematology comments: [employer] Not Available [facility] ([facility]) [address] [facility], [place], [address], 08/02/2024 14:37:04 08/02/19 25 08/02/2024 COMP. METAB OLIC PANEL (14) glucose 96 mg/dL 70-99 normal Not Available [facility] ([facility]) [address] [facility], [place], [address], 08/02/2024 14:37:05 08/02/19 25 08/02/2024 COMP. METAB OLIC PANEL (14) BUN 13 mg/dL 6-20 normal Not Available [facility] ([facility]) [address] [facility], [place], [address], 08/02/2024 14:37:05 08/02/19 25 08/02/2024 COMP. METAB OLIC PANEL (14) creatinine 0.67 mg/dL 0.57-1 .00 normal Not Available [facility] ([facility]) [address] [facility], [place], [address], 08/02/2024 14:37:05 08/02/19 25 08/02/2024 COMP. METAB OLIC PANEL (14) eGFR 116 mL/mi n/1.7 3 >59 normal Not Available [facility] ([facility]) [address] [place], [address], 08/02/2024 14:37:05 08/02/19 25 08/02/2024 COMP. METAB OLIC PANEL (14) BUN/creatini ne ratio 19 9-23 normal Not Available [facility] ([facility]) [address] [facility] [place], [address], 08/02/2024 14:37:05 08/02/19 25 08/02/2024 COMP. METAB OLIC PANEL (14) sodium 139 mmol/ L 134-14 4 normal Not Available [facility] ([facility]) [address] [place], [address], 08/02/2024 14:37:05 08/02/19 25 08/02/2024 COMP. METAB OLIC PANEL (14) potassium 4.0 mmol/ L 3.5-5. 2 normal Not Available [facility] ([facility]) [address] [place], [address], 08/02/2024 14:37:05 08/02/19 25 08/02/2024 COMP. METAB OLIC PANEL (14) chloride 102 mmol/ L 96-106 normal Not Available [facility] ([facility]) [address] [place], [address], 08/02/2024 14:37:05 08/02/19 25 08/02/2024 COMP. METAB OLIC PANEL (14) carbon dioxide, total 19 mmol/ L 20-29 below low normal Not Available [facility] ([facility]) [address] [place], [address], 08/02/2024 14:37:05 08/02/19 25 08/02/2024 COMP. METAB OLIC PANEL (14) calcium 9.2 mg/dL 8.7-10 .2 normal Not Available [facility] ([facility]) [address] [place], [address], 08/02/2024 14:37:05 08/02/19 25 08/02/2024 COMP. METAB OLIC PANEL (14) protein, total 6.5 g/dL 6.0-8. 5 normal Not Available [facility] ([facility]) [address] [place], [address], 08/02/2024 14:37:05 08/02/19 25 08/02/2024 COMP. METAB OLIC PANEL (14) albumin 4.3 g/dL 3.9-4. 9 normal Not Available [facility] ([facility]) [address] [place], [address], 08/02/2024 14:37:05 08/02/19 25 08/02/2024 COMP. METAB OLIC PANEL (14) globulin, total 2.2 g/dL 1.5-4. 5 Not Available [facility] ([facility]) [address] [place], [address], 08/02/2024 14:37:05 08/02/19 25 08/02/2024 COMP. METAB OLIC PANEL (14) bilirubin, total 0.3 mg/dL 0.0-1. 2 normal Not Available [facility] ([facility]) [address] [place], [address], 08/02/2024 14:37:05 08/02/19 25 08/02/2024 COMP. METAB OLIC PANEL (14) alkaline phosphatase 63 IU/L 44-121 normal Not Available [facility] ([facility]) [address] [place], [address], 08/02/2024 14:37:05 08/02/19 25 08/02/2024 COMP. METAB OLIC PANEL (14) AST (SGOT) 23 IU/L 0-40 normal Not Available [facility] ([facility]) [address] [place], [address], 08/02/2024 14:37:05 08/02/19 25 08/02/2024 COMP. METAB OLIC PANEL (14) ALT (SGPT) 31 IU/L 0-32 normal Not Available [facility] ([facility]) [address] [facility], [place], [address], 08/02/2024 14:37:05 08/02/19 25 08/02/2024 IRON AND TIBC iron bind.cap.(TI BC) 400 ug/dL 250-45 0 normal Not Available [facility] ([facility]) [address] [facility], [place], [address], 08/02/2024 14:37:05 08/02/19 25 08/02/2024 IRON AND TIBC UIBC 327 ug/dL 131-42 5 normal Not Available [facility] ([facility]) [address] [place], [address], 08/02/2024 14:37:05 08/02/19 25 08/02/2024 IRON AND TIBC iron 73 ug/dL 27-159 normal Not Available [facility] ([facility]) [address] [place], [address], 08/02/2024 14:37:05 08/02/19 25 08/02/2024 IRON AND TIBC iron saturation 18 % 15-55 normal Not Available [facility] ([facility]) [address] [place], [address], 08/02/2024 14:37:05 08/02/19 25 08/02/2024 VITAM IN B12 AND FOLAT E vitamin B12 288 pg/mL 232-12 45 normal Not Available [facility] ([facility]) [address] [place], [address], 08/02/2024 14:37:06 08/02/19 25 08/02/2024 VITAM IN B12 AND FOLAT E folate (folic acid), serum 7.6 NG/mL >3.0 normal A serum folat e joceline ntrat ion of less than 3.1 ng/mL is consi dered to repre sent clini fercho defic iency . Not Available [facility] ([facility]) [address] [place], [address], 08/02/2024 14:37:06 08/02/19 25 08/02/2024 HEMOG LOBIN A1C hemoglobin A1C 5.5 % 4.8-5. 6 normal Predi abete s: 5.7 - 6.4 Diabe sascha: >6.4 Glyce matias contr ol for adult s with diabe sascha: <7.0 Not Available [facility] ([facility]) [address] [place], [address], 08/02/2024 14:37:07 08/02/19 25 08/02/2024 RHEUM ATOID FACTO R (RF) rheumatoid factor (rf) <10.0 IU/mL <14.0 Not Available [facility] ([facility]) [address] [facility], [place], [address], 08/02/2024 14:37:07 08/02/19 25 08/02/2024 VITAM IN D, 25-HY DROXY vitamin D, 25-hydroxy 17.7 NG/mL 30.0-1 00.0 below low normal Vitam in D defic iency has been defin ed by the Insti tute of Medic ine and an Endoc rine Socie ty pract ice guide line as a level of serum 25-OH vitam in D less than 20 ng/mL (1,2) . The Endoc rine Socie ty went on to [facility] er defin e vitam in D insuf ficie ncy as a level betwe en 21 and 29 ng/mL (2). 1. IOM (Inst itute of Medic ine). 2009. Dieta ry refer ence intak es for calci um and D. Adriana lopez [place]: [facility] [employer] . 2. Mark holloway MF, Stacey francois [place], Saida off-F joshua i ATKINS, et al. Evalu ation , treat ment, and preve ntion of vitam in D defic iency : an Endoc rine Socie ty clini fercho pract ice guide line. JCEM. 2010; 96(7) :1911 -30. Not Available [facility] ([facility]) [address] [facility], [place], [address], 08/02/2024 14:37:08 08/02/19 25 08/02/2024 MELISSA W/REF TIFFANIE IF POSIT JON MELISSA direct Negati ve negati ve Not Available [facility] [facility] [address] [facility], [place], [address], 08/02/2024 14:37:08 08/02/19 25 08/02/2024 SEDIM ENTAT ION RATE- WESTE RGREN sedimentatio n rate-westerg tanja 2 mm/HR 0-32 normal Not Available [facility] ([facility]) [address] [facility], [place], [address], 08/02/2024 14:37:09 08/02/19 25 08/02/2024 C-NADIRA CTIVE PROTE IN, QUANT C-reactive protein, quant 2 mg/L 0-10 normal Not Available [facility] ([facility]) [address] [facility], [place], [address], 08/02/2024 14:37:10 10/16/19 US, obste tric, 1st trime ster No observ ation record ed. [facility] [address] [place] [address] , [place], [address], 10/15/2022 21:31:23 10/20/19 23 10/18/2022 US, obste tric No observ ation record ed. [facility] [address], [place], [address], 10/21/2022 23:46:50 10/23/19 US, obste tric, 1st trime ster No observ ation record ed. [facility] [address] [place] [address] , [place], [address], 10/24/2022 15:14:09 0910/15/2022 US, obste tric, 1st trime ster No observ ation record ed. RIKY [facility] [address] [place] [address] , [place], [address], 10/27/2022 15:02:05 10/29/19 US, obste tric, 1st trime ster No observ ation record ed. deonte [facility] [address] [place] [address] , [place], [address], 10/28/2022 16:56:08 11/01/19 23 10/24/2022 US, obste tric, 1st trime ster No observ ation record ed. RIKY [facility] [address] [place] [address] , [place], [address], 10/31/2022 13:29:16 11/01/19 23 10/28/2022 US, obste tric, 1st trime ster No observ ation record ed. RIKY [facility] [address] [place] [address] , [place], [address], 10/31/2022 13:29:16 07/14/19 24 07/14/2023 US, obste tric, 1st trime ster No observ ation record ed. [email or web address] [place], [place] [address] [facility] [address], [place], [address], 07/15/2023 22:23:29 07/20/19 24 07/20/2023 US, obste tric, 1st trime ster No observ ation record ed. [address], [place], [address], 07/21/2023 12:39:40 Result Notes None recorded. 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 Olsen at Infusion Nurse [facility] [address], [place], [address] , [facility] - [facility] 3 15:49:25 Antenata l screenin g Completed [ ]Mat21-d iscussed at obhx, desires [-]AFP-d iscussed at obhx, pt declined [x]CF- negative Infusion Nurse [facility] [address], [place], [address] , [facility] - [facility] 3 15:49:24 History of abnormal cervical Papanico laou smear 747681247 Completed 2022 LSIL, HPV+ colpo: CIN1, neg ECC [facility] [address], [place], [address] , [facility] - [facility] 3 15:49:25 History of abnormal cervical Papanico laou smear 920504108 Active 2022 LSIL, HPV+ colpo: CIN1, neg ECC [facility] Nurse [facility] [address], [place], [address] , [facility] - [facility] 3 15:49:25 Contrace ption care manageme nt Completed unsure Infusion Nurse [facility] [address], [place], [address] , [facility] - [facility] 3 15:49:25 Body mass index 30+ - obesity 818103093 Completed BMI: 30.6 starting wgt: 173 recommen ded wgt gain: 15-25 Infusion Nurse [facility] [address], [place], [address] , [place] - [facility] 3 15:49:25 Active immuniza tion Completed [-]Covid -decline d at obhx [ ]Tdap- [ ]Flu- Infusion Nurse [facility] [address], [place], [address] , [place] - [facility] 3 15:49:24 Neuropat hy 511961630 Completed 2019 intermit tent comes and goes [facility] [address], [place], [address] , [place] - [facility] 3 15:49:25 Hashimot o thyroidi tis 75099977 Completed 2020 per rheumato logy labs, Infusion Nurse JONATAN [address], [place], [address] , [place] - [facility] 3 15:49:24 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 Olsen at Infusion Nurse [facility] [address], [place], [address] , [place] - [facility] 3 15:49:25 Obesity 365298612 Active BMI: 30.6 Infusion Nurse [facility] [address], [place], [address] , [place] - [facility] 3 15:49:25 Obesity 668017548 Completed BMI: 30.6 Infusion Nurse [facility] [address], [place], [address] , [place] - [facility] 3 15:49:25 Normal pregnanc y 79821357 Completed 201603/16/2017 Infusion Nurse [facility] [address], [place], [address] , [place] - [facility] 8 14:00:16 Pregnanc y 27770835 Completed 201603/16/2017 Luanne kirkland [place] - [facility] 3 09:05:42 Nausea and vomiting 06291717 Completed fluids in office and at hosp [facility]fusion Nurse [facility] [address], [place], [address] , [place] - [facility] 8 13:59:46 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 68589963 Completed [place]: ENT Dr Olsen & [facility] Dr Campa right petrous apex choleste rol granulom a [facility] [address], [place], [address] , [place] - [facility] 8 13:59:46 Antenata l screenin g Completed 04/03/16 FTS Normal NT, Serum = REqueste d 09/03 Infusion Nurse [facility] [address], [place], [address] , [place] - [facility] 8 13:59:46 Tendinit is 55754477 Active 2024 Viky Restrepo, OUTREACH REPRESENTATIVE [address], [place], [address] , [place] - [facility] 5 15:46:56 Fatigue 14412485 Active 2024 Scott Lincoln, OUTREACH REPRESENTATIVE [address], [place], [address] , [place] - [facility] 5 08:42:52 Butterfl y rash 40028811 Active 2024 Scott Lincoln OUTREACH REPRESENTATIVE [address], [place], [address] , [place] - [facility] 5 08:50:46 Paresthe karen of hand 181282390 Active 2024 Scott Lincoln OUTREACH REPRESENTATIVE [address], [place], [address] , [place] - [facility] 5 08:54:36 Problem Notes None recorded. Procedures Surgical History Date Name Laterality Status Provider Name and Address Organization Details Recorded Time 023 OB Ultrasound Summary completed Lexi Gutierrez [place] - [facility] 10/28/2022 16:25:13 023 OB Ultrasound Summary completed Lexi NICHOLAS - [facility] 10/24/2022 14:29:34 023 OB Ultrasound Summary completed Lexi NICHOLAS - [facility] 10/15/2022 14:00:05 023 IUD Removal completed Malaika Umana APRN [address], [place], [address], [place] - [facility] 03/13/2022 14:02:13 023 Date of Last Pap Smear completed Malaika Umana, OUTREACH REPRESENTATIVE [address], [place], [address], [place] - [facility] 03/18/2022 10:45:46 023 removal of intrauterine device completed Malaika Umana OUTREACH REPRESENTATIVE [address], [place], [address], [place] - [facility] 03/13/2022 14:11:29 019 Medication Reconcilliation completed Deep Keane [place] - [facility] 04/14/2018 10:49:20 018 insertion of intrauterine contraceptive device completed Luanne Chester [place] - [facility] 03/12/2022 11:36:29 017 OB Ultrasound Summary completed Misty Ambroselach [place] - [facility] 05/28/2016 17:09:03 017 OB Ultrasound Summary completed Rochelle Gil [place] - [facility] 04/30/2016 10:38:28 017 OB Ultrasound Summary completed Elizabet Schumacher [place] - [facility] 03/26/2016 16:11:11 017 OB Ultrasound Summary completed Elizabet Schumacher [place] - [facility] 03/10/2016 14:04:59 016 IUD Removal completed Marcella Rodriguezrus [place] [facility] 02/21/2016 15:05:42 016 Nsl/sins ndsc frnt tiss rmvl completed Marcella Milly [place] - [facility] 02/22/2016 15:08:58 014 Colposcopy completed Marcella Milly [place] - [facility] 02/21/2016 15:31:12 014 Colposcopy completed Marcella Milly [place] - [facility] 02/21/2016 15:31:40 011 IUD Insertion completed Luanne Chester [place] [facility] 03/12/2022 11:35:46 Imaging Results None [...] on: 12/14/19 11;Indic ation: Pregnanc y - (18.V222 00);Prin ellen: 12/19/19 10 Not Available Not [...] 11;Indic ation: Bacteria l Vaginosi s - (10.6169 00) Not Available Not Available Not Available [...] on: 09/18/19 11 2:03PM;U ser: youngk;E st. Vergarai on: 12/14/19 11;Print ed: 12/19/19 10 Not Available Not Available Not Available promethaz ine 25 mg/mL injection solution Take 1 mL as needed by injectio n route as directed . 03/26 completed 25 mg in 50 ml of ns given by Wanda Ring IV Piggybac k Not Available Not Available Not Available [...] Details Last Updated DateTime 5 160.02 cm 30.8 kg/m2 16658.0 7 g 76 /min 98 % 98 % 18 /min 124/76 mm[Hg] Crystal [place] - [facility] 5 15:20:11 Date Recorded Body height Body mass index (BMI) Body weight Heart rate Oxygen saturation Oxygen saturation in Arterial blood by Pulse oximetry Respiratory rate Systolic And Diastolic Provider Name and Address Organization Details Last Updated DateTime 5 160.02 cm 32.1 kg/m2 27929.9 2 g 88 /min 98 % 98 % 18 /min 116/76 mm[Hg] Mireya kilpatrick [place] - [facility] 5 08:37:16 Date Recorded Body height Body mass index (BMI) Body weight Systolic And Diastolic Provider Name and Address Organization Details Last Updated DateTime 10/24/2022 160.02 cm 29.8 kg/m2 20281.518 16 g 124/80 mm[Hg] Oma Perdomo [place] - [facility] 10/24/2022 14:57:14 Date Recorded Body height Body mass index (BMI) Body weight Systolic And Diastolic Provider Name and Address Organization Details Last Updated DateTime 10/28/2022 160.02 cm 29.9 kg/m2 35219.110 53 g 106/76 mm[Hg] Leonora Albarran [place] - [facility] 10/28/2022 16:31:03 Date Recorded Body height Body mass index (BMI) Body weight Body temperature Heart rate Oxygen saturation Oxygen saturation in Arterial blood by Pulse oximetry Respiratory rate Systolic And Diastolic Provider Name and Address Organization Details Last Updated DateTime 3 160.02 cm 31 kg/m2 55763.6 6 g 98.5 [degF] 98 /min 98 % 98 % 18 /min 122/74 mm[Hg] Deep Keane [place] - [facility] 3 15:04:00 Social History Question Answer Notes LastModified by [email or web address] ion Details LastModified Time Tobacco Smoking Status Never Smoker Marcella kirkland [place] - [facility] 02/22/2016 15:06:05 Do You Have An Advance Directive? No [email or web address] Information not available 03/12/2022 If You Are , What Was Your Level Of Alcohol Consumption Prior To ? None Information not available 03/12/2022 Are You Blind Or Do You Have Difficulty Seeing? No [email or web address] Information not available 03/12/2022 Is Blood Transfusion [...] COVID-19 While That Case Was Ill? No [email or web address] Information not available 03/12/2022 In The 14 Days Before Symptom Onset, Have You Had Close Contact With A Person Who Is Under Investigation For COVID-19 While That Person Was Ill? No [email or web address] Information not available 03/12/2022 Have You Been To An Area Known To Be High Risk For COVID-19? No Information not available 03/12/2022 Are You Deaf Or Do You Have Serious Difficulty Hearing? No [email or web address] Information not available 03/12/2022 Diabetes No Information no t available 02/22/2016 What Type Of Diet Are You Following? REGULAR Information not available 02/22/2016 Which Illicit Or Recreational Drugs Have You Used? No Hx Information not available 02/22/2016 Have You Processed Blood Or Body Fluids From An Ebola Virus Disease Patient Without Appropriate PPE? No [email or web address] Information not available 03/12/2022 Do You Reside In Or Have You Traveled To An Area Where Ebola Virus Transmission Is Active? No [email or web address] Information not available 03/12/2022 Education 12 Information no t available 03/12/2022 What Is The Highest Grade Or Level Of School You Have Completed Or The Highest Degree You Have Received? BP96449-2 [email or web address] Information not available 03/12/2022 Have There Been Any Changes To Your Family Or Social Situation? No Information no t available 02/22/2016 What Is The Fluoride Status Of Your Home? Fluoridated [email or web address] Information not available 03/12/2022 Frequent Air Travel No Information not available 02/22/2016 Have You Recently Or Are You Planning To Travel To An Area With Zika Virus? No [email or web address] Information not available 03/12/2022 High Blood Pressure No Information not available 02/22/2016 High Cholesterol No Informat ion not available 02/22/2016 Illicit Drugs Pre- None Information not available 02/22/2016 Live Alone Or With Others? With Others Information not available 02/22/2016 Do You Have A Medical Power Of Fur Blower Operator? Yes [email or web address] Information not available 03/12/2022 What Was The Date Of Your Most Recent Tobacco Screening? 04/25/2024 Information not available 04/25/2024 How Many Children Do You Have? 2 Information not available 10/08/2022 Do You Have Any Pets? No Information not available 02/22/2016 Do You Use Protection During Sex? No [email or web address] Information not available 03/12/2022 Do You Use Protection Against STDs? No [email or web address] Information not available 03/12/2022 What Is Your Relationship Status? [email or web address] Information not available 03/12/2022 Seat Belts Used [...] Have Difficulty Walking Or Climbing Stairs? No Information not available 03/12/2022 Do You Have [...] Was Counseling Provided To Achieve ? No Information not available 03/12/2022 Do You Want To Talk About Contraception Or Prevention During Your Visit Today? No - I Do Not Want To Talk About Contraception Today Because I Am Here For Something Else [email or web address] Information not available 10/15/2022 What Is Your Reason For Having No Contraceptive Method At Start Of This Visit? Other [email or web address] Information not available 10/15/2022 Sex: Female Functional Status Question Answer Note LastModified by Organizat ion Details LastModified Time Do you or have you ever used smokeless tobacco? Never used [email or web address] tobacco Information not available 07/25/2020 Are you currently employed? Yes Information not available 02/22/2016 Do you have transportation difficulties? No [email or web address] Information not available 03/12/2022 Are you able to care for yourself? Yes [email or web address] Information n ot available 03/12/2022 Do you have difficulty dressing or bathing? No [email or web address] Information not available 03/12/2022 Do you or [...] 10/08/2022 Are you able to walk? YESWOREST [email or web address] Information not available 03/12/2022 Do you have difficulty doing errands alone? 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 [id number] [email or web address] Information not available 03/12/2022 Do you have difficulty concentrating, remembering or making decisions? No [email or web address] Information no t available 03/12/2022 Family History Relationship Description Onset Age of this Age Resolved Age Notes LastModified by Organization Details LastModified Time Father Chronic obstructive pulmonary disease Not available 2016 15:51:26 Paternal Grandmother Diabetes mellitus Not available 2016 15:51:51 Maternal Grandfather Diabetes mellitus Not available 2016 15:51:51 Paternal Grandfather Diabetes mellitus Not available 2016 15:51:51 Medical History Condition Response Pancreatitis N Other N Atrial Fibrillation N congenital heart disease N Blood Diseases N Hyperthyroidism N Rheumatoid arthritis N Blood Transfusion N Erectile Dysfunction N amputation N Skin Lesions N Depression N Pneumonia N Incontinence N Murmur N Edema N Alzheimer's Disease N Migraine Headaches N Tobacco Abuse N Anxiety Disorder N Hemorrhoids N Obesity Y Vision or Eye Problems N Arthritis N Restless Leg Syndrome N Polyps N Infertility N Carpal Tunnel N Acid Reflux (GERD) N Cancer N Varicosities N Stroke N Tendonitis N Crohn's Disease N Hypercholesterolemia N Skin Cancer N Headaches N Fibromyalgia N Irritable Bowel Syndrome N Anal Fissure N Kidney Disease N Heart Problems N Hospitalizations Y Gallstones N Kidney or Bladder Problems N Goiter N Acne N Eating Disorder N Ramírez's Esophagus N Hypertriglyceridemia N Constipation N Embolism N Vitamin B12 Deficiency N Deviated Septum N AIDS/HIV N Myocardial Infarction N Asthma N Mitral Valve Disorders N Vertigo N Hepatitis N Thyroid Cancer N Neuropathy N History of DVT N Herniated Disc N Chicken Pox Y Autism Spectrum Disorder (ASD) N Von Willebrands Disease N Thrombophilias N Breast Cancer N Hernia N Plantar Fasciitis N Hypothyroidism N Lung Disease N Defects or Inherited Disease N Breast Problem N Ovarian Cyst N Anesthesia Complications N Testosterone Deficiency N Interstitial Cystitis N Congenital Anomalies N Hypoglycemia N Blood clot N Vitamin D Deficiency N Cellulitis N Endometriosis N Bladder or Kidney Problems N Fracture N Colorectal Cancer N Panic Disorder N Schizophrenia N Concussion N Spina Bifida N Osteoarthritis N Parkinson's Disease N Disc Protrusion N STI N Esophagitis N Angina N Thyroid Problems N GI Problems N ADD/ADHD N Anemia N Multiple Sclerosis N Abnormal PAP Y Lumbago N Mental Illness N Psychiatric Illness N Diabetes N Ovarian Cancer N Degenerative Disc Disease N Seizures/Epilepsy N Hyperlipidemia N Syncope N Insomnia N Eczema N Abuse/Domestic Violence N Attention Deficient Disorder N Dementia N Ulcerative colitis N Cerebrovascular Disease N Depression N Guillain-Lucas N Sleep Apnea N Aneurysm N Bronchitis N Heart Disease N Hypertension N Pre-Eclampsia N Suicidal Ideation N Osteoporosis N Gynecological History Statement/Question Response [...] SNOMED-CT Code Diagnosis ICD10 Code Diagnosis Note [id number] VELASQUEZ [place] [facility] [address] [place] [address] CRISTOPHER Hernández [address] 02/22/2016 14:56:39 02/22/2016 15:30:49 Urine test positive 669549539 Z32.01 Amenorrhea 28336706 N91. 2 [id number] Michelle Keller CNM [place] [facility] [address] [place] [address] C[place]STOPHER Hernández [address] 03/05/2016 13:39:56 03/05/2016 17:06:39 Nausea and vomiting 09548822 R11.2 Dehydration 76519648 E86 .0 Ketonuria 711974024 R82. 4 Gestation period, 11 weeks 41861543 Z3A.11 [id number] Michelle Smith CNM [place] [facility] [address] [place] [address] CRISTOPHER Hernández [address] 03/10/2016 13:24:12 03/10/2016 15:27:21 Normal 93907935 Z34.90 Gestation period, 9 weeks 080785 Z3A.09 Routine an tenatal care 765467418 Z34.90 Nausea and vomiting 1693 2000 R11.2 [id number] DO Emilia Camargo ASH P[facility] WORKER [address] [place] [address] CRISTOPHER Hernández [address] 7 03/26/2016 15:49:30 03/26/2016 16:27:11 Gestation period, 11 weeks 66953853 Z3A.11 Normal 2423340 2 Z34.81 Nausea and vomiting 1693 2000 R11.2 [id number] Jami Henao CNM [place] [facility] [address] [place] [address] CRISTOPHER Hernández [address] 04/03/2016 10:18:53 04/03/2016 12:39:18 Normal 85591878 Z34.81 Gestation period, 12 weeks 40734503 Z3A.12 Infection screening 2437 30058 Z11.3 Z11.8 Screening for malignant neoplasm of cervix 928723103 Z12.4 screening 2437 11276 Z36 [id number] Michelle Keller CNM [place] [facility] [address] [place] [address] CRISTOPHER Hernández [address] 04/30/2016 10:10:22 04/30/2016 11:18:42 Normal 11289777 Z34.92 Gestation period, 16 weeks 53439473 Z3A.16 [id number] Rita Jacome MS, RD, LD [place] [facility] [address] [place] [address] CRISTOPHER Hernández [address] 04/30/2016 10:13:17 04/30/2016 11:28:12 [id number] Z33.1 [id number] Misyt Johnson DO [place] [facility] [address] [place] [address] CRISTOPHER Hernández [address] 05/28/2016 15:10:42 05/28/2016 17:10:47 Counseling 717754514 Z71.9 Gestation period, 20 weeks 48323926 Z3A.20 screening 2437 81489 Z36 Normal 1456159 2 Z34.82 Body mass index 25-29 - overweight 483765969 Z68.29 [id number] VELASQUEZ [place] [facility] [address] [place] [address] CRISTOPHER Hernández [address] 7 06/26/2016 12:25:52 06/26/2016 14:02:28 Gestation period, 24 weeks 046207854 Z3A.24 screening 2437 11271 Z36 Normal 4012985 2 Z34.82 Nausea 620890978 R11.0 Continue with unisom and B-6 [id number] Michelle Keller CNM [place] [facility] [address] [place] [address] CRISTOPHER Hernández [address] 7 07/24/2016 08:42:43 07/24/2016 10:16:54 Normal 24800235 Z34.92 Gestation period, 28 weeks 55920650 Z3A.28 screening 2437 49374 Z36 [id number] DO Magda [place] [facility] [address] [place] [address] CRISTOPHER Hernández [address] 7 08/07/2016 10:57:00 08/07/2016 11:29:15 Gestation period, 30 weeks 80016944 Z3A.30 Normal 6220977 2 Z34.81 [id number] DO Magda [place] [facility] [address] [place] [address] CRISTOPHER Hernández [address] 7 08/21/2016 10:39:54 08/21/2016 11:26:01 Gestation period, 32 weeks 3596514 Z3A.32 31135081 Z33.1 [id number] [facility] [address] [place] [address] CRISTOPHER Hernández [address] 7 09/03/2016 14:41:19 09/03/2016 15:40:36 screening 426771832 Z36 Gestation period, 34 weeks 31807471 Z3A.34 Normal 6689710 2 Z34.81 [id number] Michelle Keller CNM [place] [facility] [address] [place] [address] CRISTOPHER Hernández [address] 7 09/15/2016 11:04:07 09/15/2016 11:36:07 Threatened premature labor - not delivered 642086371 O47.9 Gestation period, 36 weeks 35252598 Z3A.36 screening 2437 72771 Z36 Vaginal discharge 231018 006 N89.8 Bacterial vaginosis 4197 76247 N76.0 [id number] MD Emilia Siegel ASH P[facility] WORKER [address] [place] [address] CRISTOPHER Hernández [address] 7 09/23/2016 10:45:13 09/23/2016 11:12:27 Normal 53585182 Z34.93 Gestation period, 37 weeks 34861751 Z3A.37 Vaginal discharge 228493 006 N89.8 [id number] [facility] [address] [place], [place] [address] [address] 10/12/2017 15:14:18 10/12/2017 17:44:29 Body mass index 25-29 - overweight 067557305 Z68.29 Pain of right calf 62034 11473 803404 M79.364 [id number] Anaya Vargas[address] [place] [address] 04/14/2018 10:44:34 04/14/2018 11:11:00 Cervical radiculopathy 40205605 M54.12 Abnormal f indings on diagnostic imaging of skull and head 929386716 R93.0 Pain of ri ght shoulder joint 3907800100 2578978 M25.993 [id number] Anaya Vargas[address] [place] [address] 04/19/2018 11:04:13 04/19/2018 12:41:49 Cervical radiculopathy 25455544 M54.12 Pain of ri ght shoulder joint 7144796857 6362451 M25.697 [id number] Anaya Vargas[address] [place] [address] 04/29/2018 10:58:50 04/29/2018 13:51:45 Migraine 92951482 G43.909 Pain of ri ght shoulder joint 2609325352 2239889 M25.511 Cervical radiculopathy 85664628 M54.12 [id number] Anaya Vargas[address] 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 [address] 09/06/2019 10:46:23 09/06/2019 15:18:37 Intermittent confusion 083704962 R41.0 Muscle weakness 22005950 M62.81 [id number] Anaya Vargas[address] [place] [address] 10/31/2019 16:06:36 10/31/2019 17:19:47 Neuropathy 256741511 G62.9 Muscle weakness 73404457 M62.81 [id number] [address]aya V[address] [place] [address] 04/27/2020 14:27:10 04/27/2020 15:36:42 Ora thyroiditis 08364485 E06.3 [id number] Anaya [address] [place] [address] 07/25/2020 09:11:57 07/25/2020 10:37:38 Ora thyroiditis 61475348 E06.3 Vitamin D deficiency 347 44831 E55.9 [id number] Anaya Vargas[address] [place] [address] 02/25/2022 13:17:57 02/25/2022 14:47:33 Ora thyroiditis 57514945 E06.3 Screening for cardiovascular system disease 240256486 Z13.6 Endocrine/ metabolic screening 952328044 Z13.228 Body mass index 25-29 - overweight 047601930 Z68.29 General ex amination of patient 133989864 Z00.00 Exercises education, guidance, and counseling 028418798 Z71.82 The patient was advised to continue a healthy diet and exercise regularly. Dietary ma nagement surveillance 715140207 Z71.3 [id number] VELASQUEZ Pablo ASH PIT WORKER [facility] [place] Hernández [address] 03/13/2022 13:42:15 03/13/2022 15:15:33 Routine gynecologic examination done [id number] 9101 Z01.419 Depression screening 171 439640 Z13.89 PHQ-9 completed today. Diet education 04609769 Z71.3 Counseling 612186393 Z71 .82 Exercise counselminh evans Patient encouraged to exercise 30 minutes 5 days a week. Examinatio n of blood pressure 146824475 Z01.30 Vaccine de clined by patient 7287027519 02 Z28.21 Pt declined flu vaccine today. Screening for malignant neoplasm of cervix 222311955 Z12.4 Z11.3 Z01.419 Patient advised that I will follow up with results. Removal of intrauterine device 79454124 Z30.432 Discussed possible cramping and bleeding over the next few days. Patient informed that return to fertility is immediate. She is to use condoms and foam x 2 cycles. Patient encouraged to take PNV daily. Reproducti ve care management 584421042 Z31.9 Patient advised to get regular exercise, eat healthy foods and start a menstrual diary.Pt to call with + UPT. 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 Patient ms dical record not available 890173750 Z76.89 [id number] DO Emilia Camargo ASH PIT WORKER [facility] [place]dez [address] 10/15/2022 13:41:58 10/15/2022 15:10:50 screening 392871422 Z36.9 Nausea and vomiting 1693 2000 R11.2 Generalize d acute body pains 548409446 R52 Early stag e of 796572364 Z34.91 COVID-19 286490078 U07.1 Diagnosed 10/15/22 [id number] Nicole Paulino DO [place] A[employer] WORK[employer] [address] [place] [address] C[place] Hernández [address] 10/24/2022 14:04:39 10/24/2022 15:13:56 screening 446755981 Z36.9 Early stag e of 328953721 Z34.91 Gestation period, 6 weeks 25588991 Z3A.01 [id number] Nicole Paulino DO [place] A[employer] [address] [place] [address] C[place] Hernández [address] 10/28/2022 16:01:09 10/28/2022 16:47:11 Gestation period, 6 weeks 10727930 Z3A.01 screening 2437 84959 Z36.9 Routine an tenatal care 631179949 Z34.91 Missed miscarriage 35777 004 O02.1 [id number] Anaya Vargas[address] [address] 02/11/2023 14:36:23 02/11/2023 15:50:35 Roa thyroiditis 02277940 E06.3 Acute bact erial sinusitis 60880674 J01.90 Fatigue 59979522 R53.83 Missed miscarriage 91463 004 O02.1 10/2022 [id number] Viky Restrepo [address] [address] 04/25/2024 15:12:58 04/25/2024 15:56:41 Body mass index 30+ - obesity 832748552 Z68.30 Obesity 721641112 E66.9 Tendinitis 80383324 M77. 9 [id number] Scott Lincoln [address] [address] 08/01/2024 08:31:06 08/01/2024 09:20:53 Ora thyroiditis 71869181 E06.3 hx of Ora' s, will check labs as patient having increased fatigue, weight gain.Notif y with results, f/u pending labs. Fatigue 05268095 R53.83 PE noted with butterfly appearing rash to face. Will check labs at this time. Advised to continue working on improved diet with reduced processed foods, sugars, focus on whole foods. Increase exercise 5 days 30min. F/U 3-4 weeks or sooner pending labs. Butterfly rash 57273034 R21 PE noted with butterfly rash will check labs, concern for possible lupus or other autoimmune disease considerin g worsening fatigue, joint pain, malar rash, edema. Will notify with results once available. F/u 3-4 weeks or sooner pending labs. Paresthesia of hand 3090 73993 R20.2 PE noted with decreased sensation to light touch in right fingers otherwise was normal in bilateral upper extremitie s. Will check labs and notify with results once available. F/U 3-4 weeks or sooner pending labs. Health Concerns Section Related Observation LastModified by Organization Detai ls LastModified Time None Recorded Concern Status LastModified by Organization Details LastModified Time None Recorded Advance Directives Directive N: Payers Insurance Date Sequence Insurance Name Policy Number Policy English Covered Member ID English Member ID Guarantor Name 04/12/2018 1 [facility] [id number] Lillian Erica [id number] [facility] 04/27/2020 1 [place] [id number] Lillian Erica [id number] [facility] 08/08/2024 1 PASSPORT BY [employer] (MEDICAID REPLACEMENT - HMO) Lillian N Erica [id number] [facility] 09/06/2019 1 [id number] Lillian Erica [id number] [facility] 08/08/2024 [place] [facility] WRAP BILLING (MEDICAID) Lillian N Erica [id number] [facility] 09/06/2019 1 [facility] Lillian Erica [id number] [facility] 04/27/2020 1 THE [facility] - MULTIPLAN (INDEMNITY) Lillian Erica [id number] [facility] 10/08/2022 TITLE X Lillian Erica [id number] [facility] 08/01/2024 1 *SELF PAY* [facility] 08/29/2021 1 [place] [id number] Lillian Maldonado [id number] Lillian [facility] 05/16/2020 1 [place]: [place] BC[place] [id number] Lillian Maldonado [id number] [facility] Notes Date Note Type Note Provider Name and Address Organization Details Recorded Time 10/24/2022 text/html 9 week ob visit, u/s Damon Paulino, DO [address], [place], [address], [place] - [facility] 10/24/2022 15:23:03 10/28/2022 text/html 6 week ob visit, u/s Damon Paulino, DO [address], [place], [address], [place] - [facility] 10/28/2022 17:00:40 02/11/2023 text/html presents today w ith multiple acute complaintsmood swingslow sex drivenumbness/tingli ng coming more frequentlydry skin, rashesthinning hairtired all the timelast 2 months, sinus/respiratoryotc meds not helpful denies cp, sob, n/v/d Anaya Vargas, OUTREACH REPRESENTATIVE [address], [place], [address], [place] - [facility] 02/13/2023 02:23:04 04/25/2024 text/html Presents with on e week of right upper arm pain radiating down into arm / handHas awakened her sleep with pain - numbness and tinglingNo trauma or injuryNo redness or swellingIs right handedPain aggravated with closed gripDid take naproxen with minimal reliefNo chest pain, shortness of breath, dizziness, lightheadedness, syncope, palpitations or edema. No fever, chills or cough. Viky Restrepo, OUTREACH REPRESENTATIVE [address], [place], [address], [place] - [facility] 04/25/2024 16:50:41 08/01/2024 text/html 34 yo presents f or [...] complaints. Denies any other concerns. Scott Lincoln, OUTREACH REPRESENTATIVE [address], [place], [address], [place] - [facility] 08/01/2024 15:31:54 OBGyn Episode Ob Episode Information Episode Created Date Number of Fetuses Patient Bloodtype Patient rh Status Prepregnancy Weight lbs Domestic Partner Domestic Partner Phone Father Name Gastroenterology Nurse Status 02/20/19 17 1 CLOSED Fetus Data First Name Last Name Admitted to NICU Weight (g) Sex Living Outcome Pediatric Complications Fetus ID Race Codes Race Delivery Type 3572.03 7 M Full Term 3131 Vaginal Nils Calculation Initial Nils Date Initial Exam Date Initial Exam Provider Initial Ultrasound Date Last Menstrual Period Date Ultra Sound Weeks Gestation 0 Eighteen To Twenty Week Nils Update Ultra Sound Date Fundal Height At Umbil Quickening Date Ultra Sound Latest Weeks Gestation Final Nils Confirmed By Final Nils Confirmed Date Final Nils Date Ultra Sound Latest Days Gestation 0 0 Menstrual History Last Menstrual Date Menses Monthly On Bcp Conception Prior Menses Frequency Hcg Plus Date Menarche Onset Age Delivery Information Delivery Date Delivery Type Labor Anesthesia Weeks Gestation Incision Type Labor Labor Length Hrs Delivered By Post Complications Tubal Sterilization Discharge Date Comments 1 Regional-Ep idural 38 [facility] Discharge Information Feeding Method Contraceptive Method Maternal HG B and HCT Levels Ob Episode Information Episode Created Date Number of Fetuses Patient Bloodtype Patient rh Status Prepregnancy Weight lbs Domestic Partner Domestic Partner Phone Father Name Gastroenterology Nurse Status 03/10/19 17 1 O Positive 150 CLOSED Fetus Data First Name Last Name Admitted to NICU Weight (g) Sex Living Outcome Pediatric Complications Fetus ID Race Codes Race Delivery Type [id number] Problems Problem Notes epidural, bottle, mirena,kid caresch FTSdeclines flu vaccAnatomy U/S - boy, normal and complete anatomy, anterior placentaBOY-Chencho Problem Name Start Date End Date Resolution Snomed Code Not e Nausea and vomiting 99589059 fluids in office and at hosp Cholesterol granuloma of middle ear 64143061 [place]: ENT Dr Mas er & [facility] Neurosx Dr Anderson petrous apex cholesterol granuloma screening 112373320 04/03/16 FTS Normal NT, Serum = REquested 09/03 Nils Calculation Initial Nils Date Initial Exam Date Initial Exam Provider Initial Ultrasound Date Last Menstrual Period Date Ultra Sound Weeks Gestation 10/12/2016 03/10/2016 [email or web address] 03/10/2016 12/18/2015 9 Eighteen To Twenty Week Nils Update Ultra Sound Date Fundal Height At Umbil Quickening Date Ultra Sound Latest Weeks Gestation Final Nils Confirmed By Final Nils Confirmed Date Final Nils Date Ultra Sound Latest Days Gestation 0 [email or web address] 03/10/2016 10/13/19 17 0 Pre- Flowsheet Flowsheet Date 03/10/2016 Bobo Score Blood Edema Fundus Height Fundus Units Glucose Ketones Leukocytes Nitrite Labor Signs Protein Cervic Dilation Cervic Effacement Cervic Station neg none 9 wks none moderate none Negative none neg Type Weight in lbs Pre/Post Dialysis Refused 150.145656316179 BP Diastolic BP Location Tested BP Systolic BP Type 70 118 Fetus Heart Rate Present A Present Fetus Movement A No Comments obhx,no movement felt yet, n o vb,no lof,neg leuk,neg nitr,c/o n&v,declines all screening tests,declines flu vacc/kh//back to not keeping qthing down since thursday. reviewed u/s, will go to hosp for fluids/antiemetic. rx for phenergan supp. FTS in 3-4 wks and PE. e.c. Flowsheet Date 03/26/2016 Bobo Score Blood Edema Fundus Height Fundus Units Glucose Ketones Leukocytes Nitrite Labor Signs Protein Cervic Dilation Cervic Effacement Cervic Station neg none none negative 2+ Negative Other (see comments ) trace Type Weight in lbs Pre/Post Dialysis Refused 153.272688559423 BP Diastolic BP Location Tested BP Systolic BP Type 60 110 sitting Fetus Heart Rate Present A Present Fetus Movement A No Comments No lof or vb, taking Diclegi s 2 QHS and doing better.knt Doing much better. Happy with results from Diclegis. Tolerating regular diet. Denies heartburn. Unable to obtain FHT with doppler, US performed for heart rate. Reports that her employer, [employer], requires her to take time off until she can return to work without drowsiness. She is drowsy from taking Diclegis. Will need to decide when to do a trial without the medication. Left FMLA papers. F/U as scheduled in one week Flowsheet Date 04/03/2016 Bobo Score Blood Edema Fundus Height Fundus Units Glucose Ketones Leukocytes Nitrite Labor Signs Protein Cervic Dilation Cervic Effacement Cervic Station neg none 12 wks none negative none Negative neg Type Weight in lbs Pre/Post Dialysis Refused 152.924922585990 BP Diastolic BP Location Tested BP Systolic BP Type 64 112 sitting Fetus Heart Rate Present A Present Fetus Movement Comments OBP, fts with uk, no vb-ct// OBPE,GC/CT obtained. Nausea improved. Reviewed labs. Had FTS today. RTC 4 wks. RH Flowsheet Date 04/30/2016 Bobo Score Blood Edema Fundus Height Fundus Units Glucose Ketones Leukocytes Nitrite Labor Signs Protein Cervic Dilation Cervic Effacement Cervic Station neg none none negative none Negative neg Type Weight in lbs Pre/Post Dialysis Refused 152.009496885948 BP Diastolic BP Location Tested BP Systolic BP Type 64 110 sitting Fetus Heart Rate Present A 155 Fetus Movement A Yes Comments OB at 16.3 weeks, no lof, no vb, declined quad screen-ct// Declined AFP today. FHTs confirmed by U/S because could only hear placental souffle. FHTs at 155;plac ant; + FM seen. Noted given to return to work 05/05/2016. RTC 4 wks. sk Flowsheet Date 04/30/2016 Bobo Score Blood Edema Fundus Height Fundus Units Glucose Ketones Leukocytes Nitrite Labor Signs Protein Cervic Dilation Cervic Effacement Cervic Station Type Weight in lbs Pre/Post Dialysis Refused BP Diastolic BP Location Tested BP Systolic BP Type Fetus Heart Rate Present Fetus Movement Comments Flowsheet Date 05/28/2016 Bobo Score Blood Edema Fundus Height Fundus Units Glucose Ketones Leukocytes Nitrite Labor Signs Protein Cervic Dilation Cervic Effacement Cervic Station neg none 20 wks none negative none Negative none neg Type Weight in lbs Pre/Post Dialysis Refused 158.923658823425 BP Diastolic BP Location Tested BP Systolic BP Type 64 102 Fetus Heart Rate Present A Present Fetus Movement A Yes Comments ga&a u/s, afm, no vb, no lof , voiced no concerns at this time, KCDoing vit b6 and unisom which seems to help with her nausea. Denies vomiting. U/S results discussed. Discussed upcoming visits. No other concerns. RTO 4 wks. sg Flowsheet Date 06/26/2016 Bobo Score Blood Edema Fundus Height Fundus Units Glucose Ketones Leukocytes Nitrite Labor Signs Protein Cervic Dilation Cervic Effacement Cervic Station neg none 25 none negative none Negative none neg Type Weight in lbs Pre/Post Dialysis Refused 163.528462015089 BP Diastolic BP Location Tested BP Systolic BP Type 66 102 Fetus Heart Rate Present A 160 Fetus Movement A Yes Comments afm, no vb, no lof, pt repor ts nausea but is taking unisom and vit b6 and states that it's helping, Joe presents for routine OV @ 24 wk. She is still having daily n/v that is relieved with unisom and B-6. Encouraged to continue with this regimen and to drink plenty of fluids. No other q/c. F/U 4 wk for 1 hr. Flowsheet Date 07/24/2016 Bobo Score Blood Edema Fundus Height Fundus Units Glucose Ketones Leukocytes Nitrite Labor Signs Protein Cervic Dilation Cervic Effacement Cervic Station neg none 28 none negative none Negative neg Type Weight in lbs Pre/Post Dialysis Refused 165.228423979645 BP Diastolic BP Location Tested BP Systolic BP Type 64 112 sitting Fetus Heart Rate Present A 145 Fetus Movement A Yes Comments Afm, 1 hour gtt, hgb no lof, no vb-ct// Still with some nausea,but no vomiting. [employer] wants note for pt to be able to work while taking Unisom and B6-supplied today. If 1 hr nl RTC 2 wks. sk Flowsheet Date 08/07/2016 Bobo Score Blood Edema Fundus Height Fundus Units Glucose Ketones Leukocytes Nitrite Labor Signs Protein Cervic Dilation Cervic Effacement Cervic Station neg 32 wks none negative none Negative Other (see comments ) neg Type Weight in lbs Pre/Post Dialysis Refused 167.470132246276 BP Diastolic BP Location Tested BP Systolic BP Type 70 108 sitting Fetus Heart Rate Present A Present Fetus Movement A Yes Comments AFM, no lof, no vb. c/o cont inued nausea and trouble sleeping. bs Discussed nausea - taking B6 and Unysom - helps with nausea. Recommend Benadryl for sleep. Declines other treatment options. Taking PNV. Tolerating heartburn - declines medication. F/U 2 weeks Flowsheet Date 08/21/2016 Bobo Score Blood Edema Fundus Height Fundus Units Glucose Ketones Leukocytes Nitrite Labor Signs Protein Cervic Dilation Cervic Effacement Cervic Station neg trace 33 cm none negative none Negative Other (see comments ) neg 0cm 0% -4 Type Weight in lbs Pre/Post Dialysis Refused 169.138992595701 BP Diastolic BP Location Tested BP Systolic BP Type 72 110 sitting Fetus Heart Rate Present A Present Fetus Movement A Yes Comments AFM, no lof, no vb. c/o naus ea and clear discharge at times on underwear. bs Taking PNV. Heartburn occasionally. Exam: no pooling of fluid, nitrazine neg, physiologic discharge of . F/U 2 weeks Flowsheet Date 09/03/2016 Bobo Score Blood Edema Fundus Height Fundus Units Glucose Ketones Leukocytes Nitrite Labor Signs Protein Cervic Dilation Cervic Effacement Cervic Station neg none 34 cm none small trace Negative none trace 0cm Type Weight in lbs Pre/Post Dialysis Refused 170.406583232356 BP Diastolic BP Location Tested BP Systolic BP Type 64 108 Fetus Heart Rate Present A Present Fetus Movement A Yes Comments No vb, lof or unusual d/c. D oes c/o increased pelvic pressure & lower back pain. Wants to think about TDAP. mdr//Baby active. Info given about TDAP. Cx LTC, posterior. RTC 2 wk with GBS. RH Flowsheet Date 09/15/2016 Bobo Score Blood Edema Fundus Height Fundus Units Glucose Ketones Leukocytes Nitrite Labor Signs Protein Cervic Dilation Cervic Effacement Cervic Station neg none 36 none negative none Negative neg 0cm 0% -3 Type Weight in lbs Pre/Post Dialysis Refused 172.330380666848 BP Diastolic BP Location Tested BP Systolic BP Type 62 98 sitting Fetus Heart Rate Present A 145 Fetus Movement A Yes Comments BI for ? lof, gbs and nuswab obtained, no vb-ct// Perineum dry. Copious barrios vag discharge with odor-+BV-Rx with Flagyl. Info given on BV and S/S of SROM discussed in detail. RTC 1 wk. sk Flowsheet Date 09/23/2016 Bobo Score Blood Edema Fundus Height Fundus Units Glucose Ketones Leukocytes Nitrite Labor Signs Protein Cervic Dilation Cervic Effacement Cervic Station neg none 37 cm none negative none Negative none trace Type Weight in lbs Pre/Post Dialysis Refused 171.946148924546 BP Diastolic BP Location Tested BP Systolic BP Type 62 112 Fetus Heart Rate Present A 140 Present Fetus Movement A Yes Comments afm,no vb.no lof,neg leuk,ne g nitr no new complaints voiced/khThinks she has been leaking--wet underwear. SSE with yellow discharge; negative nitrazine and fern. wet prep inconclusive but no obvious trichomonads or yeast or clue cells. check nuswab. Return in 1 week. KRA Menstrual History Last Menstrual Date Menses Monthly On Bcp Conception Prior Menses Frequency Hcg Plus Date Menarche Onset Age 1112/18/2015 true 28 12 Genetic Screening And Infection History Question Response Note Patient's Age Will Be 35 Years Or Older At Estim ated Date of Delivery false Thalassemia (Citizen Of [place], Ukrainian, Mediterranean, Or Background): MCV < 80 false Neural Tube Defect (Meningomyelocele, Spina Bifi da, Or Anencephaly) false Congenital Heart Defect false Down Syndrome false Thiago-Sachs (eg, Mu-Ism, Cajun, Ukrainian-Citizen Of [place]) f alse Paulo Disease false Sickle Cell Disease Or Trait () false Hemophilia Or Other Blood Disorders false Muscular Dystrophy false Cystic Fibrosis false Mae's Chorea false Mental Retardation/Autism false If Yes, Was Person Tested For Fragile X? false Other Inherited Genetic Or Chromosomal Disorder false Maternal Metabolic Disorder (eg, Type 1 Diabetes , PKU) false Patient Or Baby's Father Had A Child With Defects Not Listed Above false Recurrent Loss, Or A Stillbirth false Medications (including Suppl ements, Vitamins, Herbs, OTC Drugs), Illicit/Recreational Drugs, Alcohol false If Yes, Agent(s) And Strength/Dosage false Any Other Genetic History false Live With Someone With TB Or Exposed To TB false Patient Or Partner Has History Of Genital Herpes false Rash Or Viral Illness Since Last Menstrual Perio d false History Of STD, Gonorrhea, Chlamydia, HPV, Syphi lis false Other Infection History false History of HIV false History of Hepatitis false Prior GBS-infected child false Recent Travel Outside of Country false Delivery Information Delivery Date Delivery Type Labor Anesthesia Weeks Gestation Incision Type Labor Labor Length Hrs Delivered By Post Complications Tubal Sterilization Discharge Date Comments Discharge Information Feeding Method Contraceptive Method Maternal HG B and HCT Levels Ob Episode Information Episode Created Date Number of Fetuses Patient Bloodtype Patient rh Status Prepregnancy Weight lbs Domestic Partner Domestic Partner Phone Father Name Gastroenterology Nurse Status 10/09/19 23 1 O Positive 163 Chanel, 37 Chanel, 37 [facility] CLOSED Fetus Data First Name Last Name Admitted to NICU Weight (g) Sex Living Outcome Pediatric Complications Fetus ID Race Codes Race Delivery Type , Spontane ous Problems Problem Notes Lives- [employer]- off ice managerbottle/circ if boy/PP/epidural08/05/2010: 38wks, 7# 14oz, -BCHG10/09/2016: 40wks, can't remember wgt, hyperemesis[facility] requestedULTRASOUNDS: 10/15/22: GS and YS, no FP, repeat in one week. Periods are irregular/SMO10/24/22: GS/YS/FP cardiac activity - heart rate too low to measure, repeat in one week/SMO10/28/22: GS/YS/FP - no FCA - discussed miscarriage - would like to repeat in one week/SMO Problem Name Start Date End Date Resolution Snomed Code Not e Cholesterol granuloma of middle ear 04344341 ENT is Dr. Mas er at Neuropathy 09/08/2019 805858256 intermit tent comes and goes screening 570065406 [ ]Qix68-tdssnomaz at obhx, desires[-]AFP-discus sed at obhx, pt declined[x]CF-11/17/ 2010 negative Ora thyroiditis 05/09/2020 0939623 2 per rheumatology labs, [place] Obesity 065321582 BMI: 30.6 Contraception care management 436864002 unsure Body mass index 30+ - obesity 335199591 BMI: 30.6starti ng wgt: 173recommended wgt gain: 15-25 Active immunization 04174004 [-]Covid-declined at obhx[ ]Tdap-[ ]Flu- History of abnormal cervical Papanicolaou smear 10/12/2022 329176999 2013 LSIL, HPV+colpo: CIN1, neg ECC Nils Calculation Initial Nils Date Initial Exam Date Initial Exam Provider Initial Ultrasound Date Last Menstrual Period Date Ultra Sound Weeks Gestation 05/28/2023 10/08/2022 10/24/2022 08/21/2022 6 Eighteen To Twenty Week Nils Update Ultra Sound Date Fundal Height At Umbil Quickening Date Ultra Sound Latest Weeks Gestation Final Nils Confirmed By Final Nils Confirmed Date Final Nils Date Ultra Sound Latest Days Gestation 0 [email or web address] 10/24/2022 06/18/19 24 0 Pre- Flowsheet Flowsheet Date 10/08/2022 Bobo Score Blood Edema Fundus Height Fundus Units Glucose Ketones Leukocytes Nitrite Labor Signs Protein Cervic Dilation Cervic Effacement Cervic Station neg none none negative none Negative none neg Type Weight in lbs Pre/Post Dialysis Refused With clothes 173.357256744262 BP Diastolic BP Location Tested BP Systolic BP Type 86 124 sitting Fetus Heart Rate Present Fetus Movement A No Comments Lillian is here for obhx appt. Kind of a planned , was not preventing. No vb or pain thus far. She is sure of LMP, she knows exact date of + home upt and - home upt. Only meds she is taking are rx from today, PNV and folic acid. She had care w/PP in the past but delivered elsewhere-requested records. 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 She suffers from neuropathy, some days better than others. Reviewed plan of care. She has no q/c today. Discussed dating u/s next visit to confirm NILS. RTC then, sooner if needed.AD Flowsheet Date 10/15/2022 Bobo Score Blood Edema Fundus Height Fundus Units Glucose Ketones Leukocytes Nitrite Labor Signs Protein Cervic Dilation Cervic Effacement Cervic Station neg none none negative none Negative Other (see comments ) neg Type Weight in lbs Pre/Post Dialysis Refused With clothes 171.689751524801 BP Diastolic BP Location Tested BP Systolic BP Type 70 118 sitting Fetus Heart Rate Present Fetus Movement Comments afm, u/s, no lof, no vb, fee ls like she has been ran over per pt her back hurst and has chills, covid and flu swab-ct Reviewed US findings - suspect early , discussed possibility of miscarriage - Beta and progesterone drawn today. Schedule repeat US in one week. Discussed positive COVID, supportive therapies and OTC medications. History of HEG in previous pregnancies. Having difficulty keeping anything down. Sent Phenergan rx. Declined to go to hospital for IVF. Given precautions. F/U 1 week for viability scan./SMO Flowsheet Date 10/24/2022 Bobo Score Blood Edema Fundus Height Fundus Units Glucose Ketones Leukocytes Nitrite Labor Signs Protein Cervic Dilation Cervic Effacement Cervic Station neg none 6 wks none moderate none Negative none neg Type Weight in lbs Pre/Post Dialysis Refused With clothes [id number] BP Diastolic BP Location Tested BP Systolic BP Type 80 124 sitting Fetus Heart Rate Present A US Present Fetus Movement Comments no LOF, no VB, no questions/ concerns. CB Reviewed US findings - discussed NILS 06/17/22. Encouraged hydration. Had an episode of vaginal bleeding for a couple of days, was seen at [facility] - had US - looked good unable to measure HR. Does not like taking Progesterone but will continue until 8 weeks with confirmation heartbeat. F/U 1 week for viability and then will schedule OB PE/SMO Flowsheet Date 10/28/2022 Bobo Score Blood Edema Fundus Height Fundus Units Glucose Ketones Leukocytes Nitrite Labor Signs Protein Cervic Dilation Cervic Effacement Cervic Station none 6 wks none Type Weight in lbs Pre/Post Dialysis Refused With clothes [id number] BP Diastolic BP Location Tested BP Systolic BP Type 76 106 sitting Fetus Heart Rate Present A US Absent Fetus Movement Comments u/s, no vb or cramping - JORGE LUIS Reviewed disappointing US findings - no FCA. Discussed options - waiting, cytotec, D&C. She has no symptoms and would like to repeat US. Discussed taking progesterone, may prolong miscarriage. She is going to consider what to do next week. F/U 1 week or sooner if bleeding or pain occurs/SMO Menstrual History Last Menstrual Date Menses Monthly On Bcp Conception Prior Menses Frequency Hcg Plus Date Menarche Onset Age 0708/21/2022 true false 3 12 Genetic Screening And Infection History Question Response Note Patient's Age Will Be 35 Yea rs Or Older At Estimated Date of Delivery false Thalassemia (Citizen Of [place], Ukrainian, Mediterranean, Or Background): MCV < 80 false Neural Tube Defect (Meningom yelocele, Spina Bifida, Or Anencephaly) false Congenital Heart Defect false Down Syndrome false Thiago-Sachs (eg, Mu-Ism, Cajun, Ukrainian-Citizen Of [place]) f alse Paulo Disease false Sickle Cell Disease Or Trait () false Hemophilia Or Other Blood Disorders false Muscular Dystrophy false Cystic Fibrosis false Maury's Chorea false Mental Retardation/Autism false If Yes, Was Person Tested For Fragile X? false Other Inherited Genetic Or Chromosomal Disorder false Maternal Metabolic Disorder (eg, Type 1 Diabetes , PKU) false Patient Or Baby's Father Had A Child With Defects Not Listed Above false Recurrent Loss, Or A Stillbirth false Medications (including Suppl ements, Vitamins, Herbs, OTC Drugs), Illicit/Recreational Drugs, Alcohol true PNV, folic acid If Yes, Agent(s) And Strength/Dosage false Any Other Genetic History false Live With Someone With TB Or Exposed To TB false Patient Or Partner Has History Of Genital Herpes false Rash Or Viral Illness Since Last Menstrual Perio d false History Of STD, Gonorrhea, Chlamydia, HPV, Syphi lis true Chlamydia 2010 Other Infection History false History of HIV false History of Hepatitis false Prior GBS-infected child false Recent Travel Outside of Country false Plans and Education First Trimester Discussed Date Discussion Item Discussion Note Discuss ed By 10/08/2022 Desire for planned, not prevent ing 10/08/2022 Alcohol no 10/08/2022 Illicit/recreational drugs no a [email or web address] 10/08/2022 Nutrition discussed 10/08/2022 Weight gain counseling discussed 10/08/2022 Intimate Partner Violence no ad uke210/08/2022 Unstable Housing no 10/08/2022 Use of any medicatio ns (including supplements, vitamins, herbs, or OTC drugs) discussed 10/08/2022 Avoidance of saunas or hot tubs discussed 10/08/2022 Indications for ultrasonography discussed 10/08/2022 Comminucation Barriers no e 24 10/08/2022 Anticipated course o f care discussed 10/08/2022 Toxoplasmosis precau tions (cats/raw meat) discussed 10/08/2022 Sexual activity discussed 10/08/2022 Exercise discussed 10/08/2022 Tobacco/smoking cess ation counseling (ask, advise, assess, assist, and arrange) no 10/08/2022 Barriers to Care no 10/08/2022 Environmental/work hazards discussed a duke10/08/2022 Depression/Anxiety ( should be performed at least once during period) no 10/08/2022 WIC/Hands Referral declined 10/08/2022 Nutrition counseling ; special diet; dietary precautions (mercury, listeriosis) discussed 10/08/2022 Dental Care / Refer to Dentist discussed 10/08/2022 Seat belt use discussed 10/08/2022 Childbirth classes/h ospital facilities discussed 10/08/2022 discussed 10/08/2022 Screening for aneuploidy discussed Second Trimester Discussed Date Discussion Item Discussion Note Discuss ed By Third Trimester Discussed Date Discussion Item Discussion Note Discuss ed By Delivery Information Delivery Date Delivery Type Labor Anesthesia Weeks Gestation Incision Type Labor Labor Length Hrs Delivered By Post Complications Tubal Sterilization Discharge Date Comments 3 7.5 [facility] Discharge Information Feeding Method Contraceptive Method Maternal HG B and HCT Levels Ob Episode Information Episode Created Date Number of Fetuses Patient Bloodtype Patient rh Status Prepregnancy Weight lbs Domestic Partner Domestic Partner Phone Father Name Gastroenterology Nurse Status 03/12/19 23 1 CLOSED Fetus Data First Name Last Name Admitted to NICU Weight (g) Sex Living Outcome Pediatric Complications Fetus ID Race Codes Race Delivery Type M Full Term [id number] Vaginal Nils Calculation Initial Nils Date Initial Exam Date Initial Exam Provider Initial Ultrasound Date Last Menstrual Period Date Ultra Sound Weeks Gestation 0 Eighteen To Twenty Week Nils Update Ultra Sound Date Fundal Height At Umbil Quickening Date Ultra Sound Latest Weeks Gestation Final Nils Confirmed By Final Nils Confirmed Date Final Nils Date Ultra Sound Latest Days Gestation 0 0 Menstrual History Last Menstrual Date Menses Monthly On Bcp Conception Prior Menses Frequency Hcg Plus Date Menarche Onset Age Delivery Information Delivery Date Delivery Type Labor Anesthesia Weeks Gestation Incision Type Labor Labor Length Hrs Delivered By Post Complications Tubal Sterilization Discharge Date Comments 7 40 [place] viv[place] cauc, not sure weight, delivered at [facility] Discharge Information Feeding Method Contraceptive Method Maternal HG B and HCT Levels
--- OUTSIDE RECORDS SUMMARY | 2024-08-24 08:51 | XMS_ITS | Clinical Summary ---
Author Organization Healthcare Address [address] [place] [address] Care Team Providers Care [facility] Name Role Phone Anaya Vargas APRN Primary Care Provider [phone] Natanael Campa MD Unavailable [phone] Allergies No known active allergies Medications ergocalciferol 1.25 MG (66961 UT) capsule 05/01/2020 Active cholecalciferol (Vitamin D-3) 1.25 MG (12473 UT) capsule TAKE 1 CAPSULE WEEKLY FOR 12 WEEKS 03/19/2020 Active Levonorgestrel (MIRENA, 52 MG, IU) Mirena Active levothyroxine (Synthroid, Levoxyl) 25 MCG tablet 10/12/2020 Active Active Problems Problem Noted Date Diagnosed Date 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 Family History Medical History Relation Name Comments Bipolar depression Mother Multiple sclerosis Other Relation Name Status Comments Mother Other Social History Tobacco Use Types Packs/Day Years Used Date Smoking Tobacco: Never Smokeless Tobacco: Never Alcohol Use Standard Drinks/Week Comments No 0 (1 standard drink = 0.6 oz pur e alcohol) Comments No Sex and Gender Information Value Date Recorded Sex Assigned at Not on file Legal Sex Female 6:51 PM EDT Gender Identity Not on file Sexual Orientation Not on file Last Filed Vital Signs Vital Sign Reading Time Taken Comments Blood Pressure 110/60 01/18/2021 1:47 PM EST Pulse 76 01/18/2021 1:47 PM EST Temperature 37 C (98.6 F) 03/07/2020 12:09 PM EST Respiratory Rate 18 01/18/2021 1:47 PM EST Oxygen Saturation 98% 01/18/2021 1:47 PM EST Inhaled Oxygen Concentration - - Weight 72.6 kg (160 lb) 01/18/2021 1:47 PM EST Height 160 cm (5' 3 ) 01/18/2021 1:47 PM EST Body Mass Index 28.34 01/18/2021 1:47 PM EST Plan of Treatment Health Maintenance Due Date Last Done Comments [facility]-Depression Screening 1988 [facility]-Infant/Child/Adol SDOH Screenings 1988 [facility]-Varicella Vaccines (1 of 2 - 13+ 2-dose series) 2001 HPV Vaccines (1 - 3-dose series) 06/23/2003 [facility]- SDOH Screenings 2006 [facility]-Adult SDOH Screenings 2006 [facility]-DTaP,Tdap,and Td Vaccine s (1 - Tdap) 06/23/2007 [facility]-Hepatitis B Vaccines (1 of 3 - 19+ 3-dose series) 06/23/2007 [facility]-Pap Smear 2009 [facility]-Cervical Cancer Screening 2018 [facility]-HPV/Cotest 2018 [id number] Vaccine (1 - 20 24-25 season) 2023 [facility]-Influenza Vaccine (#1) 2024 [facility]-Zoster Vaccines (1 of 2) 2038 [facility]-HIB Vaccines Aged Out No longer e ligible based on patient's age to complete this topic [facility]-Hepatitis A Vaccines Aged Out No longer eligible based on patient's age to complete this topic [facility]-IPV Vaccines Aged Out No longer e ligible based on patient's age to complete this topic [facility]-Pneumococcal Vaccine: Pediatrics (0 to 5 Years) and At-Risk Patients (6 to 49 Years) Aged Out No long er eligible based on patient's age to complete this topic [facility]-Rotavirus Vaccines Aged Out No lo nger eligible based on patient's age to complete this topic Insurance [employer] [place] Care Teams [facility] Relationship Specialty Start Date End Date Anaya Vargas APRN [address] [place] [address] PCP - General 01/18/21 Natanael Campa MD [address] [facility] [address] [place] [id number] Surgeon Neurosurgery 01/18/21
== END 2024-08-24 23:59 | disposition home or self-care (01) ==
LOC: LAB 08:48
PROVIDERS: PCP Nurse Practitioner Family; Visit Provider Obstetrics & Gynecology
DX: Z32.01 Encounter for pregnancy test, result positive (principal)
CPT/HCPCS: 36415; 84144; 84702

== ENCOUNTER 2024-08-29 09:37 | Outpatient (CLI) | payer MEDICAID, SELFPAY ==
--- OUTSIDE RECORDS SUMMARY | 2024-08-29 09:43 | XMS_ITS | Continuity of Care Document ---
Author Organization [facility] Address [address] [place] [address] Assessment No assessment recorded. Plan of Treatment Reminders Order Date Submit Date Provider Last Modified By Organization Details Last Modified Time Details Appointments None recorded. Lab rf (rheumatoid factor), serum 2024 025 MARCELA [facility], [address], Michael [address], [place], [address], 5 14:37:07 C reactive protein, QN, serum or plasma 2024 025 MARCELA [facility], [address], [place] [address], [place], [address], 5 14:37:10 MELISSA (antinuclea r antibodies) screen, serum 2024 025 MARCELA [facility], [address], [place] [address], [place], [address], 5 14:37:09 TSH + free T4, serum 2024 025 MARCELA [facility], [address], [place] [address], [place], [address], 5 14:37:03 CMP, serum or plasma 2024 025 MARCELA [facility], [address], [place] [address], [place], [address], 5 14:37:05 iron + total iron-bindin g capacity (TIBC), serum 2024 025 MARCELA [facility], [address], [place] [address], [place], [address], 5 14:37:05 HbA1c (hemoglobin A1c), blood 2024 025 MARCELA [facility], [address], [place] [address], [place], [address], 5 14:37:07 CBC w/ auto diff 2024 025 MARCELA [facility], [address], [place] [address], [place], [address], 5 14:37:04 ESR (erythrocyt e sedimentati on rate), blood 2024 025 MARCELA [facility], [address], [place] [address], [place], [address], 5 14:37:09 cobalamin and folate panel, serum 2024 025 MARCELA [facility], [address], [place] [address], [place], [address], 5 14:37:06 vitamin D, 25-hydroxy, total, serum 2024 025 MARCELA [facility], [address], [place] [address], [place], [address], 5 14:37:08 Referral None recorded. Procedures None recorded. Surgeries None recorded. Imaging None recorded. Medication Orders None recorded. Patient TargetsNo targets recorded. Patient Instructions Encounter Date Encounter Id Patient Instructions Last Modified By Organization Details Last Modified Time 08/01/2024 [id number] numbness and tingling: care instructions [id number] Not available 08/01/2024 15:31:35 Reason for Referral None Reported. Problems Name Problem SNOMED Code Status Onset Date Resolution Date Notes Provider Name and Address Organization Details Recorded Time Muscle weakness 48379946 Active 2019 RIght Luanne Nemo null, [place] - [facility] 3 11:29:58 Neuropat hy 987443242 Active 2019 intermit tent comes and goes [facility] [address], [place], [address] , [place] - [facility] 3 15:49:25 Hashimot o thyroidi tis 69072433 Active 2020 per rheumato logy labs, [facility] [address], [place], [address] , [place] - [facility] 3 15:49:24 Vitamin D deficien cy 83870957 Active 2020 Scott Lincoln, RUBBER EXTRUSION MACHINE OPERATOR [address], [place], [address] , [facility] - [facility] 5 14:48:19 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 Olsen at [facility] [address], [place], [address] , [place] - [facility] 3 15:49:25 Antenata l screenin g Completed [ ]Mat21-d iscussed at obhx, desires [-]AFP-d iscussed at obhx, pt declined [x]CF- negative [facility] [address], [place], [address] , [place] - [facility] 3 15:49:24 History of abnormal cervical Papanico laou smear 366107811 Completed 2022 LSIL, HPV+ colpo: CIN1, neg ECC [facility] [address], [place], [address] , [place] - [facility] 3 15:49:25 History of abnormal cervical Papanico laou smear 399279836 Active 2022 LSIL, HPV+ colpo: CIN1, neg ECC [facility] [address], [place], [address] , [facility] - [facility] 3 15:49:25 Contrace ption care manageme nt Completed unsure [facility] [address], [place], [address] , [place] - [facility] 3 15:49:25 Body mass index 30+ - obesity 856098877 Completed BMI: 30.6 starting wgt: 173 recommen ded wgt gain: 15-25 In[facility] [address], [place], [address] , [facility] - [facility] 3 15:49:25 Active immuniza tion Completed [-]Covid -decline d at obhx [ ]Tdap- [ ]Flu- [facility] [address], [place], [address] , [facility] - [facility] 3 15:49:24 Neuropat hy 655871756 Completed 2019 intermit tent comes and goes Infusion Nurse [facility] [address], [place], [address] , [facility] - [facility] 3 15:49:25 Hashimot o thyroidi tis 77580131 Completed 2020 per rheumato logy labs, Infusion Nurse 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 Olsen at Infusion Nurse [facility] [address], [place], [address] , [facility] - [facility] 3 15:49:25 Obesity 112686762 Active BMI: 30.[address] [facility] [address], [place], [address] , [facility] - [facility] 3 15:49:25 Obesity 454043899 Completed BMI: 30.[address] 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 13047347 Completed [place]: ENT Dr Olsen & [place] [facility] Dr Campa right petrous apex choleste rol granulom a [facility] [address], [place], [address] , [place] [facility] 8 13:59:46 Antenata l screenin g Completed 04/03/16 FTS Normal NT, Serum = REqueste d 09/03 [facility] [address], [place], [address] , [place] - [facility] 8 13:59:46 Tendinit is 74311654 Active 2024 Viky Restrepo, RUBBER EXTRUSION MACHINE OPERATOR [address], [place], [address] , [place] [facility] 5 15:46:56 Fatigue 77531646 Active 2024 Scott Lincoln, RUBBER EXTRUSION MACHINE OPERATOR [address], [place], [address] , [place] [facility] 5 08:42:52 Butterfl y rash 17673724 Active 2024 Scott Lincoln, RUBBER EXTRUSION MACHINE OPERATOR [address], [place], [address] , [place] [facility] 5 08:50:46 Paresthe karen of hand 045529716 Active 2024 Scott Lincoln, RUBBER EXTRUSION MACHINE OPERATOR [address], [place], [address] , [place] [facility] 5 08:54:36 [...] 14:00:05 023 IUD Removal completed Malaika Umana, RUBBER EXTRUSION MACHINE OPERATOR [address], [place], [address], [place] [facility] 03/13/2022 14:02:13 023 Date of Last Pap Smear completed Malaika Umana, RUBBER EXTRUSION MACHINE OPERATOR [address], [place], [address], [place] [facility] 03/18/2022 10:45:46 023 removal of intrauterine device completed Malaika Umana, RUBBER EXTRUSION MACHINE OPERATOR [address], [place], [address], [place] [facility] 03/13/2022 14:11:29 019 Medication Reconcilliation completed Deep [place] - [facility] 04/14/2018 10:49:20 018 insertion of intrauterine contraceptive device completed Luanne [place] - [facility] 03/12/2022 11:36:29 017 OB Ultrasound [...] Updated DateTime 5 160.02 cm 32.1 kg/m2 32062.9 2 g 88 /min 98 % 98 % 18 /min 116/76 mm[Hg] Mireya kilpatrick [place] - [facility] 5 08:37:16 Social History Question Answer Notes LastModified by Organizat ion Details LastModified Time Tobacco Smoking Status Never Smoker [place]a [place], [place] - [facility] 02/22/2016 15:06:05 Do You Have An Advance Directive? No [email or web address] Information not available 03/12/2022 If You Are , What Was Your Level Of Alcohol Consumption Prior To ? None [email or web address] Information not available 03/12/2022 Are You Blind Or Do You Have Difficulty Seeing? No [email or web address] Information not available 03/12/2022 Is Blood Transfusion [...] COVID-19 While That Case Was Ill? No [email or web address] Information not available 03/12/2022 In The 14 Days Before Symptom Onset, Have You Had Close Contact With A Person Who Is Under Investigation For COVID-19 While That Person Was Ill? No [email or web address] Information not available 03/12/2022 Have You Been To An Area Known To Be High Risk For COVID-19? No [email or web address] Information not available 03/12/2022 Are You Deaf Or Do You Have Serious Difficulty Hearing? No [email or web address] Information not available 03/12/2022 Diabetes No Information no t available 02/22/2016 What Type Of Diet Are You Following? REGULAR Information not available 02/22/2016 Which Illicit Or Recreational Drugs Have You Used? No Hx Information not available 02/22/2016 Have You Processed Blood Or Body Fluids From An Ebola Virus Disease Patient Without Appropriate PPE? No Information not available 03/12/2022 Do You Reside In Or Have You Traveled To An Area Where Ebola Virus Transmission Is Active? No [email or web address] Information not available 03/12/2022 Education 12 Information no t available 03/12/2022 What Is The Highest Grade Or Level Of School You Have Completed Or The Highest Degree You Have Received? [id number] Information not available 03/12/2022 Have There Been Any Changes To Your Family Or Social Situation? No Information no t available 02/22/2016 What Is The Fluoride Status Of Your Home? Fluoridated [email or web address] Information not available 03/12/2022 Frequent Air Travel No Information not available 02/22/2016 Have You Recently Or Are You Planning To Travel To An Area With Zika Virus? No [email or web address] Information not available 03/12/2022 High Blood Pressure No Information not available 02/22/2016 High Cholesterol No Informat ion not available 02/22/2016 Illicit Drugs Pre- None Information not available 02/22/2016 Live Alone Or With Others? With Others Information not available 02/22/2016 Do You Have A Medical Power Of Sap Director? Yes [email or web address] Information not available 03/12/2022 What Was The Date Of Your Most Recent Tobacco Screening? 04/25/2024 Information not available 04/25/2024 How Many Children Do You Have? 2 Information not available 10/08/2022 Do You Have Any Pets? No Information not available 02/22/2016 Do You Use Protection During Sex? No [email or web address] Information not available 03/12/2022 Do You Use Protection Against STDs? No [email or web address] Information not available 03/12/2022 What Is Your Relationship Status? [email or web address] Information not available 03/12/2022 Seat Belts Used [...] Have Difficulty Walking Or Climbing Stairs? No [email or web address] Information not available 03/12/2022 Do You Have [...] Was Counseling Provided To Achieve ? No [email or web address] Information not available 03/12/2022 Do You Want To Talk About Contraception Or Prevention During Your Visit Today? No - I Do Not Want To Talk About Contraception Today Because I Am Here For Something Else Information not available 10/15/2022 What Is Your Reason For Having No Contraceptive Method At Start Of This Visit? Other [email or web address] Information not available 10/15/2022 Sex: Female Functional Status Question Answer Note LastModified by Organizat ion Details LastModified Time Do you or have you ever used smokeless tobacco? Never used smokeless tobacco Information not available 07/25/2020 Are you currently employed? Yes Information not available 02/22/2016 Do you have transportation difficulties? No [email or web address] Information not available 03/12/2022 Are you able to care for yourself? Yes [email or web address] Information n ot available 03/12/2022 Do you have difficulty dressing or bathing? No [email or web address] Information not available 03/12/2022 Do you or [...] 10/08/2022 Are you able to walk? YESWOREST [email or web address] Information not available 03/12/2022 Do you have difficulty doing errands alone? 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 [id number] Information not available 03/12/2022 Do you have difficulty concentrating, remembering or making decisions? No [email or web address] Information no t available 03/12/2022 Family History [...] colitis N Cerebrovascular Disease N Depression N Guillain-[place] N Sleep Apnea N Aneurysm N Bronchitis [...] SNOMED-CT Code Diagnosis ICD10 Code Diagnosis Note [id number] Scott Lincoln APRN [place] [address] 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 Fatigue 26019114 R53.83 PE noted with butterfly appearing rash to face. Will check labs at this time. Advised to continue working on improved diet with reduced processed foods, sugars, focus on whole foods. Increase exercise 5 days 30min. F/U 3-4 weeks or sooner pending labs. Butterfly rash 64528270 R21 PE noted with butterfly rash will check labs, concern for possible lupus or other autoimmune disease considerin g worsening fatigue, joint pain, malar rash, edema. Will notify with results once available. F/u 3-4 weeks or sooner pending labs. Paresthesia of hand 3090 86889 R20.2 PE noted with decreased sensation to [...] ID Guarantor Name 08/01/2024 1 PASSPORT BY [employer] (MEDICAID REPLACEMENT - HMO) Lillian Maldonado [id number] Lillian Sutton Notes Date Note Type Note [...] complaints. Denies any other concerns. Scott Lincoln, RUBBER EXTRUSION MACHINE OPERATOR [address], [place], [address], [place] - [facility] 08/01/2024 15:31:54 OBGyn Episode No OBEpisode recorded.
--- OUTSIDE RECORDS SUMMARY | 2024-08-29 09:43 | XMS_ITS | Clinical Summary ---
Author Organization Healthcare Address [address] [place] [address] Care Team Providers Care Inshore Undersea Warfare Officer Name Role Phone Anaya Vargas APRN Primary Care Provider [phone] Natanael Campa MD Unavailable [phone] Allergies No known active allergies Medications ergocalciferol 1.25 MG (06013 UT) capsule 05/01/2020 Active cholecalciferol (Vitamin D-3) 1.25 MG (54258 UT) capsule TAKE 1 CAPSULE WEEKLY FOR [...] 2009 [facility]-Cervical Cancer Screening 2018 [facility]-HPV/Cotest 2018 [id number] Vaccine (1 - 20 24-25 season) 2023 [...] topic Insurance PASSPORT MEDICAID [place] Care Teams Inshore Undersea Warfare Officer Relationship Specialty Start Date End Date Anaya Vargas APRN [address] [place] [address] PCP - General 01/18/21 Natanael Campa MD [address] [facility] [address] [place] [id number] Surgeon Neurosurgery 01/18/21
--- OUTSIDE RECORDS SUMMARY | 2024-08-29 09:43 | XMS_ITS | Data Portability ---
Author Organization [facility] Address [address] [place] [address] Assessment Encounter Date Assessment Date Assessment LastModified by Organization Details LastModified Time 02/11/2023 02/11/2023 begin meds as written today. advised warm moist compresses to sinuses, saline rinse as tolerated and increased fluids. will call with serum results rtc or call should any new questions or concerns arise. [email or web address] Not available 02/13/2023 02:22:36 Plan of Treatment Reminders Order Date Submit Date Provider Last Modified By Organization Details Last Modified Time Details Appointments None recorded. Lab rf (rheumatoid factor), serum 2024 025 MARCELA [facility], [address], Michael F, [place], [address], 5 14:37:07 C reactive protein, QN, serum or plasma 2024 025 MARCELA [facility], [address], [place] F, [place], [address], 5 14:37:10 MELISSA (antinuclea r antibodies) screen, serum 2024 025 MARCELA [facility], [address], [place], [place], [address], 5 14:37:09 TSH + free T4, serum 2024 025 MARCELA [facility], [address], [place], [place], [address], 5 14:37:03 CMP, serum or plasma 2024 025 MARCELA [facility], [address], [place], [place], [address], 5 14:37:05 iron + total iron-bindin g capacity (TIBC), serum 2024 025 MARCELA [facility], [address], [place] F, [place], [address], 5 14:37:05 HbA1c (hemoglobin A1c), blood 2024 025 MARCELA [facility], [address], [place] F, [place], [address], 5 14:37:07 CBC w/ auto diff 2024 025 MARCELA [facility], [address], [place], [place], [address], 5 14:37:04 ESR (erythrocyt e sedimentati on rate), blood 2024 025 MARCELA [facility], [address], [place] F, [place], [address], 5 14:37:09 cobalamin and folate panel, serum 2024 025 MARCELA [facility], [address], [place] F, [place], [address], 5 14:37:06 vitamin D, 25-hydroxy, total, serum 2024 025 MARCELA [facility], [address], [place], [place], [address], 5 14:37:08 TSH + free T4, serum 2022 023 MARCELA [facility], [address], [place], [place], [address], 3 07:37:10 T3, free, serum or plasma 2022 023 MARCELA [facility], [address], [place] F, [place], [address], 3 07:37:19 thyroid peroxidase (tpo) Ab, serum 2022 023 MARCELA [facility], [address], [place], [place], [address], 3 07:37:19 CMP, serum or plasma 2022 023 MARCELA [facility], [address], [place] F, [place], [address], 3 07:37:13 progesteron e, serum 2022 023 MARCELA [facility], [address], [place], [place], [address], 3 07:37:18 estradiol, serum 2022 023 MARCELA [facility], [address], [place], [place], [address], 3 07:37:16 lh + FSH, serum 2022 023 MARCELA [facility], [address], [place], [place], [address], 3 07:37:15 vitamin D, 25-hydroxy, total, serum 2022 023 MARCELA [facility], [address], [place] F, [place], [address], 3 07:37:17 vitamin B12 + folate, serum or blood 2022 023 MARCELA [facility], [address], [place], [place], [address], 3 07:37:15 CBC w/ auto diff 2022 023 [place], [address], [place] [address], [place], [address], 3 07:37:12 iron + total iron-bindin g capacity (TIBC), serum 2022 023 [place] [facility], [address], [place], [place], [address], 3 07:37:14 urinalysis, dipstick 2022 023 [facility], [address] [place] [address] , [place], [address], 3 15:14:14 Referral None recorded. Procedures None recorded. Surgeries None recorded. Imaging US, obstetric, 1st trimester 2022 023 [facility], [address] [place] [address] , [place], [address], 3 16:56:17 US, obstetric, 1st trimester 2022 023 [facility], [address] [place] [address] , [place], [address], 3 15:14:14 Medication Orders prednisone 10 mg tablet 2024 025 [facility], [address] [facility], [place], [address], 5 09:35:29 prednisone 20 mg tablet 2022 023 [email or web address], [address] [place] [address], [place], [address], 5 15:15:02 amoxicillin 500 mg tablet 2022 023 [email or web address], [address] [place] [address], [address], 15:14:44 Patient TargetsNo targets recorded. Patient Instructions Encounter Date Encounter Id Patient Instructions Last Modified By Organization Details Last Modified Time 10/28/2022 [id number] incomplete miscarriage: care instructions deonte Not available 10/28/2022 16:56:32 04/25/2024 [id number] learning about healthy weight Not available 04/25/2024 17:56:57 body mass index: care instructions Not available 04/25/2024 17:56:57 Advised to take medication as directed Discussed using brace to wrist for support Advised to limit / avoid NSAIDs while taking steroid To call office for questions, concerns or issues Not available 04/25/2024 16:50:23 08/01/2024 [id number] numbness and tingling: care instructions [email or web address] Not available 08/01/2024 15:31:35 Reason for Referral None Reported. Results Created Date Observation Date Name Description Value Unit Range Abnormal Flag Note LastModifiedBy Organization Detail LastModifiedTime 10/09/1910/09/2022 PREGN JASMIN, INITI AL SCREE N HBsAg screen Negati ve negati ve Not Available [facility] ([facility]) [address] [place], [address], 10/10/2022 15:10:06 10/09/1910/09/2022 PREGN JASMIN, INITI AL SCREE N HCV Ab Non Reacti ve non reacti ve Not Available [facility] ([facility]) [address] [place], [address], 10/10/2022 15:10:06 10/09/1910/09/2022 PREGN JASMIN, INITI AL SCREE N interpretati on: Commen t Not infec ellen with HCV unles s early or acute infec tion is suspe cted (whic h may be delay ed in an immun ocomp romis ed indiv idual ), or other evide nce exist s to indic ate HCV infec tion. Not Available [facility] ([facility]) [address] [facility], [place], [address], 10/10/2022 15:10:06 10/09/19 23 10/09/2022 PREGN JASMIN, INITI AL SCREE N RPR Non Reacti ve non reacti ve Not Available [facility] ([facility]) [address] [facility], [place], [address], 10/10/2022 15:10:06 10/09/1910/09/2022 PREGN JASMIN, INITI AL SCREE N rubella antibodies, IgG 2.32 index immune >0.99 Non-i mmune <0.90 Equiv ocal 0.90 - 0.99 Immun e >0.99 Not Available [facility] ([facility]) [address] [facility], [place], [address], 10/10/2022 15:10:06 10/09/19 23 10/09/2022 PREGN JASMIN, INITI AL SCREE N ABO grouping O Not Available [facility] ([facility]) [address] [facility], [place], [address], 10/10/2022 15:10:06 10/09/1910/09/2022 PREGN JASMIN, INITI AL SCREE N Rh factor Positi ve Pleas e note: Prior recor ds for this patie nt's ABO / Rh type are not avail able for addit ional verif icati on. Not Available [facility] ([facility]) [address] [facility], [place], [address], 10/10/2022 15:10:06 10/09/1910/09/2022 PREGN JASMIN, INITI AL SCREE N antibody screen Negati ve negati ve Not Available [facility] ([facility]) [address] [facility], [place], [address], 10/10/2022 15:10:06 10/09/19 23 10/09/2022 PREGN JASMIN, INITI AL SCREE N HIV Ab/P24 Ag screen Non Reacti ve non reacti ve HIV Negat jon HIV-1 /HIV- 2 antib odies and HIV-1 p24 antig en were NOT detec ellen. There is no labor atory evide nce of HIV infec tion. Not Available [facility] ([facility]) [address] [place], [address], 10/10/2022 15:10:06 10/09/19 23 10/09/2022 PREGN JASMIN, INITI AL SCREE N chlamydia trachomatis, ESTHER Negati ve negati ve Not Available [facility] ([facility]) [address] [place], [address], 10/10/2022 15:10:06 10/09/1910/09/2022 PREGN JASMIN, INITI AL SCREE N neisseria gonorrhoeae, ESTHER Negati ve negati ve Not Available [facility] ([facility]) [address] [facility], [place], [address], 10/10/2022 15:10:06 10/09/1910/09/2022 PREGN JASMIN, INITI AL SCREE N WBC 7.4 x10e3 /uL 3.4-10 .8 Not Available [facility] ([facility]) [address] [place], [address], 10/10/2022 15:10:06 10/09/1910/09/2022 PREGN JASMIN, INITI AL SCREE N RBC 4.53 x10e6 /uL 3.77-5 .28 Not Available [facility] ([facility]) [address] [place], [address], 10/10/2022 15:10:06 10/09/19 23 10/09/2022 PREGN JASMIN, INITI AL SCREE N hemoglobin 12.8 g/dL 11.1-1 5.9 Not Available [facility] ([facility]) [address] [place], [address], 10/10/2022 15:10:06 10/09/1910/09/2022 PREGN JASMIN, INITI AL SCREE N hematocrit 38.7 % 34.0-4 6.6 Not Available [facility] ([facility]) [address] [place], [address], 10/10/2022 15:10:06 10/09/1910/09/2022 PREGN JASMIN, INITI AL SCREE N MCV 85 fL 79-97 Not Available [facility] ([facility]) [address] [place], [address], 10/10/2022 15:10:06 10/09/1910/09/2022 PREGN JASMIN, INITI AL SCREE N MCH 28.3 pg 26.6-3 3.0 Not Available [facility] ([facility]) [address] [place], [address], 10/10/2022 15:10:06 10/09/1910/09/2022 PREGN JASMIN, INITI AL SCREE N MCHC 33.1 g/dL 31.5-3 5.7 Not Available [facility] ([facility]) [address] [place], [address], 10/10/2022 15:10:06 10/09/1910/09/2022 PREGN JASMIN, INITI AL SCREE N RDW 13.8 % 11.7-1 5.4 Not Available [facility] ([facility]) [address] [place], [address], 10/10/2022 15:10:06 10/09/1910/09/2022 PREGN JASMIN, INITI AL SCREE N platelets 250 x10e3 /uL 150-45 0 Not Available [facility] ([facility]) [address] [place], [address], 10/10/2022 15:10:06 10/09/19 23 10/09/2022 PREGN JASMIN, INITI AL SCREE N neutrophils 70 % not estab. Not Available [facility] ([facility]) [address] [facility], [place], [address], 10/10/2022 15:10:06 10/09/19 23 10/09/2022 PREGN JASMIN, INITI AL SCREE N lymphs 21 % not estab. Not Available [facility] ([facility]) [address] [facility], [place], [address], 10/10/2022 15:10:06 10/09/19 23 10/09/2022 PREGN JASMIN, INITI AL SCREE N monocytes 5 % not estab. Not Available [facility] ([facility]) [address] [facility], [place], [address], 10/10/2022 15:10:06 10/09/19 23 10/09/2022 PREGN JASMIN, INITI AL SCREE N eos 2 % not estab. Not Available [facility] ([facility]) [address] [facility], [place], [address], 10/10/2022 15:10:06 10/09/19 23 10/09/2022 PREGN JASMIN, INITI AL SCREE N basos 1 % not estab. Not Available [facility] ([facility]) [address] [facility], [place], [address], 10/10/2022 15:10:06 10/09/19 23 10/09/2022 PREGN JASMIN, INITI AL SCREE N immature cells EYE SURGEON Not Available [facility] ([facility]) [address] [facility], [place], [address], 10/10/2022 15:10:06 10/09/19 23 10/09/2022 PREGN JASMIN, INITI AL SCREE N neutrophils (absolute) 5.3 x10e3 /uL 1.4-7. 0 Not Available [facility] ([facility]) [address] [facility], [place], [address], 10/10/2022 15:10:06 10/09/19 23 10/09/2022 PREGN JASMIN, INITI AL SCREE N lymphs (absolute) 1.5 x10e3 /uL 0.7-3. 1 Not Available [facility] ([facility]) [address] [place], [address], 10/10/2022 15:10:06 10/09/19 23 10/09/2022 PREGN JASMIN, INITI AL SCREE N monocytes(ab solute) 0.4 x10e3 /uL 0.1-0. 9 Not Available [facility] ([facility]) [address] [place], [address], 10/10/2022 15:10:06 10/09/19 23 10/09/2022 PREGN JASMIN, INITI AL SCREE N eos (absolute) 0.1 x10e3 /uL 0.0-0. 4 Not Available [facility] ([facility]) [address] [place], [address], 10/10/2022 15:10:06 10/09/19 23 10/09/2022 PREGN JASMIN, INITI AL SCREE N baso (absolute) 0.1 x10e3 /uL 0.0-0. 2 Not Available [facility] ([facility]) [address] [place], [address], 10/10/2022 15:10:06 10/09/19 23 10/09/2022 PREGN JASMIN, INITI AL SCREE N immature granulocytes 1 % not estab. Not Available [facility] ([facility]) [address] [place], [address], 10/10/2022 15:10:06 10/09/19 23 10/09/2022 PREGN JASMIN, INITI AL SCREE N immature grans (abs) 0.0 x10e3 /uL 0.0-0. 1 Not Available [facility] ([facility]) [address] [place], [address], 10/10/2022 15:10:06 10/09/19 23 10/09/2022 PREGN JASMIN, INITI AL SCREE N NRBC EYE SURGEON Not Available [facility] ([facility]) [address] [facility], [place], [address], 10/10/2022 15:10:06 10/09/19 23 10/09/2022 PREGN JASMIN, INITI AL SCREE N hematology comments: EYE SURGEON Not Available [facility] ([facility]) [address] [facility], [place], [address], 10/10/2022 15:10:06 10/09/1910/09/2022 PREGN JASMIN, INITI AL SCREE N specific gravity 1.015 1.005- 1.030 Not Available [facility] ([facility]) [address] [facility], [place], [address], 10/10/2022 15:10:06 10/09/19 23 10/09/2022 PREGN JASMIN, INITI AL SCREE N pH 7.5 5.0-7. 5 Not Available [facility] ([facility]) [address] [facility], [place], [address], 10/10/2022 15:10:06 10/09/19 23 10/09/2022 PREGN JASMIN, INITI AL SCREE N urine-color Yellow yellow Not Available [facility] ([facility]) [address] [place], [address], 10/10/2022 15:10:06 10/09/19 23 10/09/2022 PREGN JASMIN, INITI AL SCREE N appearance Clear clear Not Available [facility] ([facility]) [address] [place], [address], 10/10/2022 15:10:06 10/09/19 23 10/09/2022 PREGN JASMIN, INITI AL SCREE N WBC esterase 2+ negati ve abnormal Not Available [facility] ([facility]) [address] [facility], [place], [address], 10/10/2022 15:10:06 10/09/1910/09/2022 PREGN JASMIN, INITI AL SCREE N protein Negati ve negati ve/tra ce Not Available [facility] ([facility]) [address] [place], [address], 10/10/2022 15:10:06 10/09/1910/09/2022 PREGN JASMIN, INITI AL SCREE N glucose Negati ve negati ve Not Available [facility] ([facility]) [address] [place], [address], 10/10/2022 15:10:06 10/09/19 23 10/09/2022 PREGN JASMIN, INITI AL SCREE N ketones Negati ve negati ve Not Available [facility] ([facility]) [address] [place], [address], 10/10/2022 15:10:06 10/09/1910/09/2022 PREGN JASMIN, INITI AL SCREE N occult blood 1+ negati ve abnormal Not Available [facility] ([facility]) [address] [place], [address], 10/10/2022 15:10:06 10/09/1910/09/2022 PREGN JASMIN, INITI AL SCREE N bilirubin Negati ve negati ve Not Available [facility] ([facility]) [address] [place], [address], 10/10/2022 15:10:06 10/09/1910/09/2022 PREGN JASMIN, INITI AL SCREE N urobilinogen ,semi-qn 1.0 mg/dL 0.2-1. 0 Not Available [facility] ([facility]) [address] [place], [address], 10/10/2022 15:10:06 10/09/19 23 10/09/2022 PREGN JASMIN, INITI AL SCREE N nitrite, urine Negati ve negati ve Not Available [facility] ([facility]) [address] [facility], [place], [address], 10/10/2022 15:10:06 10/09/19 23 10/09/2022 PREGN JASMIN, INITI AL SCREE N microscopic examination See below: Not Available [facility] ([facility]) [address] [facility], [place], [address], 10/10/2022 15:10:06 10/09/19 23 10/09/2022 PREGN JASMIN, INITI AL SCREE N WBC 6-10 /hpf 0 - 5 abnormal Not Available [facility] ([facility]) [address] [facility], [place], [address], 10/10/2022 15:10:06 10/09/19 23 10/09/2022 PREGN JASMIN, INITI AL SCREE N RBC None seen /hpf 0 - 2 Not Available [facility] ([facility]) [address] [facility], [place], [address], 10/10/2022 15:10:06 10/09/19 23 10/09/2022 PREGN JASMIN, INITI AL SCREE N epithelial cells (non renal) 0-10 /hpf 0 - 10 Not Available [facility] ([facility]) [address] [facility], [place], [address], 10/10/2022 15:10:06 10/09/19 23 10/09/2022 PREGN JASMIN, INITI AL SCREE N epithelial cells (renal) EYE SURGEON Not Available [facility] ([facility]) [address] [place], [address], 10/10/2022 15:10:06 10/09/19 23 10/09/2022 PREGN JASMIN, INITI AL SCREE N casts None seen /lpf none seen Not Available [facility] ([facility]) [address] [facility], [place], [address], 10/10/2022 15:10:06 10/09/19 23 10/09/2022 PREGN JASMIN, INITI AL SCREE N cast type EYE SURGEON Not Available [facility] ([facility]) [address] [facility], [place], [address], 10/10/2022 15:10:06 10/09/19 23 10/09/2022 PREGN JASMIN, INITI AL SCREE N crystals EYE SURGEON Not Available [facility] ([facility]) [address] [facility], [place], [address], 10/10/2022 15:10:06 10/09/19 23 10/09/2022 PREGN JASMIN, INITI AL SCREE N crystal type EYE SURGEON Not Available [facility] ([facility]) [address] [facility], [place], [address], 10/10/2022 15:10:06 10/09/19 23 10/09/2022 PREGN JASMIN, INITI AL SCREE N mucus threads EYE SURGEON Not Available [facility] ([facility]) [address] [facility], [place], [address], 10/10/2022 15:10:06 10/09/19 23 10/09/2022 PREGN JASMIN, INITI AL SCREE N bacteria Few none seen/f ew Not Available [facility] ([facility]) [address] [place], [address], 10/10/2022 15:10:06 10/09/19 23 10/09/2022 PREGN JASMIN, INITI AL SCREE N yeast EYE SURGEON Not Available [facility] ([facility]) [address] [place], [address], 10/10/2022 15:10:06 10/09/19 23 10/09/2022 PREGN JASMIN, INITI AL SCREE N trichomonas EYE SURGEON Not Available [facility] ([facility]) [address] [facility], [place], [address], 10/10/2022 15:10:06 10/09/1910/09/2022 PREGN JASMIN, INITI AL SCREE N comment EYE SURGEON Not Available [facility] ([facility]) [address] [facility], [place], [address], 10/10/2022 15:10:06 10/09/1910/09/2022 PREGN JASMIN, INITI AL SCREE N microscopic examination EYE SURGEON Not Available [facility] ([facility]) [address] [facility], [place], [address], 10/10/2022 15:10:06 10/09/1910/10/2022 PREGN JASMIN, INITI AL SCREE N urine culture,pren atal, w/gbs Final report Not Available [facility] ([facility]) [address] [facility], [place], [address], 10/10/2022 15:10:06 10/09/1910/10/2022 PREGN JASMIN, INITI AL SCREE N result 1 COMMEN T Mixed uroge nital nathaniel 25,00 0-50, 000 colon y formi ng units per mL Not Available [facility] ([facility]) [address] [facility], [place], [address], 10/10/2022 15:10:06 10/09/1910/09/2022 HEMOG LOBIN A1C hemoglobin A1C 5.2 % 4.8-5. 6 Predi abete s: 5.7 - 6.4 Diabe sascha: >6.4 Glyce matias contr ol for adult s with diabe sascha: <7.0 Not Available [facility] ([facility]) [address] [facility], [place], [address], 10/10/2022 15:10:08 10/09/19 23 10/09/2022 VARIC LANEY- [...] stage of disea se. Not Available [facility] ([facility]) [address] [facility], [place], [address], 10/10/2022 15:10:09 10/09/1910/16/2022 COMPL IANCE DRUG DOMINIQUE [...] fercho consu ltati on, pleas e call . ===== ===== ===== ===== ===== ===== ===== ===== ===== ===== ===== ===== ===== === Not Available [facility] ([facility]) [address] [facility], [place], [address], 10/16/2022 20:08:39 10/09/19 23 10/16/2022 COMPL IANCE DRUG DOMINIQUE SIS, UR pdf . Not Available [facility] ([facility]) [address] [facility], [place], [address], 10/16/2022 20:08:39 10/09/19 23 10/08/2022 pregn jasmin test, urine HCG positi ve Not Available [facility] [address] [place] [address] , [place], [address], 10/07/2022 13:24:57 10/16/19 23 10/16/2022 HCG,B ETA SUBUN IT, QNT HCG,beta subunit,qnt, serum 81671 mIU/m L Femal e (Non- pregn ant) 0 - 5 (Post menop ausal ) 0 - 8 Femal e (Preg nant) Weeks of Gesta tion 3 6 - 71 4 10 - 750 5 938 - 5828 6 667 - 89251 7 8462 -3690 63 8 77160 -4824 71 9 77658 -1514 10 10 79121 -4821 77 12 77873 -2796 12 14 45738 - 45870 15 34886 - 79135 16 8921 - 60655 17 0666 - 56517 18 3225 - 91009 Resul ts confi rmed on dilut ion. Leonardo ECLIA metho dolog y Not Available [facility] ([facility]) [address] [facility], [place], [address], 10/16/2022 05:09:36 10/16/19 23 10/16/2022 PROGE STERO NE progesterone 5.9 NG/mL Folli cular phase 0.1 - 0.9 Lutea l phase 1.8 - 23.9 Ovula tion phase 0.1 - 12.0 Pregn ant First trime ster 11.0 - 44.3 Secon d trime ster 25.4 - 83.3 Third trime ster 58.7 - 214.0 Postm enopa usal 0.0 - 0.1 Not Available [facility] ([facility]) [address] [facility], [place], [address], 10/16/2022 05:09:37 10/16/19 23 10/15/2022 rapid SARS CoV + SARS CoV 2 Ag, QL IA, respi rator y speci men SARS CoV antigen Positi ve Not Available [facility] [address] [place] [address] , [place], [address], 10/15/2022 14:24:03 10/16/19 23 10/15/2022 rapid flu (A+B) Flu negati ve Not Available [facility] [address] [place] [address] , [place], [address], 10/15/2022 14:24:01 10/16/19 23 10/15/2022 rapid flu (A+B) Type Both A & B Not Available [facility] [address] [place] [address] , [place], [address], 10/15/2022 14:24:01 02/12/20 23 02/12/2023 TSH+F REE T4 TSH 2.520 uIU/m L 0.450- 4.500 Not Available [facility] ([facility]) [address] [place], [address], 02/12/2023 07:37:10 02/12/20 23 02/12/2023 TSH+F REE T4 T4,free(dire ct) 1.05 NG/dL 0.82-1 .77 Not Available [facility] ([facility]) [address] [facility], [place], [address], 02/12/2023 07:37:10 02/12/20 23 02/12/2023 CBC WITH DIFFE RENTI AL/PL ATELE T WBC 9.0 x10e3 /uL 3.4-10 .8 Not Available [facility] ([facility]) [address] [facility], [place], [address], 02/12/2023 07:37:12 02/12/20 23 02/12/2023 CBC WITH DIFFE RENTI AL/PL ATELE T RBC 4.79 x10e6 /uL 3.77-5 .28 Not Available [facility] ([facility]) [address] [facility], [place], [address], 02/12/2023 07:37:12 02/12/20 23 02/12/2023 CBC WITH DIFFE RENTI AL/PL ATELE T hemoglobin 13.3 g/dL 11.1-1 5.9 Not Available [facility] ([facility]) [address] [facility], [place], [address], 02/12/2023 07:37:12 02/12/20 23 02/12/2023 CBC WITH DIFFE RENTI AL/PL ATELE T hematocrit 40.1 % 34.0-4 6.6 Not Available [facility] ([facility]) [address] [place], [address], 02/12/2023 07:37:12 02/12/20 23 02/12/2023 CBC WITH DIFFE RENTI AL/PL ATELE T MCV 84 fL 79-97 Not Available [facility] ([facility]) [address] [place], [address], 02/12/2023 07:37:12 02/12/20 23 02/12/2023 CBC WITH DIFFE RENTI AL/PL ATELE T MCH 27.8 pg 26.6-3 3.0 Not Available [facility] ([facility]) [address] [facility] [address], [place], [address], 02/12/2023 07:37:12 02/12/20 23 02/12/2023 CBC WITH DIFFE RENTI AL/PL ATELE T MCHC 33.2 g/dL 31.5-3 5.7 Not Available [facility] ([facility]) [address] [facility] [address], [place], [address], 02/12/2023 07:37:12 02/12/20 23 02/12/2023 CBC WITH DIFFE RENTI AL/PL ATELE T RDW 12.3 % 11.7-1 5.4 Not Available [facility] [facility] [address] [facility], [place], [address], 02/12/2023 07:37:12 02/12/20 23 02/12/2023 CBC WITH DIFFE RENTI AL/PL ATELE T platelets 324 x10e3 /uL 150-45 0 Not Available [facility] ([facility]) [address] [facility], [place], [address], 02/12/2023 07:37:12 02/12/20 23 02/12/2023 CBC WITH DIFFE RENTI AL/PL ATELE T neutrophils 64 % not estab. Not Available [facility] ([facility]) [address] [facility], [place], [address], 02/12/2023 07:37:12 02/12/20 23 02/12/2023 CBC WITH DIFFE RENTI AL/PL ATELE T lymphs 25 % not estab. Not Available [facility] ([facility]) [address] [facility], [place], [address], 02/12/2023 07:37:12 02/12/20 23 02/12/2023 CBC WITH DIFFE RENTI AL/PL ATELE T monocytes 6 % not estab. Not Available [facility] ([facility]) [address] [facility], [place], [address], 02/12/2023 07:37:12 02/12/20 23 02/12/2023 CBC WITH DIFFE RENTI AL/PL ATELE T eos 3 % not estab. Not Available [facility] ([facility]) [address] [facility], [place], [address], 02/12/2023 07:37:12 02/12/2002/12/2023 CBC WITH DIFFE RENTI AL/PL ATELE T basos 1 % not estab. Not Available [facility] ([facility]) [address] [facility], [place], [address], 02/12/2023 07:37:12 02/12/20 23 02/12/2023 CBC WITH DIFFE RENTI AL/PL ATELE T immature cells EYE SURGEON Not Available [facility] ([facility]) [address] [facility], [place], [address], 02/12/2023 07:37:12 02/12/20 23 02/12/2023 CBC WITH DIFFE RENTI AL/PL ATELE T neutrophils (absolute) 5.8 x10e3 /uL 1.4-7. 0 Not Available [facility] ([facility]) [address] [facility], [place], [address], 02/12/2023 07:37:12 02/12/20 23 02/12/2023 CBC WITH DIFFE RENTI AL/PL ATELE T lymphs (absolute) 2.2 x10e3 /uL 0.7-3. 1 Not Available [facility] ([facility]) [address] [facility], [place], [address], 02/12/2023 07:37:12 02/12/20 23 02/12/2023 CBC WITH DIFFE RENTI AL/PL ATELE T monocytes(ab solute) 0.6 x10e3 /uL 0.1-0. 9 Not Available [facility] ([facility]) [address] [facility], [place], [address], 02/12/2023 07:37:12 02/12/20 23 02/12/2023 CBC WITH DIFFE RENTI AL/PL ATELE T eos (absolute) 0.3 x10e3 /uL 0.0-0. 4 Not Available [facility] ([facility]) [address] [facility], [place], [address], 02/12/2023 07:37:12 02/12/20 23 02/12/2023 CBC WITH DIFFE RENTI AL/PL ATELE T baso (absolute) 0.1 x10e3 /uL 0.0-0. 2 Not Available [facility] ([facility]) [address] [facility], [place], [address], 02/12/2023 07:37:12 02/12/20 23 02/12/2023 CBC WITH DIFFE RENTI AL/PL ATELE T immature granulocytes 1 % not estab. Not Available [facility] ([facility]) [address] [facility], [place], [address], 02/12/2023 07:37:12 02/12/20 23 02/12/2023 CBC WITH DIFFE RENTI AL/PL ATELE T immature grans (abs) 0.1 x10e3 /uL 0.0-0. 1 Not Available [facility] ([facility]) [address] [facility], [place], [address], 02/12/2023 07:37:12 02/12/20 23 02/12/2023 CBC WITH DIFFE RENTI AL/PL ATELE T NRBC EYE SURGEON Not Available [facility] ([facility]) [address] [facility], [place], [address], 02/12/2023 07:37:12 02/12/20 23 02/12/2023 CBC WITH DIFFE RENTI AL/PL ATELE T hematology comments: EYE SURGEON Not Available [facility] ([facility]) [address] [facility], [place], [address], 02/12/2023 07:37:12 02/12/20 23 02/12/2023 COMP. METAB OLIC PANEL (14) glucose 70 mg/dL 70-99 Not Available [facility] ([facility]) [address] [facility], [place], [address], 02/12/2023 07:37:13 02/12/20 23 02/12/2023 COMP. METAB OLIC PANEL (14) BUN 10 mg/dL 6-20 Not Available [facility] ([facility]) [address] [place], [address], 02/12/2023 07:37:13 02/12/20 23 02/12/2023 COMP. METAB OLIC PANEL (14) creatinine 0.65 mg/dL 0.57-1 .00 Not Available [facility] ([facility]) [address] [facility], [place], [address], 02/12/2023 07:37:13 02/12/20 23 02/12/2023 COMP. METAB OLIC PANEL (14) eGFR 118 mL/mi n/1.7 3 >59 Not Available [facility] ([facility]) [address] [place], [address], 02/12/2023 07:37:13 02/12/20 23 02/12/2023 COMP. METAB OLIC PANEL (14) BUN/creatini ne ratio 15 9-23 Not Available [facility] ([facility]) [address] [place], [address], 02/12/2023 07:37:13 02/12/20 23 02/12/2023 COMP. METAB OLIC PANEL (14) sodium 140 mmol/ L 134-14 4 Not Available [facility] ([facility]) [address] [place], [address], 02/12/2023 07:37:13 02/12/20 23 02/12/2023 COMP. METAB OLIC PANEL (14) potassium 4.0 mmol/ L 3.5-5. 2 Not Available [facility] ([facility]) [address] [place], [address], 02/12/2023 07:37:13 02/12/20 23 02/12/2023 COMP. METAB OLIC PANEL (14) chloride 103 mmol/ L 96-106 Not Available [facility] ([facility]) [address] [place], [address], 02/12/2023 07:37:13 02/12/20 23 02/12/2023 COMP. METAB OLIC PANEL (14) carbon dioxide, total 21 mmol/ L 20-29 Not Available [facility] ([facility]) [address] [place], [address], 02/12/2023 07:37:13 02/12/20 23 02/12/2023 COMP. METAB OLIC PANEL (14) calcium 9.2 mg/dL 8.7-10 .2 Not Available [facility] ([facility]) [address] [place], [address], 02/12/2023 07:37:13 02/12/20 23 02/12/2023 COMP. METAB OLIC PANEL (14) protein, total 6.7 g/dL 6.0-8. 5 Not Available [facility] ([facility]) [address] [facility] [place], [address], 02/12/2023 07:37:13 02/12/20 23 02/12/2023 COMP. METAB OLIC PANEL (14) albumin 4.6 g/dL 3.9-4. 9 Not Available [facility] ([facility]) [address] [facility] [place], [address], 02/12/2023 07:37:13 02/12/20 23 02/12/2023 COMP. METAB OLIC PANEL (14) globulin, total 2.1 g/dL 1.5-4. 5 Not Available [facility] ([facility]) [address] [facility], [place], [address], 02/12/2023 07:37:13 02/12/20 23 02/12/2023 COMP. METAB OLIC PANEL (14) A/G ratio 2.2 1.2-2. 2 Not Available [facility] ([facility]) [address] [facility], [place], [address], 02/12/2023 07:37:13 02/12/20 23 02/12/2023 COMP. METAB OLIC PANEL (14) bilirubin, total 0.3 mg/dL 0.0-1. 2 Not Available [facility] ([facility]) [address] [facility], [place], [address], 02/12/2023 07:37:13 02/12/20 23 02/12/2023 COMP. METAB OLIC PANEL (14) alkaline phosphatase 72 IU/L 44-121 Not Available [facility] ([facility]) [address] [place], [address], 02/12/2023 07:37:13 02/12/20 23 02/12/2023 COMP. METAB OLIC PANEL (14) AST (SGOT) 13 IU/L 0-40 Not Available [facility] ([facility]) [address] [place], [address], 02/12/2023 07:37:13 02/12/20 23 02/12/2023 COMP. METAB OLIC PANEL (14) ALT (SGPT) 16 IU/L 0-32 Not Available [facility] ([facility]) [address] [place], [address], 02/12/2023 07:37:13 02/12/20 23 02/12/2023 IRON AND TIBC iron bind.cap.(TI BC) 378 ug/dL 250-45 0 Not Available [facility] ([facility]) [address] [facility], [place], [address], 02/12/2023 07:37:14 02/12/20 23 02/12/2023 IRON AND TIBC UIBC 318 ug/dL 131-42 5 Not Available [facility] ([facility]) [address] [place], [address], 02/12/2023 07:37:14 02/12/20 23 02/12/2023 IRON AND TIBC iron 60 ug/dL 27-159 Not Available [facility] ([facility]) [address] [place], [address], 02/12/2023 07:37:14 02/12/20 23 02/12/2023 IRON AND TIBC iron saturation 16 % 15-55 Not Available [facility] ([facility]) [address] [place], [address], 02/12/2023 07:37:14 02/12/20 23 02/12/2023 VITAM IN B12 AND FOLAT E vitamin B12 340 pg/mL 232-12 45 Not Available [facility] ([facility]) [address] [place], [address], 02/12/2023 07:37:14 02/12/20 23 02/12/2023 VITAM IN B12 AND FOLAT E folate (folic acid), serum 8.6 NG/mL >3.0 A serum folat e joceline ntrat ion of less than 3.1 ng/mL is consi dered to repre sent clini fercho defic iency . Not Available [facility] ([facility]) [address] [facility], [place], [address], 02/12/2023 07:37:14 02/12/20 23 02/12/2023 FSH AND LH LH 18.4 mIU/m L Adult Femal e Range Folli cular phase 2.4 - 12.6 Ovula tion phase 14.0 - 95.6 Lutea l phase 1.0 - 11.4 Postm enopa usal 7.7 - 58.5 Not Available [facility] ([facility]) [address] [place], [address], 02/12/2023 07:37:15 02/12/20 23 02/12/2023 FSH AND LH FSH 5.5 mIU/m L Adult Femal e Range Folli cular phase 3.5 - 12.5 Ovula tion phase 4.7 - 21.5 Lutea l phase 1.7 - 7.7 Postm enopa usal 25.8 - 134.8 Not Available [facility] ([facility]) [address] [place], [address], 02/12/2023 07:37:15 02/12/2002/12/2023 ESTRA DIOL estradiol 78.3 pg/mL Adult Femal e Range Folli cular phase 12.5 - 166.0 Ovula tion phase 85.8 - 498.0 Lutea l phase 43.8 - 211.0 Postm enopa usal <6.0 - 54.7 Pregn jasmin 1st trime ster 215.0 - >4300 .0 Leonardo ECLIA metho dolog y Not Available [facility] ([facility]) [address] [place], [address], 02/12/2023 07:37:16 02/12/20 23 02/12/2023 VITAM IN [...] um and D. Adriana lopez [place]: [facility] . 2. Mark holloway MF, Binkl ey [place], Bisch off-F errar i ATKINS, et al. Evalu ation , treat ment, and preve ntion of vitam in D defic iency : an Endoc rine Socie ty clini fercho pract ice guide line. JCEM. 2010; 96(7) :1911 -30. Not Available [facility] ([facility]) [address] [place], [address], 02/12/2023 07:37:17 02/12/20 23 02/12/2023 PROGE STERO NE progesterone 0.3 NG/mL Folli cular phase 0.1 - 0.9 Lutea l phase 1.8 - 23.9 Ovula tion phase 0.1 - 12.0 Pregn ant First trime ster 11.0 - 44.3 Secon d trime ster 25.4 - 83.3 Third trime ster 58.7 - 214.0 Postm enopa usal 0.0 - 0.1 Not Available [facility] ([facility]) [address] [place], [address], 02/12/2023 07:37:18 02/12/20 23 02/12/2023 THYRO ID PEROX IDASE (TPO) AB thyroid peroxidase (tpo) Ab 85 IU/mL 0-34 above high normal Not Available [facility] ([facility]) [address] [place], [address], 02/12/2023 07:37:19 02/12/2002/12/2023 TRIIO DOTHY KATERINA E (T3), FREE triiodothyro nine (T3), free 2.9 pg/mL 2.0-4. 4 Not Available [facility] ([facility]) [address] [place], [address], 02/12/2023 07:37:19 08/02/19 25 08/02/2024 TSH+F REE T4 TSH 1.470 uIU/m L 0.450- 4.500 normal Not Available [facility] ([facility]) [address] [place], [address], 08/02/2024 14:37:03 08/02/19 25 08/02/2024 TSH+F REE T4 T4,free(dire ct) 1.07 NG/dL 0.82-1 .77 normal Not Available [facility] ([facility]) [address] [place], [address], 08/02/2024 14:37:03 08/02/19 25 08/02/2024 CBC WITH DIFFE RENTI AL/PL ATELE T WBC 6.5 x10e3 /uL 3.4-10 .8 normal Not Available [facility] ([facility]) [address] [place], [address], 08/02/2024 14:37:04 08/02/19 25 08/02/2024 CBC WITH DIFFE RENTI AL/PL ATELE T RBC 4.67 x10e6 /uL 3.77-5 .28 normal Not Available [facility] ([facility]) [address] [place], [address], 08/02/2024 14:37:04 08/02/19 25 08/02/2024 CBC WITH DIFFE RENTI AL/PL ATELE T hemoglobin 13.1 g/dL 11.1-1 5.9 normal Not Available [facility] ([facility]) [address] [place], [address], 08/02/2024 14:37:04 08/02/19 25 08/02/2024 CBC WITH DIFFE RENTI AL/PL ATELE T hematocrit 40.5 % 34.0-4 6.6 normal Not Available [facility] ([facility]) [address] [place], [address], 08/02/2024 14:37:04 08/02/19 25 08/02/2024 CBC WITH DIFFE RENTI AL/PL ATELE T MCV 87 fL 79-97 normal Not Available [facility] ([facility]) [address] [facility], [place], [address], 08/02/2024 14:37:04 08/02/19 25 08/02/2024 CBC WITH DIFFE RENTI AL/PL ATELE T MCH 28.1 pg 26.6-3 3.0 normal Not Available [facility] ([facility]) [address] [place], [address], 08/02/2024 14:37:04 08/02/19 25 08/02/2024 CBC WITH DIFFE RENTI AL/PL ATELE T MCHC 32.3 g/dL 31.5-3 5.7 normal Not Available [facility] ([facility]) [address] [facility], [place], [address], 08/02/2024 14:37:04 08/02/19 25 08/02/2024 CBC WITH DIFFE RENTI AL/PL ATELE T RDW 12.9 % 11.7-1 5.4 Not Available [facility] ([facility]) [address] [place], [address], 08/02/2024 14:37:04 08/02/19 25 08/02/2024 CBC WITH DIFFE RENTI AL/PL ATELE T platelets 271 x10e3 /uL 150-45 0 normal Not Available [facility] ([facility]) [address] [place], [address], 08/02/2024 14:37:04 08/02/19 25 08/02/2024 CBC WITH DIFFE RENTI AL/PL ATELE T neutrophils 62 % not estab. normal Not Available [facility] ([facility]) [address] [place], [address], 08/02/2024 14:37:04 08/02/19 25 08/02/2024 CBC WITH DIFFE RENTI AL/PL ATELE T lymphs 25 % not estab. normal Not Available [facility] ([facility]) [address] [facility], [place], [address], 08/02/2024 14:37:04 08/02/19 25 08/02/2024 CBC WITH DIFFE RENTI AL/PL ATELE T monocytes 8 % not estab. normal Not Available [facility] ([facility]) [address] [facility], [place], [address], 08/02/2024 14:37:04 08/02/19 25 08/02/2024 CBC WITH DIFFE RENTI AL/PL ATELE T eos 3 % not estab. normal Not Available [facility] ([facility]) [address] [facility], [place], [address], 08/02/2024 14:37:04 08/02/19 25 08/02/2024 CBC WITH DIFFE RENTI AL/PL ATELE T basos 1 % not estab. normal Not Available [facility] ([facility]) [address] [facility], [place], [address], 08/02/2024 14:37:04 08/02/19 25 08/02/2024 CBC WITH DIFFE RENTI AL/PL ATELE T immature cells EYE SURGEON Not Available [facility] ([facility]) [address] [place], [address], 08/02/2024 14:37:04 08/02/19 25 08/02/2024 CBC WITH DIFFE RENTI AL/PL ATELE T neutrophils (absolute) 4.1 x10e3 /uL 1.4-7. 0 normal Not Available [facility] ([facility]) [address] [place], [address], 08/02/2024 14:37:04 08/02/19 25 08/02/2024 CBC WITH DIFFE RENTI AL/PL ATELE T lymphs (absolute) 1.7 x10e3 /uL 0.7-3. 1 normal Not Available [facility] ([facility]) [address] [place], [address], 08/02/2024 14:37:04 08/02/19 25 08/02/2024 CBC WITH DIFFE RENTI AL/PL ATELE T monocytes(ab solute) 0.5 x10e3 /uL 0.1-0. 9 normal Not Available [facility] ([facility]) [address] [facility], [place], [address], 08/02/2024 14:37:04 08/02/19 25 08/02/2024 CBC WITH DIFFE RENTI AL/PL ATELE T eos (absolute) 0.2 x10e3 /uL 0.0-0. 4 normal Not Available [facility] ([facility]) [address] [place], [address], 08/02/2024 14:37:04 08/02/19 25 08/02/2024 CBC WITH DIFFE RENTI AL/PL ATELE T baso (absolute) 0.1 x10e3 /uL 0.0-0. 2 normal Not Available [facility] ([facility]) [address] [place], [address], 08/02/2024 14:37:04 08/02/19 25 08/02/2024 CBC WITH DIFFE RENTI AL/PL ATELE T immature granulocytes 1 % not estab. Not Available [facility] ([facility]) [address] [place], [address], 08/02/2024 14:37:04 08/02/19 25 08/02/2024 CBC WITH DIFFE RENTI AL/PL ATELE T immature grans (abs) 0.0 x10e3 /uL 0.0-0. 1 Not Available [facility] ([facility]) [address] [place], [address], 08/02/2024 14:37:04 08/02/19 25 08/02/2024 CBC WITH DIFFE RENTI AL/PL ATELE T NRBC EYE SURGEON Not Available [facility] ([facility]) [address] [facility], [place], [address], 08/02/2024 14:37:04 08/02/19 25 08/02/2024 CBC WITH DIFFE RENTI AL/PL ATELE T hematology comments: EYE SURGEON Not Available [facility] ([facility]) [address] [facility], [place], [address], 08/02/2024 14:37:04 08/02/19 25 08/02/2024 COMP. METAB OLIC PANEL (14) glucose 96 mg/dL 70-99 normal Not Available [facility] ([facility]) [address] [facility], [place], [address], 08/02/2024 14:37:05 08/02/19 25 08/02/2024 COMP. METAB OLIC PANEL (14) BUN 13 mg/dL 6-20 normal Not Available [facility] ([facility]) [address] [facility], [place], [address], 08/02/2024 14:37:05 08/02/19 25 08/02/2024 COMP. METAB OLIC PANEL (14) creatinine 0.67 mg/dL 0.57-1 .00 normal Not Available [facility] ([facility]) [address] [facility], [place], [address], 08/02/2024 14:37:05 08/02/19 25 08/02/2024 COMP. METAB OLIC PANEL (14) eGFR 116 mL/mi n/1.7 3 >59 normal Not Available [facility] ([facility]) [address] [place], [address], 08/02/2024 14:37:05 08/02/19 25 08/02/2024 COMP. METAB OLIC PANEL (14) BUN/creatini ne ratio 19 9-23 normal Not Available [facility] ([facility]) [address] [facility] [place], [address], 08/02/2024 14:37:05 08/02/19 25 08/02/2024 COMP. METAB OLIC PANEL (14) sodium 139 mmol/ L 134-14 4 normal Not Available [facility] ([facility]) [address] [facility] [place], [address], 08/02/2024 14:37:05 08/02/19 25 08/02/2024 COMP. METAB OLIC PANEL (14) potassium 4.0 mmol/ L 3.5-5. 2 normal Not Available [facility] ([facility]) [address] [place], [address], 08/02/2024 14:37:05 08/02/19 25 08/02/2024 COMP. METAB OLIC PANEL (14) chloride 102 mmol/ L 96-106 normal Not Available [facility] ([facility]) [address] [facility] [place], [address], 08/02/2024 14:37:05 08/02/19 25 08/02/2024 COMP. METAB OLIC PANEL (14) carbon dioxide, total 19 mmol/ L 20-29 below low normal Not Available [facility] ([facility]) [address] [facility] [place], [address], 08/02/2024 14:37:05 08/02/19 25 08/02/2024 COMP. METAB OLIC PANEL (14) calcium 9.2 mg/dL 8.7-10 .2 normal Not Available [facility] ([facility]) [address] [facility] [place], [address], 08/02/2024 14:37:05 08/02/19 25 08/02/2024 COMP. METAB OLIC PANEL (14) protein, total 6.5 g/dL 6.0-8. 5 normal Not Available [facility] ([facility]) [address] [place], [address], 08/02/2024 14:37:05 08/02/19 25 08/02/2024 COMP. METAB OLIC PANEL (14) albumin 4.3 g/dL 3.9-4. 9 normal Not Available [facility] ([facility]) [address] [place], [address], 08/02/2024 14:37:05 08/02/19 25 08/02/2024 COMP. METAB OLIC PANEL (14) globulin, total 2.2 g/dL 1.5-4. 5 Not Available [facility] ([facility]) [address] [place], [address], 08/02/2024 14:37:05 08/02/19 25 08/02/2024 COMP. METAB OLIC PANEL (14) bilirubin, total 0.3 mg/dL 0.0-1. 2 normal Not Available [facility] ([facility]) [address] [place], [id number], 08/02/2024 14:37:05 08/02/19 25 08/02/2024 COMP. METAB OLIC PANEL (14) alkaline phosphatase 63 IU/L 44-121 normal Not Available [facility] ([facility]) [address] [place], [id number], 08/02/2024 14:37:05 08/02/19 25 08/02/2024 COMP. METAB OLIC PANEL (14) AST (SGOT) 23 IU/L 0-40 normal Not Available [facility] ([facility]) [address] [place], [id number], 08/02/2024 14:37:05 08/02/19 25 08/02/2024 COMP. METAB OLIC PANEL (14) ALT (SGPT) 31 IU/L 0-32 normal Not Available [facility] ([facility]) [address] [facility], [place], [address], 08/02/2024 14:37:05 08/02/19 25 08/02/2024 IRON AND TIBC iron bind.cap.(TI BC) 400 ug/dL 250-45 0 normal Not Available [facility] ([facility]) [address] [facility], [place], [address], 08/02/2024 14:37:05 08/02/19 25 08/02/2024 IRON AND TIBC UIBC 327 ug/dL 131-42 5 normal Not Available [facility] ([facility]) [address] [place], [address], 08/02/2024 14:37:05 08/02/19 25 08/02/2024 IRON AND TIBC iron 73 ug/dL 27-159 normal Not Available [facility] ([facility]) [address] [place], [address], 08/02/2024 14:37:05 08/02/19 25 08/02/2024 IRON AND TIBC iron saturation 18 % 15-55 normal Not Available [facility] ([facility]) [address] [place], [address], 08/02/2024 14:37:05 08/02/19 25 08/02/2024 VITAM IN B12 AND FOLAT E vitamin B12 288 pg/mL 232-12 45 normal Not Available [facility] ([facility]) [address] [place], [address], 08/02/2024 14:37:06 08/02/19 25 08/02/2024 VITAM IN B12 AND FOLAT E folate (folic acid), serum 7.6 NG/mL >3.0 normal A serum folat e joceline ntrat ion of less than 3.1 ng/mL is consi dered to repre sent clini fercho defic iency . Not Available [facility] ([facility]) [address] [place], [address], 08/02/2024 14:37:06 08/02/19 25 08/02/2024 HEMOG LOBIN A1C hemoglobin A1C 5.5 % 4.8-5. 6 normal Predi abete s: 5.7 - 6.4 Diabe sascha: >6.4 Glyce matias contr ol for adult s with diabe sascha: <7.0 Not Available [facility] ([facility]) [address] [place], [address], 08/02/2024 14:37:07 08/02/19 25 08/02/2024 RHEUM ATOID FACTO R (RF) rheumatoid factor (rf) <10.0 IU/mL <14.0 Not Available [facility] ([facility]) [address] [facility], [place], [address], 08/02/2024 14:37:07 08/02/19 25 08/02/2024 VITAM IN [...] Endoc rine Socie ty went on to [facility] er defin e vitam in D insuf ficie ncy as a level betwe en 21 and 29 ng/mL (2). 1. IOM (Inst itute of Medic ine). 2009. Dieta ry refer ence intak es for calci um and D. Adriana lopez [place]: The Natio nal [facility] Press . 2. Mark holloway MF, Stacey francois [place], Saida off-F joshua i ATKINS, et al. Evalu ation , treat ment, and preve ntion of vitam in D defic iency : an Endoc rine Socie ty clini fercho pract ice guide line. JCEM. 2010; 96(7) :1911 -30. Not Available [facility] ([facility]) [address] [facility], [place], [address], 08/02/2024 14:37:08 08/02/19 25 08/02/2024 MELISSA W/REF TIFFANIE IF POSIT JON MELISSA direct Negati ve negati ve Not Available [facility] ([facility]) [address] [facility], [place], [address], 08/02/2024 14:37:08 08/02/19 25 08/02/2024 SEDIM ENTAT ION RATE- WESTE RGREN sedimentatio n rate-westerg tanja 2 mm/HR 0-32 normal Not Available [facility] ([facility]) [address] [facility], [place], [address], 08/02/2024 14:37:09 08/02/19 25 08/02/2024 C-NADIRA CTIVE PROTE IN, QUANT C-reactive protein, quant 2 mg/L 0-10 normal Not Available [facility] ([facility]) [address], [place], [address], 08/02/2024 14:37:10 10/16/19 US, obste tric, 1st trime ster No observ ation record ed. [facility] [employer] [address] [place] [address] , [place], [address], 10/15/2022 21:31:23 10/20/19 23 10/18/2022 US, obste tric No observ ation record ed. [email or web address] [facility] [address], [place], [address], 10/21/2022 23:46:50 10/23/19 US, obste tric, 1st trime ster No observ ation record ed. [facility] [employer] [address] [place] [address] , [place], [address], 10/24/2022 15:14:09 0910/15/2022 US, obste tric, 1st trime ster No observ ation record ed. [facility] [employer] [address] [place] [address] , [place], [place], [address], 10/27/2022 15:02:05 10/29/19 [place], obste tric, 1st trime ster No observ ation record ed. deonte Lucile Drywall Hanger [address] [place] [address] , [place], [address], 10/28/2022 16:56:08 11/01/19 23 10/24/2022 US, obste tric, 1st trime ster No observ ation record ed. RIKY Lucile Drywall Hanger [address] [place] [address] , [place], [address], 10/31/2022 13:29:16 11/01/19 23 10/28/2022 US, obste tric, 1st trime ster No observ ation record ed. RIKY Lucile Drywall Hanger [address] [place] [address] , [place], [address], 10/31/2022 13:29:16 07/14/19 24 07/14/2023 US, obste tric, 1st trime ster No observ ation record ed. [email or web address] [place], [place] [address] [facility], [place], [address], 07/15/2023 22:23:29 07/20/19 24 07/20/2023 [place], obste tric, 1st trime ster No observ ation record ed. [address], [place], [address], 07/21/2023 12:39:40 Result Notes None recorded. 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 Olsen at Infusion [facility] [address], [place], [address] , [facility] - [facility] 3 15:49:25 Antenata l screenin g Completed [ ]Mat21-d iscussed at obhx, desires [-]AFP-d iscussed at obhx, pt declined [x]CF- negative Infusion Nurse [facility] [address], [place], [address] , [facility] - [facility] 3 15:49:24 History of abnormal cervical Papanico laou smear 217689011 Completed 2022 LSIL, HPV+ colpo: CIN1, neg ECC In[facility] [address], [place], [address] , [facility] - [facility] 3 15:49:25 History of abnormal cervical Papanico laou smear 218692038 Active 2022 LSIL, HPV+ colpo: CIN1, neg ECC Infusion Nurse [facility] [address], [place], [address] , [facility] - [facility] 3 15:49:25 Contrace ption care manageme nt Completed unsure Infusion Nurse [facility] [address], [place], [address] , [facility] - [facility] 3 15:49:25 Body mass index 30+ - obesity 977463570 Completed BMI: 30.6 starting wgt: 173 recommen ded wgt gain: 15-25 Infusion Nurse [facility] [address], [place], [address] , [place] - [facility] 3 15:49:25 Active immuniza tion Completed [-]Covid -decline d at obhx [ ]Tdap- [ ]Flu- Infusion Nurse [facility] [address], [place], [address] , [place] - [facility] 3 15:49:24 Neuropat hy 375830158 Completed 2019 intermit tent comes and goes Infusion Nurse [facility] [address], [place], [address] , [place] - [facility] 3 15:49:25 Hashimot o thyroidi tis 65359107 Completed 2020 per rheumato logy labs, Infusion Nurse JONATAN [address], [place], [address] , [place] - [facility] 3 15:49:24 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 Olsen at Infusion Nurse [facility] [address], [place], [address] , [place] - [facility] 3 15:49:25 Obesity 305738828 Active BMI: 30.6 Infusion Nurse [facility] [address], [place], [address] , [place] - [facility] 3 15:49:25 Obesity 877513863 Completed BMI: 30.6 Infusion Nurse [facility] [address], [place], [address] , [place] - [facility] 3 15:49:25 Normal pregnanc y 08057180 Completed 201603/16/2017 Infusion Nurse [facility] [address], [place], [address] , [place] - [facility] 8 14:00:16 Pregnanc y 88265359 Completed 201603/16/2017 Luanne kirkland [place] - [facility] 3 09:05:42 Nausea and vomiting 23053209 Completed fluids in office and at hosp Infusion Nurse [facility] [address], [place], [address] , [place] - [facility] 8 13:59:46 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 42614364 Completed [place]: ENT Dr Olsen & [place] [facility] Dr Campa right petrous apex choleste rol granulom a Infusion Nurse [facility] [address], [place], [address] , [place] - [facility] 8 13:59:46 Antenata l screenin g Completed 04/03/16 FTS Normal NT, Serum = REqueste d 09/03 Infusion Nurse [facility] [address], [place], [address] , [place] - [facility] 8 13:59:46 Tendinit is 14230460 Active 2024 Viky Restrepo, STEAMER TENDER [address], [place], [address] , [place] - [facility] 5 15:46:56 Fatigue 52652628 Active 2024 Scott Lincoln, STEAMER TENDER [address], [place], [address] , [place] - [facility] 5 08:42:52 Butterfl y rash 17154077 Active 2024 Scott Lincoln STEAMER TENDER [address], [place], [address] , [place] - [facility] 5 08:50:46 Paresthe karen of hand 737237756 Active 2024 Scott Lincoln STEAMER TENDER [address], [place], [address] , [place] - [facility] 5 08:54:36 Problem Notes None recorded. Procedures Surgical History Date Name Laterality Status Provider Name and Address Organization Details Recorded Time 023 OB Ultrasound Summary completed Lexi Gutierrez [place] - [facility] 10/28/2022 16:25:13 023 OB Ultrasound Summary completed Lexi NICHOLAS - [facility] 10/24/2022 14:29:34 023 OB Ultrasound Summary completed Lexi NICHOLAS - [facility] 10/15/2022 14:00:05 023 IUD Removal completed Malaiak Umana APRN [address], [place], [address], [place] - [facility] 03/13/2022 14:02:13 023 Date of Last Pap Smear completed Malaika Umana, STEAMER TENDER [address], [place], [address], [place] - [facility] 03/18/2022 10:45:46 023 removal of intrauterine device completed Malaika Umana STEAMER TENDER [address], [place], [address], [place] - [facility] 03/13/2022 14:11:29 019 Medication Reconcilliation completed Deep Keane [place] - [facility] 04/14/2018 10:49:20 018 insertion of intrauterine contraceptive device completed Luanne Chester [place] - [facility] 03/12/2022 11:36:29 017 OB Ultrasound Summary completed Misty Ambroselach [place] - [facility] 05/28/2016 17:09:03 017 OB Ultrasound Summary completed Rochelle Gil [place] - [facility] 04/30/2016 10:38:28 017 OB Ultrasound Summary completed Elizabet Schumacher [place] - [facility] 03/26/2016 16:11:11 017 OB Ultrasound Summary completed Elizabet Schumacher [place] - [facility] 03/10/2016 14:04:59 016 IUD Removal completed Marcella Rodriguezrus [place] - [facility] 02/21/2016 15:05:42 016 Nsl/sins ndsc frnt tiss rmvl completed Marcella Milly [place] - [facility] 02/22/2016 15:08:58 014 Colposcopy completed Marcella Milly [place] - [facility] 02/21/2016 15:31:12 014 Colposcopy completed Marcella Milly [place] - [facility] 02/21/2016 15:31:40 011 IUD Insertion completed Luanne Chester [place] - [facility] 03/12/2022 11:35:46 Imaging Results None [...] Updated DateTime 5 160.02 cm 30.8 kg/m2 99944.0 7 g 76 /min 98 % 98 % 18 /min 124/76 mm[Hg] Crystal David [place] - [facility] 5 15:20:11 Date Recorded Body height Body mass index (BMI) Body weight Heart rate Oxygen saturation Oxygen saturation in Arterial blood by Pulse oximetry Respiratory rate Systolic And Diastolic Provider Name and Address Organization Details Last Updated DateTime 5 160.02 cm 32.1 kg/m2 52742.9 2 g 88 /min 98 % 98 % 18 /min 116/76 mm[Hg] Mireya kilpatrick [place] - [facility] 5 08:37:16 Date Recorded Body height Body mass index (BMI) Body weight Systolic And Diastolic Provider Name and Address Organization Details Last Updated DateTime 10/24/2022 160.02 cm 29.8 kg/m2 16983.518 16 g 124/80 mm[Hg] Oma Perdomo [place] - [facility] 10/24/2022 14:57:14 Date Recorded Body height Body mass index (BMI) Body weight Systolic And Diastolic Provider Name and Address Organization Details Last Updated DateTime 10/28/2022 160.02 cm 29.9 kg/m2 51268.110 53 g 106/76 mm[Hg] Leonora Albarran [place] - [facility] 10/28/2022 16:31:03 Date Recorded Body height Body mass index (BMI) Body weight Body temperature Heart rate Oxygen saturation Oxygen saturation in Arterial blood by Pulse oximetry Respiratory rate Systolic And Diastolic Provider Name and Address Organization Details Last Updated DateTime 3 160.02 cm 31 kg/m2 68766.6 6 g 98.5 [degF] 98 /min 98 % 98 % 18 /min 122/74 mm[Hg] Deep Keane [place] - [facility] 3 15:04:00 Social History Question Answer Notes LastModified by [employer] Details LastModified Time Tobacco Smoking Status Never Smoker Marcella kirkland [place] - [facility] 02/22/2016 15:06:05 Do You Have An Advance Directive? No [email or web address] Information not available 03/12/2022 If You Are , What Was Your Level Of Alcohol Consumption Prior To ? None [email or web address] Information not available 03/12/2022 Are You Blind [...] COVID-19 While That Case Was Ill? No Information not available 03/12/2022 In The 14 Days Before Symptom Onset, Have You Had Close Contact With A Person Who Is Under Investigation For COVID-19 While That Person Was Ill? No [email or web address] Information not available 03/12/2022 Have You Been To An Area Known To Be High Risk For COVID-19? No [email or web address] Information not available 03/12/2022 Are You Deaf Or Do You Have Serious Difficulty Hearing? No [email or web address] Information not available 03/12/2022 Diabetes No Information no t available 02/22/2016 What Type Of Diet Are You Following? REGULAR Information not available 02/22/2016 Which Illicit Or Recreational Drugs Have You Used? No Hx Information not available 02/22/2016 Have You Processed Blood Or Body Fluids From An Ebola Virus Disease Patient Without Appropriate PPE? No [email or web address] Information not available 03/12/2022 Do You Reside In Or Have You Traveled To An Area Where Ebola Virus Transmission Is Active? No [email or web address] Information not available 03/12/2022 Education 12 [email or web address] Information no t available 03/12/2022 What Is The Highest Grade Or Level Of School You Have Completed Or The Highest Degree You Have Received? [id number] [email or web address] Information not available 03/12/2022 Have There Been Any Changes To Your Family Or Social Situation? No Information no t available 02/22/2016 What Is The Fluoride Status Of Your Home? Fluoridated [email or web address] Information not available 03/12/2022 Frequent Air Travel No Information not available 02/22/2016 Have You Recently Or Are You Planning To Travel To An Area With Zika Virus? No [email or web address] Information not available 03/12/2022 High Blood Pressure No Information not available 02/22/2016 High Cholesterol No Informat ion not available 02/22/2016 Illicit Drugs Pre- None Information not available 02/22/2016 Live Alone Or With Others? With Others Information not available 02/22/2016 Do You Have A Medical Power Of Telehealth Director? Yes Information not available 03/12/2022 What Was The Date Of Your Most Recent Tobacco Screening? 04/25/2024 Information not available 04/25/2024 How Many Children Do You Have? 2 Information not available 10/08/2022 Do You Have Any Pets? No Information not available 02/22/2016 Do You Use Protection During Sex? No [email or web address] Information not available 03/12/2022 Do You Use Protection Against STDs? No [email or web address] Information not available 03/12/2022 What Is Your Relationship Status? [email or web address] Information not available 03/12/2022 Seat Belts Used [...] Have Difficulty Walking Or Climbing Stairs? No [email or web address] Information not available 03/12/2022 Do You Have [...] Was Counseling Provided To Achieve ? No [email or web address] Information not available 03/12/2022 Do You Want To Talk About Contraception Or Prevention During Your Visit Today? No - I Do Not Want To Talk About Contraception Today Because I Am Here For Something Else Information not available 10/15/2022 What Is Your Reason For Having No Contraceptive Method At Start Of This Visit? Other Information not available 10/15/2022 Sex: Female Functional Status Question Answer Note LastModified by Organizat ion Details LastModified Time Do you or have you ever used smokeless tobacco? Never used smokeless tobacco Information not available 07/25/2020 Are you currently employed? Yes Information not available 02/22/2016 Do you have transportation difficulties? No [email or web address] Information not available 03/12/2022 Are you able to care for yourself? Yes [email or web address] Information n ot available 03/12/2022 Do you have difficulty dressing or bathing? No [email or web address] Information not available 03/12/2022 Do you or [...] 10/08/2022 Are you able to walk? YESWOREST [email or web address] Information not available 03/12/2022 Do you have difficulty doing errands alone? 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 [id number] [email or web address] Information not available 03/12/2022 Do you have difficulty concentrating, remembering or making decisions? No [email or web address] Information no t available 03/12/2022 Family History [...] Obesity Y Vision or Eye Problems N Restless Leg Syndrome N Arthritis N Polyps N Infertility N Carpal Tunnel [...] Problems N Fracture N Colorectal Cancer N Schizophrenia N Panic Disorder N Concussion N Spina Bifida N Osteoarthritis N Parkinson's Disease N Disc Protrusion N STI N Esophagitis N Angina N Thyroid Problems N GI Problems N ADD/ADHD N Anemia N Multiple Sclerosis N Abnormal PAP Y Lumbago N Mental Illness N Psychiatric Illness N Ovarian Cancer N Diabetes N Degenerative Disc Disease N Seizures/Epilepsy N Syncope N Hyperlipidemia N Insomnia N Eczema N Abuse/Domestic Violence N Attention Deficient Disorder N Dementia N Ulcerative colitis N Cerebrovascular Disease N Depression N Guillain-Haywood N Sleep Apnea N Aneurysm N Bronchitis N Heart Disease N Suicidal Ideation N Pre-Eclampsia N Hypertension N Osteoporosis N Gynecological History Statement/Question Response [...] SNOMED-CT Code Diagnosis ICD10 Code Diagnosis Note [id number] VELASQUEZ [place] DRESS OPERATOR [address] [place] [address] CRISTOPHER Hernández [address] 02/22/2016 14:56:39 02/22/2016 15:30:49 Urine test positive 194776148 Z32.01 Amenorrhea 85658055 N91. 2 [id number] Michelle Keller CNM Lucile DRESS OPERATOR [address] [place] [address] CRISTOPHER Hernández [address] 03/05/2016 13:39:56 03/05/2016 17:06:39 Nausea and vomiting 39632671 R11.2 Dehydration 01330152 E86 .0 Ketonuria 031844836 R82. 4 Gestation period, 11 weeks 63925329 Z3A.11 [id number] Michelle Smith CNM Lucile DRESS OPERATOR [address] [place] [address] CRISTOPHER Hernández [address] 03/10/2016 13:24:12 03/10/2016 15:27:21 Normal 63081887 Z34.90 Gestation period, 9 weeks 219065 Z3A.09 Routine an tenatal care 486879343 Z34.90 Nausea and vomiting 1693 2000 R11.2 [id number] DO Emilia Camargo DRESS OPERATOR [address] [place] [address] CRISTOPHER Hernández [address] 03/26/2016 15:49:30 03/26/2016 16:27:11 Gestation period, 11 weeks 82926227 Z3A.11 Normal 4452145 2 Z34.81 Nausea and vomiting 1693 2000 R11.2 [id number] Jami Henao CNM Lucile DRESS OPERATOR [address] [place] [address] CRISTOPHER Hernández [address] 04/03/2016 10:18:53 04/03/2016 12:39:18 Normal 13773492 Z34.81 Gestation period, 12 weeks 16560679 Z3A.12 Infection screening 2437 59551 Z11.3 Z11.8 Screening for malignant neoplasm of cervix 344339148 Z12.4 screening 2437 73559 Z36 [id number] Michelle Kelelr CNM Lucile DRESS OPERATOR [address] [place] [address] CRISTOPHER Hernández [address] 04/30/2016 10:10:22 04/30/2016 11:18:42 Normal 35455737 Z34.92 Gestation period, 16 weeks 68585683 Z3A.16 [id number] Rita Jacome MS, RD, LD Lucile DRESS OPERATOR [address] [place] [address] C[place]HER Hernández [address] 04/30/2016 10:13:17 04/30/2016 11:28:12 20514814 Z33.1 [id number] Misty Johnson DO Lucile DRESS OPERATOR [address] [place] [address] C[place]STOPHER Hernández [address] 05/28/2016 15:10:42 05/28/2016 17:10:47 Counseling 951088231 Z71.9 Gestation period, 20 weeks 87125679 Z3A.20 screening 2437 04688 Z36 Normal 0479139 2 Z34.82 Body mass index 25-29 - overweight 716394173 Z68.29 [id number] VELASQUEZ [place] DRESS OPERATOR [address] [place] [address] CRISTOPHER Hernández [address] 06/26/2016 12:25:52 06/26/2016 14:02:28 Gestation period, 24 weeks 027488102 Z3A.24 screening 2437 71410 Z36 Normal 3668005 2 Z34.82 Nausea 604344480 R11.0 Continue with unisom and B-6 [id number] Michelle Keller CNM Lucile DRESS OPERATOR [address] [place] [address] CRISTOPHER Hernández [address] 07/24/2016 08:42:43 07/24/2016 10:16:54 Normal 54778627 Z34.92 Gestation period, 28 weeks 25850673 Z3A.28 screening 2437 69292 Z36 [id number] DO Magda [place] DRESS OPERATOR [address] [place] [address] CRISTOPHER Hernández [address] 08/07/2016 10:57:00 08/07/2016 11:29:15 Gestation period, 30 weeks 53894706 Z3A.30 Normal 8786015 2 Z34.81 [id number] DO Magda [place] DRESS OPERATOR [address] [place] [address] CRISTOPHER Hernández [address] 08/21/2016 10:39:54 08/21/2016 11:26:01 Gestation period, 32 weeks 7630899 Z3A.32 07872156 Z33.1 [id number] [facility] [address] [place] [address] CRISTOPHER Hernández [address] 09/03/2016 14:41:19 09/03/2016 15:40:36 screening 085618505 Z36 Gestation period, 34 weeks 48303364 Z3A.34 Normal 9215811 2 Z34.81 [id number] Michelle Keller CNM Lucile DRESS OPERATOR [address] [place] [address] CRISTOPHER Hernández [address] 09/15/2016 11:04:07 09/15/2016 11:36:07 Threatened premature labor - not delivered 275195557 O47.9 Gestation period, 36 weeks 36562082 Z3A.36 screening 2437 22620 Z36 Vaginal discharge 640901 006 N89.8 Bacterial vaginosis 4197 85116 N76.0 [id number] MD Emilia Siegel DRESS OPERATOR [address] [place] [address] CRISTOPHER Hernández [address] 09/23/2016 10:45:13 09/23/2016 11:12:27 Normal 87954175 Z34.93 Gestation period, 37 weeks 68103154 Z3A.37 Vaginal discharge 877254 006 N89.8 [id number] Anaya VargasFormerly [facility] [address] [place], [place] [address] [address] 10/12/2017 15:14:18 10/12/2017 17:44:29 Body mass index 25-29 - overweight 763979957 Z68.29 Pain of right calf 96986 41970 847425 M79.923 [id number] Anaya Vargas[address] [place] [address] 04/14/2018 10:44:34 04/14/2018 11:11:00 Cervical radiculopathy 81651877 M54.12 Abnormal f indings on diagnostic imaging of skull and head 118790041 R93.0 Pain of ri ght shoulder joint 2457391541 5988795 M25.336 [id number] Anaya Vargas[address] [place] [address] 04/19/2018 11:04:13 04/19/2018 12:41:49 Cervical radiculopathy 83911541 M54.12 Pain of ri ght shoulder joint 7918870312 6463772 M25.682 [id number] Anaya Vargas[address] [place] [address] 04/29/2018 10:58:50 04/29/2018 13:51:45 Migraine 27336176 G43.909 Pain of ri ght shoulder joint 5809490785 5340455 M25.511 Cervical radiculopathy 08569643 M54.12 [id number] Anaya Vargas[address] 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 [address] 09/06/2019 10:46:23 09/06/2019 15:18:37 Intermittent confusion 832424382 R41.0 Muscle weakness 91800160 M62.81 [id number] Anaya Vargas[address] [place] [address] 10/31/2019 16:06:36 10/31/2019 17:19:47 Neuropathy 405911168 G62.9 Muscle weakness 41925063 M62.81 [id number] Anaya Vargas[address] [place] [address] 04/27/2020 14:27:10 04/27/2020 15:36:42 Ora thyroiditis 73726428 E06.3 [id number] Anaya Vargas[address] [place] [address] 07/25/2020 09:11:57 07/25/2020 10:37:38 Ora thyroiditis 23584020 E06.3 Vitamin D deficiency 347 67477 E55.9 [id number] Anaya Vargas[address] [place] [address] 02/25/2022 13:17:57 02/25/2022 14:47:33 Ora thyroiditis 66159453 E06.3 Screening for cardiovascular system disease 853133673 Z13.6 Endocrine/ metabolic screening 549012439 Z13.228 Body mass index 25-29 - overweight 381784279 Z68.29 General ex amination of patient 326981010 Z00.00 Exercises education, guidance, and counseling 480738086 Z71.82 The patient was advised to continue a healthy diet and exercise regularly. Dietary ma nagement surveillance 944062055 Z71.3 [id number] VELASQUEZ Pablo DRESS OPERATOR [facility] CRISTOPHER Hernández [address] 03/13/2022 13:42:15 03/13/2022 15:15:33 Routine gynecologic examination done 6698115346 9101 Z01.419 Depression screening 171 748897 Z13.89 PHQ-9 completed today. Diet education 29910972 Z71.3 Counseling 282316727 Z71 .82 Exercise counselminh evans Patient encouraged to exercise 30 minutes 5 days a week. Examinatio n of blood pressure 899839599 Z01.30 Vaccine de clined by patient 6183211281 02 Z28.21 Pt declined flu vaccine today. Screening for malignant neoplasm of cervix 389517264 Z12.4 Z11.3 Z01.419 Patient advised that I will follow up with results. Removal of intrauterine device 69048835 Z30.432 Discussed possible cramping and bleeding over the next few days. Patient informed that return to fertility is immediate. She is to use condoms and foam x 2 cycles. Patient encouraged to take PNV daily. Reproducti ve care management 223162755 Z31.9 Patient advised to get regular exercise, eat healthy foods and start a menstrual diary.Pt to call with + UPT. 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 Patient ks dical record not available 699633720 Z76.89 [id number] DO Emilia Camargo DRESS OPERATOR [facility] CRISTOPHER Hernández [address] 10/15/2022 13:41:58 10/15/2022 15:10:50 screening 898170590 Z36.9 Nausea and vomiting 1693 2000 R11.2 Generalize d acute body pains 559808769 R52 Early stag e of 170957594 Z34.91 COVID-19 088893157 U07.1 Diagnosed 10/15/22 [id number] Nicole Paulino DO Lucile DRESS OPERATOR [address] [place] [address] C[place]STOPHER Hernández [address] 10/24/2022 14:04:39 10/24/2022 15:13:56 screening 069796068 Z36.9 Early stag e of 335464235 Z34.91 Gestation period, 6 weeks 97019627 Z3A.01 [id number] Nicole Paulino DO Lucile DRESS OPERATOR [address] [place] [address] CRISTOPHER Hernández [address] 10/28/2022 16:01:09 10/28/2022 16:47:11 Gestation period, 6 weeks 89150792 Z3A.01 screening 2437 35198 Z36.9 Routine an tenatal care 570547156 Z34.91 Missed miscarriage 57676 004 O02.1 [id number] Anaya Vargas[address] [address] 02/11/2023 14:36:23 02/11/2023 15:50:35 Ora thyroiditis 56730713 E06.3 Acute bact erial sinusitis 75059919 J01.90 Fatigue 18952937 R53.83 Missed miscarriage 90277 004 O02.1 10/2022 [id number] Viky Restrepo [address] [address] 04/25/2024 15:12:58 04/25/2024 15:56:41 Body mass index 30+ - obesity 155995782 Z68.30 Obesity 879727750 E66.9 Tendinitis 72523331 M77. 9 [id number] Scott Lincoln [address] [address] 08/01/2024 08:31:06 08/01/2024 09:20:53 Ora thyroiditis 70733646 E06.3 hx of Ora' s, will check labs as patient having increased fatigue, weight gain.Notif y with results, f/u pending labs. Fatigue 15788500 R53.83 PE noted with butterfly appearing rash to face. Will check labs at this time. Advised to continue working on improved diet with reduced processed foods, sugars, focus on whole foods. Increase exercise 5 days 30min. F/U 3-4 weeks or sooner pending labs. Butterfly rash [id number] R21 PE noted with butterfly rash will check labs, concern for possible lupus or other autoimmune disease considerin g worsening fatigue, joint pain, malar rash, edema. Will notify with results once available. F/u 3-4 weeks or sooner pending labs. Paresthesia of hand 3090 21757 R20.2 PE noted with decreased sensation to [...] English Member ID Guarantor Name 04/12/2018 1 [facility] ([facility]) [id number] Lillian Erica [id number] [facility] 04/27/2020 1 [place] [id number] Lillian Erica [id number] [facility] 08/08/2024 1 PASSPORT BY [employer] (MEDICAID REPLACEMENT - HMO) Lillian N Reica [id number] [facility] 09/06/2019 1 [place] [id number] Lillian Erica [id number] [facility] 08/08/2024 [place] [facility] WRAP BILLING (MEDICAID) Lillian N Erica [id number] [facility] 09/06/2019 1 THE [facility] Lillian Erica [id number] [facility] 04/27/2020 1 THE [facility] - MULTIPLAN (INDEMNITY) Lillian Erica [id number] [facility] 10/08/2022 TITLE X Lillian Erica [id number] [facility] 08/01/2024 1 *SELF PAY* As md Fat 08/29/2021 [place] [id number] Lillian Maldonado [id number] Lillian [facility] 05/16/2020 1 BCBS[place]: [place] BC[place] [id number] Lillian Maldonado [id number] [facility] Notes Date Note Type Note Provider Name and Address Organization Details Recorded Time 10/24/2022 text/html 9 week ob visit, u/s Damon Paulino, DO [address], [place], [address], [place] - [facility] 10/24/2022 15:23:03 10/28/2022 text/html 6 week ob visit, u/s Damon Paulino, DO [address], [place], [address], [place] - [facility] 10/28/2022 17:00:40 02/11/2023 text/html presents today w ith multiple acute complaintsmood swingslow sex drivenumbness/tingli ng coming more frequentlydry skin, rashesthinning hairtired all the timelast 2 months, sinus/respiratoryotc meds not helpful denies cp, sob, n/v/d Anaya Vargas, STEAMER TENDER [address], [place], [address], [place] [facility] 02/13/2023 02:23:04 04/25/2024 text/html [...] No fever, chills or cough. Viky Restrepo, STEAMER TENDER [address], [place], [address], [place] - [facility] 04/25/2024 16:50:41 08/01/2024 text/html [...] complaints. Denies any other concerns. Scott Lincoln, STEAMER TENDER [address], [place], [address], [place] [facility] 08/01/2024 15:31:54 OBGyn Episode Ob Episode Information Episode Created Date Number of Fetuses Patient Bloodtype Patient rh Status Prepregnancy Weight lbs Domestic Partner Domestic Partner Phone Father Name Water Taxi Operator Status 02/20/19 17 1 CLOSED Fetus Data [...] Discharge Date Comments 1 [facility]-Ep idural 38 [facility] Discharge Information Feeding Method Contraceptive Method Maternal HG B and HCT Levels Ob Episode Information Episode Created Date Number of Fetuses Patient Bloodtype Patient rh Status Prepregnancy Weight lbs Domestic Partner Domestic Partner Phone Father Name Water Taxi Operator Status 03/10/19 17 1 O Positive 150 CLOSED Fetus Data First Name Last Name Admitted to NICU Weight (g) Sex Living Outcome Pediatric Complications Fetus ID Race Codes Race Delivery Type [id number] Problems Problem Notes epidural, bottle, mirena,kid caresch FTSdeclines flu vaccAnatomy U/S - boy, normal and complete anatomy, anterior placentaBOY-Hcencho Problem Name Start Date End Date Resolution Snomed Code Not e Nausea and vomiting 48837587 fluids in office and at hosp Cholesterol granuloma of middle ear 55683555 [place]: ENT Dr Mas er & [place] Neurosx Dr Anderson petrous apex cholesterol granuloma screening 714478767 04/03/16 FTS Normal NT, Serum = REquested [...] Type Weight in lbs Pre/Post Dialysis Refused 150.949540538620 BP Diastolic BP Location Tested BP Systolic [...] Type Weight in lbs Pre/Post Dialysis Refused 153.019362116711 BP Diastolic BP Location Tested BP Systolic [...] Type Weight in lbs Pre/Post Dialysis Refused 152.688860395179 BP Diastolic BP Location Tested BP Systolic [...] Type Weight in lbs Pre/Post Dialysis Refused 152.645638553586 BP Diastolic BP Location Tested BP Systolic [...] Type Weight in lbs Pre/Post Dialysis Refused 158.987671114625 BP Diastolic BP Location Tested BP Systolic [...] Type Weight in lbs Pre/Post Dialysis Refused 163.457081959833 BP Diastolic BP Location Tested BP Systolic [...] Type Weight in lbs Pre/Post Dialysis Refused 165.868123525872 BP Diastolic BP Location Tested BP Systolic [...] Type Weight in lbs Pre/Post Dialysis Refused 167.960798617598 BP Diastolic BP Location Tested BP Systolic [...] Type Weight in lbs Pre/Post Dialysis Refused 169.369489065149 BP Diastolic BP Location Tested BP Systolic [...] Type Weight in lbs Pre/Post Dialysis Refused 170.955369360673 BP Diastolic BP Location Tested BP Systolic [...] Type Weight in lbs Pre/Post Dialysis Refused 172.741770929350 BP Diastolic BP Location Tested BP Systolic [...] Type Weight in lbs Pre/Post Dialysis Refused 171.982341980687 BP Diastolic BP Location Tested BP Systolic [...] Estim ated Date of Delivery false Thalassemia (Cameroonian, Italian, Mediterranean, Or Background): MCV < 80 false Neural Tube Defect (Meningomyelocele, Spina Bifi da, Or Anencephaly) false Congenital Heart Defect false Down Syndrome false Thiago-Sachs (eg, Baptist, Cajun, Cook Islander-Greenway) f alse Paulo Disease false Sickle Cell [...] Domestic Partner Domestic Partner Phone Father Name Water Taxi Operator Status 10/09/19 23 1 O Positive 163 Chanel, 37 Chanel, 37 [facility] CLOSED Fetus Data First Name Last Name Admitted to NICU Weight (g) Sex Living Outcome Pediatric Complications Fetus ID Race Codes Race Delivery Type , Spontane ous Problems Problem Notes [place]- [place] ice managerbottle/circ if boy/PP/epidural08/05/2010: 38wks, 7# 14oz, -BCHG10/09/2016: 40wks, can't remember wgt, hyperemesis- [facility]-rec requestedULTRASOUNDS: 10/15/22: GS and YS, no FP, repeat in one week. Periods are irregular/SMO10/24/22: GS/YS/FP cardiac activity - heart rate too low to measure, repeat in one week/SMO10/28/22: GS/YS/FP - no FCA - discussed miscarriage - would like to repeat in one week/SMO Problem Name Start Date End Date Resolution Snomed Code Not e Cholesterol granuloma of middle ear 62739625 ENT is Dr. Mas er at Ne[facility] 09/08/2019 179190507 intermit tent comes and goes screening 145020881 [ ]Djd25-qsgdaadvq at obhx, desires[-]AFP-discus sed at obhx, pt declined[x]CF-11/17/ 2010 negative Ora thyroiditis 05/09/2020 9417883 2 per rheumatology labs, [place] Obesity 047687071 BMI: 30.6 Contraception care management 566814415 unsure Body mass index 30+ - obesity 868340626 BMI: 30.6starti ng wgt: 173recommended wgt gain: 15-25 Active immunization 38259960 [-]Covid-declined at obhx[ ]Tdap-[ ]Flu- History of abnormal cervical Papanicolaou smear 10/12/2022 864529367 2013 LSIL, HPV+colpo: CIN1, neg ECC Nils [...] in lbs Pre/Post Dialysis Refused With clothes 173.769573428825 BP Diastolic BP Location Tested BP Systolic [...] in lbs Pre/Post Dialysis Refused With clothes 171.500904947686 BP Diastolic BP Location Tested BP Systolic [...] in lbs Pre/Post Dialysis Refused With clothes 168.104594960493 BP Diastolic BP Location Tested BP Systolic BP Type 80 124 sitting Fetus Heart Rate Present A US Present Fetus Movement Comments no LOF, no VB, no questions/ concerns. CB Reviewed US findings - discussed NILS 06/17/22. Encouraged hydration. Had an episode of vaginal bleeding for a couple of days, was seen at [facility] - had US - looked good unable [...] in lbs Pre/Post Dialysis Refused With clothes 169.000456680389 BP Diastolic BP Location Tested BP Systolic [...] At Estimated Date of Delivery false Thalassemia (Cameroonian, Italian, Mediterranean, Or Background): MCV < 80 false Neural Tube Defect (Meningom yelocele, Spina Bifida, Or Anencephaly) false Congenital Heart Defect false Down Syndrome false Thiago-Sachs (eg, Baptist, Cajun, Cook Islander-Greenway) f alse Paulo Disease false Sickle Cell Disease Or Trait () false Hemophilia Or Other Blood Disorders false Muscular Dystrophy false Cystic Fibrosis false Mather's Chorea false Mental Retardation/Autism false If Yes, [...] Tubal Sterilization Discharge Date Comments [address] [facility] Discharge Information Feeding Method Contraceptive Method Maternal HG B and HCT Levels Ob Episode Information Episode Created Date Number of Fetuses Patient Bloodtype Patient rh Status Prepregnancy Weight lbs Domestic Partner Domestic Partner Phone Father Name Water Taxi Operator Status 03/12/19 23 1 CLOSED Fetus Data First Name Last Name Admitted to NICU Weight (g) Sex Living Outcome Pediatric Complications Fetus ID Race Codes Race Delivery Type M Full Term 14093 Vaginal Nils Calculation Initial Nils Date Initial [...] vivas cauc, not sure weight, delivered at [facility] Discharge Information Feeding Method Contraceptive Method Maternal HG B and HCT Levels
--- OUTSIDE RECORDS SUMMARY | 2024-08-29 09:43 | XMS_ITS | Data Portability ---
Author Organization SORAYA ANSON Perez [facility] CLOSED Address [address] [place] [address] Care Team Providers Care Belting Cutter Name Role Phone MARTHAREGI Primary Care Provider [phone] Assessment Encounter Date Assessment Date Assessment LastModified [...] all info to be phoned to patient [email or web address] Not available 12/03/2018 07:45:13 Plan of Treatment Reminders Order Date Submit Date Provider Last Modified By Organization Details Last Modified Time Details Appointments None recorded. Lab TSH, serum or plasma 2018 019 [email or web address] [facility], [address] [place] [address], [address], 9 07:05:43 T4, free, serum 2018 019 [email or web address] [facility], [address] [place] [address], [address], 9 07:05:43 CBC w/ auto diff 2018 019 [email or web address] [facility], [address] [place] [address], [address], 9 07:05:43 CMP, serum or plasma 2018 019 [email or web address] [facility], [address] [place] [address], [address], 9 07:05:43 ESR (erythrocyt e sedimentati on rate), blood 2018 [email or web address] [facility], [address] [place] [address], [address], 9 07:05:43 Referral None recorded. Procedures None recorded. Surgeries None recorded. Imaging None recorded. Medication Orders None recorded. Patient TargetsNo targets recorded. Patient Instructions Encounter Date Encounter Id Patient Instructions Last Modified By Organization Details Last Modified Time 11/25/2018 [id number] eating healthy foods: care instructions [email or web address] Not available 11/26/2018 07:05:43 Reason for Referral None Reported. Results Created Date Observation Date Name Description Value Unit Range Abnormal Flag Note LastModifiedBy Organization Detail LastModifiedTime 11/26/19 19 11/25/2018 CBC w/ auto diff white blood cells 6.8 K/uL 3.8-10 .8 normal Not Available [facility] [address] [place] [address], [address], 11/25/2018 11:52:56 11/26/1911/25/2018 CBC w/ auto diff red blood cells 4.82 M/uL 3.80-5 .20 normal Not Available [facility] [address] [place], [address], 11/25/2018 11:52:56 11/26/1911/25/2018 CBC w/ auto diff hemoglobin 13.8 g/dL 12.0-1 6.0 normal Not Available [facility] [address] [place], [address], 11/25/2018 11:52:56 11/26/1911/25/2018 CBC w/ auto diff hematocrit 40.5 % 35.0-4 7.0 normal Not Available [facility] [address] [place] [address], [address], 11/25/2018 11:52:56 11/26/1911/25/2018 CBC w/ auto diff MCV 84 fL 80-100 normal Not Available [facility] [address] [place], [address], 11/25/2018 11:52:56 11/26/1911/25/2018 CBC w/ auto diff MCH 29 pg 26-35 normal Not Available [facility] [address] [place] [address], [address], 11/25/2018 11:52:56 11/26/1911/25/2018 CBC w/ auto diff MCHC 34 g/dL 32-36 normal Not Available [facility] [address] [place], [address], 11/25/2018 11:52:56 11/26/1911/25/2018 CBC w/ auto diff RDW 13.9 % 11.0-1 5.0 normal Not Available [facility] [address] [place], [address], 11/25/2018 11:52:56 11/26/1911/25/2018 CBC w/ auto diff MPV 8.5 fL 6.2-10 .5 normal Not Available [facility] [address] [place] [address], [address], 11/25/2018 11:52:56 11/26/1911/25/2018 CBC w/ auto diff platelet count 237 K/uL 130-40 0 normal Not Available [facility] [address] [place] [address], [address], 11/25/2018 11:52:56 11/26/1911/25/2018 CBC w/ auto diff neutrophil,a bsolute 3.9 K/uL 1.6-8. 4 normal Not Available [facility] [address] [place] [address], [address], 11/25/2018 11:52:56 11/26/1911/25/2018 CBC w/ auto diff lymphocyte,a bsolute 2.2 K/uL 0.4-5. 1 normal Not Available [facility] [address] [place] [address], [address], 11/25/2018 11:52:56 11/26/1911/25/2018 CBC w/ auto diff monocyte,abs olute 0.5 K/uL 0.0-1. 2 normal Not Available [facility] [address] [place] [address], [address], 11/25/2018 11:52:56 11/26/1911/25/2018 CBC w/ auto diff eosinophil,a bsolute 0.2 K/uL 0.0-0. 8 normal Not Available [facility] [address] [place] [address], [address], 11/25/2018 11:52:56 11/26/1911/25/2018 CBC w/ auto diff basophil,abs olute 0.1 K/uL 0.0-0. 3 normal Not Available [facility] [address] [place] [address], [address], 11/25/2018 11:52:56 11/26/1911/25/2018 CBC w/ auto diff % neutrophils 58.1 % 42.0-7 8.0 normal Not Available [facility] [address] [place] [address], [address], 11/25/2018 11:52:56 11/26/1911/25/2018 CBC w/ auto diff % lymphocytes 31.8 % 11.0-4 7.0 normal Not Available [facility] [address] [place] [address], [address], 11/25/2018 11:52:56 11/26/1911/25/2018 CBC w/ auto diff % monocytes 6.7 % 0.0-11 .0 normal Not Available [facility] [address] [place] [address], [address], 11/25/2018 11:52:56 11/26/1911/25/2018 CBC w/ auto diff % eosinophils 2.5 % 0.0-7. 0 normal Not Available [facility] [address] [place] [address], [address], 11/25/2018 11:52:56 11/26/1911/25/2018 CBC w/ auto diff % basophils 0.9 % 0.0-3. 0 normal Not Available [facility] [address] [place] [address], [address], 11/25/2018 11:52:56 11/26/1911/25/2018 CBC w/ auto diff nucleated red cells 0.0 % 0.0-0. 9 normal Not Available [facility] [address] [place] [address], [address], 11/25/2018 11:52:56 11/26/1911/25/2018 CBC w/ auto diff nucleated RBCs, absolute 0.00 K/uL not estab. normal Not Available [facility] [address] [place] [address], [address], 11/25/2018 11:52:56 11/26/1911/25/2018 CMP, serum or plasm a glucose 87 mg/dL 74-100 normal Not Available [facility] [address] [place] [address], [address], 11/25/2018 12:20:54 11/26/19 19 11/25/2018 CMP, serum or plasm a blood urea nitrogen 12 mg/dL 6-20 normal Not Available [facility] [address] [place] [address], [address], 11/25/2018 12:20:54 11/26/1911/25/2018 CMP, serum or plasm a creatinine 0.65 mg/dL 0.50-0 .95 normal Not Available [facility] [address] [place] [address], [address], 11/25/2018 12:20:54 11/26/1911/25/2018 CMP, serum or plasm a BUN/creatini ne ratio 18 (calc ) 10-20 normal Not Available [facility] [address] [place] [address], [address], 11/25/2018 12:20:54 11/26/1911/25/2018 CMP, serum or plasm a sodium 138 mmol/ L 136-14 5 normal Not Available [facility] [address] [place] [address], [address], 11/25/2018 12:20:54 11/26/1911/25/2018 CMP, serum or plasm a potassium 3.9 mmol/ L 3.4-5. 0 normal Not Available [facility] [address] [place] [address], [address], 11/25/2018 12:20:54 11/26/1911/25/2018 CMP, serum or plasm a chloride 100 mmol/ L 98-107 normal Not Available [facility] [address] [place] [address], [address], 11/25/2018 12:20:54 11/26/19 19 11/25/2018 CMP, serum or plasm a carbon dioxide 24 mmol/ L 20-32 normal Not Available [facility] [address] [place] [address], [address], 11/25/2018 12:20:54 11/26/19 19 11/25/2018 CMP, serum or plasm a anion gap 14 (calc ) 7-25 normal Not Available [facility] [address] [place] [address], [address], 11/25/2018 12:20:54 11/26/19 19 11/25/2018 CMP, serum or plasm a calcium 9.1 mg/dL 8.6-10 .2 normal Not Available [facility] [address] [place] [address], [address], 11/25/2018 12:20:54 11/26/19 19 11/25/2018 CMP, serum or plasm a total protein 7.1 g/dL 6.4-8. 3 normal Not Available [facility] [address] [place] [address], [address], 11/25/2018 12:20:54 11/26/1911/25/2018 CMP, serum or plasm a albumin 4.7 g/dL 3.5-5. 2 normal Not Available [facility] [address] [place] [address], [address], 11/25/2018 12:20:54 11/26/1911/25/2018 CMP, serum or plasm a globulin 2.4 g/dL_ (calc ) 1.5-4. 5 normal Not Available [facility] [address] [place] [address], [address], 11/25/2018 12:20:54 11/26/1911/25/2018 CMP, serum or plasm a albumin/glob ulin ratio 2.0 (calc ) 1.1-2. 5 normal Not Available [facility] [address] [place] [address], [address], 11/25/2018 12:20:54 11/26/1911/25/2018 CMP, serum or plasm a bilirubin, total 0.3 mg/dL 0.1-1. 2 normal Not Available [facility] [address] [place], [address], 11/25/2018 12:20:54 11/26/1911/25/2018 CMP, serum or plasm a alkaline phosphatase 59 U/L 35-105 normal Not Available [facility] [address] [place], [address], 11/25/2018 12:20:54 11/26/1911/25/2018 CMP, serum or plasm a AST 14 U/L 0-32 normal Not Available [facility] [address] [place] [address], [address], 11/25/2018 12:20:54 11/26/1911/25/2018 CMP, serum or plasm a ALT 15 U/L 0-33 normal Not Available [facility] [address] [place], [address], 11/25/2018 12:20:54 11/26/1911/25/2018 CMP, serum or plasm a GFR 138 >= 60 normal Not Available [facility] [address] [place], [address], 11/25/2018 12:20:54 11/26/1911/25/2018 CMP, serum or plasm [...] month s or longe r. Not Available [facility] [address] [place], [address], 11/25/2018 12:20:54 11/26/1911/25/2018 T4, free, serum T4,free 1.24 NG/dL 0.93-1 .70 normal Not Available [facility] [address] [place], [address], 11/25/2018 12:28:12 11/26/19 19 11/25/2018 TSH, serum or plasm a TSH 1.360 uIU/m L 0.290- 5.500 normal Not Available [facility] [address] [place], [address], 11/25/2018 12:31:52 11/26/1911/25/2018 ESR (eryt hrocy te sedim entat ion rate) , blood ESR, automated <1 mm/HR 0-19 normal RESUL TS RECHE CKED. Not Available [facility] [address] [place] [address], [address], 11/25/2018 14:45:53 Result Notes None recorded. Problems Name Problem SNOMED Code Status Onset Date Resolution Date Notes Provider Name and Address Organization Details Recorded Time Muscle weakness 91180382 [facility] 10[facility]43 Problem Notes None recorded. Procedures Surgical History Date Name Laterality Status Provider Name and Address Organization Details Recorded Time 9 procedure on brain completed Molly Alejandra [facility] 11/25/2018 09:51:32 6 procedure on brain completed Molly Alejandra [facility] 11/25/2018 09:51:28 5 procedure on brain completed Molly Alejandra [facility] 11/25/2018 09:51:24 Imaging Results None recorded. [...] Address Organization Details Last Updated DateTime 11/25/2018 23044.78 g 28.3 kg/m2 160.02 cm 103/78 mm[Hg] Molly Alejandra [facility] 11/25/2018 09:54:18 Social History Question Answer Notes LastModified by [employer] Details LastModified Time Tobacco Smoking Status Never Smoker Molly Roberts [facility] 11/25/2018 09:50:18 How Much Tobacco Do You Chew? None Information not available 11/25/2018 Live Alone Or With Others? With Others Information not available 11/25/2018 Marital Status Single Christopher Sutton Information not available 11/25/2018 How Much Tobacco Do You Smoke? No Information not available 11/25/2018 Sex: Unknown Functional Status Question Answer Note LastModified by [employer] Details LastModified Time What is your level of alcohol consumption? None Information not available 11/25/2018 Do you or have you ever used smokeless tobacco? 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 Information not available 11/25/2018 Do you [...] SNOMED-CT Code Diagnosis ICD10 Code Diagnosis Note [id number] RAVEN ALVAREZ MD NEUROLOGY [facility] CL[facility]ED [address] [place] [address] 11/25/2018 09:10:41 11/25/2018 11:35:28 Muscle weakness 50880923 M62.81 Paresthesia 03061294 R20 .2 Health Concerns Section Related Observation LastModified by Organization Detai ls LastModified Time None Recorded Concern Status LastModified by Organization Details LastModified Time None Recorded Advance Directives Directive None Recorded Payers Insurance Date Sequence Insurance Name Policy Number Policy English Covered Member ID English Member ID Guarantor Name 07/22/2019 1 [place] [id number] Lillian N Erica [id number] Lillian Emperatriz Erica 11/25/2018 1 [place] [id number] Lillian N Erica [id number] Lillian Emperatriz Erica Notes Date Note Type Note Provider Name and Address Organization Details Recorded Time 11/25/2018 text/html This is my first time to evaluate this 28 year old woman at the request of Regi Vargas APRN in [facility]. 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
== END 2024-08-29 23:59 | disposition home or self-care (01) ==
LOC: LAB 09:38
PROVIDERS: PCP Nurse Practitioner Family; Visit Provider Obstetrics & Gynecology
DX: N96 Recurrent pregnancy loss (principal)
CPT/HCPCS: 36415; 84702

== ENCOUNTER 2024-09-08 11:40 | Outpatient (CLI) | payer MEDICAID, SELFPAY ==
[2024-09-10 12:03] LABS: Neisseria gonorrhoeae, NAA Negative (Negative)
--- OUTSIDE RECORDS SUMMARY | 2024-09-12 11:46 | XMS_ITS | Clinical Summary ---
Author Organization Healthcare Address [address] [place] [address] Care Team Providers Care Light Technician Name Role Phone Anaya Vargas APRN Primary Care Provider [phone] Natanael Campa MD Unavailable Allergies No known active allergies Medications ergocalciferol 1.25 MG (15029 UT) capsule 05/01/2020 Active cholecalciferol (Vitamin D-3) 1.25 MG (15822 UT) capsule TAKE 1 CAPSULE WEEKLY FOR [...] 2009 [facility]-Cervical Cancer Screening 2018 [facility]-HPV/Cotest 2018 [id number] Vaccine (1 - 20 24-25 season) 2023 [...] topic Insurance [employer]ORT MEDICAID [place] Care Teams Light Technician Relationship Specialty Start Date End Date Anaya Vargas APRN [address] [place] [address] PCP - General 01/18/21 Natanael Campa MD [address] [facility] [address] [place] [id number] Surgeon Neurosurgery 01/18/21
--- OUTSIDE RECORDS SUMMARY | 2024-09-12 11:46 | XMS_ITS | Continuity of Care Document ---
Author Organization Jaimie Amaral [facility] Address [address] [place] [address] Assessment No assessment recorded. Plan of Treatment Reminders Order Date Submit Date Provider Last Modified By Organization Details Last Modified Time Details Appointments None recorded. Lab rf (rheumatoid factor), serum 2024 025 MARCELA [facility], [address], Michael F, [place], [address], 5 14:37:07 C reactive protein, QN, serum or plasma 2024 025 MARCELA [facility], [address], Michael F, [place], [address], 5 14:37:10 MELISSA (antinuclea r antibodies) screen, serum 2024 025 MARCELA [facility], [address], Michael F, [place], [address], 5 14:37:09 TSH + free T4, serum 2024 025 MARECLA [facility], [address], Michael F, [place], [address], 5 14:37:03 CMP, serum or plasma 2024 025 MARCELA [facility], [address], Michael F, [place], [address], 5 14:37:05 iron + total iron-bindin g capacity (TIBC), serum 2024 025 MARCELA [facility], [address], Michael F, [place], [address], 5 14:37:05 HbA1c (hemoglobin A1c), blood 2024 025 MARCELA [facility], [address], Michael F, [place], [address], 5 14:37:07 CBC w/ auto diff 2024 025 MARCELA [facility], [address], Michael F, [place], [address], 5 14:37:04 ESR (erythrocyt e sedimentati on rate), blood 2024 025 MARCELA [facility], [address], Michael F, [place], [address], 5 14:37:09 cobalamin and folate panel, serum 2024 025 MARCELA [facility], [address], Michael F, [place], [address], 5 14:37:06 vitamin D, 25-hydroxy, total, serum 2024 025 MARCELA [facility], [address], Michael F, [place], [address], 5 14:37:08 Referral None recorded. Procedures None recorded. Surgeries None recorded. Imaging None recorded. Medication Orders None recorded. Patient TargetsNo targets recorded. Patient Instructions Encounter Date Encounter Id Patient Instructions Last Modified By Organization Details Last Modified Time 08/01/2024 [id number] numbness and tingling: care instructions [id number] Not available 08/01/2024 15:31:35 Reason for Referral None Reported. Results Created Date Observation Date Name Description Value Unit Range Abnormal Flag Note LastModifiedBy Organization Detail LastModifiedTime 08/02/19 25 08/02/2024 TSH+F REE T4 TSH 1.470 uIU/m L 0.450- 4.500 normal Not Available [facility] ([facility]) [address] [place], [address], 08/02/2024 14:37:03 08/02/19 25 08/02/2024 TSH+F REE T4 T4,free(dire ct) 1.07 NG/dL 0.82-1 .77 normal Not Available [facility] ([facility]) [address] [place], [address], 08/02/2024 14:37:03 08/02/19 25 08/02/2024 CBC WITH DIFFE RENTI AL/PL ATELE T WBC 6.5 x10e3 /uL 3.4-10 .8 normal Not Available [facility] ([facility]) [address] [place], [address], 08/02/2024 14:37:04 08/02/19 25 08/02/2024 CBC WITH DIFFE RENTI AL/PL ATELE T RBC 4.67 x10e6 /uL 3.77-5 .28 normal Not Available [facility] ([facility]) [address] [place], [address], 08/02/2024 14:37:04 08/02/19 25 08/02/2024 CBC WITH DIFFE RENTI AL/PL ATELE T hemoglobin 13.1 g/dL 11.1-1 5.9 normal Not Available [facility] ([facility]) [address] [place], [address], 08/02/2024 14:37:04 08/02/19 25 08/02/2024 CBC WITH DIFFE RENTI AL/PL ATELE T hematocrit 40.5 % 34.0-4 6.6 normal Not Available [facility] ([facility]) [address] [place], [address], 08/02/2024 14:37:04 08/02/19 25 08/02/2024 CBC WITH DIFFE RENTI AL/PL ATELE T MCV 87 fL 79-97 normal Not Available [facility] ([facility]) [address] [place], [address], 08/02/2024 14:37:04 08/02/19 25 08/02/2024 CBC WITH DIFFE RENTI AL/PL ATELE T MCH 28.1 pg 26.6-3 3.0 normal Not Available [facility] ([facility]) [address] [place], [address], 08/02/2024 14:37:04 08/02/19 25 08/02/2024 CBC WITH DIFFE RENTI AL/PL ATELE T MCHC 32.3 g/dL 31.5-3 5.7 normal Not Available [facility] ([facility]) [address] [place], [address], 08/02/2024 14:37:04 08/02/19 25 08/02/2024 CBC WITH DIFFE RENTI AL/PL ATELE T RDW 12.9 % 11.7-1 5.4 Not Available [facility] ([facility]) [address] [place], [address], 08/02/2024 14:37:04 08/02/19 25 08/02/2024 CBC WITH DIFFE RENTI AL/PL ATELE T platelets 271 x10e3 /uL 150-45 0 normal Not Available [facility] ([facility]) [address] [place], [address], 08/02/2024 14:37:04 08/02/19 25 08/02/2024 CBC WITH DIFFE RENTI AL/PL ATELE T neutrophils 62 % not estab. normal Not Available [facility] ([facility]) [address] [place], [address], 08/02/2024 14:37:04 08/02/19 25 08/02/2024 CBC WITH DIFFE RENTI AL/PL ATELE T lymphs 25 % not estab. normal Not Available [facility] ([facility]) [address] [facility], [place], [address], 08/02/2024 14:37:04 08/02/19 25 08/02/2024 CBC WITH DIFFE RENTI AL/PL ATELE T monocytes 8 % not estab. normal Not Available [facility] ([facility]) [address] [facility], [place], [address], 08/02/2024 14:37:04 08/02/19 25 08/02/2024 CBC WITH DIFFE RENTI AL/PL ATELE T eos 3 % not estab. normal Not Available [facility] ([facility]) [address] [facility], [place], [address], 08/02/2024 14:37:04 08/02/19 25 08/02/2024 CBC WITH DIFFE RENTI AL/PL ATELE T basos 1 % not estab. normal Not Available [facility] ([facility]) [address] [place], [address], 08/02/2024 14:37:04 08/02/19 25 08/02/2024 CBC WITH DIFFE RENTI AL/PL ATELE T immature cells BRAKE ENGINEER Not Available [facility] ([facility]) [address] [place], [address], 08/02/2024 14:37:04 08/02/19 25 08/02/2024 CBC WITH DIFFE RENTI AL/PL ATELE T neutrophils (absolute) 4.1 x10e3 /uL 1.4-7. 0 normal Not Available [facility] ([facility]) [address] [place], [address], 08/02/2024 14:37:04 08/02/19 25 08/02/2024 CBC WITH DIFFE RENTI AL/PL ATELE T lymphs (absolute) 1.7 x10e3 /uL 0.7-3. 1 normal Not Available [facility] ([facility]) [address] [facility], [place], [address], 08/02/2024 14:37:04 08/02/19 25 08/02/2024 CBC WITH DIFFE RENTI AL/PL ATELE T monocytes(ab solute) 0.5 x10e3 /uL 0.1-0. 9 normal Not Available [facility] ([facility]) [address] [facility], [place], [address], 08/02/2024 14:37:04 08/02/19 25 08/02/2024 CBC WITH DIFFE RENTI AL/PL ATELE T eos (absolute) 0.2 x10e3 /uL 0.0-0. 4 normal Not Available [facility] ([facility]) [address] [facility], [place], [address], 08/02/2024 14:37:04 08/02/19 25 08/02/2024 CBC WITH DIFFE RENTI AL/PL ATELE T baso (absolute) 0.1 x10e3 /uL 0.0-0. 2 normal Not Available [facility] ([facility]) [address] [facility], [place], [address], 08/02/2024 14:37:04 08/02/19 25 08/02/2024 CBC WITH DIFFE RENTI AL/PL ATELE T immature granulocytes 1 % not estab. Not Available [facility] ([facility]) [address] [place], [address], 08/02/2024 14:37:04 08/02/19 25 08/02/2024 CBC WITH DIFFE RENTI AL/PL ATELE T immature grans (abs) 0.0 x10e3 /uL 0.0-0. 1 Not Available [facility] ([facility]) [address] [place], [address], 08/02/2024 14:37:04 08/02/19 25 08/02/2024 CBC WITH DIFFE RENTI AL/PL ATELE T NRBC BRAKE ENGINEER Not Available [facility] ([facility]) [address] [facility], [place], [address], 08/02/2024 14:37:04 08/02/19 25 08/02/2024 CBC WITH DIFFE RENTI AL/PL ATELE T hematology comments: BRAKE ENGINEER Not Available [facility] ([facility]) [address] [facility], [place], [address], 08/02/2024 14:37:04 08/02/19 25 08/02/2024 COMP. METAB OLIC PANEL (14) glucose 96 mg/dL 70-99 normal Not Available [facility] ([facility]) [address] [facility], [place], [address], 08/02/2024 14:37:05 08/02/19 25 08/02/2024 COMP. METAB OLIC PANEL (14) BUN 13 mg/dL 6-20 normal Not Available [facility] ([facility]) [address] [facility], [place], [address], 08/02/2024 14:37:05 08/02/19 25 08/02/2024 COMP. METAB OLIC PANEL (14) creatinine 0.67 mg/dL 0.57-1 .00 normal Not Available [facility] ([facility]) [address] [facility], [place], [address], 08/02/2024 14:37:05 08/02/19 25 08/02/2024 COMP. METAB OLIC PANEL (14) eGFR 116 mL/mi n/1.7 3 >59 normal Not Available [facility] ([facility]) [address] [place], [address], 08/02/2024 14:37:05 08/02/19 25 08/02/2024 COMP. METAB OLIC PANEL (14) BUN/creatini ne ratio 19 9-23 normal Not Available [facility] ([facility]) [address] [place], [address], 08/02/2024 14:37:05 08/02/19 25 08/02/2024 COMP. METAB OLIC PANEL (14) sodium 139 mmol/ L 134-14 4 normal Not Available [facility] ([facility]) [address] [place], [address], 08/02/2024 14:37:05 08/02/19 25 08/02/2024 COMP. METAB OLIC PANEL (14) potassium 4.0 mmol/ L 3.5-5. 2 normal Not Available [facility] ([facility]) [address] [place], [address], 08/02/2024 14:37:05 08/02/19 25 08/02/2024 COMP. METAB OLIC PANEL (14) chloride 102 mmol/ L 96-106 normal Not Available [facility] ([facility]) [address] [place], [address], 08/02/2024 14:37:05 08/02/19 25 08/02/2024 COMP. METAB OLIC PANEL (14) carbon dioxide, total 19 mmol/ L 20-29 below low normal Not Available [facility] ([facility]) [address] [place], [address], 08/02/2024 14:37:05 08/02/19 25 08/02/2024 COMP. METAB OLIC PANEL (14) calcium 9.2 mg/dL 8.7-10 .2 normal Not Available [facility] ([facility]) [address] [facility] [place], [address], 08/02/2024 14:37:05 08/02/19 25 08/02/2024 COMP. METAB OLIC PANEL (14) protein, total 6.5 g/dL 6.0-8. 5 normal Not Available [facility] ([facility]) [address] [facility] [place], [address], 08/02/2024 14:37:05 08/02/19 25 08/02/2024 COMP. METAB OLIC PANEL (14) albumin 4.3 g/dL 3.9-4. 9 normal Not Available [facility] ([facility]) [address] [place], [address], 08/02/2024 14:37:05 08/02/19 25 08/02/2024 COMP. METAB OLIC PANEL (14) globulin, total 2.2 g/dL 1.5-4. 5 Not Available [facility] ([facility]) [address] [place], [address], 08/02/2024 14:37:05 08/02/19 25 08/02/2024 COMP. METAB OLIC PANEL (14) bilirubin, total 0.3 mg/dL 0.0-1. 2 normal Not Available [facility] ([facility]) [address] [place], [address], 08/02/2024 14:37:05 08/02/19 25 08/02/2024 COMP. METAB OLIC PANEL (14) alkaline phosphatase 63 IU/L 44-121 normal Not Available [facility] ([facility]) [address] [place], [address], 08/02/2024 14:37:05 08/02/19 25 08/02/2024 COMP. METAB OLIC PANEL (14) AST (SGOT) 23 IU/L 0-40 normal Not Available [facility] ([facility]) [address] [place], [address], 08/02/2024 14:37:05 08/02/19 25 08/02/2024 COMP. METAB OLIC PANEL (14) ALT (SGPT) 31 IU/L 0-32 normal Not Available [facility] ([facility]) [address] [place], [address], 08/02/2024 14:37:05 08/02/19 25 08/02/2024 IRON AND TIBC iron bind.cap.(TI BC) 400 ug/dL 250-45 0 normal Not Available [facility] ([facility]) [address] [facility], [place], [address], 08/02/2024 14:37:05 08/02/19 25 08/02/2024 IRON AND TIBC UIBC 327 ug/dL 131-42 5 normal Not Available [facility] ([facility]) [address] [facility], [place], [address], 08/02/2024 14:37:05 08/02/19 25 08/02/2024 IRON AND TIBC iron 73 ug/dL 27-159 normal Not Available [facility] ([facility]) [address] [facility], [place], [address], 08/02/2024 14:37:05 08/02/19 25 08/02/2024 IRON AND TIBC iron saturation 18 % 15-55 normal Not Available [facility] ([facility]) [address] [facility], [place], [address], 08/02/2024 14:37:05 08/02/19 25 08/02/2024 VITAM IN B12 AND FOLAT E vitamin B12 288 pg/mL 232-12 45 normal Not Available [facility] ([facility]) [address] [place], [address], 08/02/2024 14:37:06 08/02/19 25 08/02/2024 VITAM IN B12 AND FOLAT E folate (folic acid), serum 7.6 NG/mL >3.0 normal A serum folat e joceline ntrat ion of less than 3.1 ng/mL is consi dered to repre sent clini fercho defic iency . Not Available [facility] ([facility]) [address] [place], [address], 08/02/2024 14:37:06 08/02/19 25 08/02/2024 HEMOG LOBIN A1C hemoglobin A1C 5.5 % 4.8-5. 6 normal Predi abete s: 5.7 - 6.4 Diabe sascha: >6.4 Glyce matias contr ol for adult s with diabe sascha: <7.0 Not Available [facility] ([facility]) [address] [place], [address], 08/02/2024 14:37:07 08/02/19 25 08/02/2024 RHEUM ATOID FACTO R (RF) rheumatoid factor (rf) <10.0 IU/mL <14.0 Not Available [facility] ([facility]) [address] [facility], [place], [address], 08/02/2024 14:37:07 08/02/19 25 08/02/2024 VITAM IN [...] Medic ine). 2009. Dieta ry refer ence intletty es for calci um and D. Adriana lopez [place]: The Natio nal [facility] Press . 2. Mark holloway [place], Stacey francois [place], Saida off-F errar i ATKINS, et al. Evalu ation , treat ment, and preve ntion of vitam in D defic iency : an Endoc rine Socie ty clini fercho pract ice guide line. JCEM. 2010; 96(7) :1911 -30. Not Available [facility] ([facility]) [address] [place], [address], 08/02/2024 14:37:08 08/02/19 25 08/02/2024 MELISSA W/REF TIFFANIE IF POSIT JON MELISSA direct Negati ve negati ve Not Available [facility] ([facility]) [address] [facility], [place], [address], 08/02/2024 14:37:08 08/02/19 25 08/02/2024 SEDIM ENTAT ION RATE- WESTE RGREN sedimentatio n rate-westerg tanja 2 mm/HR 0-32 normal Not Available [facility] ([facility]) [address] [facility], [place], [address], 08/02/2024 14:37:09 08/02/19 25 08/02/2024 C-NADIRA CTIVE PROTE IN, QUANT C-reactive protein, quant 2 mg/L 0-10 normal Not Available [facility] ([facility]) [address] [facility], [place], [address], 08/02/2024 14:37:10 Result Notes None recorded. 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 Olsen at [facility] [address], [place], [address] , [facility] 3 15:49:25 Antenata l screenin g Completed [ ]Mat21-d iscussed at [facility], desires [-]AFP-d iscussed at [facility], pt declined [x]CF- negative Infusion Nurse [facility] [address], [place], [address] , [facility] - [facility] 3 15:49:24 Contrace ption care manageme nt Completed unsure Infusion Nurse [facility] [address], [place], [address] , [facility] 3 15:49:25 Body mass index 30+ - obesity 361118878 Completed BMI: 30.6 starting wgt: 173 recommen ded wgt gain: 15-25 [facility] [address], [place], [address] , [place] - [facility] 3 15:49:25 Active immuniza tion Completed [-]Covid -decline d at obhx [ ]Tdap- [ ]Flu- [facility] [address], [place], [address] , [place] - [facility] 3 15:49:24 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 50478616 Completed [place]: ENT Dr Olsen & Neurosx Dr Campa right petrous apex choleste rol granulom a [facility]fusion Nurse [facility] [address], [place], [address] , [place] - [facility] 8 13:59:46 Antenata l screenin g Completed 04/03/16 FTS Normal NT, Serum = REqueste d 09/03 [facility] [address], [place], [address] , [place] - [facility] 8 13:59:46 Normal pregnanc y 36926485 Completed 201603/16/2017 [facility] [address], [place], [address] , [place] - [facility] 8 14:00:16 Pregnanc y 64887041 Completed 201603/16/2017 Luanne Nemo null, [place] - [facility] 3 09:05:42 Muscle weakness 55905783 Active 2019 RIght Luanne Chester null, [place] - [facility] 3 11:29:58 Neuropat hy 483347623 Active 2019 intermit tent comes and goes [facility] [address], [place], [address] , [place] - [facility] 3 15:49:25 Neuropat hy 188704793 Completed 2019 intermit tent comes and goes [facility] [address], [place], [address] , [place] [facility] 3 15:49:25 Hashimot o thyroidi tis 09749072 Active 2020 per rheumato logy labs, [facility] [address], [place], [address] , [place] - [facility] 3 15:49:24 Hashimot o thyroidi tis 62257631 Completed 2020 per rheumato logy labs, [facility] [address], [place], [address] , [place] - [facility] 3 15:49:24 Vitamin D deficien cy 32840386 Active 2020 Scott Lincoln, BLADE OPERATOR [address], [place], [address] , [place] [facility] 5 14:48:19 History of abnormal cervical Papanico laou smear 376720752 Completed 2022 LSIL, HPV+ colpo: CIN1, neg ECC [facility] [address], [place], [address] , [place] - [facility] 3 15:49:25 History of abnormal cervical Papanico laou smear 715200263 Active 2022 LSIL, HPV+ colpo: CIN1, neg ECC [facility] [address], [place], [address] , [place] - [facility] 3 15:49:25 Tendinit is 85945873 Active 2024 Viky Restrepo, BLADE OPERATOR [address], [place], [address] , [place] - [facility] 5 15:46:56 Fatigue 49256147 Active 2024 Scott Lincoln APRN [address], [place], [address] , [place] - [facility] 5 08:42:52 Butterfl y rash 06196548 Active 2024 Scott Lincoln APRN [address], [place], [address] , [place] - [facility] 5 08:50:46 Paresthe karen of hand 147256786 Active 2024 Scott Lincoln APRN [address], [place], [address] , [place] - [facility] 5 08:54:36 Problem Notes None recorded. Procedures Surgical History Date Name Laterality Status Provider Name and Address Organization Details Recorded Time 023 OB Ultrasound Summary completed Ryanpapi Gutierrez [place] - [facility] 10/28/2022 16:25:13 023 OB Ultrasound Summary completed Lexi Gutierrez [place] - [facility] 10/24/2022 14:29:34 023 OB Ultrasound Summary completed Lexi Gutierrez [place] - [facility] 10/15/2022 14:00:05 023 IUD Removal completed Malaika Umana APRN [address], [place], [address], [place] - [facility] 03/13/2022 14:02:13 023 Date of Last Pap Smear completed Malaika Umana APRN [address], [place], [address], [place] - [facility] 03/18/2022 10:45:46 023 removal of intrauterine device completed Malaika Umana APRN [address], [place], [address], [place] - [facility] 03/13/2022 14:11:29 019 Medication Reconcilliation completed Deep Keane [place] - [facility] 04/14/2018 10:49:20 018 insertion of intrauterine contraceptive device completed Luanne Chester [place] - [facility] 03/12/2022 11:36:29 017 OB Ultrasound Summary completed Misty Johnson [place] - [facility] 05/28/2016 17:09:03 017 OB Ultrasound Summary completed Rochelle Gil [place] - [facility] 04/30/2016 10:38:28 017 OB Ultrasound Summary completed Elizabet Schumacher [place] - [facility] 03/26/2016 16:11:11 017 OB Ultrasound Summary completed Elizabet Schumacher [place] - [facility] 03/10/2016 14:04:59 016 IUD Removal completed Marcella Atkins [place] - [facility] 02/21/2016 15:05:42 016 Nsl/sins ndsc frnt tiss rmvl completed Marcella Atkins [place] - [facility] 02/22/2016 15:08:58 014 Colposcopy completed Marcella Atkins [place] - [facility] 02/21/2016 15:31:12 014 Colposcopy completed Marcella Atkins [place] - [facility] 02/21/2016 15:31:40 011 IUD Insertion completed Luanne Chester [place] - [facility] 03/12/2022 11:35:46 Imaging Results None [...] Updated DateTime 5 160.02 cm 32.1 kg/m2 61195.9 2 g 88 /min 98 % 98 % 18 /min 116/76 mm[Hg] Mireya kilpatrick [place] - [facility] 5 08:37:16 Social History Question Answer Notes LastModified by Organizat ion Details LastModified Time Tobacco Smoking Status Never Smoker Marcella [place], [place] - [facility] 02/22/2016 15:06:05 Do You Have An Advance Directive? No [email or web address] Information not available 03/12/2022 If You Are , What Was Your Level Of Alcohol Consumption Prior To ? None [email or web address] Information not available 03/12/2022 Are You Blind Or Do You Have Difficulty Seeing? No [email or web address] Information not available 03/12/2022 Is Blood Transfusion [...] COVID-19 While That Case Was Ill? No [email or web address] Information not available 03/12/2022 In The 14 Days Before Symptom Onset, Have You Had Close Contact With A Person Who Is Under Investigation For COVID-19 While That Person Was Ill? No [email or web address] Information not available 03/12/2022 Have You Been To An Area Known To Be High Risk For COVID-19? No [email or web address] Information not available 03/12/2022 Are You Deaf Or Do You Have Serious Difficulty Hearing? No [email or web address] Information not available 03/12/2022 Diabetes No Information no t available 02/22/2016 What Type Of Diet Are You Following? REGULAR Information not available 02/22/2016 Which Illicit Or Recreational Drugs Have You Used? No Hx Information not available 02/22/2016 Have You Processed Blood Or Body Fluids From An Ebola Virus Disease Patient Without Appropriate PPE? No [email or web address] Information not available 03/12/2022 Do You Reside In Or Have You Traveled To An Area Where Ebola Virus Transmission Is Active? No [email or web address] Information not available 03/12/2022 Education 12 [email or web address] Information no t available 03/12/2022 What Is The Highest Grade Or Level Of School You Have Completed Or The Highest Degree You Have Received? [id number] [email or web address] Information not available 03/12/2022 Have There Been Any Changes To Your Family Or Social Situation? No Information no t available 02/22/2016 What Is The Fluoride Status Of Your Home? Fluoridated [email or web address] Information not available 03/12/2022 Frequent Air Travel No Information not available 02/22/2016 Have You Recently Or Are You Planning To Travel To An Area With Zika Virus? No [email or web address] Information not available 03/12/2022 High Blood Pressure No Information not available 02/22/2016 High Cholesterol No Informat ion not available 02/22/2016 Illicit Drugs Pre- None Information not available 02/22/2016 Live Alone Or With Others? With Others Information not available 02/22/2016 Do You Have A Medical Power Of Acid Bath Mixer? Yes [email or web address] Information not available 03/12/2022 What Was The Date Of Your Most Recent Tobacco Screening? 04/25/2024 Information not available 04/25/2024 How Many Children Do You Have? 2 Information not available 10/08/2022 Do You Have Any Pets? No Information not available 02/22/2016 Do You Use Protection During Sex? No [email or web address] Information not available 03/12/2022 Do You Use Protection Against STDs? No [email or web address] Information not available 03/12/2022 What Is Your Relationship Status? [email or web address] Information not available 03/12/2022 Seat Belts Used [...] Was Counseling Provided To Achieve ? No [email or web address] Information not available 03/12/2022 Do You Want To Talk About Contraception Or Prevention During Your Visit Today? No - I Do Not Want To Talk About Contraception Today Because I Am Here For Something Else Information not available 10/15/2022 What Is Your Reason For Having No Contraceptive Method At Start Of This Visit? Other [email or web address] Information not available 10/15/2022 Sex: Female Functional Status Question Answer Note LastModified by Organizat ion Details LastModified Time Do you or have you ever used smokeless tobacco? Never used smokeless tobacco Information not available 07/25/2020 Are you currently employed? Yes Information not available 02/22/2016 Do you have transportation difficulties? No [email or web address] Information not available 03/12/2022 Are you able to care for yourself independently? Yes [email or web address] Information not available 03/12/2022 Do you have difficulty dressing, bathing, grooming, or toileting? No [email or web address] Information not available 03/12/2022 Do you or [...] 10/08/2022 Are you able to walk? YESWOREST [email or web address] Information not available 03/12/2022 Do you have difficulty doing errands alone? 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 [id number] [email or web address] Information not available 03/12/2022 Do you have difficulty concentrating, remembering or making decisions? No [email or web address] Information no t available 03/12/2022 Family History [...] disease N Blood Diseases N Hyperthyroidism N Blood Transfusion N Rheumatoid arthritis N Erectile Dysfunction N amputation N Skin [...] colitis N Cerebrovascular Disease N Depression N Guillain-[place] N Sleep Apnea N Aneurysm N Bronchitis [...] SNOMED-CT Code Diagnosis ICD10 Code Diagnosis Note [id number] Scott Lincoln APRN [facility] [address] 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 Fatigue 05208900 R53.83 PE noted with butterfly appearing rash to face. Will check labs at this time. Advised to continue working on improved diet with reduced processed foods, sugars, focus on whole foods. Increase exercise 5 days 30min. F/U 3-4 weeks or sooner pending labs. Butterfly rash [id number] R21 PE noted with butterfly rash will check labs, concern for possible lupus or other autoimmune disease considerin g worsening fatigue, joint pain, malar rash, edema. Will notify with results once available. F/u 3-4 weeks or sooner pending labs. Paresthesia of hand 3090 40846 R20.2 PE noted with decreased sensation to [...] ID Guarantor Name 08/01/2024 1 [employer] (MEDICAID REPLACEMENT - HMO) Lillian N Erica [id number] Lillian Fath OBGyn Episode No OBEpisode recorded.
--- OUTSIDE RECORDS SUMMARY | 2024-09-12 11:46 | XMS_ITS | Data Portability ---
Author Organization [facility] [place] [facility] Address [address] [place] [address] Care Team Providers Care Cotton Ginner Helper Name Role Phone MARTHAREGI Primary Care Provider [...] all info to be phoned to patient Not available 12/03/2018 07:45:13 Plan of Treatment Reminders Order Date Submit Date Provider Last Modified By Organization Details Last Modified Time Details Appointments None recorded. Lab TSH, serum or plasma 2018 019 [email or web address] [facility], [address] [place] [address], [address], 9 07:05:43 T4, free, serum 2018 019 [email or web address] [facility], [address] [place] [address], [address], 9 07:05:43 CBC w/ auto diff 2018 019 [email or web address] [facility], [address] [place] [address], [address], 9 07:05:43 CMP, serum or plasma 2018 019 [facility], [address] [place] [address], [address], 9 07:05:43 ESR (erythrocyt e sedimentati on rate), blood 2018 [email or web address] [facility], [address] [place] [address], [address], 9 07:05:43 Referral None recorded. Procedures None recorded. Surgeries None recorded. Imaging None recorded. Medication Orders None recorded. Patient TargetsNo targets recorded. Patient Instructions Encounter Date Encounter Id Patient Instructions Last Modified By Organization Details Last Modified Time 11/25/2018 [id number] eating healthy foods: care instructions [email or web address] Not available 11/26/2018 07:05:43 Reason for Referral None Reported. Results Created Date Observation Date Name Description Value Unit Range Abnormal Flag Note LastModifiedBy Organization Detail LastModifiedTime 11/26/19 19 11/25/2018 CBC w/ auto diff white blood cells 6.8 K/uL 3.8-10 .8 normal Not Available [facility] [address] [place] [address], [address], 11/25/2018 11:52:56 11/26/1911/25/2018 CBC w/ auto diff red blood cells 4.82 M/uL 3.80-5 .20 normal Not Available [facility] [address] [place], [address], 11/25/2018 11:52:56 11/26/1911/25/2018 CBC w/ auto diff hemoglobin 13.8 g/dL 12.0-1 6.0 normal Not Available [facility] [address] [place], [address], 11/25/2018 11:52:56 11/26/1911/25/2018 CBC w/ auto diff hematocrit 40.5 % 35.0-4 7.0 normal Not Available [facility] [address] [place] [address], [address], 11/25/2018 11:52:56 11/26/1911/25/2018 CBC w/ auto diff MCV 84 fL 80-100 normal Not Available [facility] [address] [place], [address], 11/25/2018 11:52:56 11/26/1911/25/2018 CBC w/ auto diff MCH 29 pg 26-35 normal Not Available [facility] [address] [place] [address], [address], 11/25/2018 11:52:56 11/26/1911/25/2018 CBC w/ auto diff MCHC 34 g/dL 32-36 normal Not Available [facility] [address] [place], [address], 11/25/2018 11:52:56 11/26/1911/25/2018 CBC w/ auto diff RDW 13.9 % 11.0-1 5.0 normal Not Available [facility] [address] [place], [address], 11/25/2018 11:52:56 11/26/1911/25/2018 CBC w/ auto diff MPV 8.5 fL 6.2-10 .5 normal Not Available [facility] [address] [place] [address], [address], 11/25/2018 11:52:56 11/26/1911/25/2018 CBC w/ auto diff platelet count 237 K/uL 130-40 0 normal Not Available [facility] [address] [place] [address], [address], 11/25/2018 11:52:56 11/26/1911/25/2018 CBC w/ auto diff neutrophil,a bsolute 3.9 K/uL 1.6-8. 4 normal Not Available [facility] [address] [place] [address], [address], 11/25/2018 11:52:56 11/26/1911/25/2018 CBC w/ auto diff lymphocyte,a bsolute 2.2 K/uL 0.4-5. 1 normal Not Available [facility] [address] [place] [address], [address], 11/25/2018 11:52:56 11/26/1911/25/2018 CBC w/ auto diff monocyte,abs olute 0.5 K/uL 0.0-1. 2 normal Not Available [facility] [address] [place] [address], [address], 11/25/2018 11:52:56 11/26/1911/25/2018 CBC w/ auto diff eosinophil,a bsolute 0.2 K/uL 0.0-0. 8 normal Not Available [facility] [address] [place] [address], [address], 11/25/2018 11:52:56 11/26/1911/25/2018 CBC w/ auto diff basophil,abs olute 0.1 K/uL 0.0-0. 3 normal Not Available [facility] [address] [place] [address], [address], 11/25/2018 11:52:56 11/26/1911/25/2018 CBC w/ auto diff % neutrophils 58.1 % 42.0-7 8.0 normal Not Available [facility] [address] [place] [address], [address], 11/25/2018 11:52:56 11/26/1911/25/2018 CBC w/ auto diff % lymphocytes 31.8 % 11.0-4 7.0 normal Not Available [facility] [address] [place] [address], [address], 11/25/2018 11:52:56 11/26/1911/25/2018 CBC w/ auto diff % monocytes 6.7 % 0.0-11 .0 normal Not Available [facility] [address] [place] [address], [address], 11/25/2018 11:52:56 11/26/1911/25/2018 CBC w/ auto diff % eosinophils 2.5 % 0.0-7. 0 normal Not Available [facility] [address] [place] [address], [address], 11/25/2018 11:52:56 11/26/1911/25/2018 CBC w/ auto diff % basophils 0.9 % 0.0-3. 0 normal Not Available [facility] [address] [place] [address], [address], 11/25/2018 11:52:56 11/26/1911/25/2018 CBC w/ auto diff nucleated red cells 0.0 % 0.0-0. 9 normal Not Available [facility] [address] [place] [address], [address], 11/25/2018 11:52:56 11/26/1911/25/2018 CBC w/ auto diff nucleated RBCs, absolute 0.00 K/uL not estab. normal Not Available [facility] [address] [place] [address], [address], 11/25/2018 11:52:56 11/26/1911/25/2018 CMP, serum or plasm a glucose 87 mg/dL 74-100 normal Not Available [facility] [address] [place] [address], [address], 11/25/2018 12:20:54 11/26/19 19 11/25/2018 CMP, serum or plasm a blood urea nitrogen 12 mg/dL 6-20 normal Not Available [facility] [address] [place] [address], [address], 11/25/2018 12:20:54 11/26/1911/25/2018 CMP, serum or plasm a creatinine 0.65 mg/dL 0.50-0 .95 normal Not Available [facility] [address] [place] [address], [address], 11/25/2018 12:20:54 11/26/1911/25/2018 CMP, serum or plasm a BUN/creatini ne ratio 18 (calc ) 10-20 normal Not Available [facility] [address] [place] [address], [address], 11/25/2018 12:20:54 11/26/1911/25/2018 CMP, serum or plasm a sodium 138 mmol/ L 136-14 5 normal Not Available [facility] [address] [place] [address], [address], 11/25/2018 12:20:54 11/26/1911/25/2018 CMP, serum or plasm a potassium 3.9 mmol/ L 3.4-5. 0 normal Not Available [facility] [address] [place] [address], [address], 11/25/2018 12:20:54 11/26/1911/25/2018 CMP, serum or plasm a chloride 100 mmol/ L 98-107 normal Not Available [facility] [address] [place] [address], [address], 11/25/2018 12:20:54 11/26/19 19 11/25/2018 CMP, serum or plasm a carbon dioxide 24 mmol/ L 20-32 normal Not Available [facility] [address] [place] [address], [address], 11/25/2018 12:20:54 11/26/19 19 11/25/2018 CMP, serum or plasm a anion gap 14 (calc ) 7-25 normal Not Available [facility] [address] [place] [address], [address], 11/25/2018 12:20:54 11/26/19 19 11/25/2018 CMP, serum or plasm a calcium 9.1 mg/dL 8.6-10 .2 normal Not Available [facility] [address] [place] [address], [address], 11/25/2018 12:20:54 11/26/19 19 11/25/2018 CMP, serum or plasm a total protein 7.1 g/dL 6.4-8. 3 normal Not Available [facility] [address] [place] [address], [address], 11/25/2018 12:20:54 11/26/1911/25/2018 CMP, serum or plasm a albumin 4.7 g/dL 3.5-5. 2 normal Not Available [facility] [address] [place] [address], [address], 11/25/2018 12:20:54 11/26/1911/25/2018 CMP, serum or plasm a globulin 2.4 g/dL_ (calc ) 1.5-4. 5 normal Not Available [facility] [address] [place] [address], [address], 11/25/2018 12:20:54 11/26/1911/25/2018 CMP, serum or plasm a albumin/glob ulin ratio 2.0 (calc ) 1.1-2. 5 normal Not Available [facility] [address] [place] [address], [address], 11/25/2018 12:20:54 11/26/1911/25/2018 CMP, serum or plasm a bilirubin, total 0.3 mg/dL 0.1-1. 2 normal Not Available [facility] [address] [place], [address], 11/25/2018 12:20:54 11/26/1911/25/2018 CMP, serum or plasm a alkaline phosphatase 59 U/L 35-105 normal Not Available [facility] [address] [place], [address], 11/25/2018 12:20:54 11/26/1911/25/2018 CMP, serum or plasm a AST 14 U/L 0-32 normal Not Available [facility] [address] [place] [address], [address], 11/25/2018 12:20:54 11/26/1911/25/2018 CMP, serum or plasm a ALT 15 U/L 0-33 normal Not Available [facility] [address] [place], [address], 11/25/2018 12:20:54 11/26/1911/25/2018 CMP, serum or plasm a GFR 138 >= 60 normal Not Available [facility] [address] [place], [address], 11/25/2018 12:20:54 11/26/1911/25/2018 CMP, serum or plasm [...] month s or longe r. Not Available [facility] [address] [place], [address], 11/25/2018 12:20:54 11/26/1911/25/2018 T4, free, serum T4,free 1.24 NG/dL 0.93-1 .70 normal Not Available [facility] [address] [place], [address], 11/25/2018 12:28:12 11/26/19 19 11/25/2018 TSH, serum or plasm a TSH 1.360 uIU/m L 0.290- 5.500 normal Not Available [facility] [address] [place], [address], 11/25/2018 12:31:52 11/26/1911/25/2018 ESR (eryt hrocy te sedim entat ion rate) , blood ESR, automated <1 mm/HR 0-19 normal RESUL TS RECHE CKED. Not Available [facility] [address] [place] [address], [address], 11/25/2018 14:45:53 Result Notes None recorded. Problems Name Problem SNOMED Code Status Onset Date Resolution Date Notes Provider Name and Address Organization Details Recorded Time Muscle weakness [id number] [facility] Problem Notes None recorded. Procedures Surgical History Date Name Laterality Status Provider Name and Address Organization Details Recorded Time 9 procedure on brain completed Molly Alejandra [facility] 11/25/2018 09:51:32 6 procedure on brain completed Molly Alejandra [facility] 11/25/2018 09:51:28 5 procedure on brain completed Molly Alejandra [facility] 11/25/2018 09:51:24 Imaging Results None [...] Address Organization Details Last Updated DateTime 11/25/2018 44742.78 g 28.3 kg/m2 160.02 cm 103/78 mm[Hg] Molly Alejandra [facility] 11/25/2018 09:54:18 Social History Question Answer Notes LastModified by [email or web address] Details LastModified Time Tobacco Smoking Status Never Smoker Molly Roberts [facility] 11/25/2018 09:50:18 How Much Tobacco Do You Chew? None Information not available 11/25/2018 Live Alone Or With Others? With Others Information not available 11/25/2018 Marital Status Single Christopher Sutton Information not available 11/25/2018 How Much Tobacco Do You Smoke? No Information not available 11/25/2018 Sex: Unknown Functional Status Question Answer Note LastModified by [email or web address] Details LastModified Time What is your level of alcohol consumption? None Information not available 11/25/2018 Do you or have you ever used smokeless tobacco? 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 Information not available 11/25/2018 Do you [...] SNOMED-CT Code Diagnosis ICD10 Code Diagnosis Note [id number] RAVEN ALVAREZ MD [facility] [address] [place] [address] 11/25/2018 09:10:41 11/25/2018 11:35:28 Muscle weakness 88980049 M62.81 Paresthesia 89352828 R20 .2 Health Concerns Section Related Observation LastModified by Organization Detai ls LastModified Time None Recorded Concern Status LastModified by Organization Details LastModified Time None Recorded Advance Directives Directive None Recorded Payers Insurance Date Sequence Insurance Name Policy Number Policy English Covered Member ID English Member ID Guarantor Name 07/22/2019 1 [employer] [id number] Lillian N Erica [id number] Lillian Emperatriz Erica 11/25/2018 1 [employer] [id number] Lillian N Erica [id number] Lillian Emperatriz Erica OBGyn Episode No OBEpisode recorded.
--- OUTSIDE RECORDS SUMMARY | 2024-09-12 11:46 | XMS_ITS | Data Portability ---
Author Organization [facility] Address [address] [place] [address] Assessment Encounter Date Assessment Date Assessment LastModified by Organization Details LastModified Time 02/11/2023 02/11/2023 begin meds as written today. advised warm moist compresses to sinuses, saline rinse as tolerated and increased fluids. will call with serum results rtc or call should any new questions or concerns arise. [email or web address] Not available 02/13/2023 02:22:36 Plan of Treatment Reminders Order Date Submit Date Provider Last Modified By Organization Details Last Modified Time Details Appointments None recorded. Lab rf (rheumatoid factor), serum 2024 025 MARCELA [facility], [address], Michael F, [place], [address], 5 14:37:07 C reactive protein, QN, serum or plasma 2024 025 MARCELA [facility], [address], Michael F, [place], [address], 5 14:37:10 MELISSA (antinuclea r antibodies) screen, serum 2024 025 MARCELA [facility], [address], Michael F, [place], [address], 5 14:37:09 TSH + free T4, serum 2024 025 MARCELA [facility], [address], Michael F, [place], [address], 5 14:37:03 CMP, serum or plasma 2024 025 MARCELA [facility], [address], Michael F, [place], [address], 5 14:37:05 iron + total iron-bindin g capacity (TIBC), serum 2024 025 MARCELA [facility], [address], Michael F, [place], [address], 5 14:37:05 HbA1c (hemoglobin A1c), blood 2024 025 MARCELA [facility], [address], Michael F, [place], [address], 5 14:37:07 CBC w/ auto diff 2024 025 MARCELA [facility], [address], Michael F, [place], [address], 5 14:37:04 ESR (erythrocyt e sedimentati on rate), blood 2024 025 MARCELA [facility], [address], Michael F, [place], [address], 5 14:37:09 cobalamin and folate panel, serum 2024 025 MARCELA [facility], [address], Michael F, [place], [address], 5 14:37:06 vitamin D, 25-hydroxy, total, serum 2024 025 MARCELA [facility], [address], Michael F, [place], [address], 5 14:37:08 TSH + free T4, serum 2022 023 MARCELA [facility], [address], Michael F, [place], [address], 3 07:37:10 T3, free, serum or plasma 2022 023 MARCELA [facility], [address], Michael F, [place], [address], 3 07:37:19 thyroid peroxidase (tpo) Ab, serum 2022 023 MARCELA [facility], [address], Michael F, [place], [address], 3 07:37:19 CMP, serum or plasma 2022 023 MARCELA [facility], [address], Michael F, [place], [address], 3 07:37:13 progesteron e, serum 2022 023 MARCELA [facility], [address], Michael F, [place], [address], 3 07:37:18 estradiol, serum 2022 023 MARCELA [facility], [address], Michael F, [place], [address], 3 07:37:16 lh + FSH, serum 2022 023 MARCELA [facility], [address], Michael F, [place], [address], 3 07:37:15 vitamin D, 25-hydroxy, total, serum 2022 023 MARCELA [facility], [address], Michael F, [place], [address], 3 07:37:17 vitamin B12 + folate, serum or blood 2022 023 MARCELA [facility], [address], Michael F, [place], [address], 3 07:37:15 CBC w/ auto diff 2022 023 [place] [facility], [address], Michael F, [place], [address], 3 07:37:12 iron + total iron-bindin g capacity (TIBC), serum 2022 023 [place] [facility], [address], Michael F, [place], [address], 3 07:37:14 urinalysis, dipstick [address] [facility] [employer], [address] [place] [address] , [place], [address], 3 15:14:14 Referral None recorded. Procedures None recorded. Surgeries None recorded. Imaging US, obstetric, 1st trimester [address] [facility], [address] [place] [address] , [place], [address], 3 16:56:17 US, obstetric, 1st trimester [address] [facility] [employer], [address] [place] [address] , [place], [address], 3 15:14:14 Medication Orders prednisone 10 mg tablet 2024 025 [facility], [address] [facility], [place], [address], 5 09:35:29 prednisone 20 mg tablet 2022 023 [email or web address] [facility], [address] [place] [address], [place], [address], 5 15:15:02 amoxicillin 500 mg tablet 2022 023 [email or web address] [facility], [address] [place] [address], [address], 15:14:44 Patient TargetsNo targets recorded. Patient Instructions Encounter Date Encounter Id Patient Instructions Last Modified By Organization Details Last Modified Time 10/28/2022 [id number] incomplete miscarriage: care instructions deonte Not available 10/28/2022 16:56:32 04/25/2024 [id number] learning about healthy weight Not available 04/25/2024 17:56:57 body mass index: care instructions Not available 04/25/2024 17:56:57 Advised to take medication as directed Discussed using brace to wrist for support Advised to limit / avoid NSAIDs while taking steroid To call office for questions, concerns or issues Not available 04/25/2024 16:50:23 08/01/2024 [id number] numbness and tingling: care instructions [email or web address] Not available 08/01/2024 15:31:35 Reason for Referral None Reported. Results Created Date Observation Date Name Description Value Unit Range Abnormal Flag Note LastModifiedBy Organization Detail LastModifiedTime 10/09/1910/09/2022 PREGN JASMIN, INITI AL SCREE N HBsAg screen Negati ve negati ve Not Available [facility] ([facility]) [address] [place], [address], 10/10/2022 15:10:06 10/09/1910/09/2022 PREGN JASMIN, INITI AL SCREE N HCV Ab Non Reacti ve non reacti ve Not Available [facility] ([facility]) [address] [place], [address], 10/10/2022 15:10:06 10/09/1910/09/2022 PREGN JASMIN, INITI AL SCREE N interpretati on: Commen t Not infec ellen with HCV unles s early or acute infec tion is suspe cted (whic h may be delay ed in an immun ocomp romis ed indiv idual ), or other evide nce exist s to indic ate HCV infec tion. Not Available [facility] ([facility]) [address] [facility], [place], [address], 10/10/2022 15:10:06 10/09/19 23 10/09/2022 PREGN JASMIN, INITI AL SCREE N RPR Non Reacti ve non reacti ve Not Available [facility] ([facility]) [address] [facility], [place], [address], 10/10/2022 15:10:06 10/09/1910/09/2022 PREGN JASMIN, INITI AL SCREE N rubella antibodies, IgG 2.32 index immune >0.99 Non-i mmune <0.90 Equiv ocal 0.90 - 0.99 Immun e >0.99 Not Available [facility] ([facility]) [address] [facility], [place], [address], 10/10/2022 15:10:06 10/09/19 23 10/09/2022 PREGN JASMIN, INITI AL SCREE N ABO grouping O Not Available [facility] ([facility]) [address] [facility], [place], [address], 10/10/2022 15:10:06 10/09/1910/09/2022 PREGN JASMIN, INITI AL SCREE N Rh factor Positi ve Pleas e note: Prior recor ds for this patie nt's ABO / Rh type are not avail able for addit ional verif icati on. Not Available [facility] ([facility]) [address] [facility], [place], [address], 10/10/2022 15:10:06 10/09/1910/09/2022 PREGN JASMIN, INITI AL SCREE N antibody screen Negati ve negati ve Not Available [facility] ([facility]) [address] [facility], [place], [address], 10/10/2022 15:10:06 10/09/19 23 10/09/2022 PREGN JASMIN, INITI AL SCREE N HIV Ab/P24 Ag screen Non Reacti ve non reacti ve HIV Negat jon HIV-1 /HIV- 2 antib odies and HIV-1 p24 antig en were NOT detec ellen. There is no labor atory evide nce of HIV infec tion. Not Available [facility] ([facility]) [address] [place], [address], 10/10/2022 15:10:06 10/09/19 23 10/09/2022 PREGN JASMIN, INITI AL SCREE N chlamydia trachomatis, ESTHER Negati ve negati ve Not Available [facility] ([facility]) [address] [place], [address], 10/10/2022 15:10:06 10/09/1910/09/2022 PREGN JASMIN, INITI AL SCREE N neisseria gonorrhoeae, ESTHER Negati ve negati ve Not Available [facility] ([facility]) [address] [facility], [place], [address], 10/10/2022 15:10:06 10/09/1910/09/2022 PREGN JASMIN, INITI AL SCREE N WBC 7.4 x10e3 /uL 3.4-10 .8 Not Available [facility] ([facility]) [address] [place], [address], 10/10/2022 15:10:06 10/09/1910/09/2022 PREGN JASMIN, INITI AL SCREE N RBC 4.53 x10e6 /uL 3.77-5 .28 Not Available [facility] ([facility]) [address] [place], [address], 10/10/2022 15:10:06 10/09/19 23 10/09/2022 PREGN JASMIN, INITI AL SCREE N hemoglobin 12.8 g/dL 11.1-1 5.9 Not Available [facility] ([facility]) [address] [place], [address], 10/10/2022 15:10:06 10/09/1910/09/2022 PREGN JASMIN, INITI AL SCREE N hematocrit 38.7 % 34.0-4 6.6 Not Available [facility] ([facility]) [address] [place], [address], 10/10/2022 15:10:06 10/09/1910/09/2022 PREGN JASMIN, INITI AL SCREE N MCV 85 fL 79-97 Not Available [facility] ([facility]) [address] [place], [address], 10/10/2022 15:10:06 10/09/1910/09/2022 PREGN JASMIN, INITI AL SCREE N MCH 28.3 pg 26.6-3 3.0 Not Available [facility] ([facility]) [address] [place], [address], 10/10/2022 15:10:06 10/09/1910/09/2022 PREGN JASMIN, INITI AL SCREE N MCHC 33.1 g/dL 31.5-3 5.7 Not Available [facility] ([facility]) [address] [place], [address], 10/10/2022 15:10:06 10/09/1910/09/2022 PREGN JASMIN, INITI AL SCREE N RDW 13.8 % 11.7-1 5.4 Not Available [facility] ([facility]) [address] [place], [address], 10/10/2022 15:10:06 10/09/1910/09/2022 PREGN JASMIN, INITI AL SCREE N platelets 250 x10e3 /uL 150-45 0 Not Available [facility] ([facility]) [address] [place], [address], 10/10/2022 15:10:06 10/09/19 23 10/09/2022 PREGN JASMIN, INITI AL SCREE N neutrophils 70 % not estab. Not Available [facility] ([facility]) [address] [facility], [place], [address], 10/10/2022 15:10:06 10/09/19 23 10/09/2022 PREGN JASMIN, INITI AL SCREE N lymphs 21 % not estab. Not Available [facility] ([facility]) [address] [facility], [place], [address], 10/10/2022 15:10:06 10/09/19 23 10/09/2022 PREGN JASMIN, INITI AL SCREE N monocytes 5 % not estab. Not Available [facility] ([facility]) [address] [facility], [place], [address], 10/10/2022 15:10:06 10/09/19 23 10/09/2022 PREGN JASMIN, INITI AL SCREE N eos 2 % not estab. Not Available [facility] ([facility]) [address] [facility], [place], [address], 10/10/2022 15:10:06 10/09/19 23 10/09/2022 PREGN JASMIN, INITI AL SCREE N basos 1 % not estab. Not Available [facility] ([facility]) [address] [facility], [place], [address], 10/10/2022 15:10:06 10/09/19 23 10/09/2022 PREGN JASMIN, INITI AL SCREE N immature cells FINANCIAL ASSISTANT Not Available [facility] ([facility]) [address] [facility], [place], [address], 10/10/2022 15:10:06 10/09/19 23 10/09/2022 PREGN JASMIN, INITI AL SCREE N neutrophils (absolute) 5.3 x10e3 /uL 1.4-7. 0 Not Available [facility] ([facility]) [address] [facility], [place], [address], 10/10/2022 15:10:06 10/09/19 23 10/09/2022 PREGN JASMIN, INITI AL SCREE N lymphs (absolute) 1.5 x10e3 /uL 0.7-3. 1 Not Available [facility] ([facility]) [address] [place], [address], 10/10/2022 15:10:06 10/09/19 23 10/09/2022 PREGN JASMIN, INITI AL SCREE N monocytes(ab solute) 0.4 x10e3 /uL 0.1-0. 9 Not Available [facility] ([facility]) [address] [place], [address], 10/10/2022 15:10:06 10/09/19 23 10/09/2022 PREGN JASMIN, INITI AL SCREE N eos (absolute) 0.1 x10e3 /uL 0.0-0. 4 Not Available [facility] ([facility]) [address] [place], [address], 10/10/2022 15:10:06 10/09/19 23 10/09/2022 PREGN JASMIN, INITI AL SCREE N baso (absolute) 0.1 x10e3 /uL 0.0-0. 2 Not Available [facility] ([facility]) [address] [place], [address], 10/10/2022 15:10:06 10/09/19 23 10/09/2022 PREGN JASMIN, INITI AL SCREE N immature granulocytes 1 % not estab. Not Available [facility] ([facility]) [address] [place], [address], 10/10/2022 15:10:06 10/09/19 23 10/09/2022 PREGN JASMIN, INITI AL SCREE N immature grans (abs) 0.0 x10e3 /uL 0.0-0. 1 Not Available [facility] ([facility]) [address] [place], [address], 10/10/2022 15:10:06 10/09/19 23 10/09/2022 PREGN JASMIN, INITI AL SCREE N NRBC FINANCIAL ASSISTANT Not Available [facility] ([facility]) [address] [facility], [place], [address], 10/10/2022 15:10:06 10/09/19 23 10/09/2022 PREGN JASMIN, INITI AL SCREE N hematology comments: FINANCIAL ASSISTANT Not Available [facility] ([facility]) [address] [facility], [place], [address], 10/10/2022 15:10:06 10/09/1910/09/2022 PREGN JASMIN, INITI AL SCREE N specific gravity 1.015 1.005- 1.030 Not Available [facility] ([facility]) [address] [facility], [place], [address], 10/10/2022 15:10:06 10/09/19 23 10/09/2022 PREGN JASMIN, INITI AL SCREE N pH 7.5 5.0-7. 5 Not Available [facility] ([facility]) [address] [facility], [place], [address], 10/10/2022 15:10:06 10/09/19 23 10/09/2022 PREGN JASMIN, INITI AL SCREE N urine-color Yellow yellow Not Available [facility] ([facility]) [address] [place], [address], 10/10/2022 15:10:06 10/09/19 23 10/09/2022 PREGN JASMIN, INITI AL SCREE N appearance Clear clear Not Available [facility] ([facility]) [address] [place], [address], 10/10/2022 15:10:06 10/09/19 23 10/09/2022 PREGN JASMIN, INITI AL SCREE N WBC esterase 2+ negati ve abnormal Not Available [facility] ([facility]) [address] [facility], [place], [address], 10/10/2022 15:10:06 10/09/1910/09/2022 PREGN JASMIN, INITI AL SCREE N protein Negati ve negati ve/tra ce Not Available [facility] ([facility]) [address] [place], [address], 10/10/2022 15:10:06 10/09/1910/09/2022 PREGN JASMIN, INITI AL SCREE N glucose Negati ve negati ve Not Available [facility] ([facility]) [address] [place], [address], 10/10/2022 15:10:06 10/09/19 23 10/09/2022 PREGN JASMIN, INITI AL SCREE N ketones Negati ve negati ve Not Available [facility] ([facility]) [address] [place], [address], 10/10/2022 15:10:06 10/09/1910/09/2022 PREGN JASMIN, INITI AL SCREE N occult blood 1+ negati ve abnormal Not Available [facility] ([facility]) [address] [place], [address], 10/10/2022 15:10:06 10/09/1910/09/2022 PREGN JASMIN, INITI AL SCREE N bilirubin Negati ve negati ve Not Available [facility] ([facility]) [address] [place], [address], 10/10/2022 15:10:06 10/09/1910/09/2022 PREGN JASMIN, INITI AL SCREE N urobilinogen ,semi-qn 1.0 mg/dL 0.2-1. 0 Not Available [facility] ([facility]) [address] [place], [address], 10/10/2022 15:10:06 10/09/19 23 10/09/2022 PREGN JASMIN, INITI AL SCREE N nitrite, urine Negati ve negati ve Not Available [facility] ([facility]) [address] [facility], [place], [address], 10/10/2022 15:10:06 10/09/19 23 10/09/2022 PREGN JASMIN, INITI AL SCREE N microscopic examination See below: Not Available [facility] ([facility]) [address] [facility], [place], [address], 10/10/2022 15:10:06 10/09/19 23 10/09/2022 PREGN JASMIN, INITI AL SCREE N WBC 6-10 /hpf 0 - 5 abnormal Not Available [facility] ([facility]) [address] [facility], [place], [address], 10/10/2022 15:10:06 10/09/19 23 10/09/2022 PREGN JASMIN, INITI AL SCREE N RBC None seen /hpf 0 - 2 Not Available [facility] ([facility]) [address] [facility], [place], [address], 10/10/2022 15:10:06 10/09/19 23 10/09/2022 PREGN JASMIN, INITI AL SCREE N epithelial cells (non renal) 0-10 /hpf 0 - 10 Not Available [facility] ([facility]) [address] [facility], [place], [address], 10/10/2022 15:10:06 10/09/19 23 10/09/2022 PREGN JASMIN, INITI AL SCREE N epithelial cells (renal) FINANCIAL ASSISTANT Not Available [facility] ([facility]) [address] [place], [address], 10/10/2022 15:10:06 10/09/19 23 10/09/2022 PREGN JASMIN, INITI AL SCREE N casts None seen /lpf none seen Not Available [facility] ([facility]) [address] [facility], [place], [address], 10/10/2022 15:10:06 10/09/19 23 10/09/2022 PREGN JASMIN, INITI AL SCREE N cast type FINANCIAL ASSISTANT Not Available [facility] ([facility]) [address] [facility], [place], [address], 10/10/2022 15:10:06 10/09/19 23 10/09/2022 PREGN JASMIN, INITI AL SCREE N crystals FINANCIAL ASSISTANT Not Available [facility] ([facility]) [address] [facility], [place], [address], 10/10/2022 15:10:06 10/09/19 23 10/09/2022 PREGN JASMIN, INITI AL SCREE N crystal type FINANCIAL ASSISTANT Not Available [facility] ([facility]) [address] [facility], [place], [address], 10/10/2022 15:10:06 10/09/19 23 10/09/2022 PREGN JASMIN, INITI AL SCREE N mucus threads FINANCIAL ASSISTANT Not Available [facility] ([facility]) [address] [facility], [place], [address], 10/10/2022 15:10:06 10/09/19 23 10/09/2022 PREGN JASMIN, INITI AL SCREE N bacteria Few none seen/f ew Not Available [facility] ([facility]) [address] [place], [address], 10/10/2022 15:10:06 10/09/19 23 10/09/2022 PREGN JASMIN, INITI AL SCREE N yeast FINANCIAL ASSISTANT Not Available [facility] ([facility]) [address] [place], [address], 10/10/2022 15:10:06 10/09/19 23 10/09/2022 PREGN JASMIN, INITI AL SCREE N trichomonas FINANCIAL ASSISTANT Not Available [facility] ([facility]) [address] [facility], [place], [address], 10/10/2022 15:10:06 10/09/1910/09/2022 PREGN JASMIN, INITI AL SCREE N comment FINANCIAL ASSISTANT Not Available [facility] ([facility]) [address] [facility], [place], [address], 10/10/2022 15:10:06 10/09/1910/09/2022 PREGN JASMIN, INITI AL SCREE N microscopic examination FINANCIAL ASSISTANT Not Available [facility]) [address] [facility], [place], [address], 10/10/2022 15:10:06 10/09/1910/10/2022 PREGN JASMIN, INITI AL SCREE N urine culture,pren atal, w/gbs Final report Not Available [facility] ([facility]) [address] [facility], [place], [address], 10/10/2022 15:10:06 10/09/1910/10/2022 PREGN JASMIN, INITI AL SCREE N result 1 COMMEN T Mixed uroge nital nathaniel 25,00 0-50, 000 colon y formi ng units per mL Not Available [facility] ([facility]) [address] [facility], [place], [address], 10/10/2022 15:10:06 10/09/1910/09/2022 HEMOG LOBIN A1C hemoglobin A1C 5.2 % 4.8-5. 6 Predi abete s: 5.7 - 6.4 Diabe sascha: >6.4 Glyce matias contr ol for adult s with diabe sascha: <7.0 Not Available [facility] ([facility]) [address] [facility], [place], [address], 10/10/2022 15:10:08 10/09/19 23 10/09/2022 VARIC LANEY- [...] stage of disea se. Not Available [facility] ([facility]) [address] [facility], [place], [address], 10/10/2022 15:10:09 10/09/1910/16/2022 COMPL IANCE DRUG DOMINIQUE [...] fercho consu ltati on, pleas e call [phone]. ===== ===== ===== ===== ===== ===== ===== ===== ===== ===== ===== ===== ===== === Not Available [facility] ([facility]) [address] [facility], [place], [address], 10/16/2022 20:08:39 10/09/19 23 10/16/2022 COMPL IANCE DRUG DOMINIQUE SIS, UR pdf . Not Available [facility] ([facility]) [address] [facility], [place], [address], 10/16/2022 20:08:39 10/09/19 23 10/08/2022 pregn jasmin test, urine HCG positi ve Not Available [facility] [employer] [address] [place] [address] , [place], [address], 10/07/2022 13:24:57 10/16/19 23 10/16/2022 HCG,B ETA SUBUN IT, QNT HCG,beta subunit,qnt, serum 81300 mIU/m L Femal e (Non- pregn ant) 0 - 5 (Post menop ausal ) 0 - 8 Femal e (Preg nant) Weeks of Gesta tion 3 6 - 71 4 10 - 750 5 189 - 5839 6 456 - 24800 7 9085 -1667 63 8 44676 -1323 71 9 25998 -1514 10 10 18030 -0494 77 12 25096 -2116 12 14 24257 - 76163 15 92007 - 25119 16 9290 - 28125 17 8136 - 70025 18 8675 - 04569 Resul ts confi rmed on dilut ion. Leonardo ECLIA metho dolog y Not Available [facility] ([facility]) [address] [facility], [place], [address], 10/16/2022 05:09:36 10/16/19 23 10/16/2022 PROGE STERO NE progesterone 5.9 NG/mL Folli cular phase 0.1 - 0.9 Lutea l phase 1.8 - 23.9 Ovula tion phase 0.1 - 12.0 Pregn ant First trime ster 11.0 - 44.3 Secon d trime ster 25.4 - 83.3 Third trime ster 58.7 - 214.0 Postm enopa usal 0.0 - 0.1 Not Available [facility] ([facility]) [address] [facility], [place], [address], 10/16/2022 05:09:37 10/16/19 23 10/15/2022 rapid SARS CoV + SARS CoV 2 Ag, QL IA, respi rator y speci men SARS CoV antigen Positi ve Not Available [facility] [employer] [address] [place] [address] , [place], [address], 10/15/2022 14:24:03 10/16/19 23 10/15/2022 rapid flu (A+B) Flu negati ve Not Available [facility] [employer] [address] [place] [address] , [place], [address], 10/15/2022 14:24:01 10/16/19 23 10/15/2022 rapid flu (A+B) Type Both A & B Not Available [facility] [employer] [address] [place] [address] , [place], [address], 10/15/2022 14:24:01 02/12/20 23 02/12/2023 TSH+F REE T4 TSH 2.520 uIU/m L 0.450- 4.500 Not Available [facility] ([facility]) [address] [place], [address], 02/12/2023 07:37:10 02/12/20 23 02/12/2023 TSH+F REE T4 T4,free(dire ct) 1.05 NG/dL 0.82-1 .77 Not Available [facility] ([facility]) [address] [facility], [place], [address], 02/12/2023 07:37:10 02/12/20 23 02/12/2023 CBC WITH DIFFE RENTI AL/PL ATELE T WBC 9.0 x10e3 /uL 3.4-10 .8 Not Available [facility] ([facility]) [address] [facility], [place], [address], 02/12/2023 07:37:12 02/12/20 23 02/12/2023 CBC WITH DIFFE RENTI AL/PL ATELE T RBC 4.79 x10e6 /uL 3.77-5 .28 Not Available [facility] ([facility]) [address] [facility], [place], [address], 02/12/2023 07:37:12 02/12/20 23 02/12/2023 CBC WITH DIFFE RENTI AL/PL ATELE T hemoglobin 13.3 g/dL 11.1-1 5.9 Not Available [facility] ([facility]) [address] [facility], [place], [address], 02/12/2023 07:37:12 02/12/20 23 02/12/2023 CBC WITH DIFFE RENTI AL/PL ATELE T hematocrit 40.1 % 34.0-4 6.6 Not Available [facility] ([facility]) [address] [place], [place], [address], 02/12/2023 07:37:12 02/12/20 23 02/12/2023 CBC WITH DIFFE RENTI AL/PL ATELE T MCV 84 fL 79-97 Not Available [facility] ([facility]) [address] [place], [address], 02/12/2023 07:37:12 02/12/20 23 02/12/2023 CBC WITH DIFFE RENTI AL/PL ATELE T MCH 27.8 pg 26.6-3 3.0 Not Available [facility] ([facility]) [address] [facility], [place], [address], 02/12/2023 07:37:12 02/12/20 23 02/12/2023 CBC WITH DIFFE RENTI AL/PL ATELE T MCHC 33.2 g/dL 31.5-3 5.7 Not Available [facility] ([facility]) [address] [facility], [place], [address], 02/12/2023 07:37:12 02/12/20 23 02/12/2023 CBC WITH DIFFE RENTI AL/PL ATELE T RDW 12.3 % 11.7-1 5.4 Not Available [facility] ([facility]) [address] [facility], [place], [address], 02/12/2023 07:37:12 02/12/20 23 02/12/2023 CBC WITH DIFFE RENTI AL/PL ATELE T platelets 324 x10e3 /uL 150-45 0 Not Available [facility] ([facility]) [address] [facility], [place], [address], 02/12/2023 07:37:12 02/12/20 23 02/12/2023 CBC WITH DIFFE RENTI AL/PL ATELE T neutrophils 64 % not estab. Not Available [facility] ([facility]) [address] [facility], [place], [address], 02/12/2023 07:37:12 02/12/20 23 02/12/2023 CBC WITH DIFFE RENTI AL/PL ATELE T lymphs 25 % not estab. Not Available [facility] ([facility]) [address] [facility], [place], [address], 02/12/2023 07:37:12 02/12/20 23 02/12/2023 CBC WITH DIFFE RENTI AL/PL ATELE T monocytes 6 % not estab. Not Available [facility] ([facility]) [address] [facility], [place], [address], 02/12/2023 07:37:12 02/12/20 23 02/12/2023 CBC WITH DIFFE RENTI AL/PL ATELE T eos 3 % not estab. Not Available [facility] ([facility]) [address] [facility], [place], [address], 02/12/2023 07:37:12 02/12/2002/12/2023 CBC WITH DIFFE RENTI AL/PL ATELE T basos 1 % not estab. Not Available [facility] ([facility]) [address] [facility], [place], [address], 02/12/2023 07:37:12 02/12/20 23 02/12/2023 CBC WITH DIFFE RENTI AL/PL ATELE T immature cells FINANCIAL ASSISTANT Not Available [facility] ([facility]) [address] [facility], [place], [address], 02/12/2023 07:37:12 02/12/20 23 02/12/2023 CBC WITH DIFFE RENTI AL/PL ATELE T neutrophils (absolute) 5.8 x10e3 /uL 1.4-7. 0 Not Available [facility] ([facility]) [address] [facility], [place], [address], 02/12/2023 07:37:12 02/12/20 23 02/12/2023 CBC WITH DIFFE RENTI AL/PL ATELE T lymphs (absolute) 2.2 x10e3 /uL 0.7-3. 1 Not Available [facility] ([facility]) [address] [facility], [place], [address], 02/12/2023 07:37:12 02/12/20 23 02/12/2023 CBC WITH DIFFE RENTI AL/PL ATELE T monocytes(ab solute) 0.6 x10e3 /uL 0.1-0. 9 Not Available [facility] ([facility]) [address] [facility], [place], [address], 02/12/2023 07:37:12 02/12/20 23 02/12/2023 CBC WITH DIFFE RENTI AL/PL ATELE T eos (absolute) 0.3 x10e3 /uL 0.0-0. 4 Not Available [facility] ([facility]) [address] [facility], [place], [address], 02/12/2023 07:37:12 02/12/20 23 02/12/2023 CBC WITH DIFFE RENTI AL/PL ATELE T baso (absolute) 0.1 x10e3 /uL 0.0-0. 2 Not Available [facility] ([facility]) [address] [facility], [place], [address], 02/12/2023 07:37:12 02/12/20 23 02/12/2023 CBC WITH DIFFE RENTI AL/PL ATELE T immature granulocytes 1 % not estab. Not Available [facility] ([facility]) [address] [facility], [place], [address], 02/12/2023 07:37:12 02/12/20 23 02/12/2023 CBC WITH DIFFE RENTI AL/PL ATELE T immature grans (abs) 0.1 x10e3 /uL 0.0-0. 1 Not Available [facility] ([facility]) [address] [facility], [place], [address], 02/12/2023 07:37:12 02/12/20 23 02/12/2023 CBC WITH DIFFE RENTI AL/PL ATELE T NRBC FINANCIAL ASSISTANT Not Available [facility] ([facility]) [address] [facility], [place], [address], 02/12/2023 07:37:12 02/12/20 23 02/12/2023 CBC WITH DIFFE RENTI AL/PL ATELE T hematology comments: FINANCIAL ASSISTANT Not Available [facility] ([facility]) [address] [facility], [place], [address], 02/12/2023 07:37:12 02/12/20 23 02/12/2023 COMP. METAB OLIC PANEL (14) glucose 70 mg/dL 70-99 Not Available [facility] ([facility]) [address] [facility], [place], [address], 02/12/2023 07:37:13 02/12/20 23 02/12/2023 COMP. METAB OLIC PANEL (14) BUN 10 mg/dL 6-20 Not Available [facility] ([facility]) [address] [place], [address], 02/12/2023 07:37:13 02/12/20 23 02/12/2023 COMP. METAB OLIC PANEL (14) creatinine 0.65 mg/dL 0.57-1 .00 Not Available [facility] ([facility]) [address] [facility], [place], [address], 02/12/2023 07:37:13 02/12/20 23 02/12/2023 COMP. METAB OLIC PANEL (14) eGFR 118 mL/mi n/1.7 3 >59 Not Available [facility] ([facility]) [address] [place], [address], 02/12/2023 07:37:13 02/12/20 23 02/12/2023 COMP. METAB OLIC PANEL (14) BUN/creatini ne ratio 15 9-23 Not Available [facility] ([facility]) [address] [place], [address], 02/12/2023 07:37:13 02/12/20 23 02/12/2023 COMP. METAB OLIC PANEL (14) sodium 140 mmol/ L 134-14 4 Not Available [facility] ([facility]) [address] [place], [address], 02/12/2023 07:37:13 02/12/20 23 02/12/2023 COMP. METAB OLIC PANEL (14) potassium 4.0 mmol/ L 3.5-5. 2 Not Available [facility] ([facility]) [address] [place], [address], 02/12/2023 07:37:13 02/12/20 23 02/12/2023 COMP. METAB OLIC PANEL (14) chloride 103 mmol/ L 96-106 Not Available [facility] ([facility]) [address] [place], [address], 02/12/2023 07:37:13 02/12/20 23 02/12/2023 COMP. METAB OLIC PANEL (14) carbon dioxide, total 21 mmol/ L 20-29 Not Available [facility] ([facility]) [address] [place], [address], 02/12/2023 07:37:13 02/12/20 23 02/12/2023 COMP. METAB OLIC PANEL (14) calcium 9.2 mg/dL 8.7-10 .2 Not Available [facility] ([facility]) [address] [place], [address], 02/12/2023 07:37:13 02/12/20 23 02/12/2023 COMP. METAB OLIC PANEL (14) protein, total 6.7 g/dL 6.0-8. 5 Not Available [facility] ([facility]) [address] [facility] [place], [address], 02/12/2023 07:37:13 02/12/20 23 02/12/2023 COMP. METAB OLIC PANEL (14) albumin 4.6 g/dL 3.9-4. 9 Not Available [facility] ([facility]) [address] [facility] [place], [address], 02/12/2023 07:37:13 02/12/20 23 02/12/2023 COMP. METAB OLIC PANEL (14) globulin, total 2.1 g/dL 1.5-4. 5 Not Available [facility] ([facility]) [address] [facility], [place], [address], 02/12/2023 07:37:13 02/12/20 23 02/12/2023 COMP. METAB OLIC PANEL (14) A/G ratio 2.2 1.2-2. 2 Not Available [facility] ([facility]) [address] [facility], [place], [address], 02/12/2023 07:37:13 02/12/20 23 02/12/2023 COMP. METAB OLIC PANEL (14) bilirubin, total 0.3 mg/dL 0.0-1. 2 Not Available [facility] ([facility]) [address] [facility], [place], [address], 02/12/2023 07:37:13 02/12/20 23 02/12/2023 COMP. METAB OLIC PANEL (14) alkaline phosphatase 72 IU/L 44-121 Not Available [facility] ([facility]) [address] [place], [address], 02/12/2023 07:37:13 02/12/20 23 02/12/2023 COMP. METAB OLIC PANEL (14) AST (SGOT) 13 IU/L 0-40 Not Available [facility] ([facility]) [address] [place], [address], 02/12/2023 07:37:13 02/12/20 23 02/12/2023 COMP. METAB OLIC PANEL (14) ALT (SGPT) 16 IU/L 0-32 Not Available [facility] ([facility]) [address] [place], [address], 02/12/2023 07:37:13 02/12/20 23 02/12/2023 IRON AND TIBC iron bind.cap.(TI BC) 378 ug/dL 250-45 0 Not Available [facility] ([facility]) [address] [facility], [place], [address], 02/12/2023 07:37:14 02/12/20 23 02/12/2023 IRON AND TIBC UIBC 318 ug/dL 131-42 5 Not Available [facility] ([facility]) [address] [place], [address], 02/12/2023 07:37:14 02/12/20 23 02/12/2023 IRON AND TIBC iron 60 ug/dL 27-159 Not Available [facility] ([facility]) [address] [place], [address], 02/12/2023 07:37:14 02/12/20 23 02/12/2023 IRON AND TIBC iron saturation 16 % 15-55 Not Available [facility] ([facility]) [address] [place], [address], 02/12/2023 07:37:14 02/12/20 23 02/12/2023 VITAM IN B12 AND FOLAT E vitamin B12 340 pg/mL 232-12 45 Not Available [facility] ([facility]) [address] [place], [address], 02/12/2023 07:37:14 02/12/20 23 02/12/2023 VITAM IN B12 AND FOLAT E folate (folic acid), serum 8.6 NG/mL >3.0 A serum folat e joceline ntrat ion of less than 3.1 ng/mL is consi dered to repre sent clini fercho defic iency . Not Available [facility] ([facility]) [address] [facility], [place], [address], 02/12/2023 07:37:14 02/12/20 23 02/12/2023 FSH AND LH LH 18.4 mIU/m L Adult Femal e Range Folli cular phase 2.4 - 12.6 Ovula tion phase 14.0 - 95.6 Lutea l phase 1.0 - 11.4 Postm enopa usal 7.7 - 58.5 Not Available [facility] ([facility]) [address] [place], [address], 02/12/2023 07:37:15 02/12/20 23 02/12/2023 FSH AND LH FSH 5.5 mIU/m L Adult Femal e Range Folli cular phase 3.5 - 12.5 Ovula tion phase 4.7 - 21.5 Lutea l phase 1.7 - 7.7 Postm enopa usal 25.8 - 134.8 Not Available [facility] ([facility]) [address] [place], [address], 02/12/2023 07:37:15 02/12/2002/12/2023 ESTRA DIOL estradiol 78.3 pg/mL Adult Femal e Range Folli cular phase 12.5 - 166.0 Ovula tion phase 85.8 - 498.0 Lutea l phase 43.8 - 211.0 Postm enopa usal <6.0 - 54.7 Pregn jasmin 1st trime ster 215.0 - >4300 .0 Leonardo ECLIA metho dolog y Not Available [facility] ([facility]) [address] [place], [address], 02/12/2023 07:37:16 02/12/20 23 02/12/2023 VITAM IN [...] um and D. Adriana lopez [place]: The [facility] . 2. Mark holloway [place], Binkl ey [place], Bisch off-F errar i ATKINS, et al. Evalu ation , treat ment, and preve ntion of vitam in D defic iency : an Endoc rine Socie ty clini fercho pract ice guide line. JCEM. 2010; 96(7) :1911 -30. Not Available [facility] ([facility]) [address] [place], [address], 02/12/2023 07:37:17 02/12/20 23 02/12/2023 PROGE STERO NE progesterone 0.3 NG/mL Folli cular phase 0.1 - 0.9 Lutea l phase 1.8 - 23.9 Ovula tion phase 0.1 - 12.0 Pregn ant First trime ster 11.0 - 44.3 Secon d trime ster 25.4 - 83.3 Third trime ster 58.7 - 214.0 Postm enopa usal 0.0 - 0.1 Not Available [facility] ([facility]) [address] [place], [address], 02/12/2023 07:37:18 02/12/20 23 02/12/2023 THYRO ID PEROX IDASE (TPO) AB thyroid peroxidase (tpo) Ab 85 IU/mL 0-34 above high normal Not Available [facility] ([facility]) [address] [place], [address], 02/12/2023 07:37:19 02/12/2002/12/2023 TRIIO DOTHY KATERINA E (T3), FREE triiodothyro nine (T3), free 2.9 pg/mL 2.0-4. 4 Not Available [facility] ([facility]) [address] [place], [address], 02/12/2023 07:37:19 08/02/19 25 08/02/2024 TSH+F REE T4 TSH 1.470 uIU/m L 0.450- 4.500 normal Not Available [facility] ([facility]) [address] [place], [address], 08/02/2024 14:37:03 08/02/19 25 08/02/2024 TSH+F REE T4 T4,free(dire ct) 1.07 NG/dL 0.82-1 .77 normal Not Available [facility] ([facility]) [address] [place], [address], 08/02/2024 14:37:03 08/02/19 25 08/02/2024 CBC WITH DIFFE RENTI AL/PL ATELE T WBC 6.5 x10e3 /uL 3.4-10 .8 normal Not Available [facility] ([facility]) [address] [place], [address], 08/02/2024 14:37:04 08/02/19 25 08/02/2024 CBC WITH DIFFE RENTI AL/PL ATELE T RBC 4.67 x10e6 /uL 3.77-5 .28 normal Not Available [facility] ([facility]) [address] [place], [address], 08/02/2024 14:37:04 08/02/19 25 08/02/2024 CBC WITH DIFFE RENTI AL/PL ATELE T hemoglobin 13.1 g/dL 11.1-1 5.9 normal Not Available [facility] ([facility]) [address] [place], [address], 08/02/2024 14:37:04 08/02/19 25 08/02/2024 CBC WITH DIFFE RENTI AL/PL ATELE T hematocrit 40.5 % 34.0-4 6.6 normal Not Available [facility] ([facility]) [address] [place], [address], 08/02/2024 14:37:04 08/02/19 25 08/02/2024 CBC WITH DIFFE RENTI AL/PL ATELE T MCV 87 fL 79-97 normal Not Available [facility] ([facility]) [address] [facility], [place], [address], 08/02/2024 14:37:04 08/02/19 25 08/02/2024 CBC WITH DIFFE RENTI AL/PL ATELE T MCH 28.1 pg 26.6-3 3.0 normal Not Available [facility] ([facility]) [address] [place], [address], 08/02/2024 14:37:04 08/02/19 25 08/02/2024 CBC WITH DIFFE RENTI AL/PL ATELE T MCHC 32.3 g/dL 31.5-3 5.7 normal Not Available [facility] ([facility]) [address] [facility], [place], [address], 08/02/2024 14:37:04 08/02/19 25 08/02/2024 CBC WITH DIFFE RENTI AL/PL ATELE T RDW 12.9 % 11.7-1 5.4 Not Available [facility] ([facility]) [address] [place], [address], 08/02/2024 14:37:04 08/02/19 25 08/02/2024 CBC WITH DIFFE RENTI AL/PL ATELE T platelets 271 x10e3 /uL 150-45 0 normal Not Available [facility] ([facility]) [address] [place], [address], 08/02/2024 14:37:04 08/02/19 25 08/02/2024 CBC WITH DIFFE RENTI AL/PL ATELE T neutrophils 62 % not estab. normal Not Available [facility] ([facility]) [address] [place], [address], 08/02/2024 14:37:04 08/02/19 25 08/02/2024 CBC WITH DIFFE RENTI AL/PL ATELE T lymphs 25 % not estab. normal Not Available [facility] ([facility]) [address] [facility], [place], [address], 08/02/2024 14:37:04 08/02/19 25 08/02/2024 CBC WITH DIFFE RENTI AL/PL ATELE T monocytes 8 % not estab. normal Not Available [facility] ([facility]) [address] [facility], [place], [address], 08/02/2024 14:37:04 08/02/19 25 08/02/2024 CBC WITH DIFFE RENTI AL/PL ATELE T eos 3 % not estab. normal Not Available [facility] ([facility]) [address] [facility], [place], [address], 08/02/2024 14:37:04 08/02/19 25 08/02/2024 CBC WITH DIFFE RENTI AL/PL ATELE T basos 1 % not estab. normal Not Available [facility] ([facility]) [address] [facility], [place], [address], 08/02/2024 14:37:04 08/02/19 25 08/02/2024 CBC WITH DIFFE RENTI AL/PL ATELE T immature cells FINANCIAL ASSISTANT Not Available [facility] ([facility]) [address] [place], [address], 08/02/2024 14:37:04 08/02/19 25 08/02/2024 CBC WITH DIFFE RENTI AL/PL ATELE T neutrophils (absolute) 4.1 x10e3 /uL 1.4-7. 0 normal Not Available [facility] ([facility]) [address] [place], [address], 08/02/2024 14:37:04 08/02/19 25 08/02/2024 CBC WITH DIFFE RENTI AL/PL ATELE T lymphs (absolute) 1.7 x10e3 /uL 0.7-3. 1 normal Not Available [facility] ([facility]) [address] [place], [address], 08/02/2024 14:37:04 08/02/19 25 08/02/2024 CBC WITH DIFFE RENTI AL/PL ATELE T monocytes(ab solute) 0.5 x10e3 /uL 0.1-0. 9 normal Not Available [facility] ([facility]) [address] [facility], [place], [address], 08/02/2024 14:37:04 08/02/19 25 08/02/2024 CBC WITH DIFFE RENTI AL/PL ATELE T eos (absolute) 0.2 x10e3 /uL 0.0-0. 4 normal Not Available [facility] ([facility]) [address] [place], [address], 08/02/2024 14:37:04 08/02/19 25 08/02/2024 CBC WITH DIFFE RENTI AL/PL ATELE T baso (absolute) 0.1 x10e3 /uL 0.0-0. 2 normal Not Available [facility] ([facility]) [address] [place], [address], 08/02/2024 14:37:04 08/02/19 25 08/02/2024 CBC WITH DIFFE RENTI AL/PL ATELE T immature granulocytes 1 % not estab. Not Available [facility] ([facility]) [address] [place], [address], 08/02/2024 14:37:04 08/02/19 25 08/02/2024 CBC WITH DIFFE RENTI AL/PL ATELE T immature grans (abs) 0.0 x10e3 /uL 0.0-0. 1 Not Available [facility] ([facility]) [address] [place], [address], 08/02/2024 14:37:04 08/02/19 25 08/02/2024 CBC WITH DIFFE RENTI AL/PL ATELE T NRBC FINANCIAL ASSISTANT Not Available [facility] ([facility]) [address] [facility], [place], [address], 08/02/2024 14:37:04 08/02/19 25 08/02/2024 CBC WITH DIFFE RENTI AL/PL ATELE T hematology comments: FINANCIAL ASSISTANT Not Available [facility] ([facility]) [address] [facility], [place], [address], 08/02/2024 14:37:04 08/02/19 25 08/02/2024 COMP. METAB OLIC PANEL (14) glucose 96 mg/dL 70-99 normal Not Available [facility] ([facility]) [address] [facility], [place], [address], 08/02/2024 14:37:05 08/02/19 25 08/02/2024 COMP. METAB OLIC PANEL (14) BUN 13 mg/dL 6-20 normal Not Available [facility] ([facility]) [address] [facility], [place], [address], 08/02/2024 14:37:05 08/02/19 25 08/02/2024 COMP. METAB OLIC PANEL (14) creatinine 0.67 mg/dL 0.57-1 .00 normal Not Available [facility] ([facility]) [address] [facility], [place], [address], 08/02/2024 14:37:05 08/02/19 25 08/02/2024 COMP. METAB OLIC PANEL (14) eGFR 116 mL/mi n/1.7 3 >59 normal Not Available [facility] ([facility]) [address] [place], [address], 08/02/2024 14:37:05 08/02/19 25 08/02/2024 COMP. METAB OLIC PANEL (14) BUN/creatini ne ratio 19 9-23 normal Not Available [facility] ([facility]) [address] [facility], [address], 08/02/2024 14:37:05 08/02/19 25 08/02/2024 COMP. METAB OLIC PANEL (14) sodium 139 mmol/ L 134-14 4 normal Not Available [facility] ([facility]) [address] [facility] [place], [address], 08/02/2024 14:37:05 08/02/19 25 08/02/2024 COMP. METAB OLIC PANEL (14) potassium 4.0 mmol/ L 3.5-5. 2 normal Not Available [facility] ([facility]) [address] [place], [address], 08/02/2024 14:37:05 08/02/19 25 08/02/2024 COMP. METAB OLIC PANEL (14) chloride 102 mmol/ L 96-106 normal Not Available [facility] ([facility]) [address] [facility] [place], [address], 08/02/2024 14:37:05 08/02/19 25 08/02/2024 COMP. METAB OLIC PANEL (14) carbon dioxide, total 19 mmol/ L 20-29 below low normal Not Available [facility] ([facility]) [address] [facility] [place], [address], 08/02/2024 14:37:05 08/02/19 25 08/02/2024 COMP. METAB OLIC PANEL (14) calcium 9.2 mg/dL 8.7-10 .2 normal Not Available [facility] ([facility]) [address] [facility] [place], [address], 08/02/2024 14:37:05 08/02/19 25 08/02/2024 COMP. METAB OLIC PANEL (14) protein, total 6.5 g/dL 6.0-8. 5 normal Not Available [facility] ([facility]) [address] [place], [address], 08/02/2024 14:37:05 08/02/19 25 08/02/2024 COMP. METAB OLIC PANEL (14) albumin 4.3 g/dL 3.9-4. 9 normal Not Available [facility] ([facility]) [address] [place], [address], 08/02/2024 14:37:05 08/02/19 25 08/02/2024 COMP. METAB OLIC PANEL (14) globulin, total 2.2 g/dL 1.5-4. 5 Not Available [facility] ([facility]) [address] [place], [address], 08/02/2024 14:37:05 08/02/19 25 08/02/2024 COMP. METAB OLIC PANEL (14) bilirubin, total 0.3 mg/dL 0.0-1. 2 normal Not Available [facility] ([facility]) [address] [place], [address], 08/02/2024 14:37:05 08/02/19 25 08/02/2024 COMP. METAB OLIC PANEL (14) alkaline phosphatase 63 IU/L 44-121 normal Not Available [facility] ([facility]) [address] [place], [address], 08/02/2024 14:37:05 08/02/19 25 08/02/2024 COMP. METAB OLIC PANEL (14) AST (SGOT) 23 IU/L 0-40 normal Not Available [facility] ([facility]) [address] [place], [address], 08/02/2024 14:37:05 08/02/19 25 08/02/2024 COMP. METAB OLIC PANEL (14) ALT (SGPT) 31 IU/L 0-32 normal Not Available [facility] ([facility]) [address] [facility], [place], [address], 08/02/2024 14:37:05 08/02/19 25 08/02/2024 IRON AND TIBC iron bind.cap.(TI BC) 400 ug/dL 250-45 0 normal Not Available [facility] ([facility]) [address] [facility], [place], [address], 08/02/2024 14:37:05 08/02/19 25 08/02/2024 IRON AND TIBC UIBC 327 ug/dL 131-42 5 normal Not Available [facility] ([facility]) [address] [place], [address], 08/02/2024 14:37:05 08/02/19 25 08/02/2024 IRON AND TIBC iron 73 ug/dL 27-159 normal Not Available [facility] ([facility]) [address] [place], [address], 08/02/2024 14:37:05 08/02/19 25 08/02/2024 IRON AND TIBC iron saturation 18 % 15-55 normal Not Available [facility] ([facility]) [address] [place], [address], 08/02/2024 14:37:05 08/02/19 25 08/02/2024 VITAM IN B12 AND FOLAT E vitamin B12 288 pg/mL 232-12 45 normal Not Available [facility] ([facility]) [address] [place], [address], 08/02/2024 14:37:06 08/02/19 25 08/02/2024 VITAM IN B12 AND FOLAT E folate (folic acid), serum 7.6 NG/mL >3.0 normal A serum folat e joceline ntrat ion of less than 3.1 ng/mL is consi dered to repre sent clini fercho defic iency . Not Available [facility] ([facility]) [address] [place], [address], 08/02/2024 14:37:06 08/02/19 25 08/02/2024 HEMOG LOBIN A1C hemoglobin A1C 5.5 % 4.8-5. 6 normal Predi abete s: 5.7 - 6.4 Diabe sascha: >6.4 Glyce matias contr ol for adult s with diabe sascha: <7.0 Not Available [facility] ([facility]) [address] [place], [address], 08/02/2024 14:37:07 08/02/19 25 08/02/2024 RHEUM ATOID FACTO R (RF) rheumatoid factor (rf) <10.0 IU/mL <14.0 Not Available [facility] ([facility]) [address] [facility], [place], [address], 08/02/2024 14:37:07 08/02/19 25 08/02/2024 VITAM IN [...] Socie ty went on to [facility] er defin e vitam in D insuf ficie ncy as a level betwe en 21 and 29 ng/mL (2). 1. IOM (Inst itute of Medic ine). 2009. Dieta ry refer ence intak es for calci um and D. Adriana lopez [place]: [facility] . 2. Mark holloway MF, Stacey francois [place], Saida off-F joshua i ATKINS, et al. Evalu ation , treat ment, and preve ntion of vitam in D defic iency : an Endoc rine Socie ty clini fercho pract ice guide line. JCEM. 2010; 96(7) :1911 -30. Not Available [facility] ([facility]) [address] [facility], [place], [address], 08/02/2024 14:37:08 08/02/19 25 08/02/2024 MELISSA W/REF TIFFANIE IF POSIT JON MELISSA direct Negati ve negati ve Not Available [facility] ([facility]) [address] [facility], [place], [address], 08/02/2024 14:37:08 08/02/19 25 08/02/2024 SEDIM ENTAT ION RATE- WESTE RGREN sedimentatio n rate-westerg tanja 2 mm/HR 0-32 normal Not Available [facility] ([facility]) [address] [facility], [place], [address], 08/02/2024 14:37:09 08/02/19 25 08/02/2024 C-NADIRA CTIVE PROTE IN, QUANT C-reactive protein, quant 2 mg/L 0-10 normal Not Available [facility] ([facility]) [address] [facility], [place], [address], 08/02/2024 14:37:10 10/16/19 [place], obste tric, 1st trime ster No observ ation record ed. [facility] [employer] [address] [place] [address] , [place], [address], 10/15/2022 21:31:23 10/20/19 23 10/18/2022 [place], obste tric No observ ation record ed. [email or web address] [facility] [address], [place], [address], 10/21/2022 23:46:50 10/23/19 US, obste tric, 1st trime ster No observ ation record ed. [facility] [employer] [address] [place] [address] , [place], [address], 10/24/2022 15:14:09 0910/15/2022 US, obste tric, 1st trime ster No observ ation record ed. RIKY Yermo [employer] [address] [place] [address] , [place], [address], 10/27/2022 15:02:05 10/29/19 US, obste tric, 1st trime ster No observ ation record ed. deonte Yermo [employer] [address] [place] [address] , [place], [address], 10/28/2022 16:56:08 11/01/19 23 10/24/2022 US, obste tric, 1st trime ster No observ ation record ed. RIKY Yermo [employer] [address] [place] [address] , [place], [address], 10/31/2022 13:29:16 11/01/19 23 10/28/2022 US, obste tric, 1st trime ster No observ ation record ed. RIKY Yermo [employer] [address] [place] [address] , [place], [address], 10/31/2022 13:29:16 07/14/19 24 07/14/2023 [place], obste tric, 1st trime ster No observ ation record ed. [address], [place], [address], 07/15/2023 22:23:29 07/20/19 24 07/20/2023 [place], obste tric, 1st trime ster No observ ation record ed. [email or web address] [facility] [address], [place], [address], 07/21/2023 12:39:40 Result Notes None recorded. 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 Olsen at [facility] [address], [place], [place], [address] [place] [address] , [place] - [facility] 15:49:25 Antenata l screenin g Completed [ ]Mat21-d iscussed at obx, desires [-]AFP-d iscussed at obx, pt declined [x]CF- negative Infusion Nurse [address], [place], [address] [place] [address] , [facility] - [facility] 3 15:49:24 Contrace ption care manageme nt Completed unsure Infusion Nurse [facility] Jose [address], [place], [address] [place] [address] , [facility] - [facility] 3 15:49:25 Body mass index 30+ - obesity 837060327 Completed BMI: 30.6 starting wgt: 173 recommen ded wgt gain: 15-25 Infusion Nurse [facility] Jose Juan [facility], [place], [place], [address] [place] [address] , [facility] - [facility] 3 15:49:25 Active immuniza tion Completed [-]Covid -decline d at obx [ ]Tdap- [ ]Flu- Infusion Nurse [facility] Jose Juan 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 Olsen at Infusion Nurse [facility] Jose [address], [place], [address] [place] [address] , [facility] - [facility] 3 15:49:25 Obesity 923468207 Active BMI: 30.6 Infusion Nurse [address], [place], [address] [place] [address] , [place] - [facility] 3 15:49:25 Obesity 821078962 Completed BMI: 30.6 Infusion Nurse [address], [place], [address] [place] [address] , [facility] - [facility] 3 15:49:25 Nausea and vomiting 99135243 Completed fluids in office and at hosp Infusion Nurse [facility] Jose [address], [place], [address] [place] [address] , [place] - [facility] 8 13:59:46 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 63506018 Completed [place]: ENT Dr Olsen & [facility] [place] right petrous apex choleste rol granulom a [facility] [address], [place], [address] , [place] - [facility] 8 13:59:46 Antenata l screenin g Completed 04/03/16 FTS Normal NT, Serum = REqueste d 09/03 [facility] [address], [place], [address] , [place] - [facility] 8 13:59:46 Normal pregnanc y 87403575 Completed 201603/16/2017 [facility] [address], [place], [address] , [place] [facility] 8 14:00:16 Pregnanc y 30457394 Completed 201603/16/2017 Luannethea [place], [place] - [facility] 3 09:05:42 Muscle weakness 24931500 Active 2019 RIght Luanne Nemo [place], [place] - [facility] 3 11:29:58 Neuropat hy 801198823 Active 2019 intermit tent comes and goes [facility] [address], [place], [address] , [place] [facility] 3 15:49:25 Neuropat hy 447096424 Completed 2019 intermit tent comes and goes [facility] [address], [place], [address] , [place] [facility] 3 15:49:25 Hashimot o thyroidi tis 11359550 Active 2020 per rheumato logy labs, [facility] [address], [place], [address] , [place] [facility] 3 15:49:24 Hashimot o thyroidi tis 91904726 Completed 2020 per rheumato logy labs, [facility] [address], [place], [address] , [place] [facility] 3 15:49:24 Vitamin D deficien cy 67575422 Active 2020 Scott Lincoln, [employer] [address], [place], [address] , [place] [facility] 5 14:48:19 History of abnormal cervical Papanico laou smear 425586248 Completed 2022 LSIL, HPV+ colpo: CIN1, neg ECC [facility] [address], [place], [address] , [place] - [facility] 3 15:49:25 History of abnormal cervical Papanico laou smear 435914310 Active 2022 2014 LSIL, HPV+ colpo: CIN1, neg ECC [facility] [address], [place], [address] , [place] - [facility] 3 15:49:25 Tendinit is 58685982 Active 2024 Viky Restrepo, [employer] [address], [place], [address] , [place] [facility] 15:46:56 Fatigue 86458382 Active 2024 Scott Lincoln, [employer] [address], [place], [address] , [place] [facility] 5 08:42:52 Butterfl y rash 56176622 Active 2024 Scott Lincoln, [employer] [address], [place], [address] , [place] [facility] 5 08:50:46 Paresthe karen of hand 998851841 Active 2024 Scott Lincoln, [employer] [address], [place], [address] , [place] [facility] 5 08:54:36 Problem Notes None recorded. Procedures Surgical History Date Name Laterality Status Provider Name and Address Organization Details Recorded Time 023 OB Ultrasound Summary completed Ryanpapi Louiseant [place] - [facility] 10/28/2022 16:25:13 023 OB Ultrasound Summary completed Lexi Gutierrez [place] - [facility] 10/24/2022 14:29:34 023 OB Ultrasound Summary completed Lexi Gutierrez [place] - [facility] 10/15/2022 14:00:05 023 IUD Removal completed Malaika Umana, [employer] [address], [place], [address], [place] - [facility] 03/13/2022 14:02:13 023 Date of Last Pap Smear completed Malaika Umana, [employer] [address], [place], [address], [place] - [facility] 03/18/2022 10:45:46 023 removal of intrauterine device completed Malaika Umana [employer] [address], [place], [address], [place] - [facility] 03/13/2022 14:11:29 019 Medication Reconcilliation completed Deep Keane [place] - [facility] 04/14/2018 10:49:20 018 insertion of intrauterine contraceptive device completed Luanne Chester [place] - [facility] 03/12/2022 11:36:29 017 OB Ultrasound Summary completed Misty Ambroselach [place] - [facility] 05/28/2016 17:09:03 017 OB Ultrasound Summary completed Rochelle Gil [place] - [facility] 04/30/2016 10:38:28 017 OB Ultrasound Summary completed Elizabet Schumacher [place] - [facility] 03/26/2016 16:11:11 017 OB Ultrasound Summary completed Elizabet Schumacher [place] - [facility] 03/10/2016 14:04:59 016 IUD Removal completed Marcella Rodriguezrus [place] - [facility] 02/21/2016 15:05:42 016 Nsl/sins ndsc frnt tiss rmvl completed Marcella Milly [place] - [facility] 02/22/2016 15:08:58 014 Colposcopy completed Marcella Milly [place] - [facility] 02/21/2016 15:31:12 014 Colposcopy completed Marcella Milly [place] - [facility] 02/21/2016 15:31:40 011 IUD Insertion completed Luanne Chester [place] - [facility] 03/12/2022 11:35:46 Imaging Results None [...] Arterial blood by Pulse oximetry Respiratory rate Pain severity - 0-10 verbal numeric rating [Score] - Reported Systolic And Diastolic Provider Name and Address Organization Details Last Updated DateTime 5 160.02 cm 30.8 kg/m2 16972.0 7 g 76 /min 98 % 98 % 18 /min 7 124/76 mm[Hg] Crystal David [place] - [facility] 5 15:20:11 Date Recorded Body height Body mass index (BMI) Body weight Heart rate Oxygen saturation Oxygen saturation in Arterial blood by Pulse oximetry Respiratory rate Systolic And Diastolic Provider Name and Address Organization Details Last Updated DateTime 5 160.02 cm 32.1 kg/m2 89304.9 2 g 88 /min 98 % 98 % 18 /min 116/76 mm[Hg] Mireya kilpatrick [place] - [facility] 5 08:37:16 Date Recorded Body height Body mass index (BMI) Body weight Systolic And Diastolic Provider Name and Address Organization Details Last Updated DateTime 10/24/2022 160.02 cm 29.8 kg/m2 98275.518 16 g 124/80 mm[Hg] Oma Perdomo [place] - [facility] 10/24/2022 14:57:14 Date Recorded Body height Body mass index (BMI) Body weight Pain severity - 0-10 verbal numeric rating [Score] - Reported Systolic And Diastolic Provider Name and Address Organization Details Last Updated DateTime 10/28/2022 160.02 cm 29.9 kg/m2 94522.11 053 g 0 106/76 mm[Hg] Leonora Albarran [place] - [facility] 3 16:31:03 Date Recorded Body height Body mass index (BMI) Body weight Body temperature Heart rate Oxygen saturation Oxygen saturation in Arterial blood by Pulse oximetry Respiratory rate Pain severity - 0-10 verbal numeric rating [Score] - Reported Systolic And Diastolic Provider Name and Address Organization Details Last Updated DateTime 160.02 cm 31 kg/m2 83540.6 6 g 98.5 [degF] 98 /min 98 % 98 % 18 /min 0 122/74 mm[Hg] Deep Dardenjohn [place] - [facility] 15:04:00 Social History Question Answer Notes LastModified by Organizat ion Details LastModified Time Tobacco Smoking Status Never Smoker Marcella Millyrandall [place] - [facility] 02/22/2016 15:06:05 Do You Have An Advance Directive? No [email or web address] Information not available 03/12/2022 If You Are , What Was Your Level Of Alcohol Consumption Prior To ? None [email or web address] Information not available 03/12/2022 Are You Blind Or Do You Have Difficulty Seeing? No [email or web address] Information not available 03/12/2022 Is Blood Transfusion [...] COVID-19 While That Case Was Ill? No [email or web address] Information not available 03/12/2022 In The 14 Days Before Symptom Onset, Have You Had Close Contact With A Person Who Is Under Investigation For COVID-19 While That Person Was Ill? No [email or web address] Information not available 03/12/2022 Have You Been To An Area Known To Be High Risk For COVID-19? No Information not available 03/12/2022 Are You Deaf Or Do You Have Serious Difficulty Hearing? No [email or web address] Information not available 03/12/2022 Diabetes No Information no t available 02/22/2016 What Type Of Diet Are You Following? REGULAR Information not available 02/22/2016 Which Illicit Or Recreational Drugs Have You Used? No Hx Information not available 02/22/2016 Have You Processed Blood Or Body Fluids From An Ebola Virus Disease Patient Without Appropriate PPE? No [email or web address] Information not available 03/12/2022 Do You Reside In Or Have You Traveled To An Area Where Ebola Virus Transmission Is Active? No [email or web address] Information not available 03/12/2022 Education 12 [email or web address] Information no t available 03/12/2022 What Is The Highest Grade Or Level Of School You Have Completed Or The Highest Degree You Have Received? [id number] [email or web address] Information not available 03/12/2022 Have There Been Any Changes To Your Family Or Social Situation? No Information no t available 02/22/2016 What Is The Fluoride Status Of Your Home? Fluoridated Information not available 03/12/2022 Frequent Air Travel No Information not available 02/22/2016 Have You Recently Or Are You Planning To Travel To An Area With Zika Virus? No [email or web address] Information not available 03/12/2022 High Blood Pressure No Information not available 02/22/2016 High Cholesterol No Informat ion not available 02/22/2016 Illicit Drugs Pre- None Information not available 02/22/2016 Live Alone Or With Others? With Others Information not available 02/22/2016 Do You Have A Medical Power Of Air Support Control Officer? Yes [email or web address] Information not available 03/12/2022 What Was The Date Of Your Most Recent Tobacco Screening? 04/25/2024 Information not available 04/25/2024 How Many Children Do You Have? 2 Information not available 10/08/2022 Do You Have Any Pets? No Information not available 02/22/2016 Do You Use Protection During Sex? No [email or web address] Information not available 03/12/2022 Do You Use Protection Against STDs? No [email or web address] Information not available 03/12/2022 What Is Your Relationship Status? Information not available 03/12/2022 Seat Belts Used [...] Have Difficulty Walking Or Climbing Stairs? No [email or web address] Information not available 03/12/2022 Do You Have [...] Was Counseling Provided To Achieve ? No [email or web address] Information not available 03/12/2022 Do You Want To Talk About Contraception Or Prevention During Your Visit Today? No - I Do Not Want To Talk About Contraception Today Because I Am Here For Something Else [email or web address] Information not available 10/15/2022 What Is Your Reason For Having No Contraceptive Method At Start Of This Visit? Other [email or web address] Information not available 10/15/2022 Sex: Female Functional Status Question Answer Note LastModified by Organizat ion Details LastModified Time Do you or have you ever used smokeless tobacco? Never used smokeless tobacco Information not available 07/25/2020 Are you currently employed? Yes Information not available 02/22/2016 Do you have transportation difficulties? No [email or web address] Information not available 03/12/2022 Are you able to care for yourself independently? Yes [email or web address] Information not available 03/12/2022 Do you have difficulty dressing, bathing, grooming, or toileting? No [email or web address] Information not available 03/12/2022 Do you or [...] 10/08/2022 Are you able to walk? YESWOREST [email or web address] Information not available 03/12/2022 Do you have difficulty doing errands alone? 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 [id number] [email or web address] Information not available 03/12/2022 Do you have difficulty concentrating, remembering or making decisions? No [email or web address] Information no t available 03/12/2022 Family History [...] colitis N Cerebrovascular Disease N Depression N Guillain-Cecil N Sleep Apnea N Aneurysm N Bronchitis [...] SNOMED-CT Code Diagnosis ICD10 Code Diagnosis Note [id number] VELASQUEZ [place] ADMISSIONS DIRECTOR [address] [place] [address] [place] Hernández [address] 02/22/2016 14:56:39 02/22/2016 15:30:49 Urine test positive 139344964 Z32.01 Amenorrhea 34152530 N91. 2 [id number] Michelle Keller CNM [facility] ADMISSIONS DIRECTOR [address] [place] [address] [place] Hernández [address] 03/05/2016 13:39:56 03/05/2016 17:06:39 Nausea and vomiting 27741699 R11.2 Dehydration 32991758 E86 .0 Ketonuria 872468439 R82. 4 Gestation period, 11 weeks 60521841 Z3A.11 [id number] Michelle Smith CNM [facility] ADMISSIONS DIRECTOR [address] [place] [address] [place] Hernández [address] 03/10/2016 13:24:12 03/10/2016 15:27:21 Normal 75008931 Z34.90 Gestation period, 9 weeks 755414 Z3A.09 Routine an tenatal care 871089840 Z34.90 Nausea and vomiting 1693 2000 R11.2 [id number] DO Magda [place] ADMISSIONS DIRECTOR [address] [place] [address] [place] Hernández [address] 03/26/2016 15:49:30 03/26/2016 16:27:11 Gestation period, 11 weeks 09056630 Z3A.11 Normal 5614109 2 Z34.81 Nausea and vomiting 1693 2000 R11.2 [id number] [facility] [address] [place] [address] [place] Hernández [address] 04/03/2016 10:18:53 04/03/2016 12:39:18 Normal 39803798 Z34.81 Gestation period, 12 weeks 36493190 Z3A.12 Infection screening 2437 12556 Z11.3 Z11.8 Screening for malignant neoplasm of cervix 964090681 Z12.4 screening 2437 22996 Z36 [id number] [facility] [address] [place] [address] S[place]AY[place] Hernández [address] 04/30/2016 10:10:22 04/30/2016 11:18:42 Normal 72272485 Z34.92 Gestation period, 16 weeks 31581217 Z3A.16 [id number] Rita Jacome, MS, RD, LD [facility] ADMISSIONS DIRECTOR [address] [place] [address] [place] Hernández [address] 04/30/2016 10:13:17 04/30/2016 11:28:12 92802825 Z33.1 [id number] DO Magda [place] ADMISSIONS DIRECTOR [address] [place] [address] S[place] Hernández [address] 05/28/2016 15:10:42 05/28/2016 17:10:47 Counseling 891828643 Z71.9 Gestation period, 20 weeks 67829160 Z3A.20 screening 2437 93753 Z36 Normal 9804737 2 Z34.82 Body mass index 25-29 - overweight 400317291 Z68.29 [id number] VELASQUEZ [place] ADMISSIONS DIRECTOR [address] [place] [address] S[place]AYA Hernández [address] 06/26/2016 12:25:52 06/26/2016 14:02:28 Gestation period, 24 weeks 956299762 Z3A.24 screening 2437 54978 Z36 Normal 6042555 2 Z34.82 Nausea 506483996 R11.0 Continue with unisom and B-6 [id number] MIESHA Baldwin ADMISSIONS DIRECTOR [address] [place] [address] S[place]AY[place] Hernández [address] 07/24/2016 08:42:43 07/24/2016 10:16:54 Normal 90099954 Z34.92 Gestation period, 28 weeks 88195252 Z3A.28 screening 2437 16518 Z36 [id number] DO Magda [place] ADMISSIONS DIRECTOR [address] [place] [address] S[place] Hernández [address] 08/07/2016 10:57:00 08/07/2016 11:29:15 Gestation period, 30 weeks 00521165 Z3A.30 Normal 7898834 2 Z34.81 [id number] Nicole Paulino DO [facility] ADMISSIONS DIRECTOR [address] [place] [address] [place] Hernández [address] 08/21/2016 10:39:54 08/21/2016 11:26:01 Gestation period, 32 weeks 7994601 Z3A.32 29990278 Z33.1 [id number] MIESHA Perez ADMISSIONS DIRECTOR [address] [place] [address] S[place]AY[place] Hernández [address] 09/03/2016 14:41:19 09/03/2016 15:40:36 screening 929496429 Z36 Gestation period, 34 weeks 07207531 Z3A.34 Normal 0515577 2 Z34.81 [id number] MIESHA Baldwin ADMISSIONS DIRECTOR [address] [place] [address] S[place]AYA Hernández [address] 09/15/2016 11:04:07 09/15/2016 11:36:07 Threatened premature labor - not delivered 485922593 O47.9 Gestation period, 36 weeks 03863562 Z3A.36 screening 2437 85150 Z36 Vaginal discharge 923148 006 N89.8 Bacterial vaginosis 4197 49731 N76.0 [id number] MD Emilia Siegel ADMISSIONS DIRECTOR [address] [place] [address] [place]AY[place] Hernández [address] 7 09/23/2016 10:45:13 09/23/2016 11:12:27 Normal 22261243 Z34.93 Gestation period, 37 weeks 06379033 Z3A.37 Vaginal discharge 930164 006 N89.8 [id number] Anaya Vargas[address] [place] [address] 10/12/2017 15:14:18 10/12/2017 17:44:29 Body mass index 25-29 - overweight 442735510 Z68.29 Pain of right calf 21221 32029 690201 M79.560 [id number] Anaya Vargas[address] [place] [address] 04/14/2018 10:44:34 04/14/2018 11:11:00 Cervical radiculopathy 27675586 M54.12 Abnormal f indings on diagnostic imaging of skull and head 275038466 R93.0 Pain of ri ght shoulder joint 5643355784 2951805 M25.882 [id number] Anaya Vargas[address] [place] [address] 04/19/2018 11:04:13 04/19/2018 12:41:49 Cervical radiculopathy 66979817 M54.12 Pain of ri ght shoulder joint 0153437209 2235431 M25.720 [id number] Anaya Vargas[address] [place] [address] 04/29/2018 10:58:50 04/29/2018 13:51:45 Migraine 76307041 G43.909 Pain of ri ght shoulder joint 1031556603 3256706 M25.511 Cervical radiculopathy 09370851 M54.12 [id number] Anaya Vargas[address] 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 [place] [address] 09/06/2019 10:46:23 09/06/2019 15:18:37 Intermittent confusion 097465072 R41.0 Muscle weakness 09893463 M62.81 [id number] [address]rad V[address] [place]. [place] [address] 10/31/2019 16:06:36 10/31/2019 17:19:47 Neuropathy 822041685 G62.9 Muscle weakness 36175664 M62.81 [id number] Anayabrad Vargas[address] [place]. [place] [address] 04/27/2020 14:27:10 04/27/2020 15:36:42 Ora thyroiditis 52068488 E06.3 [id number] Anayabrad V[address]as[address] [place]. [place] [address] 07/25/2020 09:11:57 07/25/2020 10:37:38 Ora thyroiditis 25741305 E06.3 Vitamin D deficiency 347 94168 E55.9 [id number] Anayabrad Vargas[address] [place] [address] 02/25/2022 13:17:57 02/25/2022 14:47:33 Ora thyroiditis 40386216 E06.3 Screening for cardiovascular system disease 827189345 Z13.6 Endocrine/ metabolic screening 721123714 Z13.228 Body mass index 25-29 - overweight 094395846 Z68.29 General ex amination of patient 957170521 Z00.00 Exercises education, guidance, and counseling 603022217 Z71.82 The patient was advised to continue a healthy diet and exercise regularly. Dietary ma nagement surveillance 881127784 Z71.3 [id number] VELASQUEZ Pablo ADMISSIONS DIRECTOR [address] [place] [address] S[place]AYA Hernández [address] 03/13/2022 13:42:15 03/13/2022 15:15:33 Routine gynecologic examination done 5752285290 9101 Z01.419 Depression screening 171 312559 Z13.89 PHQ-9 completed today. Diet education 95519498 Z71.3 Counseling 827655932 Z71 .82 Exercise counselminh evans Patient encouraged to exercise 30 minutes 5 days a week. Examinatio n of blood pressure 870607219 Z01.30 Vaccine de clined by patient 0712270643 02 Z28.21 Pt declined flu vaccine today. Screening for malignant neoplasm of cervix 435194313 Z12.4 Z11.3 Z01.419 Patient advised that I will follow up with results. Removal of intrauterine device 08986923 Z30.432 Discussed possible cramping and bleeding over the next few days. Patient informed that return to fertility is immediate. She is to use condoms and foam x 2 cycles. Patient encouraged to take PNV daily. Reproducti ve care management 163315313 Z31.9 Patient advised to get regular exercise, eat healthy foods and start a menstrual diary.Pt to call with + UPT. 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 [address] 10/15/2022 13:41:58 10/15/2022 15:10:50 screening [id number] Z36.9 Nausea and vomiting 1693 1999 R11.2 Generalize d acute body pains 786991699 R52 Early stag e of 005551434 Z34.91 COVID-19 051690740 U07.1 Diagnosed 10/15/22 [id number] Nicole Paulino DO Yermo ADMISSIONS DIRECTOR [address] [place] [address] SORAYA Hernández [address] 10/24/2022 14:04:39 10/24/2022 15:13:56 screening [id number] Z36.9 Early stag e of 105837804 Z34.91 Gestation period, 6 weeks 10645975 Z3A.01 [id number] Nicole Paulino [facility] ADMISSIONS DIRECTOR [address] [place] [address] SORAYA Hernández [address] 7 10/28/2022 16:01:09 10/28/2022 16:47:11 Gestation period, 6 weeks 31135662 Z3A.01 screening 2437 21338 Z36.9 Routine an tenatal care 273926433 Z34.91 Missed miscarriage 73408 004 O02.1 [id number] Anaya Vargas[address] [address] 02/11/2023 14:36:23 02/11/2023 15:50:35 Ora thyroiditis 48340141 E06.3 Acute bact erial sinusitis 96548989 J01.90 Fatigue 05743757 R53.83 Missed miscarriage 83792 004 O02.1 10/2022 [id number] Viky Restrepo [address] [place] [address] 04/25/2024 15:12:58 04/25/2024 15:56:41 Body mass index 30+ - obesity 805000525 Z68.30 Obesity 061529747 E66.9 Tendinitis 49858225 M77. 9 [id number] Scott Lincoln [address] [place] [address] 08/01/2024 08:31:06 08/01/2024 09:20:53 Ora thyroiditis 36871577 E06.3 hx of Ora' s, will check labs as patient having increased fatigue, weight gain.Notif y with results, f/u pending labs. Fatigue 45782114 R53.83 PE noted with butterfly appearing rash to face. Will check labs at this time. Advised to continue working on improved diet with reduced processed foods, sugars, focus on whole foods. Increase exercise 5 days 30min. F/U 3-4 weeks or sooner pending labs. Butterfly rash 78342004 R21 PE noted with butterfly rash will check labs, concern for possible lupus or other autoimmune disease considerin g worsening fatigue, joint pain, malar rash, edema. Will notify with results once available. F/u 3-4 weeks or sooner pending labs. Paresthesia of hand 3090 83427 R20.2 PE noted with decreased sensation to [...] English Member ID Guarantor Name 04/12/2018 1 [facility] [id number] Lillian Erica [id number] [facility] 04/27/2020 1 [place] [id number] Lillian Erica [id number] [facility] 08/08/2024 1 PASSPORT BY [employer] (MEDICAID REPLACEMENT - HMO) Lillian N Erica [id number] [facility] 09/06/2019 1 [place] [id number] Lillian Erica [id number] [facility] 08/08/2024 [place] [facility] [place]ICA[place] Lillian N Erica [id number] [facility] 09/06/2019 1 [employer] Lillian Erica [id number] Lillian Fat 04/27/2020 1 THE [employer] - MULTIPLAN (INDEMNITY) Lillian Erica [id number] [facility] 10/08/2022 TITLE X Lillian Erica [id number] [facility] 08/01/2024 1 *SELF PAY* As [facility] 08/29/2021 1 [place] [id number] Lillian Erica [id number] [facility] 05/16/2020 1 [place] [id number] Lillian Erica [id number] [facility] OBGyn Episode Ob Episode Information Episode Created Date Number of Fetuses Patient Bloodtype Patient rh Status Prepregnancy Weight lbs Domestic Partner Domestic Partner Phone Father Name Weight Control Lecturer Status 02/20/19 17 1 CLOSED Fetus Data [...] Complications Tubal Sterilization Discharge Date Comments 1 [facility] 38 [facility] Discharge Information Feeding Method Contraceptive Method Maternal HG B and HCT Levels Ob Episode Information Episode Created Date Number of Fetuses Patient Bloodtype Patient rh Status Prepregnancy Weight lbs Domestic Partner Domestic Partner Phone Father Name Weight Control Lecturer Status 03/10/19 17 1 O Positive 150 [...] Snomed Code Not e Nausea and vomiting 50625157 fluids in office and at hosp Cholesterol granuloma of middle ear 56081106 [place]: ENT Dr Mas er & [place] Neurosx Dr Anderson petrous apex cholesterol granuloma screening 351329676 04/03/16 FTS Normal NT, Serum = REquested 09/03 Nils Calculation Initial Nils Date Initial Exam Date Initial Exam Provider Initial Ultrasound Date Last Menstrual Period Date Ultra Sound Weeks Gestation 10/12/2016 03/10/2016 [id number] 03/10/2016 12/18/2015 9 Eighteen To Twenty Week Inls Update Ultra Sound Date Fundal Height At [...] Type Weight in lbs Pre/Post Dialysis Refused 150.170936767049 BP Diastolic BP Location Tested BP Systolic [...] Type Weight in lbs Pre/Post Dialysis Refused 153.459823925734 BP Diastolic BP Location Tested BP Systolic BP Type 60 110 sitting Fetus Heart Rate Present A Present Fetus Movement A No Comments No lof or vb, taking Diclegi s 2 QHS and doing better.knt Doing much better. Happy with results from Diclegis. Tolerating regular diet. Denies heartburn. Unable to obtain FHT with doppler, US performed for heart rate. Reports that her employer, [employer], requires her to take time off until [...] Type Weight in lbs Pre/Post Dialysis Refused 152.663952155885 BP Diastolic BP Location Tested BP Systolic [...] Type Weight in lbs Pre/Post Dialysis Refused 152.766193556541 BP Diastolic BP Location Tested BP Systolic [...] Type Weight in lbs Pre/Post Dialysis Refused 158.116704897038 BP Diastolic BP Location Tested BP Systolic [...] Type Weight in lbs Pre/Post Dialysis Refused 163.531886768652 BP Diastolic BP Location Tested BP Systolic [...] Type Weight in lbs Pre/Post Dialysis Refused 165.842873937467 BP Diastolic BP Location Tested BP Systolic BP Type 64 112 sitting Fetus Heart Rate Present A 145 Fetus Movement A Yes Comments Afm, 1 hour gtt, hgb no lof, no vb-ct// Still with some nausea,but no vomiting. Venkat wants note for pt to be able [...] Type Weight in lbs Pre/Post Dialysis Refused 167.503965093750 BP Diastolic BP Location Tested BP Systolic [...] Type Weight in lbs Pre/Post Dialysis Refused 169.247919478020 BP Diastolic BP Location Tested BP Systolic [...] Type Weight in lbs Pre/Post Dialysis Refused 170.464455999686 BP Diastolic BP Location Tested BP Systolic [...] Type Weight in lbs Pre/Post Dialysis Refused 172.860828041172 BP Diastolic BP Location Tested BP Systolic [...] Type Weight in lbs Pre/Post Dialysis Refused 171.352015044709 BP Diastolic BP Location Tested BP Systolic [...] Estim ated Date of Delivery false Thalassemia (Irish, Iranian, Mediterranean, Or Background): MCV < 80 false Neural Tube Defect (Meningomyelocele, Spina Bifi da, Or Anencephaly) false Congenital Heart Defect false Down Syndrome false Thiago-Sachs (eg, Synagogue, Cajun, Luxembourger-Pinal) f alse Paulo Disease false Sickle Cell Disease Or Trait () false Hemophilia Or Other Blood Disorders false Muscular Dystrophy false Cystic Fibrosis false Upson's Chorea false Mental Retardation/Autism false If Yes, [...] Domestic Partner Domestic Partner Phone Father Name Weight Control Lecturer Status 10/09/19 23 1 O Positive 163 Chanel, 37 Chanel, 37 [facility] CLOSED Fetus Data First Name Last Name Admitted to NICU Weight (g) Sex Living Outcome Pediatric Complications Fetus ID Race Codes Race Delivery Type , Spontane ous Problems Problem Notes [facility] [place] [employer] manager[place]ottle/circ if boy/PP/epidural08/05/2010: 38wks, 7# 14oz, -BCHG10/09/2016: 40wks, can't remember wgt, hyperemesis- [facility]-rec requestedULTRASOUNDS: 10/15/22: GS and YS, no FP, repeat in one week. 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 Mas er at [facility] 09/08/2019 478539537 intermit tent comes and goes screening 848635647 [ ]Rfo38-bqzzzosco at obhx, desires[-]AFP-discus sed at obhx, pt declined[x]CF-2009 negative Ora thyroiditis 05/09/2020 5802149 2 per rheumatology labs, Obesity 860672379 BMI: 30.6 Contraception care management 795294990 unsure Body mass index 30+ - obesity 507407218 BMI: 30.6starti ng wgt: 173recommended wgt gain: 15-25 Active immunization 33635572 [-]Covid-declined at obhx[ ]Tdap-[ ]Flu- History of abnormal cervical Papanicolaou smear 10/12/2022 182595345 2013 LSIL, HPV+colpo: CIN1, neg ECC Nils [...] Date Ultra Sound Latest Days Gestation 0 deonte 10/24/2022 06/18/19 24 0 Pre-geri Flowsheet Flowsheet Date 10/08/2022 Bobo Score Blood Edema Fundus Height Fundus Units Glucose Ketones Leukocytes Nitrite Labor Signs Protein Cervic Dilation Cervic Effacement Cervic Station neg none none negative none Negative none neg Type Weight in lbs Pre/Post Dialysis Refused With clothes 173.915406266267 BP Diastolic BP Location Tested BP Systolic [...] in lbs Pre/Post Dialysis Refused With clothes 171.714931572705 BP Diastolic BP Location Tested BP Systolic [...] in lbs Pre/Post Dialysis Refused With clothes 168.530888062848 BP Diastolic BP Location Tested BP Systolic BP Type 80 124 sitting Fetus Heart Rate Present A US Present Fetus Movement Comments no LOF, no VB, no questions/ concerns. CB Reviewed US findings - discussed NILS 06/17/22. Encouraged hydration. Had an episode of vaginal bleeding for a couple of days, was seen at [facility] - had US - looked good unable [...] in lbs Pre/Post Dialysis Refused With clothes 169.894595314990 BP Diastolic BP Location Tested BP Systolic [...] At Estimated Date of Delivery false Thalassemia (Irish, Iranian, Mediterranean, Or Background): MCV < 80 false Neural Tube Defect (Meningom yelocele, Spina Bifida, Or Anencephaly) false Congenital Heart Defect false Down Syndrome false Thiago-Sachs (eg, Synagogue, Cajun, Luxembourger-Pinal) f alse Paulo Disease false Sickle Cell Disease Or Trait () false Hemophilia Or Other Blood Disorders false Muscular Dystrophy false Cystic Fibrosis false Upson's Chorea false Mental Retardation/Autism false If Yes, [...] discussed 10/08/2022 Intimate Partner Violence no ad uk10/08/2022 Unstable Housing no 10/08/2022 Use of any medicatio ns (including supplements, vitamins, herbs, or OTC drugs) discussed 10/08/2022 Avoidance of saunas or hot tubs discussed 10/08/2022 Indications for ultrasonography discussed 10/08/2022 Comminucation Barriers no ade 10/08/2022 Anticipated course o f care discussed 10/08/2022 Toxoplasmosis precau tions (cats/raw meat) discussed 10/08/2022 Sexual activity discussed 10/08/2022 Exercise discussed 10/08/2022 Tobacco/smoking cess ation counseling (ask, advise, assess, assist, and arrange) no 10/08/2022 Barriers to Care no ad10/08/2022 Environmental/work hazards discussed a [facility] 10/08/2022 Depression/Anxiety ( should be performed at least once during period) no 10/08/2022 WIC/Hands Referral declined 10/08/2022 Nutrition counseling ; special diet; dietary precautions (mercury, listeriosis) discussed 10/08/2022 Dental Care / Refer to Dentist discussed 10/08/2022 Seat belt use discussed ad10/08/2022 Childbirth classes/h ospital facilities discussed ad10/08/2022 discussed ad10/08/2022 Screening for aneuploidy discussed shruthi ke Second Trimester Discussed Date Discussion Item Discussion Note Discuss ed By Third Trimester Discussed Date Discussion Item Discussion Note Discuss ed By Delivery Information Delivery Date Delivery Type Labor Anesthesia Weeks Gestation Incision Type Labor Labor Length Hrs Delivered By Post Complications Tubal Sterilization Discharge Date Comments 3 7.5 [facility] Discharge Information Feeding Method Contraceptive Method Maternal HG B and HCT Levels Ob Episode Information Episode Created Date Number of Fetuses Patient Bloodtype Patient rh Status Prepregnancy Weight lbs Domestic Partner Domestic Partner Phone Father Name Weight Control Lecturer Status 03/12/19 23 1 CLOSED Fetus Data First Name Last Name Admitted to NICU Weight (g) Sex Living Outcome Pediatric Complications Fetus ID Race Codes Race Delivery Type M Full Term [id number] Vaginal Nils Calculation Initial Nils Date Initial [...] Tubal Sterilization Discharge Date Comments 7 40 hypereme s is, [place], cauc, not sure weight, delivered at [facility] Information Feeding Method Contraceptive Method Maternal HG B and HCT Levels
== END 2024-09-08 23:59 | disposition home or self-care (01) ==
LOC: LAB.DROPOF 09-12 11:41
PROVIDERS: PCP Nurse Practitioner Family; Visit Provider Obstetrics & Gynecology
DX: N96 Recurrent pregnancy loss (principal); Z34.01 Encounter for supervision of normal first pregnancy, first trimester
CPT/HCPCS: 87086; 87491; 87591

== ENCOUNTER 2024-09-15 07:36 | Outpatient (CLI) | payer MEDICAID, SELFPAY ==
--- NOTE | 2024-09-15 07:30 | US_ITS ---
PROCEDURE: US OB <= 14 WEEKS FETUS CLINICAL INDICATION: viability COMPARISON: No exams were available for comparison FINDINGS: Transvaginal sonographic images of the pelvis were obtained. From her last menstrual period she is 7weeks 1day. An intrauterine gestational sac is present with a pole with a crown-rump length of 0.94cm This correlates to a gestational age of 7weeks 0 days. FRANKY 05/03/2025 heart tones are present with an FHR of 125bpm. Yolk sac is noted. The yolk sac measures 4.3mm. The right ovary is seen and appears normal. There appears to be a corpus luteum in the right ovary. It measures 2.1 cm. The left ovary is seen and appears normal. There is no fluid in the cul-de-sac. IMPRESSION: 1. Viable embryo within the uterine cavity. heart activity is seen. 2. Embryo measures 7 weeks 0 days and the FRANKY will remain 05/03/2025. 3. Both ovaries are seen and appear normal. There is a corpus luteum on the right ovary. 4. No fluid in the cul-de-sac. Dictated by: Mane León MD 09/15/2024 19:40 Mane León MD in OV 09/15/2024 19:40
--- OUTSIDE RECORDS SUMMARY | 2024-09-15 07:38 | XMS_ITS | Clinical Summary ---
Author Organization Healthcare Address [address] [place] [place] [address] Care Team Providers Care Gis Instructor Name Role Phone Anaya Vargas APRN Primary Care Provider [phone] Natanael Campa MD Unavailable [phone] Allergies No known active allergies Medications ergocalciferol 1.25 MG (07303 UT) capsule 05/01/2020 Active cholecalciferol (Vitamin D-3) 1.25 MG (48218 UT) capsule TAKE 1 CAPSULE WEEKLY FOR [...] 2009 [facility]-Cervical Cancer Screening 2018 [facility]-HPV/Cotest 2018 [id number] Vaccine (1 - 20 24-25 season) 2023 [...] complete this topic Insurance [employer] [address] Care Teams Gis Instructor Relationship Specialty Start Date End Date Anaya Vargas APRN [address] [place] [address] PCP - General 01/18/21 Natanael Campa MD [address] [facility] [address] [place] [id number] Surgeon Neurosurgery 01/18/21
== END 2024-09-15 23:59 | disposition home or self-care (01) ==
LOC: RAD 07:37
PROVIDERS: PCP Obstetrics & Gynecology; Visit Provider Obstetrics & Gynecology
DX: O34.81 Maternal care for other abnormalities of pelvic organs, first trimester; N83.11 Corpus luteum cyst of right ovary; Z3A.01 Less than 8 weeks gestation of pregnancy; O26.21 Pregnancy care for patient with recurrent pregnancy loss, first trimester
CPT/HCPCS: 76801

== ENCOUNTER 2024-09-25 17:03 | Emergency (ER) | payer MEDICAID, SELFPAY ==
[2024-09-25 17:08] VITALS: BP 101/66; PULSE 109; RESP 16; TEMP 36.7; O2SAT 98; BMI 30.9
--- OUTSIDE RECORDS SUMMARY | 2024-09-25 17:22 | XMS_ITS | Clinical Summary ---
Author Organization Healthcare Address [address] [place] [address] Care Team Providers Care Operations And Maintenance Manager Name Role Phone Anaya Vargas APRN Primary Care Provider [phone] Natanael Campa MD Unavailable [phone] Allergies No known active allergies Medications ergocalciferol 1.25 MG (18163 UT) capsule 05/01/2020 Active cholecalciferol (Vitamin D-3) 1.25 MG (85659 UT) capsule TAKE 1 CAPSULE WEEKLY FOR [...] Date Last Done Comments [facility]-Depression Screening 1988 [facility]-/Child/Adol SDOH Screenings 1988 [facility]-Varicella Vaccines (1 of 2 - 13+ 2-dose series) 2001 [facility]- SDOH Screenings 2006 [facility]-Adult SDOH Screenings 2006 [facility]-DTaP,Tdap,and Td Vaccine s (1 - Tdap) 06/23/2007 [facility]-Hepatitis B Vaccines (1 of 3 - 19+ 3-dose series) 06/23/2007 [facility]-Pap Smear 2009 HPV Vaccines (1 - 3-dose SCD M series) 06/23/2015 [facility]-Cervical Cancer Screening 2018 [facility]-HPV/Cotest 2018 [facility]WC-[id number]-63 Vaccine (1 - 20 24-25 season) 2023 [...] topic Insurance [employer] MEDICAID [place] Care Teams Operations And Maintenance Manager Relationship Specialty Start Date End Date Anaya Vargas APRN [address] [place] [address] PCP - General 01/18/21 Natanael Campa MD [address] [facility] [address] [place] [address] Surgeon Neurosurgery 01/18/21
[2024-09-25] MEDS: LACTATED RINGERS 1000ML 1,000 ML 999 ML IV (17:25)
[2024-09-25 17:44] LABS: Hematocrit 36.5 % (37.0-47.0); Hemoglobin 12.0 g/dL (12.2-16.2); Immature Granulocytes % 0.4 %; Mean Corpuscular HGB Conc 32.9 g/dL (31.8-35.4); Mean Corpuscular Hemoglobin 27.7 pg (27.0-31.2); Mean Corpuscular Volume 84.3 fl (81-99); Nucleated Red Blood Cells % 0 %; Platelet Count 237 K/mm3 (142-424); Red Blood Count 4.33 M/mm3 (4.20-5.40); Red Cell Distribution Width-SD 41.0 fL; White Blood Count 8.5 K/mm3 (4.8-10.8)
[2024-09-25 18:03] LABS: Albumin Level 4.3 g/dl (3.5-5.0); Chloride 101 mmol/L (98-107); Potassium 3.4 mmoL/L (3.5-5.1); Sodium 135 mmol/L (136-145)
[2024-09-25 18:06] LABS: Alanine Aminotransferase 16 U/L (12-78); Albumin/Globulin Ratio 1.5 (1.1-1.8); Alkaline Phosphatase 56 U/L (38-126); Anion Gap 14.4 mEq/L (5-15); Aspartate Amino Transferase 24 U/L (14-36); Bilirubin,Total 0.5 mg/dl (0.2-1.3); Blood Urea Nitrogen 8 mg/dl (7-17); Calcium 9.0 mg/dl (8.4-10.2); Carbon Dioxide 23 mmol/L (22.0-30.0); Creatinine Clearance Estimated 200 mL/min (50-200); Creatinine,Serum 0.50 mg/dl (0.52-1.04); Estimated Glomerular Filt Rate 140 ml/min (>60); GFR (African American) 169 ML/MIN (>60); Globulin 2.8 g/dL (1.3-3.2); Glucose 90 mg/dl (74-100); Total Protein,Serum 7.1 g/dl (6.3-8.2)
[2024-09-25 18:07] VITALS: BP 118/71; PULSE 89; RESP 17; O2SAT 99
[2024-09-25 18:14] LABS: Microscopic, Urine URINE MICROSCOPIC (MICROSCOPIC)
[2024-09-25 18:27] LABS: Bilirubin,Urine Negative (Negative); Color,Urine YELLOW (Yellow); Glucose,Urine (UA) Negative (Negative); Ketones,Urine Negative (Negative); Leukocyte Esterase,Urine Negative (Negative); PH,Urine 7.0 (5.0-8.5); Protein,Urine Negative (Negative); Specific Gravity, Urine 1.010 (1.005-1.030); Urobilinogen,Urine 0.2 EU/dl (0.2)
[2024-09-25 19:13] VITALS: BP 116/74; PULSE 74; RESP 16; TEMP 36.6; O2SAT 98
--- NOTE | 2024-09-25 19:21 | ED_ITS ---
<Statement entered by Nidhi Vaughn DO - 09/25/24 20:13> I was consulted by the ED, and we discussed the complexity of problems being addressed. I approve the treatment and management plan for this patient's care in the emergency department, thus performing a substantial portion of the medical decision making. Nidhi Vaughn DO Discharge Plan Disposition Patient Disposition: Home, Self-Care Condition: Good Prescriptions Prescriptions: No Action progesterone micronized [Prometrium] 200 mg capsule 200 mg vaginal HS Qty: 30 3RF Rx Instructions: insert vaginally every night at bed time. Referrals Follow up/Referrals: Ba Ruiz DO [Primary Care Provider, Family Practice] - See instructions Activity Restrictions/Add. Instructions Additional Instructions/Restrictions: You were seen for vomiting in . Follow up with your ENVIRONMENTAL PROJECT MANAGER this week. Return to the ER if you are not able to hold anything down. Clinical Impressions Clinical Impression: Vomiting affecting Instructions Patient Instructions: Nausea of (Alternative Therapy) Print Language Print Language: Czech Discharge ED Provider: Nidhi Vaughn General Adult HPI <STEFAN Altman - Last Filed: 09/25/24 19:27> General Chief complaint: OB/Uterine Contractions Stated complaint: 9 wk preg, trouble eating,congested Time Seen by Provider: 09/25/24 17:09 Mode of Arrival: Ambulatory Source of Information: Patient Description of Symptoms (Recalled from ER Triage Doc. by RN): patient presents to the emergency department for complaints of nausea and severe vomiting, as well as congestion. patient states she is 9 weeks and has routine care with Dr Ruiz. patietn states she has experienced hyperemesis graviderum in every . History of Present Illness HPI narrative: Patient presents complaining of nausea and vomiting in . She reports that she was starting to feel lightheaded. She has had difficulty holding down fluids. She takes Unisom and B6. She reports that she is approximately 9 weeks gestation. Denies any bleeding or pain. She does report some nasal congestion. Denies any fevers or chills, denies body aches. complaint: Vomiting and Severity: moderate Relieving factors: none Exacerbating factors: none Associated symptoms: denies other symptoms Treatments prior to arrival: none Related Data Previous Rx's ?Medication ?Instructions ?Recorded progesterone micronized 200 mg 200 mg vaginal HS #30 c aps 09/08/24 capsule (Prometrium) Allergies Allergy/AdvReac Type Severity Reaction Status Date / Time No Known Allergies Allergy Verified 09/15/24 08:46 PFS <STEFAN Altman - Last Filed: 09/25/24 19:27> [facility] Disclaimer: The information contained in this section may have been updated after the patient was seen, as this information can be updated by other users. Medical History Encounter for supervision of other normal , first trimester Endometriosis determined by laparoscopy Leukopenia Sepsis SAB (spontaneous ) Ora's disease Migraine Cholesterin granuloma Atypical chest pain Radicular neuropathy Surgical History Hx of laparoscopy H/O dilation and curettage Status post D&C H/O brain surgery x4 Family History Grandmother Cancer Paternal-Breast (diagnosed at 58) Other Family history of diabetes mellitus Social History Smoking Status: Never smoker alcohol intake: never substance use type: denies use current occupational status: employed Travel in the last 8 weeks?: None current occupational exposures/hazards: No Have you lived/traveled outside US in past 30 days?: No Contact w/someone who lives/traveled outside US past 30 days?: No Exposure to someone with infectious disease in past 14 days?: No Do you have a fever (greater than 100.4 F or 38 C)?: No Have you tested positive for COVID-19?: No Exposed to someone with COVID-19 in past 14 days?: No Do you have a sore throat?: No Do you have a cough?: No Do you have any weakness?: No Do you have any diarrhea?: No Are you experiencing any unusual bleeding?: No Do you have any muscle aches/pain?: No Do you have any abdominal pain?: No Are you experiencing loss of taste or smell?: No Other Medical History Have you received the Flu Vaccine for this season: No Have you received the Pneumonia Vaccine: No <STEFAN Altman - Last Filed: 09/25/24 19:27> ROS Obtained: Yes Systems reviewed as appropriate & no additional complaints except as documented Physical Exam <STEFAN Altman - Last Filed: 09/25/24 19:27> General General appearance: alert and in no apparent distress Head Head exam: atraumatic and normocephalic Eye Eye exam: Present normal appearance and EOMI ENT ENT exam: Present normal exam, normal oropharynx, mucous membranes moist, mucous membranes dry, TM's normal bilaterally and normal external ear exam Chest Chest inspection: Present symmetric chest wall rise Respiratory Respiratory exam: Present normal lung sounds bilaterally; Absent wheezes or stridor Cardiovascular Cardiovascular exam: Present regular rate and normal rhythm; Absent systolic murmur Abdominal Exam Abdominal exam: Present soft; Absent distention, tenderness or guarding Extremities Exam Extremities exam: Present full ROM Neurological Exam Neurological exam: Present alert and oriented X3 Psychiatric Psychiatric exam: Present normal affect and normal mood Skin Skin exam: Present warm, dry and intact Medical Decision Making <STEFAN Altman - Last Filed: 09/25/24 19:27> Medical Records Screening: Per USPSTF and CDC recommendations, given the prevalence of disease in our region, it is our hospital?s policy to screen for HIV and viral Hepatitis for all patients aged 18 and over and those with ongoing risk factors. Zaid Inquiry Pt receiving controlled substance: No Vital Signs: 09/25/24 17:08 09/25/24 18:07 09/25/24 19:13 Temperature 98.0 F 97.9 F Temperature Source Oral Oral Pulse Rate 89 74 Pulse Rate [Right Radial] 109 H Respiratory Rate 16 17 16 Blood Pressure 118/71 116/74 Blood Pressure [Right Arm] 101/66 L Blood Pressure Mean [Right Arm] 77 Blood Pressure Source Automatic Cuff Automatic Cuff Blood Pressure Source [Right Arm] Automatic Cuff Blood Pressure Position Supine Blood Pressure Position [Right Arm] Sitting 02 Sat by Pulse Oximetry 98 99 Oxygen Delivery Method Room Air Room Air Room Air Lab Data Lab Results 09/25/24 17:28: WBC 8.5, RBC 4.33, Hgb 12.0 L, Hct 36.5 L, MCV 84.3, MCH 27.7, MCHC 32.9, RDW 13.3, Plt Count 237, MPV 10.1, Neut % (Auto) 78.3, Lymph % (Auto) 13.7, [place] % (Auto) 4.8, Eos % (Auto) 2.4, Baso % (Auto) 0.4, Neut # (Auto) 6.7, Lymph # (Auto) 1.2, [place] # (Auto) 0.4, Eos # (Auto) 0.2, Baso # (Auto) 0.0, S odium 135 L, Potassium 3.4 L, Chloride 101, Carbon Dioxide 23, Anion Gap 14.4, BUN 8, Creatinine 0.50 L, Estimated Creat Clear 200, Estimated GFR 140, Est GFR ( Amer) 169, Glucose 90, Calcium 9.0, Total Bilirubin 0.5, AST 24, ALT 16, Alkaline Phosphatase 56, Total Protein 7.1, Albumin 4.3, Globulin 2.8, Albumin/Globulin Ratio 1.5 09/25/24 18:08: Urine Color Yellow, Urine Appearance Clear, Urine pH 7.0, Ur Specific [place] 1.010, Urine Protein Negative, Urine Glucose (UA) Negative, Urine Ketones Negative, Urine Blood Negative, Urine Nitrate Negative, Urine Bilirubin Negative, Urine Urobilinogen 0.2, Ur Leukocyte Esterase Negative, Urine RBC None, Urine WBC None, Ur Squamous Epith Cells 5-10, Urine Bacteria None 09/25/24 17:28 09/25/24 17:28 Orders (Tests/Meds): ED MEDICATIONS Discontinued Medications Generic Name Dose Route Start Last Admin Trade Name Freq PRN Reason Stop Dose Admin Lactated Ringer's 1,000 mls @ 999 mls/hr 09/25/24 17:19 09/25/24 17:25 Lactated Ringer's 1000 Ml Bag IV 09/25/24 18:19 999 mls/hr .Q1H1M ONE Administration Ondansetron HCl 4 mg 09/25/24 17:53 09/25/24 18:04 Ondansetron 4mg/2ml Vial IV 09/25/24 17:54 Not Given ONCE ONE ORDERS Category Date Time Status CBC w/Auto Diff [Complete Blood Count Auto Diff] Stat Lab 09/25/24 17:28 Completed CMP [Comprehensive Metabolic Panel] Stat Lab 09/25/24 17:28 Completed Urinalysis and Microscopic Stat Lab 09/25/24 18:08 Completed Medical Decision Narrative: In summary patient is a 34-year-old female who presents the emergency department for evaluation of nausea and . Patient is mildly tachycardic upon arrival, afebrile. Unremarkable physical exam. Differential diagnosis includes dehydration, UTI, electrolyte abnormality, hyperemesis. Initial workup will be conducted with CBC, CMP, urinalysis. Initial inventions include IV fluids, Zofran. Patient ultimately declined Zofran. Initial workup reviewed by me unremarkable. Upon repeat evaluation patient is tolerating p.o. and symptoms have resolved. Given this patient is appropriate for discharge home at this time with follow-up with ENVIRONMENTAL PROJECT MANAGER.. <Nidhi Vaughn, DO - Last Filed: 09/25/24 20:13> Vital Signs: 09/25/24 17:08 09/25/24 18:07 09/25/24 19:13 Temperature 98.0 F 97.9 F Temperature Source Oral Oral Pulse Rate 89 74 Pulse Rate [Right Radial] 109 H Respiratory Rate 16 17 16 Blood Pressure 118/71 116/74 Blood Pressure [Right Arm] 101/66 L Blood Pressure Mean [Right Arm] 77 Blood Pressure Source Automatic Cuff Automatic Cuff Blood Pressure Source [Right Arm] Automatic Cuff Blood Pressure Position Supine Blood Pressure Position [Right Arm] Sitting 02 Sat by Pulse Oximetry 98 99 Oxygen Delivery Method Room Air Room Air Room Air Lab Data Lab results reviewed: Yes I reviewed the patient's lab results. Lab Results 09/25/24 17:28: WBC 8.5, RBC 4.33, Hgb 12.0 L, Hct 36.5 L, MCV 84.3, MCH 27.7, MCHC 32.9, RDW 13.3, Plt Count 237, MPV 10.1, Neut % (Auto) 78.3, Lymph % (Auto) 13.7, [place] % (Auto) 4.8, Eos % (Auto) 2.4, Baso % (Auto) 0.4, Neut # (Auto) 6.7, Lymph # (Auto) 1.2, [place] # (Auto) 0.4, Eos # (Auto) 0.2, Baso # (Auto) 0.0, S odium 135 L, Potassium 3.4 L, Chloride 101, Carbon Dioxide 23, Anion Gap 14.4, BUN 8, Creatinine 0.50 L, Estimated Creat Clear 200, Estimated GFR 140, Est GFR ( Amer) 169, Glucose 90, Calcium 9.0, Total Bilirubin 0.5, AST 24, ALT 16, Alkaline Phosphatase 56, Total Protein 7.1, Albumin 4.3, Globulin 2.8, Albumin/Globulin Ratio 1.5 09/25/24 18:08: Urine Color Yellow, Urine Appearance Clear, Urine pH 7.0, Ur Specific [place] 1.010, Urine Protein Negative, Urine Glucose (UA) Negative, Urine Ketones Negative, Urine Blood Negative, Urine Nitrate Negative, Urine Bilirubin Negative, Urine Urobilinogen 0.2, Ur Leukocyte Esterase Negative, Urine RBC None, Urine WBC None, Ur Squamous Epith Cells 5-10, Urine Bacteria None Orders (Tests/Meds): ED MEDICATIONS Discontinued Medications Generic Name Dose Route Start Last Admin Trade Name Freq PRN Reason Stop Dose Admin Lactated Ringer's 1,000 mls @ 999 mls/hr 09/25/24 17:19 09/25/24 17:25 Lactated Ringer's 1000 Ml Bag IV 09/25/24 18:19 999 mls/hr .Q1H1M ONE Administration Ondansetron HCl 4 mg 09/25/24 17:53 09/25/24 18:04 Ondansetron 4mg/2ml Vial IV 09/25/24 17:54 Not Given ONCE ONE ORDERS Category Date Time Status CBC w/Auto Diff [Complete Blood Count Auto Diff] Stat Lab 09/25/24 17:28 Completed CMP [Comprehensive Metabolic Panel] Stat Lab 09/25/24 17:28 Completed Urinalysis and Microscopic Stat Lab 09/25/24 18:08 Completed Medical Decision Narrative: In summary patient is a 34-year-old female who presents the emergency department for evaluation of nausea and . Patient is mildly tachycardic upon arrival, afebrile. Unremarkable physical exam. Differential diagnosis includes dehydration, UTI, electrolyte abnormality, hyperemesis. Initial workup will be conducted with CBC, CMP, urinalysis. Initial inventions include IV fluids, Zofran. Patient ultimately declined Zofran. Patient's labs were reviewed and interpreted by myself, CBC showed no leukocytosis, hemoglobin was stable. CMP was unremarkable. UA with no bacteria leukocytes white blood cells. Upon repeat evaluation patient is tolerating p.o. and symptoms have resolved. Given this patient is appropriate for discharge home at this time with follow-up with ENVIRONMENTAL PROJECT MANAGER.. Critical Care <STEFAN Altman - Last Filed: 09/25/24 19:27> Critical Care Time Critical Care Time: No
== END 2024-09-25 19:18 | disposition home or self-care (01) ==
PROVIDERS: Physician Assistant; Emergency Provider Student in an Organized Health Care Education/Training Program; PCP Internal Medicine
DX: O21.9 Vomiting of pregnancy, unspecified (principal); R42 Dizziness and giddiness; R00.0 Tachycardia, unspecified; Z3A.09 9 weeks gestation of pregnancy
CPT/HCPCS: 80053; 81001; 85025; 96361; 96374; 99285; J7120

== ENCOUNTER 2024-09-29 07:41 | Outpatient (CLI) | payer MEDICAID, SELFPAY ==
--- OUTSIDE RECORDS SUMMARY | 2024-09-29 07:43 | XMS_ITS | Clinical Summary ---
Author Organization Healthcare Address [address] [place] [address] Care Team Providers Care Paste Up Copy Camera Operator Name Role Phone Anaya Vargas APRN Primary Care Provider [phone] Natanael Campa MD Unavailable [phone] Allergies No known active allergies Medications ergocalciferol 1.25 MG (73515 UT) capsule 05/01/2020 Active cholecalciferol (Vitamin D-3) 1.25 MG (27253 UT) capsule TAKE 1 CAPSULE WEEKLY FOR [...] 06/23/2015 [facility]-Cervical Cancer Screening 2018 [facility]-HPV/Cotest 2018 [facility]-PHNMI-40 Vaccine (1 - 20 24-25 season) 2023 [...] topic Insurance [employer] [place] Care Teams Paste Up Copy Camera Operator Relationship Specialty Start Date End Date Anaya Vargas APRN [address] [place] [address] PCP - General 01/18/21 Natanael Campa MD [address] [facility] [address] [place] [address] Surgeon Neurosurgery 01/18/21
[2024-09-29 08:05] LABS: Hematocrit 36.9 % (37.0-47.0); Hemoglobin 12.6 g/dL (12.2-16.2); Immature Granulocytes % 0.5 %; Mean Corpuscular HGB Conc 34.1 g/dL (31.8-35.4); Mean Corpuscular Hemoglobin 28.5 pg (27.0-31.2); Mean Corpuscular Volume 83.5 fl (81-99); Nucleated Red Blood Cells % 0 %; Platelet Count 240 K/mm3 (142-424); Red Blood Count 4.42 M/mm3 (4.20-5.40); Red Cell Distribution Width-SD 40.7 fL; White Blood Count 7.7 K/mm3 (4.8-10.8)
[2024-09-29 09:26] LABS: Hepatitis C Ab Qual. W/ RFX NEGATIVE (Negative)
[2024-09-30 09:27] LABS: Hepatitis B Surface Antigen Negative (Negative)
[2024-09-30 10:12] LABS: Rubella Antibodies, IgG 3.90 index (Immune >0.99)
[2024-09-30 11:06] LABS: RPR W/RFX Titers Nonreactive (Nonreactive)
== END 2024-09-29 23:59 | disposition home or self-care (01) ==
LOC: LAB 07:42
PROVIDERS: Visit Provider Obstetrics & Gynecology
DX: Z34.01 Encounter for supervision of normal first pregnancy, first trimester (principal); N96 Recurrent pregnancy loss
CPT/HCPCS: 36415; 85025; 86592; 86762; 86803; 86850; 87340; 87389

== ENCOUNTER 2024-11-02 11:01 | Emergency (ER) | payer MEDICAID, SELFPAY ==
--- NOTE | 2024-11-02 11:04 | ED_ITS ---
<Statement entered by Serene Narvaez DO - 11/02/24 14:02> I was consulted by the ED, and we discussed the complexity of problems being addressed. I approved the treatment plan and management plan of this patient's care in the emergency department, thus performing a substantive portion of medical decision making. Serene Narvaez DO Discharge Plan Disposition Patient Disposition: Home, Self-Care Condition: Good Prescriptions Prescriptions: No Action progesterone micronized [Prometrium] 200 mg capsule 200 mg vaginal HS Qty: 30 3RF Rx Instructions: insert vaginally every night at bed time. Referrals Follow up/Referrals: Anaya Vargas APRN [Primary Care Provider, Medical] - See instructions Activity Restrictions/Add. Instructions Additional Instructions/Restrictions: You were evaluated on an emergency basis. It is very important that you follow- up with your primary care provider and any specialist who we discussed within the next 2 days in order to better assess your health more comprehensively. For example, incidental findings on imaging or laboratory results that were performed today may be discovered, which do not require immediate medical care, but may impact your health in the future. If your symptoms worsen or persist, please return to the emergency department immediately for reassessment. Take all medications as prescribed. In queue for allowing me to participate in your health care, and I hope you feel better soon. Clinical Impressions Clinical Impression: Headache Instructions Patient Instructions: DI for Headache Print Language Print Language: [place] Discharge ED Provider: Serene Narvaez General Adult HPI General Chief complaint: Headache Stated complaint: 14 weeks preg, headache, blurred vision Time Seen by Provider: 11/02/24 11:04 History of Present Illness HPI narrative: 34-year-old female that is approximately 14 weeks presents to the emergency department with complaints of headache for the past couple days. She denies any recent head trauma. She reports she has a history of frequent headaches however states that this headache is worse than normal. She also reports some blurry vision. States she has been taking Tylenol without relief of symptoms with her last dose of Tylenol 500 mg approximately 4 hours prior to arrival. She denies vomiting or diarrhea. Also denies any urinary symptoms. She reports she was seen by her OB provider last week with an unremarkable checkup. Related Data Previous Rx's ?Medication ?Instructions ?Recorded progesterone micronized 200 mg 200 mg vaginal HS #30 c aps 09/08/24 capsule (Prometrium) Allergies Allergy/AdvReac Type Severity Reaction Status Date / Time No Known Allergies Allergy Verified 10/27/24 13:06 [facility] Disclaimer: The information contained in this section may have been updated after the patient was seen, as this information can be updated by other users. Medical History Encounter for supervision of other normal , first trimester Endometriosis determined by laparoscopy Leukopenia Sepsis SAB (spontaneous ) Ora's disease Migraine Cholesterin granuloma Atypical chest pain Radicular neuropathy Surgical History Hx of laparoscopy H/O dilation and curettage Status post D&C H/O brain surgery x4 Family History Grandmother Cancer Paternal-Breast (diagnosed at 58) Other Family history of diabetes mellitus Social History Smoking Status: Never smoker alcohol intake: never substance use type: denies use current occupational status: employed Travel in the last 8 weeks?: None current occupational exposures/hazards: No Have you lived/traveled outside US in past 30 days?: No Contact w/someone who lives/traveled outside US past 30 days?: No Exposure to someone with infectious disease in past 14 days?: No Do you have a fever (greater than 100.4 F or 38 C)?: No Have you tested positive for COVID-19?: No Exposed to someone with COVID-19 in past 14 days?: No Do you have a sore throat?: No Do you have a cough?: No Do you have any weakness?: No Do you have any diarrhea?: No Are you experiencing any unusual bleeding?: No Do you have any muscle aches/pain?: No Do you have any abdominal pain?: No Are you experiencing loss of taste or smell?: No Other Medical History Have you received the Flu Vaccine for this season: No Have you received the Pneumonia Vaccine: No ROS Obtained: Yes other Constitutional Constitutional: Reports headache(s) ENT Ears, Nose, Mouth, and Throat: Reports dizziness and Reports headache(s) Neurologic Neurologic: Reports dizziness, Reports headache(s) and Reports other visual disturbances Physical Exam Narrative Physical exam: General: Awake, aware, in no acute distress HEENT: Normal cephalic, no evidence of trauma, PERRLA, EOMI CV: RRR, no murmurs, rubs, or gallops Pulm: CTA bilaterally with no rhonchi, rales, or wheezes ABD: Nontender, no swelling, guarding, or rebound Neuro: ANO x 4, GCS 15, no focal deficits noted Psych: Appropriate mood and affect General General appearance: alert Respiratory Respiratory exam: Present normal lung sounds bilaterally Cardiovascular Cardiovascular exam: Present regular rate Neurological Exam Neurological exam: Present alert Medical Decision Making Medical Records Screening: Per USPSTF and CDC recommendations, given the prevalence of disease in our region, it is our hospital?s policy to screen for HIV and viral Hepatitis for all patients aged 18 and over and those with ongoing risk factors. Zaid Inquiry Pt receiving controlled substance: No Vital Signs: 11/02/24 11:08 11/02/24 11:18 Temperature 98.4 F Temperature Source Oral Pulse Rate 83 Pulse Rate [Left Radial] 84 Respiratory Rate 15 Blood Pressure 115/67 Blood Pressure [Right Arm] 115/67 Blood Pressure Mean [Right Arm] 83 02 Sat by Pulse Oximetry 97 100 Lab Data Lab Results 11/02/24 11:15: WBC 8.0, RBC 4.19 L, Hgb 12.1 L, Hct 35.4 L, MCV 84.5, MCH 28.9, MCHC 34.2, RDW 13.7, Plt Count 232, MPV 10.2, Neut % (Auto) 72.4, Lymph % (Auto) 19.6, [place] % (Auto) 4.6, Eos % (Auto) 2.5, Baso % (Auto) 0.4, Neut # (Auto) 5.8, Lymph # (Auto) 1.6, [place] # (Auto) 0.4, Eos # (Auto) 0.2, Baso # (Auto) 0.0, S odium 134 L, Potassium 3.7, Chloride 106, Carbon Dioxide 21 L, Anion Gap 10.7, B UN 5 L, Creatinine 0.60, Estimated Creat Clear 169, Estimated GFR 113, Est GFR ( Amer) 137, Glucose 79, Calcium 9.1, Magnesium 1.6, Total Bilirubin 0.5, AST 19, ALT 8 L, Alkaline Phosphatase 44, Total Protein 6.9, Albumin 4.0, Globulin 2.9, Albumin/Globulin Ratio 1.4, Urine Color Yellow, Urine Appearance Clear, Urine pH 6.0, Ur Specific [place] 1.020, Urine Protein Negative, Urine Glucose (UA) Negative, Urine Ketones Negative, Urine Blood Negative, Urine Nitrate Negative, Urine Bilirubin Negative, Urine Urobilinogen 0.2, Ur Leukocyte Esterase Trace, Urine RBC None, Urine WBC Occasional, Ur Squamous Epith Cells 10-20, Urine Bacteria Trace 11/02/24 11:15 11/02/24 11:15 Orders (Tests/Meds): ED MEDICATIONS Generic Name Dose Route Start Last Admin Trade Name Freq PRN Reason Stop Dose Admin Sodium Chloride 1,000 mls @ 999 mls/hr 11/02/24 11:14 11/02/24 11:34 Sod Chlor 0.9% 1000ml Bag IV 11/02/24 12:14 999 mls/hr .Q1H1M ONE Administration Discontinued Medications Generic Name Dose Route Start Last Admin Trade Name Freq PRN Reason Stop Dose Admin Acetaminophen 500 mg 11/02/24 11:14 11/02/24 11:39 Acetaminophen 500mg Tab PO 11/02/24 11:15 500 mg ONCE ONE Administration Diphenhydramine HCl 25 mg 11/02/24 11:14 11/02/24 11:39 Diphenhydramine 50mg/Ml Vial IV 11/02/24 11:15 25 mg ONCE ONE Administration Metoclopramide HCl 10 mg 11/02/24 11:14 11/02/24 11:39 Metoclopramide Hcl 10mg/2ml Vial IVP 11/02/24 11:15 10 mg ONCE ONE Administration ORDERS Category Date Time Status CBC w/Auto Diff [Complete Blood Count Auto Diff] Stat Lab 11/02/24 11:15 Completed CMP [Comprehensive Metabolic Panel] Stat Lab 11/02/24 11:15 Completed Magnesium Stat Lab 11/02/24 11:15 Completed Urinalysis and Microscopic Stat Lab 11/02/24 11:15 Completed Medical Decision Narrative: Initial impression of presenting illness: 34-year-old female that is approximate 14 weeks presents emergency department complaints of headache for the past 2 days. Reports she has a history of headaches but states this headache has been more painful. She denies any recent head trauma. She states she has been taking Tylenol without relief of symptoms with her last dose of Tylenol 500 mg approximately 4 hours prior to arrival. Denies vomiting diarrhea or urinary symptoms. Was seen by her OB provider last week with an unremarkable checkup. Differential diagnosis includes but is not limited to: Migraine, dehydration, cranial abnormality, preeclampsia Patient arrives hemodynamically stable, afebrile, without respiratory distress with vital signs interpreted by myself. Initial physical exam unremarkable. Patient neurologically intact with no focal deficits. Initial diagnostic plan: Visual acuity, heart tones, laboratory studies including urinalysis, saline bolus for hydration as well as Reglan, Benadryl, and Tylenol for pain control. Results from initial plan were reviewed and interpreted by myself, pertinent positives include: Laboratory studies including urinalysis were nonactionable. heart tones are 154. Acuity in both eyes was 20/40 with right eye 20/30, left eye 20/40. Interventions in the ED: Patient was given normal saline bolus for hydration as well as Reglan, Benadryl, Tylenol for pain control. Patient was made aware of the results and the findings, upon reevaluation patient has remained stable throughout stay, symptoms have improved. Patient is resting comfortably in bed states she is feeling much better after receiving the fluids and medication. Disposition: Reviewed findings today's workup with patient informed no acute abnormalities were noted. Recommended she increase her fluid intake and rest for the next couple days. Recommended that she follow-up with her OB provider for discussion of her headaches and continued care. Recommend she return to the emergency department any new or worsening symptoms. Patient is agreeable to the plan of care. Patient made aware of findings and had a detailed discussion with symptomatic care and return precautions, patient voiced understanding. Critical Care Critical Care Time Critical Care Time: No
[2024-11-02 11:08] VITALS: BP 115/67; PULSE 83; O2SAT 97
[2024-11-02 11:18] VITALS: BP 115/67; PULSE 84; RESP 15; TEMP 36.9; O2SAT 100; BMI 31.2
[2024-11-02 11:21] LABS: Microscopic, Urine URINE MICROSCOPIC (MICROSCOPIC)
[2024-11-02 11:25] LABS: Hematocrit 35.4 % (37.0-47.0); Hemoglobin 12.1 g/dL (12.2-16.2); Immature Granulocytes % 0.5 %; Mean Corpuscular HGB Conc 34.2 g/dL (31.8-35.4); Mean Corpuscular Hemoglobin 28.9 pg (27.0-31.2); Mean Corpuscular Volume 84.5 fl (81-99); Nucleated Red Blood Cells % 0 %; Platelet Count 232 K/mm3 (142-424); Red Blood Count 4.19 M/mm3 (4.20-5.40); Red Cell Distribution Width-SD 41.9 fL; White Blood Count 8.0 K/mm3 (4.8-10.8)
[2024-11-02 11:31] LABS: Albumin Level 4.0 g/dl (3.5-5.0); Chloride 106 mmol/L (98-107); Sodium 134 mmol/L (136-145)
[2024-11-02 11:32] LABS: Potassium 3.7 mmoL/L (3.5-5.1)
[2024-11-02 11:34] LABS: Alanine Aminotransferase 8 U/L (12-78); Albumin/Globulin Ratio 1.4 (1.1-1.8); Anion Gap 10.7 mEq/L (5-15); Aspartate Amino Transferase 19 U/L (14-36); Blood Urea Nitrogen 5 mg/dl (7-17); Carbon Dioxide 21 mmol/L (22.0-30.0); Creatinine Clearance Estimated 169 mL/min (50-200); Creatinine,Serum 0.60 mg/dl (0.52-1.04); Estimated Glomerular Filt Rate 113 ml/min (>60); GFR (African American) 137 ML/MIN (>60); Globulin 2.9 g/dL (1.3-3.2); Total Protein,Serum 6.9 g/dl (6.3-8.2)
[2024-11-02] MEDS: 0.9 % SODIUM CHLORIDE 1000ML 1,000 ML 999 ML IV (11:34)
[2024-11-02 11:35] LABS: Alkaline Phosphatase 44 U/L (38-126); Bilirubin,Total 0.5 mg/dl (0.2-1.3); Bilirubin,Urine Negative (Negative); Calcium 9.1 mg/dl (8.4-10.2); Color,Urine YELLOW (Yellow); Glucose 79 mg/dl (74-100); Glucose,Urine (UA) Negative (Negative); Ketones,Urine Negative (Negative); Leukocyte Esterase,Urine TRACE (Negative); Magnesium 1.6 mg/dl (1.6-2.3); PH,Urine 6.0 (5.0-8.5); Protein,Urine Negative (Negative); Specific Gravity, Urine 1.020 (1.005-1.030); Urobilinogen,Urine 0.2 EU/dl (0.2)
--- OUTSIDE RECORDS SUMMARY | 2024-11-02 11:37 | XMS_ITS | Clinical Summary ---
Author Organization Healthcare Address [address] [place] [address] Care Team Providers Care Food And Beverage Analyst Name Role Phone Anaya Vargas APRN Primary Care Provider [phone] Natanael Campa MD Unavailable [phone] Allergies No known active allergies Medications ergocalciferol 1.25 MG (59035 UT) capsule 05/01/2020 Active cholecalciferol (Vitamin D-3) 1.25 MG (70397 UT) capsule TAKE 1 CAPSULE WEEKLY FOR [...] 06/23/2015 [facility]-Cervical Cancer Screening 2018 [facility]-HPV/Cotest 2018 [id number] Vaccine (1 - 20 24-25 season) 2024 [facility]-Influenza Vaccine (#1) 2024 [facility]-Zoster Vaccines (1 [...] topic Insurance [employer] [place] Care Teams Food And Beverage Analyst Relationship Specialty Start Date End Date Anaya Vargas APRN [address] [place] [address] PCP - General 01/18/21 Natanael Campa MD [address] [facility] [address] [place] [address] Surgeon Neurosurgery 01/18/21
[2024-11-02] MEDS: METOCLOPRAMIDE HCL 10MG/2ML VIAL 10 MG IVP (11:39)
[2024-11-02] MEDS: ACETAMINOPHEN 500MG TAB 500 MG PO (11:39)
--- NOTE | 2024-11-02 11:46 | PC.NURSE ---
per MD [id number]
[2024-11-02 11:57] LABS: Bacteria,Urine Trace /lpf; WBC,Urine Occasional #/hpf (0-3)
[2024-11-02 12:08] VITALS: BP 100/57; PULSE 85; O2SAT 98
[2024-11-02 12:36] VITALS: BP 105/62; PULSE 80; RESP 16; TEMP 36.9; O2SAT 99
== END 2024-11-02 12:40 | disposition home or self-care (01) ==
PROVIDERS: Nurse Practitioner Family; Emergency Provider Student in an Organized Health Care Education/Training Program; PCP Nurse Practitioner Family
DX: O26.892 Other specified pregnancy related conditions, second trimester (principal); R51.9 Headache, unspecified; H53.8 Other visual disturbances; Z3A.14 14 weeks gestation of pregnancy
CPT/HCPCS: 80053; 81001; 83735; 85025; 96361; 96374; 96375; 99284; J1200; J2765; J7030

== ENCOUNTER 2024-11-22 09:33 | Outpatient (CLI) | payer MEDICAID, SELFPAY ==
--- NOTE | 2024-11-22 09:30 | US_ITS ---
PROCEDURE: US OB >= 14 WEEKS FETUS CLINICAL INDICATION: 20 week anatomy scan COMPARISON: No exams were available for comparison FINDINGS: Transvaginal sonographic images of the pelvis were obtained. From her last menstrual period she is 16weeks 6days. An intrauterine gestational sac is present with a pole with a crown-rump length of 7.94cm This correlates to a gestational age of 14weeks 3days. heart tones are absent. The placenta appears to be formed anteriorly The fluid around the fetus appears normal. Ovaries are not visualized. IMPRESSION: 1. Nonviable fetus within the uterine cavity. heart rate activity is not seen. Fetus is in the cephalic presentation. 2. Fluid is normal around the fetus. Placenta is anterior. 3. Fetus measures at 14 weeks and 3 days. Dictated by: Mane León MD 11/22/2024 14:02 Mane León MD in OV 11/22/2024 14:02
--- OUTSIDE RECORDS SUMMARY | 2024-11-22 09:36 | XMS_ITS | Clinical Summary ---
Author Organization Healthcare Address [address] [place] [address] Care Team Providers Care Environmental Compliance Officer Name Role Phone Anaya Vargas APRN Primary Care Provider [phone] Natanael Campa MD Unavailable [phone] Allergies No known active allergies Medications ergocalciferol 1.25 MG (29342 UT) capsule 05/01/2020 Active cholecalciferol (Vitamin D-3) 1.25 MG (72509 UT) capsule TAKE 1 CAPSULE WEEKLY FOR [...] 06/23/2015 [facility]-Cervical Cancer Screening 2018 [facility]-HPV/Cotest 2018 [id number] Vaccine (1 - 20 24-25 season) 2024 [...] topic Insurance [employer] [place] Care Teams Environmental Compliance Officer Relationship Specialty Start Date End Date Anaya Vargas APRN [address] [place] [address] PCP - General 01/18/21 Natanael Campa MD [address] [facility] [address] [place] [address] Surgeon Neurosurgery 01/18/21
== END 2024-11-22 23:59 | disposition home or self-care (01) ==
LOC: RAD 09:34
PROVIDERS: Visit Provider Obstetrics & Gynecology
DX: O02.1 Missed abortion (principal); Z3A.16 16 weeks gestation of pregnancy; O09.522 Supervision of elderly multigravida, second trimester; O26.22 Pregnancy care for patient with recurrent pregnancy loss, second trimester
CPT/HCPCS: 76805

== ENCOUNTER 2024-11-23 09:36 | Outpatient (CLI) | payer MEDICAID, SELFPAY ==
[2024-11-23 09:45] LABS: dRVVT Confirm ND
[2024-11-23 11:32] LABS: Total Protein,Serum 6.1 g/dl (6.3-8.2)
[2024-11-28 15:36] LABS: PTT-LA 41.8 sec (0.0-43.5)
== END 2024-11-23 23:59 | disposition home or self-care (01) ==
LOC: LAB 09:43
PROVIDERS: Visit Provider Nurse Practitioner Obstetrics & Gynecology
DX: O09.529 Supervision of elderly multigravida, unspecified trimester (principal); Z3A.00 Weeks of gestation of pregnancy not specified
CPT/HCPCS: 36415; 81241; 84155; 85302; 85597; 85598; 85610; 85613; 85670; 85730; 85732; 86146; 86147; 86225; 86235; 86431; 86641

== ENCOUNTER 2024-11-23 18:09 | Inpatient (IN) | payer MEDICAID, SELFPAY ==
[2024-11-23 16:56] VITALS: BP 120/64; PULSE 101; RESP 20; TEMP 36.9; O2SAT 97; BMI 31.2
[2024-11-23] MEDS: OXYCODONE 5MG W/APAP 325MG TABLET 1 EACH PO ×2 (17:46→21:47)
[2024-11-23 17:51] VITALS: BMI 31.2
--- NOTE | 2024-11-23 18:08 | P.HP_ITS ---
History of Present Illness *Admission Date: 11/23/24 *Reason for visit:: Intrauterine demise at 17 weeks *History of present illness: She is a 34-year-old 5 para 2 aborta 2 who is 17 weeks gestational age. She came into the office and we could not hear the heart with the Doppler so we did an in office ultrasound and no heart rate activity was seen. We send her to radiology for more formal ultrasound and the fetus was seen to have no heart rate activity and measured at 14 weeks. She was offered induction of labor in a few days time but today came in with onset of severe lower back pain. She is likely going into labor on her own. She would like to just go ahead and get labor started and deliver. O Rh+ blood Rubella immune Group B streptococcus status unknown. [facility] Disclaimer: The information contained in this section may have been updated after the patient was seen, as this information can be updated by other users. Medical History Encounter for supervision of other normal , first trimester Endometriosis determined by laparoscopy Leukopenia Sepsis SAB (spontaneous ) Ora's disease Migraine Cholesterin granuloma Atypical chest pain Radicular neuropathy Surgical History Hx of laparoscopy H/O dilation and curettage Status post D&C H/O brain surgery Family History Family history of diabetes mellitus Cancer Grandmother Social History Smoking Status: Never smoker alcohol intake: never substance use type: denies use current occupational status: other Travel in the last 8 weeks?: None current occupational exposures/hazards: No Have you lived/traveled outside US in past 30 days?: No Contact w/someone who lives/traveled outside US past 30 days?: No Exposure to someone with infectious disease in past 14 days?: No Do you have a fever (greater than 100.4 F or 38 C)?: No Have you tested positive for COVID-19?: No Exposed to someone with COVID-19 in past 14 days?: No Do you have a sore throat?: No Do you have a cough?: No Do you have any weakness?: No Do you have any diarrhea?: No Are you experiencing any unusual bleeding?: No Do you have any muscle aches/pain?: No Do you have any abdominal pain?: No Are you experiencing loss of taste or smell?: No Other Medical History Have you received the Flu Vaccine for this season: No Have you received the Pneumonia Vaccine: No Review of Systems Review of Systems Review of systems:: pertinent systems reviewed and negative unless documented below Meds Home Medications and Allergies Home Medications ?Medication ?Instructions ?Recorded ?Confirmed ?Type No Known Home Medications 11/22/2410/10 History New Prescriptions to Start Prescriptions: Allergies Allergy/AdvReac Type Severity Reaction Status Date / Time No Known Allergies Allergy Verified 11/23/24 09:01 Exam Data for Last 24 hours Vital signs and Labs for Last 24 Hours: Temp Pulse Resp BP Pulse Ox O2 Del Method 98.4 F 101 H 20 120/64 97 Room Air 11/23/24 16:56 11/23/24 16:56 11/23/24 16:56 11/23/24 16:56 11/23/24 16:56 11/23/24 16:56 I & O for Last 24 hours: Intake & Output 11/21/24 11/22/24 11/23/24 11/24/24 11:59 11:59 11:59 11:59 Weight 182 lb Constitutional Constitutional: no acute distress *Routine HEENT Exam Head: Present normocephalic Eye: Present EOMI and PERRL ENT: Present mucous membranes moist *Routine Neck Exam Neck: Present supple; Absent lymphadenopathy *Routine Respiratory Exam Respiratory: Present CTA bilaterally *Routine Cardiovascular Exam Cardiovascular: Present RRR *Routine Abdominal Exam Abdominal: Present soft and normoactive bowel sounds; Absent tenderness *Routine Rectal Exam Rectal:: deferred *Routine Genitalia Exam Genitalia:: deferred *Routine Extremities Exam Extremities: Absent cyanosis, clubbing or edema *Routine Skin Exam Skin: Present warm; Absent rash *Routine Neurological Exam Neurological: Present alert and oriented X3 Assessment and Plan *Assessment and plan (1) Intrauterine before 20 weeks of gestation: Status: Acute Category: Medical Code(s): O02.1 - Missed (2) Advanced maternal age in multigravida: Status: Acute Qualifiers: Trimester: second trimester Qualified Code(s): O09.522 - Supervision of elderly multigravida, second trimester Category: Medical Code(s): O09.529 - Supervision of elderly multigravida, unspecified trimester Plan 1. She is admitted for delivery of an intrauterine demise. 2. She is having severe back pain but her cervix is closed. We will go ahead and start Cytotec 400 mcg PV every 4 hours. 3. Will expect a vaginal delivery.
[2024-11-23 18:43] LABS: Hematocrit 34.1 % (37.0-47.0); Hemoglobin 11.4 g/dL (12.2-16.2); Immature Granulocytes % 0.9 %; Mean Corpuscular HGB Conc 33.4 g/dL (31.8-35.4); Mean Corpuscular Hemoglobin 28.2 pg (27.0-31.2); Mean Corpuscular Volume 84.4 fl (81-99); Nucleated Red Blood Cells % 0 %; Platelet Count 273 K/mm3 (142-424); Red Blood Count 4.04 M/mm3 (4.20-5.40); Red Cell Distribution Width-SD 42.9 fL; White Blood Count 8.5 K/mm3 (4.8-10.8)
[2024-11-23 20:14] VITALS: BP 118/66; PULSE 74; RESP 16; TEMP 36.5; O2SAT 100
[2024-11-23] MEDS: LACTATED RINGERS 1000ML 1,000 ML 50 ML IV (20:25)
[2024-11-24] VITALS (39 sets, daily range): BP systolic 62–139; BP diastolic 39–89; PULSE 58–127; RESP 14–59; TEMP 35.9–43; O2SAT 93–100
--- NOTE | 2024-11-24 | US_ITS ---
PROCEDURE INFORMATION: Exam: US Pelvis, Complete, Non-Obstetric Exam date and time: 11/24/2024 5:04 PM Age: 34 years old Clinical indication: Other: D/c in or for rpoc; PT had 17 w demise-- delivered fetus last night and slow delivery of placenta--- 2 other scans done today-- d/c done in or w/us guidance TECHNIQUE: Imaging protocol: Transabdominal pelvic nonobstetric ultrasound. Complete exam. Real time ultrasound with image documentation. COMPARISON: US OB FOLLOW UP 11/24/2024 3:03 PM FINDINGS: Uterus: Resolved retained products of conception versus clot. Endometrial stripe is normal appearance. Intraperitoneal space: No intraperitoneal fluid. IMPRESSION: Resolved retained products of conception versus clot.
--- NOTE | 2024-11-24 01:11 | P.PN_ITS ---
Subjective *Date: 11/24/24 *Time: 01:11 Interval history: She is having much stronger contractions. I can feel parts in the cervix. The membranes are still intact. Medical Exam Vital signs and Labs for Last 24 Hours: Vital Signs Temp Pulse Resp BP Pulse Ox O2 Del Method 11/23/24 20:14 97.7 F 74 16 118/66 100 Room Air 11/23/24 16:56 98.4 F 101 H 20 120/64 97 Room Air Intake and Output 11/23/24 11/23/24 11/24/24 11:59 19:59 03:59 Other: Weight 182 lb Patient Weight 11/24/24 11:59 Weight 182 lb Laboratory Results - last 24 hr 11/23/24 18:31: WBC 8.5, RBC 4.04 L, Hgb 11.4 L, Hct 34.1 L, MCV 84.4, MCH 28.2, MCHC 33.4, RDW 13.9, Plt Count 273, MPV 10.3, Neut % (Auto) 66.7, Lymph % (Auto) 22.9, [place] % (Auto) 5.9, Eos % (Auto) 3.1, Baso % (Auto) 0.5, Neut # (Auto) 5.7, Lymph # (Auto) 1.9, [place] # (Auto) 0.5, Eos # (Auto) 0.3, Baso # (Auto) 0.0, Blood Type O Positive, Antibody Screen Negative I & O for Labs for Last 24 Hours: Intake & Output 11/21/24 11/22/24 11/23/24 11/24/24 11:59 11:59 11:59 11:59 Weight 182 lb Head: Present atraumatic and normocephalic Neck: Present normal inspection Respiratory: Present normal respiratory effort; Absent accessory muscle use Assessment and Plan *Assessment and plan (1) Intrauterine before 20 weeks of gestation: Status: Acute Category: Medical Code(s): O02.1 - Missed (2) Advanced maternal age in multigravida: Status: Acute Qualifiers: Trimester: second trimester Qualified Code(s): O09.522 - Supervision of elderly multigravida, second trimester Category: Medical Code(s): O09.529 - Supervision of elderly multigravida, unspecified trimester Plan 1. She is feeling significant pressure as well as pain as the membranes come through the cervix and the cervix dilates. No bleeding. 2. The cervix is soft and I can feel a bulging bag through the cervix. 3. We will continue with expectant management.
[2024-11-24] MEDS: OXYCODONE 5MG W/APAP 325MG TABLET 1 EACH PO ×2 (01:36→06:42)
--- NOTE | 2024-11-24 03:08 | P.PN_ITS ---
Subjective *Date: 11/24/24 *Time: 03:08 Interval history: At 1:35 AM she had ruptured her membranes and there was meconium stained brown/green fluid. She has been feeling significant discomfort and cramps. I placed a speculum in the vagina and she spontaneously delivered a stillborn 14 weeks size fetus at 2:57 AM. The cord was extremely thin and still attached to the fetus so I cut the cord with a pair of scissors. Patient is receiving IV oxytocin and we will await the delivery of the placenta. Medical Exam Vital signs and Labs for Last 24 Hours: Vital Signs Temp Pulse Resp BP Pulse Ox O2 Del Method 11/23/24 20:14 97.7 F 74 16 118/66 100 Room Air 11/23/24 16:56 98.4 F 101 H 20 120/64 97 Room Air Intake and Output 11/23/24 11/23/24 11/24/24 11:59 19:59 03:59 Other: Weight 182 lb Patient Weight 11/24/24 11:59 Weight 182 lb Laboratory Results - last 24 hr 11/23/24 18:31: WBC 8.5, RBC 4.04 L, Hgb 11.4 L, Hct 34.1 L, MCV 84.4, MCH 28.2, MCHC 33.4, RDW 13.9, Plt Count 273, MPV 10.3, Neut % (Auto) 66.7, Lymph % (Auto) 22.9, [place] % (Auto) 5.9, Eos % (Auto) 3.1, Baso % (Auto) 0.5, Neut # (Auto) 5.7, Lymph # (Auto) 1.9, [place] # (Auto) 0.5, Eos # (Auto) 0.3, Baso # (Auto) 0.0, Bloo d Type O Positive, Antibody Screen Negative I & O for Labs for Last 24 Hours: Intake & Output 11/21/24 11/22/24 11/23/24 11/24/24 11:59 11:59 11:59 11:59 Weight 182 lb Head: Present atraumatic Respiratory: Present normal respiratory effort; Absent accessory muscle use Assessment and Plan *Assessment and plan (1) Intrauterine before 20 weeks of gestation: Status: Acute Category: Medical Code(s): O02.1 - Missed (2) Advanced maternal age in multigravida: Status: Acute Qualifiers: Trimester: second trimester Qualified Code(s): O09.522 - Supervision of elderly multigravida, second trimester Category: Medical Code(s): O09.529 - Supervision of elderly multigravida, unspecified trimester Plan 1. She has delivered the fetus spontaneously. 2. We are awaiting the delivery of the placenta. 3. She is receiving IV oxytocin.
[2024-11-24] MEDS: HYDROMORPHONE 2MG/ML SYRINGE 1 MG IV ×2 (03:11→05:23)
[2024-11-24] MEDS: ONDANSETRON 4MG/2ML VIAL 4 MG IV (03:30)
[2024-11-24] MEDS: OXYTOCIN/RINGERS LACTATE 30 UNITS/500 ML BAG 999 UNITS IV (03:57)
--- NOTE | 2024-11-24 05:23 | P.PN_ITS ---
Subjective *Date: 11/24/24 *Time: 05:23 Interval history: She has received IV oxytocin since the delivery. We have had her at 100 milliunits/min most recently. She still has not passed the placenta. There are membranes and a very thin cord in the vagina. She is extremely uncomfortable when I try to examine her with a speculum. She has had a total of about 300 cc of blood loss. We will go ahead and start 400 mcg of Cytotec and see if this will cause her to pass the placenta. If the placenta does not pass with the Cytotec then the next step would be D&C to remove the placenta manually in the operating room. Medical Exam Vital signs and Labs for Last 24 Hours: Vital Signs Temp Pulse Resp BP Pulse Ox O2 Del Method 11/23/24 20:14 97.7 F 74 16 118/66 100 Room Air 11/23/24 16:56 98.4 F 101 H 20 120/64 97 Room Air Intake and Output 11/23/24 11/24/24 11/24/24 19:59 03:59 11:59 Other: Weight 182 lb Patient Weight 11/24/24 11:59 Weight 182 lb Laboratory Results - last 24 hr 11/23/24 18:31: WBC 8.5, RBC 4.04 L, Hgb 11.4 L, Hct 34.1 L, MCV 84.4, MCH 28.2, MCHC 33.4, RDW 13.9, Plt Count 273, MPV 10.3, Neut % (Auto) 66.7, Lymph % (Auto) 22.9, [place] % (Auto) 5.9, Eos % (Auto) 3.1, Baso % (Auto) 0.5, Neut # (Auto) 5.7, Lymph # (Auto) 1.9, [place] # (Auto) 0.5, Eos # (Auto) 0.3, Baso # (Auto) 0.0, Blood Type O Positive, Antibody Screen Negative I & O for Labs for Last 24 Hours: Intake & Output 11/21/24 11/22/24 11/23/24 11/24/24 11:59 11:59 11:59 11:59 Weight 182 lb Head: Present normocephalic Neck: Present normal inspection Respiratory: Present normal respiratory effort; Absent accessory muscle use Assessment and Plan *Assessment and plan (1) Intrauterine before 20 weeks of gestation: Status: Acute Category: Medical Code(s): O02.1 - Missed (2) Advanced maternal age in multigravida: Status: Acute Qualifiers: Trimester: second trimester Qualified Code(s): O09.522 - Supervision of elderly multigravida, second trimester Category: Medical Code(s): O09.529 - Supervision of elderly multigravida, unspecified trimester Plan 1. It is been an hour and a half since her delivery and the placenta still has not delivered. She has had some bleeding and I suspect that the placenta is detaching itself from the uterine wall. 2. We will go ahead and give her Cytotec 400 mcg p.o. and see if this helps expedite delivery of the placenta. 3. Failing that she will need a D&C with manual removal of the placenta in the operating room. 4. Her blood loss has been 300 cc so I believe that we can safely give her Cytotec at this point in time.
[2024-11-24] MEDS: LACTATED RINGERS 1000ML 1,000 ML 999 ML IV ×4 (07:54→13:06)
[2024-11-24 08:42] LABS: Hematocrit 28.5 % (37.0-47.0); Immature Granulocytes % 0.8 %; Mean Corpuscular HGB Conc 34.0 g/dL (31.8-35.4); Mean Corpuscular Hemoglobin 29.0 pg (27.0-31.2); Mean Corpuscular Volume 85.3 fl (81-99); Nucleated Red Blood Cells % 0 %; Platelet Count 218 K/mm3 (142-424); Red Blood Count 3.34 M/mm3 (4.20-5.40); Red Cell Distribution Width-SD 43.2 fL; White Blood Count 8.8 K/mm3 (4.8-10.8)
[2024-11-24] MEDS: KETOROLAC 30MG/ML VIAL 30 MG IV (08:59)
--- NOTE | 2024-11-24 09:09 | US_ITS ---
PROCEDURE INFORMATION: Exam: US , Follow up Exam date and time: 11/24/2024 9:15 AM Age: 34 years old Clinical indication: Lmp or gestational age (in weeks): 17 w; Labor and delivery abnormalities; Other: S/P delivery of demise; ; Additional info: Prolonged placenta retention, vaginal bleeding TECHNIQUE: Imaging protocol: Transabdominal ultrasound of the uterus, real time with image documentation. Follow-up (eg, re-evaluation of size by measuring standard growth parameters and amniotic fluid volume, re-evaluation of organ system(s) suspected or confirmed to be abnormal on a previous scan). COMPARISON: US OB >= 14 WEEKS FETUS 11/22/2024 9:43 AM FINDINGS: Gestation: Intrauterine gestation. MATERNAL: Uterus: Uterus measures 14.71 cm x 8.01 cm. Retained products of conception 4 x 2.7 cm in the lower uterine segment. Fibroids in the fundus. IMPRESSION: Retained products of conception versus clot in the lower uterine segment.
[2024-11-24 09:33] LABS: Hemoglobin 9.7 g/dL (12.2-16.2)
[2024-11-24] MEDS: ePHEDrine SULF 50MG/ML VIAL 10 MG IV (09:42)
[2024-11-24] MEDS: CLINDAMYCIN PHOSPHATE/D5W 900 MG/50 ML PIGGYBACK 100 MG IV (09:52)
--- NOTE | 2024-11-24 09:53 | CT_ITS ---
FINAL REPORT TECHNIQUE: Thin section axial images were obtained through the abdomen and pelvis after contrast injection per CT angiogram protocol. Multiplanar reconstruction images were obtained from the axial data. This exam was performed with techniques to keep radiation dose as low as reasonably achievable. This includes automated exposure control, adjustment of the MA and KVP, and iterative reconstruction technique. CLINICAL HISTORY: Retained Products? COMPARISON: 08/07/2023 FINDINGS: CTA: No abdominal aortic aneurysm or aortic dissection. The celiac axis, superior mesenteric artery, and inferior mesenteric artery are patent without stenosis. The renal arteries are patent. The common iliac arteries and visualized portions of the internal and external iliac arteries are patent. No significant stenosis. NONVASCULAR: The liver is homogeneous. The gallbladder is present. The spleen, adrenal glands, and pancreas are without acute abnormality. The kidneys demonstrate multiple parapelvic renal cysts on the left. There is no hydronephrosis or renal mass identified. GI tract shows no evidence of small-bowel obstruction. The appendix is unremarkable. No acute GI tract abnormality. The uterus is enlarged, consistent with recent state. No convincing enhancement along the endometrium to suggest retained products of conception. There is significant distention of the upper vagina with blood product. The ovaries unremarkable. No lymphadenopathy or free fluid. There is a small fat containing umbilical hernia. No acute osseous abnormality. IMPRESSION: Enlargement of the uterus consistent with state. Uterus without convincing enhancement along the endometrium to suggest retained products of conception. However, ultrasound is recommended if further evaluation is needed. Rather prominent distention of the upper vagina most consistent with hematoma or blood product. Reviewed, Interpreted and Dictated by Ania Montoya MD Transcribed by Enedina Woo Authenticated and [facility]
[2024-11-24 09:56] LABS: VBG HCO3 16.5 mmol/L (23-30); VBG PO2 153.8 mmol/L (28-40)
--- NOTE | 2024-11-24 09:58 | PC.NURSE ---
Responded to rapid response. Recorded the sequence of events. Record of events passed to RIGOBERTO Soliz.
[2024-11-24 10:01] LABS: POC Glucose,Bedside 97 gm/dL (70-110)
--- NOTE | 2024-11-24 10:02 | CT_ITS ---
FINAL REPORT TECHNIQUE: Axial imaging of the chest is obtained after the administration of contrast. 3-D MIP reformatted images were also obtained and reviewed per PE protocol. CLINICAL HISTORY: Rule out PE- Rapid Response COMPARISON: 07/28/2023 FINDINGS: The pulmonary arteries are well filled. There is no evidence of pulmonary embolus. There is no aortic dissection. Heart size is normal. There is no mediastinal, hilar, or axillary lymphadenopathy. Bibasilar lower lobe atelectasis is noted. The lungs are otherwise clear.. There is no pleural or pericardial effusion. The previously seen pleural effusions have resolved. Limited evaluation of the upper abdomen is without acute abnormality. No acute osseous abnormality. IMPRESSION: No evidence of pulmonary embolism or aortic dissection. Bilateral lower lobe atelectasis. Reviewed, Interpreted and Dictated by Ania Montoya MD Transcribed by Enedina Woo Authenticated and . [facility]
[2024-11-24 10:07] LABS: Hematocrit 28.4 % (37.0-47.0); Immature Granulocytes % 0.8 %; Mean Corpuscular HGB Conc 30.6 g/dL (31.8-35.4); Mean Corpuscular Hemoglobin 28.2 pg (27.0-31.2); Mean Corpuscular Volume 92.2 fl (81-99); Nucleated Red Blood Cells % 0 %; Platelet Count 213 K/mm3 (142-424); Red Blood Count 3.08 M/mm3 (4.20-5.40); Red Cell Distribution Width-SD 46.8 fL; White Blood Count 10.2 K/mm3 (4.8-10.8)
[2024-11-24 10:14] LABS: VBG PH 7.57 mmol/L (7.31-7.41)
[2024-11-24 10:15] LABS: Lactate Venous 2.3 mmol/L (0.4-2.0); VBG PCO2 18.4 mmol/L (35-51)
--- NOTE | 2024-11-24 10:19 | P.PN_ITS ---
Subjective *Date: 11/24/24 *Time: 10:19 Interval history: Abigail Melgoza Rapid Response Bedside transabdominal pelvic ultrasound was being performed to assess for retained products of conception. During ultrasound Lillian admitted to feeling a lot of pelvic cramping and then lost consciousness. Abigail melgoza was called overhead. BP was 80's/50's and HR was 60. Rapid response team was present when I arrived. Exam Data for Last 24 hours Vital signs and Labs for Last 24 Hours: Temp Pulse Resp BP Pulse Ox O2 Del Method 97.6 F 81 16 119/59 L 100 Room Air 11/24/24 04:00 11/24/24 04:00 11/24/24 04:00 11/24/24 04:00 11/24/24 04:00 11/24/24 04:00 Laboratory Results - last 24 hr 11/23/24 18:31: WBC 8.5, RBC 4.04 L, Hgb 11.4 L, Hct 34.1 L, MCV 84.4, MCH 28.2, MCHC 33.4, RDW 13.9, Plt Count 273, MPV 10.3, Neut % (Auto) 66.7, Lymph % (Auto) 22.9, [place] % (Auto) 5.9, Eos % (Auto) 3.1, Baso % (Auto) 0.5, Neut # (Auto) 5.7, Lymph # (Auto) 1.9, [place] # (Auto) 0.5, Eos # (Auto) 0.3, Baso # (Auto) 0.0, Blood Type O Positive, Antibody Screen Negative, Crossmatch (AHG) See Detail 11/24/24 08:20: WBC 8.8, RBC 3.34 L, Hgb 9.7 L D, Hct 28.5 L, MCV 85.3, MCH 29.0, MCHC 34.0, RDW 13.9, Plt Count 218, MPV 10.3, Neut % (Auto) 77.3, Lymph % (Auto) 14.7, [place] % (Auto) 4.9, Eos % (Auto) 1.7, Baso % (Auto) 0.6, Neut # (Auto) 6.8, Lymph # (Auto) 1.3, [place] # (Auto) 0.4, Eos # (Auto) 0.2, Baso # (Auto) 0.1 11/24/24 09:41: POC Glucose 97 11/24/24 09:45: WBC 10.2, RBC 3.08 L, Hct 28.4 L, MCV 92.2, MCH 28.2, MCHC 30.6 L, RDW 14.0, Plt Count 213, MPV 10.9 H, Neut % (Auto) 73.2, Lymph % (Auto) 19.4, [place] % (Auto) 4.7, Eos % (Auto) 1.6, Baso % (Auto) 0.3, Neut # (Auto) 7.5, Lymph # (Auto) 2.0, [place] # (Auto) 0.5, Eos # (Auto) 0.2, Baso # (Auto) 0.0 11/24/24 09:53: VBG pH 7.57 H, VBG pCO2 18.4 L, VBG pO2 153.8 H, VBG HCO3 16.5 L , VBG Total CO2 17.0 L, VBG O2 Saturation 98.8 H, VBG Base Excess -5.6 L, VBG Lactic Acid 2.3 H I & O for Last 24 hours: Intake & Output 11/21/24 11/22/24 11/23/24 11/24/24 23:59 23:59 23:59 23:59 Intake Total 521.667 / 521.667 Balance 521.667 / 521.667 Weight 182 lb Constitutional Constitutional: moderate distress *Routine HEENT Exam Head: Present normocephalic and atraumatic Eye: Present EOMI; Absent conjunctivae pink ENT: Present mucous membranes dry *Routine Neck Exam Neck: Present full ROM *Routine Respiratory Exam Respiratory: Present CTA bilaterally and normal respiratory effort *Routine Cardiovascular Exam Cardiovascular: Present RRR *Routine Abdominal Exam Abdominal: Present soft and tenderness; Absent distended, guarding or rigid *Routine Rectal Exam Patient deferred: visual exam *Routine Exam External: Present normal urethra appearance; Absent erythema, swelling, lesions or lacerations *Routine Extremities Exam Extremities: Present full ROM; Absent edema or calf tenderness *Routine Neurological Exam Neurological: Present alert, moving all extremities and normal speech Assessment and Plan *Assessment and plan (1) Status post normal vaginal delivery: Problem Comment: early 2nd trimester spontaneous Status: Acute Category: Medical (2) Intrauterine before 20 weeks of gestation: Status: Acute Category: Medical Code(s): O02.1 - (3) Advanced maternal age in multigravida: Status: Acute Qualifiers: Trimester: second trimester Qualified Code(s): O09.522 - Supervision of elderly multigravida, second trimester Category: Medical Code(s): O09.529 - (4) History of recurrent miscarriages: Problem Comment: 2022 and 2023 Status: Acute Category: Medical Code(s): N96 - Plan STAT CT abd/pelvis ordered DIC panel ordered Started Clindamycin and Gentamicin for abx prophylaxis. She has history of sepsis after D&C in the past SCDs for DVT prophylaxis Appreciate care from rapid response team She passed placenta and blood clots this morning around 0800. Bleeding slowed to a trickle after passing placenta. Placenta will be sent pathology. Aerobic and anaerobic cultures from placenta obtained. QBL was 914. Stat CBC demonstrated Hgb 9.7 and platelets 218 During bedside ultrasound 4 cm clot appeared in lower uterine segment. No retained products appreciated Close monitoring
[2024-11-24 10:29] LABS: RPR W/RFX Titers Nonreactive (Nonreactive)
[2024-11-24] MEDS: IOPAMIDOL-370 (76%);100ML BOTTLE 85 ML IV (10:42)
[2024-11-24 10:55] LABS: Hemoglobin 8.7 g/dL (12.2-16.2)
[2024-11-24 10:56] LABS: D-Dimer 0.99 ug/mL (0.0-0.5)
[2024-11-24] MEDS: GENTAMICIN SULFATE 120 MG in 0.9 % SODIUM CHLORIDE 100 ML 100 MG IV (11:15)
--- NOTE | 2024-11-24 11:23 | ED.CR ---
Note Response Note: CODE ALLAN was paged overhead, I entered the room and assumed primary responsibility for initial resuscitation. Patient had uneventful delivery with no large-volume hemorrhage. Patient's blood pressure is tenuous at bedside she appears uncomfortable and in pain with disproportionate low heart rate. Crystalloid was immediately pressure bag and finger stick blood glucose nonactionable [id number] ultrasound at bedside performed by motion study technician that shows blood products in the uterus and vaginal vault, no free fluid in the right upper quadrant, grossly normal ejection fraction. Current differential includes vagal response secondary to pain, retained products of conception, pulmonary embolism, among others. Amniotic fluid embolism less likely given no respiratory distress and no hypoxia. Push dose pressors were given at bedside and patient's blood pressure was acceptable. Protecting her airway. Dr. Georges arrival we discussed the case and transfer of care to Dr. Georges at this time.
[2024-11-24 11:36] LABS: Activated Partial Thrombo Time 22.4 seconds (22.8-30.6); INR 1.02 (0.9-1.1); Prothrombin Time 11.3 seconds (10.1-12.5)
--- NOTE | 2024-11-24 12:41 | EXP.PN ---
Subjective *Date: 11/24/24 *Time: 12:41 Interval history: Rapid Response called for second time Lillian was getting ready to get on a bed vizcarra to void with RN at bedside and reported she was feeling very hot. BP dropped while RN was in the room. RN went to get help and IV fluids. Patient had a very slow response time to RN. Exam Data for Last 24 hours Vital signs and Labs for Last 24 Hours: Temp Pulse Resp BP Pulse Ox O2 Del Method O2 Flow Rate 97.6 F 68 16 102/54 L 99 Room Air 15 11/24/24 04:00 11/24/24 10:02 11/24/24 04:00 11/24/24 10:02 11/24/24 10:02 11/24/24 10:02 11/24/24 09:47 Laboratory Results - last 24 hr 11/23/24 18:31: WBC 8.5, RBC 4.04 L, Hgb 11.4 L, Hct 34.1 L, MCV 84.4, MCH 28.2, MCHC 33.4, RDW 13.9, Plt Count 273, MPV 10.3, Neut % (Auto) 66.7, Lymph % (Auto) 22.9, [place] % (Auto) 5.9, Eos % (Auto) 3.1, Baso % (Auto) 0.5, Neut # (Auto) 5.7, Lymph # (Auto) 1.9, [place] # (Auto) 0.5, Eos # (Auto) 0.3, Baso # (Auto) 0.0, RPR w/Rflx to Titer Nonreactive, Blood Type O Positive, Antibody Screen Negative, Crossmatch (AHG) See Detail 11/24/24 08:20: WBC 8.8, RBC 3.34 L, Hgb 9.7 L D, Hct 28.5 L, MCV 85.3, MCH 29.0, MCHC 34.0, RDW 13.9, Plt Count 218, MPV 10.3, Neut % (Auto) 77.3, Lymph % (Auto) 14.7, [place] % (Auto) 4.9, Eos % (Auto) 1.7, Baso % (Auto) 0.6, Neut # (Auto) 6.8, Lymph # (Auto) 1.3, [place] # (Auto) 0.4, Eos # (Auto) 0.2, Baso # (Auto) 0.1 11/24/24 09:41: POC Glucose 97 11/24/24 09:45: WBC 10.2, RBC 3.08 L, Hgb 8.7 L D, Hct 28.4 L, MCV 92.2, MCH 28.2, MCHC 30.6 L, RDW 14.0, Plt Count 213, MPV 10.9 H, Neut % (Auto) 73.2, Lymph % (Auto) 19.4, [place] % (Auto) 4.7, Eos % (Auto) 1.6, Baso % (Auto) 0.3, Neut # (Auto) 7.5, Lymph # (Auto) 2.0, [place] # (Auto) 0.5, Eos # (Auto) 0.2, Baso # (Auto) 0.0, PT 11.3, INR 1.02, APTT 22.4 L, D-Dimer 0.99 H 11/24/24 09:53: VBG pH 7.57 H, VBG pCO2 18.4 L, VBG pO2 153.8 H, VBG HCO3 16.5 L, VBG Total CO2 17.0 L, VBG O2 Saturation 98.8 H, VBG Base Excess -5.6 L, VBG Lactic Acid 2.3 H I & O for Last 24 hours: Intake & Output 11/21/24 11/22/24 11/23/24 11/24/24 23:59 23:59 23:59 23:59 Intake Total 2649.667 / 2649.667 Balance 2649.667 / 2649.667 Weight 182 lb Constitutional Constitutional: mild distress Comments: + pale face, lips and gums *Routine HEENT Exam Head: Present normocephalic Eye: Absent conjunctivae pink ENT: Present mucous membranes dry *Routine Neck Exam Neck: Present full ROM *Routine Respiratory Exam Respiratory: Present CTA bilaterally and normal respiratory effort *Routine Cardiovascular Exam Cardiovascular: Present RRR *Routine Abdominal Exam Abdominal: Present soft and tenderness (mild tenderness with fundal massage); Absent distended, rebound or guarding *Routine Rectal Exam Patient deferred: visual exam *Routine Exam External: Present normal urethra appearance; Absent erythema, swelling, lesions, lacerations, vulvar erythema or vulvar tenderness *Routine Extremities Exam Extremities: Present full ROM *Routine Neurological Exam Neurological: Present alert, moving all extremities and normal speech Assessment and Plan *Assessment and plan (1) Status post normal vaginal delivery: Problem Comment: early 2nd trimester spontaneous Status: Acute Category: Medical (2) Intrauterine before 20 weeks of gestation: Status: Acute Category: Medical Code(s): O02.1 - Missed (3) Advanced maternal age in multigravida: Status: Acute Qualifiers: Trimester: second trimester Qualified Code(s): O09.522 - Supervision of elderly multigravida, second trimester Category: Medical Code(s): O09.529 - Supervision of elderly multigravida, unspecified trimester (4) History of recurrent miscarriages: Problem Comment: 2022 and 2023 Status: Acute Category: Medical Code(s): N96 - Recurrent loss (5) hemorrhage: Status: Acute Qualifiers: hemorrhage type: unspecified Qualified Code(s): O72.1 - Other immediate hemorrhage Category: Medical Code(s): O72.1 - Other immediate hemorrhage Plan BP had improved when OB arrived in room. RN suspected vasovagal response. Passed two large clots but minimal trickle with fundal massage DIC panel within normal limits. Hgb further decreased to 8.7 (9.7 at 0820); WBC 10.2 CT abd/pelvis and CT chest is negative Ultrasound report is pending Lactic acid lab ordered Transfuse 2 units PRBCs Continue Clindamycin and Gentamicin q 8 hours Close monitoring
[2024-11-24 12:53] LABS: Alanine Aminotransferase 11 U/L (12-78); Albumin Level 2.8 g/dl (3.5-5.0); Albumin/Globulin Ratio 1.3 (1.1-1.8); Alkaline Phosphatase 51 U/L (38-126); Anion Gap 11.6 mEq/L (5-15); Aspartate Amino Transferase 20 U/L (14-36); Bilirubin,Total 0.5 mg/dl (0.2-1.3); Blood Urea Nitrogen 8 mg/dl (7-17); Calcium 7.9 mg/dl (8.4-10.2); Carbon Dioxide 21 mmol/L (22.0-30.0); Chloride 104 mmol/L (98-107); Creatine Kinase 33 U/L (30-135); Creatinine Clearance Estimated 203 mL/min (50-200); Creatinine,Serum 0.50 mg/dl (0.52-1.04); Estimated Glomerular Filt Rate 140 ml/min (>60); GFR (African American) 169 ML/MIN (>60); Globulin 2.2 g/dL (1.3-3.2); Glucose 89 mg/dl (74-100); Potassium 3.6 mmoL/L (3.5-5.1); Sodium 133 mmol/L (136-145); Total Protein,Serum 5.0 g/dl (6.3-8.2)
[2024-11-24 12:58] LABS: Fibrinogen 243 mg/dL (229.9-363.5)
[2024-11-24 13:06] LABS: Troponin I < 0.01 ng/ml (0.00-0.034)
[2024-11-24 13:10] LABS: Hematocrit 26.5 % (37.0-47.0); Hemoglobin 8.8 g/dL (12.2-16.2); Immature Granulocytes % 0.8 %; Mean Corpuscular HGB Conc 33.2 g/dL (31.8-35.4); Mean Corpuscular Hemoglobin 28.7 pg (27.0-31.2); Mean Corpuscular Volume 86.3 fl (81-99); Nucleated Red Blood Cells % 0 %; Platelet Count 214 K/mm3 (142-424); Red Blood Count 3.07 M/mm3 (4.20-5.40); Red Cell Distribution Width-SD 43.8 fL; White Blood Count 9.9 K/mm3 (4.8-10.8)
--- NOTE | 2024-11-24 13:18 | EXP.PHA.CONS ---
Pharmacy Consult Date: 11/24/24 Time: 13:18 Referring provider: DR. GAINES Reason for Consult:: VANCOMYCIN DOSING Allergies Allergy/AdvReac Type Severity Reaction Status Date / Time No Known Allergies Allergy Verified 11/23/24 09:01 Home Medications ?Medication ?Instructions ?Recorded ?Confirmed ?Type No Known Home Medications 11/22/24 11/24/24 History New Prescriptions to Start Prescriptions: Height: 1.63 m Weight: 82.554 kg Laboratory Results:: Laboratory Results - last 24 hr 11/23/24 18:31: WBC 8.5, RBC 4.04 L, Hgb 11.4 L, Hct 34.1 L, MCV 84.4, MCH 28.2, MCHC 33.4, RDW 13.9, Plt Count 273, MPV 10.3, Neut % (Auto) 66.7, Lymph % (Auto) 22.9, [place] % (Auto) 5.9, Eos % (Auto) 3.1, Baso % (Auto) 0.5, Neut # (Auto) 5.7, Lymph # (Auto) 1.9, [place] # (Auto) 0.5, Eos # (Auto) 0.3, Baso # (Auto) 0.0, RPR w/Rflx to Titer Nonreactive, Blood Type O Positive, Antibody Screen Negative, Crossmatch (AHG) See Detail 11/24/24 08:20: WBC 8.8, RBC 3.34 L, Hgb 9.7 L D, Hct 28.5 L, MCV 85.3, MCH 29.0, MCHC 34.0, RDW 13.9, Plt Count 218, MPV 10.3, Neut % (Auto) 77.3, Lymph % (Auto) 14.7, [place] % (Auto) 4.9, Eos % (Auto) 1.7, Baso % (Auto) 0.6, Neut # (Auto) 6.8, Lymph # (Auto) 1.3, [place] # (Auto) 0.4, Eos # (Auto) 0.2, Baso # (Auto) 0.1 11/24/24 09:41: POC Glucose 97 11/24/24 09:45: WBC 10.2, RBC 3.08 L, Hgb 8.7 L D, Hct 28.4 L, MCV 92.2, MCH 28.2, MCHC 30.6 L, RDW 14.0, Plt Count 213, MPV 10.9 H, Neut % (Auto) 73.2, Lymph % (Auto) 19.4, [place] % (Auto) 4.7, Eos % (Auto) 1.6, Baso % (Auto) 0.3, Neut # (Auto) 7.5, Lymph # (Auto) 2.0, [place] # (Auto) 0.5, Eos # (Auto) 0.2, Baso # (Auto) 0.0, PT 11.3, INR 1.02, APTT 22.4 L, Fibrinogen 243, D-Dimer 0.99 H, Sodium 133 L, Potassium 3.6, Chloride 104, Carbon Dioxide 21 L, Anion Gap 11.6, BUN 8, Creatinine 0.50 L, Estimated Creat Clear 203, Estimated GFR 140, Est GFR ( Amer) 169, Glucose 89, Calcium 7.9 L, Total Bilirubin 0.5, AST 20, ALT 11 L, Alkaline Phosphatase 51, Total Creatine Kinase 33, Troponin I < 0.01, Total Protein 5.0 L, Albumin 2.8 L, Globulin 2.2, Albumin/Globulin Ratio 1.3 11/24/24 09:53: VBG pH 7.57 H, VBG pCO2 18.4 L, VBG pO2 153.8 H, VBG HCO3 16.5 L, VBG Total CO2 17.0 L, VBG O2 Saturation 98.8 H, VBG Base Excess -5.6 L, VBG Lactic Acid 2.3 H 11/24/24 13:01: WBC 9.9, RBC 3.07 L, Hgb 8.8 L, Hct 26.5 L, MCV 86.3, MCH 28.7, MCHC 33.2, RDW 14.0, Plt Count 214, MPV 10.4, Neut % (Auto) 80.8 H, Lymph % (Auto) 12.4, [place] % (Auto) 4.4, Eos % (Auto) 1.2, Baso % (Auto) 0.4, Neut # (Auto) 8.0 H, Lymph # (Auto) 1.2, [place] # (Auto) 0.4, Eos # (Auto) 0.1, Baso # (Auto) 0.0 Medical History: Medical History (Updated 11/24/24 @ 12:51 by Celia Georges DO) hemorrhage History of recurrent miscarriages Status post normal vaginal delivery Encounter for supervision of other normal , first trimester Endometriosis determined by laparoscopy Leukopenia Sepsis SAB (spontaneous ) Ora's disease Migraine Cholesterin granuloma Atypical chest pain Radicular neuropathy Assessment and Plan Assessment and plan all Dx Assessment and Plan for all problems:: Pharmacokinetic dosing service Objective: Patient: Floor: Age: 34 yo Serum creatinine: 0.5 mg/dL Height: 64.0 Inches Weight (kg): 85.55 Assessment: IBW (kg): 54.70 Dosing wt(kg): 85.55 Estimated Creatinine clearance (ml/min): 130 Clearance limited to 130 ml/min to reduce risk of overdosing. CRCL method: Cockcroft and Gault using ibw(default). Drug selected: Vancomycin Loading dose (mg): 0 Vd (liters): 68.4 (factor used: 0.8 L/kg) Stephen (hr-1): 0.112 Half life (hrs): 6.19 Recommended dose: 1500 mg Interval: 8 hrs Infusion time (hrs): 2.0 Predicted peak (mcg/mL): 33.2 Predicted trough (mcg/mL): 16.95 Total body weight is being used for vancomycin dosing. Recommendations: Give Vancomycin 1500 mg q 8 hrs with an expected Cpeak of 33.2 mcg/ml and an expected Ctrough of 16.95 mcg/ml ----Vanco only - ignore for aminoglycosides----- CLvanco= 7.66 L/hr AUC 0-24 /KAE Data: KAE 0.5 mcg/mL: AUC/KAE: 1174.9 KAE 1.0 mcg/mL: AUC/KAE: 587.5 --------- KAE 1.5 mcg/mL: AUC/KAE: 391.6 KAE 2.0 mcg/mL: AUC/KAE: 293.7
[2024-11-24 13:22] LABS: Alanine Aminotransferase 10 U/L (12-78); Albumin Level 2.7 g/dl (3.5-5.0); Albumin/Globulin Ratio 1.2 (1.1-1.8); Alkaline Phosphatase 53 U/L (38-126); Anion Gap 15.1 mEq/L (5-15); Aspartate Amino Transferase 17 U/L (14-36); Bilirubin,Total 0.5 mg/dl (0.2-1.3); Blood Urea Nitrogen 7 mg/dl (7-17); Calcium 7.9 mg/dl (8.4-10.2); Carbon Dioxide 22 mmol/L (22.0-30.0); Chloride 102 mmol/L (98-107); Creatinine Clearance Estimated 203 mL/min (50-200); Creatinine,Serum 0.50 mg/dl (0.52-1.04); Estimated Glomerular Filt Rate 140 ml/min (>60); GFR (African American) 169 ML/MIN (>60); Globulin 2.3 g/dL (1.3-3.2); Glucose 84 mg/dl (74-100); Potassium 4.1 mmoL/L (3.5-5.1); Sodium 135 mmol/L (136-145); Total Protein,Serum 5.0 g/dl (6.3-8.2)
[2024-11-24 13:27] LABS: C-Reactive Protein 9.5 mg/L (0-4)
[2024-11-24 13:31] LABS: POC Glucose,Bedside 100 gm/dL (70-110)
[2024-11-24 13:41] LABS: Procalcitonin 0.044 ng/mL (0.0-2.0)
[2024-11-24] MEDS: ACETAMINOPHEN 1,000MG/100ML VIAL 1000 MG IV (13:55)
[2024-11-24 14:15] LABS: Reflex Lactic Add Lactic Reflex
[2024-11-24] MEDS: PIPERCILLIN/TAZO 3.375 GM in 0.9 % SODIUM CHLORIDE 50 ML IV ×2 (14:18→22:21)
[2024-11-24] MEDS: VANCOMYCIN/WATER FOR INJ (PEG) 1.5 GM/300 ML PIGGYBACK IV ×2 (14:53→22:57)
[2024-11-24] MEDS: 0.9 % SODIUM CHLORIDE 250 ML 25 ML IV (14:56)
--- NOTE | 2024-11-24 15:03 | US_ITS ---
PROCEDURE INFORMATION: Exam: US , Follow up Exam date and time: 11/24/2024 3:03 PM Age: 34 years old Clinical indication: Condition or disease; Lmp or gestational age (weeks): 17 w; Other: Post delivery bleeding; 5th ; Additional info: Vaginal bleeding TECHNIQUE: Imaging protocol: Transabdominal ultrasound of the uterus, real time with image documentation. Follow-up (eg, re-evaluation of size by measuring standard growth parameters and amniotic fluid volume, re-evaluation of organ system(s) suspected or confirmed to be abnormal on a previous scan). COMPARISON: US OB FOLLOW UP 11/24/2024 9:15 AM FINDINGS: Gestation: No visualized Intrauterine gestation. MATERNAL: Uterus: Large amount of presumed clot noted in the endometrial cavity and lower uterine segment. IMPRESSION: Large amount of presumed clot noted in the endometrial cavity and lower uterine segment.
[2024-11-24] MEDS: NOREPINEPHRINE BITARTRATE/D5W 8 MG/250 ML PLAST..BAG 15 MG IV (15:10)
--- NOTE | 2024-11-24 15:54 | PC.NURSE ---
while hanging blood noted patient passed a large blood clot that she could feel, a few minutes after passing the clot patient started posturing and was slow to respond. noted bp had dropped then to 60s over 30s and heart rate trended down in to the low 50s. levophed started at that time and dr alejandra notified. at bedside. blood started after, and ultrasound came to scan.
--- NOTE | 2024-11-24 16:05 | PC.NURSE ---
OB stated for blood to be finished by 1630. increased to 200ml/hr at this time will assess how she tolerates
--- NOTE | 2024-11-24 16:32 | PC.NURSE ---
patient left with surgery team. report given to gena chacon. first unit of blood almost complete. aware of need to grab second unit
[2024-11-24 17:06] LABS: Hematocrit 34.3 % (37.0-47.0)
[2024-11-24 17:10] LABS: Hemoglobin 11.3 g/dL (12.2-16.2)
--- NOTE | 2024-11-24 18:19 | EXP.MED.CON ---
History of Present Illness *Admission Date: 11/23/24 *History of present illness: Lillian Barrett is a 34-year-old female G5, P5 who was admitted for induction of labor for unfortunate demise on ultrasound. Shortly after delivery, patient became weak and hypotensive. This was initially attributed to postdelivery hemorrhaging, which seem to be significant as hemoglobin dropped from 11.4-8.7, though this was in the setting of IV fluids/dilution. She was given close to 3 L which transiently improved pressures. However, patient continued to have recurrent episodes of weakness and hypotension at which point hospital medicine was consulted. Upon my evaluation of the patient, she looks weak, pale with active signs of vaginal hemorrhaging. Dr. Georges was at bedside while we evaluated patient. She received multiple rounds of Pitocin and Cytotec, in addition to gentamicin and clindamycin, and reportedly has had significant vaginal hemorrhaging with other pregnancies. Patient's blood pressures gradually improved during this episode, but then again became hypotensive. Decision was then made to transfer patient to the ICU and start Levophed, conduct septic workup, and start vancomycin and Zosyn. During his episodes of weakness and hypotension, heart rate was also low normal. Initially hemorrhagic and septic shock were considered, but this presentation may represent more of a vagal response to acute stress and vaginal bleeding. [facility] Disclaimer: The information contained in this section may have been updated after the patient was seen, as this information can be updated by other users. Medical History hemorrhage History of recurrent miscarriages Status post normal vaginal delivery Encounter for supervision of other normal , first trimester Endometriosis determined by laparoscopy Leukopenia Sepsis SAB (spontaneous ) Ora's disease Migraine Cholesterin granuloma Atypical chest pain Radicular neuropathy Surgical History Hx of laparoscopy H/O dilation and curettage Status post D&C H/O brain surgery Family History Grandmother Cancer Other Family history of diabetes mellitus Social History Smoking Status: Never smoker alcohol intake: never substance use type: denies use current occupational status: other Travel in the last 8 weeks?: None current occupational exposures/hazards: No Have you lived/traveled outside [place] in past 30 days?: No Contact w/someone who lives/traveled outside US past 30 days?: No Exposure to someone with infectious disease in past 14 days?: No Do you have a fever (greater than 100.4 F or 38 C)?: No Have you tested positive for COVID-19?: No Exposed to someone with COVID-19 in past 14 days?: No Do you have a sore throat?: No Do you have a cough?: No Do you have any weakness?: No Do you have any diarrhea?: No Are you experiencing any unusual bleeding?: No Do you have any muscle aches/pain?: No Do you have any abdominal pain?: No Are you experiencing loss of taste or smell?: No Exam Data for Last 24 hours Vital signs and Labs for Last 24 Hours: Temp Pulse Resp BP Pulse Ox O2 Del Method O2 Flow Rate 97.7 F 91 H 18 121/74 100 Room Air 15 11/24/24 16:57 11/24/24 16:57 11/24/24 16:57 11/24/24 16:57 11/24/24 16:57 11/24/24 15:34 11/24/24 09:47 Laboratory Results - last 24 hr 11/23/24 18:31: WBC 8.5, RBC 4.04 L, Hgb 11.4 L, Hct 34.1 L, MCV 84.4, MCH 28.2, MCHC 33.4, RDW 13.9, Plt Count 273, MPV 10.3, Neut % (Auto) 66.7, Lymph % (Auto) 22.9, [place] % (Auto) 5.9, Eos % (Auto) 3.1, Baso % (Auto) 0.5, Neut # (Auto) 5.7, Lymph # (Auto) 1.9, [place] # (Auto) 0.5, Eos # (Auto) 0.3, Baso # (Auto) 0.0, RPR w/Rflx to Titer Nonreactive, Blood Type O Positive, Antibody Screen Negative, Crossmatch (AHG) See Detail 11/24/24 08:20: WBC 8.8, RBC 3.34 L, Hgb 9.7 L D, Hct 28.5 L, MCV 85.3, MCH 29.0, MCHC 34.0, RDW 13.9, Plt Count 218, MPV 10.3, Neut % (Auto) 77.3, Lymph % (Auto) 14.7, [place] % (Auto) 4.9, Eos % (Auto) 1.7, Baso % (Auto) 0.6, Neut # (Auto) 6.8, Lymph # (Auto) 1.3, [place] # (Auto) 0.4, Eos # (Auto) 0.2, Baso # (Auto) 0.1 11/24/24 09:41: POC Glucose 97 11/24/24 09:45: WBC 10.2, RBC 3.08 L, Hgb 8.7 L D, Hct 28.4 L, MCV 92.2, MCH 28.2, MCHC 30.6 L, RDW 14.0, Plt Count 213, MPV 10.9 H, Neut % (Auto) 73.2, Lymph % (Auto) 19.4, [place] % (Auto) 4.7, Eos % (Auto) 1.6, Baso % (Auto) 0.3, Neut # (Auto) 7.5, Lymph # (Auto) 2.0, [place] # (Auto) 0.5, Eos # (Auto) 0.2, Baso # (Auto) 0.0, PT 11.3, INR 1.02, APTT 22.4 L, Fibrinogen 243, D-Dimer 0.99 H, Sodium 133 L, Potassium 3.6, Chloride 104, Carbon Dioxide 21 L, Anion Gap 11.6, BUN 8, Creatinine 0.50 L, Estimated Creat Clear 203, Estimated GFR 140, Est GFR ( Amer) 169, Glucose 89, Calcium 7.9 L, Total Bilirubin 0.5, AST 20, ALT 11 L, Alkaline Phosphatase 51, Total Creatine Kinase 33, Troponin I < 0.01, Total Protein 5.0 L, Albumin 2.8 L, Globulin 2.2, Albumin/Globulin Ratio 1.3 11/24/24 09:53: VBG pH 7.57 H, VBG pCO2 18.4 L, VBG pO2 153.8 H, VBG HCO3 16.5 L, VBG Total CO2 17.0 L, VBG O2 Saturation 98.8 H, VBG Base Excess -5.6 L, VBG Lactic Acid 2.3 H 11/24/24 12:06: POC Glucose 100 11/24/24 13:01: WBC 9.9, RBC 3.07 L, Hgb 8.8 L, Hct 26.5 L, MCV 86.3, MCH 28.7, MCHC 33.2, RDW 14.0, Plt Count 214, MPV 10.4, Neut % (Auto) 80.8 H, Lymph % (Auto) 12.4, [place] % (Auto) 4.4, Eos % (Auto) 1.2, Baso % (Auto) 0.4, Neut # (Auto) 8.0 H, Lymph # (Auto) 1.2, [place] # (Auto) 0.4, Eos # (Auto) 0.1, Baso # (Auto) 0.0, Sodium 135 L, Potassium 4.1, Chloride 102, Carbon Dioxide 22, Anion Gap 15.1 H, BUN 7, Creatinine 0.50 L, Estimated Creat Clear 203, Estimated GFR 140, Est GFR ( Amer) 169, Glucose 84, Lactate 1.6, Calcium 7.9 L, Total Bilirubin 0.5, AST 17, ALT 10 L, Alkaline Phosphatase 53, C-Reactive Protein 9.5 H, Total Protein 5.0 L, Albumin 2.7 L, Globulin 2.3, Albumin/Globulin Ratio 1.2, Procalcitonin 0.044 11/24/24 17:02: Hgb 11.3 L D, Hct 34.3 L I & O for Last 24 hours: Intake & Output 11/21/24 11/22/24 11/23/24 11/24/24 23:59 23:59 23:59 23:59 Intake Total 5753.834 / 5753.834 Balance 5753.834 / 5753.834 Weight 82.554 kg 82.554 kg Constitutional Constitutional: mild distress Comments: + pale face, lips and gums *Routine HEENT Exam Head: Present normocephalic Eye: Absent conjunctivae pink ENT: Present mucous membranes dry *Routine Neck Exam Neck: Present full ROM *Routine Respiratory Exam Respiratory: Present CTA bilaterally and normal respiratory effort *Routine Cardiovascular Exam Cardiovascular: Present RRR *Routine Abdominal Exam Abdominal: Present soft and tenderness (mild tenderness with fundal massage); Absent distended, rebound or guarding *Routine Rectal Exam Patient deferred: visual exam *Routine Exam External: Present normal urethra appearance; Absent erythema, swelling, lesions, lacerations, vulvar erythema or vulvar tenderness *Routine Extremities Exam Extremities: Present full ROM *Routine Neurological Exam Neurological: Present alert, moving all extremities and normal speech Meds Home Medications and Allergies Home Medications ?Medication ?Instructions ?Recorded ?Confirmed ?Type No Known Home Medications 11/22/24 11/24/24 History New Prescriptions to Start Prescriptions: Allergies Allergy/AdvReac Type Severity Reaction Status Date / Time No Known Allergies Allergy Verified 11/23/24 09:01 Results Labs 11/24/24 17:02 11/24/24 13:01 Labs: Abnormal lab results 11/23/24 11/24/24 11/24/24 Range/Units 18:31 08:20 09:45 RBC 4.04 L 3.34 L 3.08 L (4.20-5.40) M/mm3 Hgb 11.4 L 9.7 L D 8.7 L D (12.2-16.2) g/dL Hct 34.1 L 28.5 L 28.4 L (37.0-47.0) % MCHC 30.6 L (31.8-35.4) g/dL MPV 10.9 H (7.4-10.4) fl Neut % (Auto) (37.0-80.0) % Neut # (Auto) (1.8-7.8) K/mm3 APTT 22.4 L (22.8-30.6) seconds D-Dimer 0.99 H (0.0-0.5) ug/mL VBG pH (7.31-7.41) mmol/L VBG pCO2 (35-51) mmol/L VBG pO2 (28-40) mmol/L VBG HCO3 (23-30) mmol/L VBG Total CO2 (23-27) mmol/L VBG O2 Saturation (50-70) % VBG Base Excess (-2.4-2.3) mmol/L VBG Lactic Acid (0.4-2.0) mmol/L Sodium 133 L (136-145) mmol/L Carbon Dioxide 21 L (22.0-30.0) mmol/L Anion Gap (5-15) mEq/L Creatinine 0.50 L (0.52-1.04) mg/dl Calcium 7.9 L (8.4-10.2) mg/dl ALT 11 L (12-78) U/L C-Reactive Protein (0-4) mg/L Total Protein 5.0 L (6.3-8.2) g/dl Albumin 2.8 L (3.5-5.0) g/dl Crossmatch (AHG) See Detail 11/24/24 11/24/24 11/24/24 Range/Units 09:53 13:01 17:02 RBC 3.07 L (4.20-5.40) M/mm3 Hgb 8.8 L 11.3 L D (12.2-16.2) g/dL Hct 26.5 L 34.3 L (37.0-47.0) % MCHC (31.8-35.4) g/dL MPV (7.4-10.4) fl Neut % (Auto) 80.8 H (37.0-80.0) % Neut # (Auto) 8.0 H (1.8-7.8) K/mm3 APTT (22.8-30.6) seconds D-Dimer (0.0-0.5) ug/mL VBG pH 7.57 H (7.31-7.41) mmol/L VBG pCO2 18.4 L (35-51) mmol/L VBG pO2 153.8 H (28-40) mmol/L VBG HCO3 16.5 L (23-30) mmol/L VBG Total CO2 17.0 L (23-27) mmol/L VBG O2 Saturation 98.8 H (50-70) % VBG Base Excess -5.6 L (-2.4-2.3) mmol/L VBG Lactic Acid 2.3 H (0.4-2.0) mmol/L Sodium 135 L (136-145) mmol/L Carbon Dioxide (22.0-30.0) mmol/L Anion Gap 15.1 H (5-15) mEq/L Creatinine 0.50 L (0.52-1.04) mg/dl Calcium 7.9 L (8.4-10.2) mg/dl ALT 10 L (12-78) U/L C-Reactive Protein 9.5 H (0-4) mg/L Total Protein 5.0 L (6.3-8.2) g/dl Albumin 2.7 L (3.5-5.0) g/dl Crossmatch (AHG) H & H 11/23/24 11/24/24 11/24/24 Range/Units 18:31 08:20 09:45 Hgb 11.4 L 9.7 L D 8.7 L D (12.2-16.2) g/dL Hct 34.1 L 28.5 L 28.4 L (37.0-47.0) % 11/24/24 11/24/24 Range/Units 13:01 17:02 Hgb 8.8 L 11.3 L D (12.2-16.2) g/dL Hct 26.5 L 34.3 L (37.0-47.0) % Coagulation 11/24/24 Range/Units 09:45 INR 1.02 (0.9-1.1) All other labs normal. Assessment and Plan *Assessment and plan (1) Vasovagal response: Status: Acute Category: Medical Code(s): R55 - Syncope and collapse (2) Septic shock: Status: Acute Category: Medical Code(s): A41.9 - Sepsis, unspecified organism; R65.21 - Severe sepsis with septic shock Plan Lillian Barrett is a 34-year-old female G5, P5 who was admitted for induction of labor for unfortunate demise on ultrasound. Since delivery, patient has had hemorrhaging with concomitant episodes of hypotension at which point hospital medicine was consulted. #Suspected vasovagal response #Episodic hypotension #Possible septic shock ? Episode of weakness with hypotension, low normal heart rate may represent more of a vasovagal response rather than true hemorrhagic or septic shock. ? Vasovagal response is often related to acute stress, and patient unfortunately had a delivery of demise at 17 weeks today. This typically improves with improvement in his stress response. ? Septic, hemorrhagic shock seem to be less likely at this time as a broad infectious workup is unremarkable. Hemoglobin of 13.1 currently not suggestive of hemorrhagic shock. ? However, given critical state we will continue broad-spectrum antibiotics including vancomycin and Zosyn especially in the setting of retained products in the uterus. Meet sepsis criteria with hypothermia, tachycardia. ? WBC, procalcitonin, CRP unremarkable. ? Continue Levophed as needed if MAP < 65. ? Follow-up morning ECHO to rule out cardiogenic shock. ? Follow-up morning cortisol. ? Follow-up TSH, free T4. ? Follow-up morning CBC, CMP, magnesium. # hemorrhage #Retained uterine products ? Defer to [facility] team. S/p D&C on 11/24/2024. ? Hemoglobin improved from 8.7-11.3 with 1/2 unit of PRBC transfusion. #Left upper extremity swelling ? Patient had an IV contrast infiltration of left upper extremity at the AC site. ? There is significant swelling, the patient denies pain at this time. She does, however, endorse mild numbness and tingling which could be related to IV infiltration in the AC where the median nerve passes through. Appreciate general orthopedic surgery recommendations. ? Discussed with orthopedic surgery, low suspicion for compartment syndrome at this time this patient has minimal pain. CK also normal. ? Keep left upper extremity elevated/raised above level of heart. Continue to monitor for signs of pain/ischemia. #Recurrent spontaneous abortions #History of hemorrhage ? Follow-up autoimmune workup with MELISSA comprehensive panel due to history of spontaneous abortions. ? Follow-up von Willebrand factor antigen due to history of hemorrhage. Full code DVT prophylaxis: IPC's
--- NOTE | 2024-11-24 18:36 | P.PNANES_ITS ---
[facility] Anesthesia Record Part I Anesthesia Record I Intake, IV Amount: 800 Hydration: Adequate Estimated blood loss (mL): 550 Urine output (mL): 150 Blood Products used (#): PRBC's Blood Pressure: 139/89 SaO2: 97 Pulse Rate: 76 Airway Patency: Patent Respiratory Rate: 18 Temperature: 98.7 F Patient is:: Awake and Stable Stable to PACU at:: 18:32
--- NOTE | 2024-11-24 18:53 | PC.NURSE ---
patient received second unit of blood in surgery. blood finished before returning to her room.
--- NOTE | 2024-11-24 19:00 | P.PNANES_ITS ---
[facility] Disclaimer: The information contained in this section may have been updated after the patient was seen, as this information can be updated by other users. Medical History hemorrhage History of recurrent miscarriages Status post normal vaginal delivery Encounter for supervision of other normal , first trimester Endometriosis determined by laparoscopy Leukopenia Sepsis SAB (spontaneous ) Ora's disease Migraine Cholesterin granuloma Atypical chest pain Radicular neuropathy Surgical History Hx of laparoscopy H/O dilation and curettage Status post D&C H/O brain surgery Family History Grandmother Cancer Other Family history of diabetes mellitus Social History Smoking Status: Never smoker alcohol intake: never substance use type: denies use current occupational status: other Travel in the last 8 weeks?: None current occupational exposures/hazards: No Have you lived/traveled outside [place] in past 30 days?: No Contact w/someone who lives/traveled outside US past 30 days?: No Exposure to someone with infectious disease in past 14 days?: No Do you have a fever (greater than 100.4 F or 38 C)?: No Have you tested positive for COVID-19?: No Exposed to someone with COVID-19 in past 14 days?: No Do you have a sore throat?: No Do you have a cough?: No Do you have any weakness?: No Do you have any diarrhea?: No Are you experiencing any unusual bleeding?: No Do you have any muscle aches/pain?: No Do you have any abdominal pain?: No Are you experiencing loss of taste or smell?: No [facility] Anesthesia Checklist Patient Identification Patient Identification: Arm Band Structural Data Admitted From: Inpatient Planned Operative Procedure/s: D&C Consent for Planned Operative Procedure(s) Verified: Yes Verified Documents: Surgical Consent and History and Physical NPO Status Verified Time NPO: 00:00 Additional verifications Anesthesia Reactions: No Hx Blood Transfusions: No Blood Transfusion Reaction: No Airway Assessment Mallampati Score:: Class II Dentition: Good Dentition Neurological Assessment Level of Consciousness: Awake, Alert and Appropriate Anesthesia Plan Anesthesia Risk discussed: Yes Anesthesia Plan: Verified ASA Class: II Anesthesia Type: General
--- NOTE | 2024-11-24 19:01 | EXP.OP.NOTE ---
Date of procedure: 11/24/24 Pre-op Diagnosis:: 1. hemorrhage 2. Retained products of conception 3. S/p vaginal delivery of early second trimester spontaneous 4. AMA 5. History of recurrent SAB x 2 Post-op Diagnosis:: 1. hemorrhage 2. Retained products of conception 3. S/p vaginal delivery of early second trimester spontaneous 4. AMA 5. History of recurrent SAB x 2 Procedure performed:: Dilation and curettage with [place] Suction Surgeon:: Celia Georges DO Teradata Architect(s):: N/a MOBILITY SPECIALIST:: Luanne Castillo Anesthesia: GETA Estimated blood loss (mL): 550 Clinical Note:: Mrs Lillian Sutton is a 34 yo at 17 weeks gestation admitted to [facility] L&D for induction of labor with 17 week spontaneous . She was seen in the office 11/22/24 for routine visit at 16 weeks 6 days. No heart rate and no Doppler flow to the fetus on ultrasound in the office. Formal ultrasound was performed in radiology which demonstrated 1. Nonviable fetus within the uterine cavity. heart rate activity is not seen. Fetus is in the cephalic presentation. 2. Fluid is normal around the fetus. Placenta is anterior. 3. Fetus measures at 14 weeks and 3 days. She underwent induction of labor with Cytotec. At 1:35 AM she had ruptured her membranes and there was meconium stained brown/green fluid. She has been feeling significant discomfort and cramps. She spontaneously delivered a stillborn 14 weeks size fetus at 2:57 AM. The cord was extremely thin and still attached to the fetus so I cut the cord with a pair of scissors. She received oxytocin close monitoring for delivery of placenta. She give high flow oxygen. She passed what looked to be the placenta and blood clots this morning around 0800. Bleeding slowed to a trickle after passing placenta. Placenta will be sent pathology. Aerobic and anaerobic cultures from placenta obtained. QBL was 914 by this time. Stat CBC demonstrated Hgb 9.7 and platelets 218. During bedside ultrasound 4 cm clot appeared in lower uterine segment. No retained products appreciated. Bedside transabdominal pelvic ultrasound was being performed to assess for retained products of conception. During ultrasound Lillian admitted to feeling a lot of pelvic cramping and then lost consciousness. Abigail melgoza was called overhead. BP was 80's/50's and HR was 60. She responded to intervention. A second rapid response was called about an hour and half later. Lillian was getting ready to get on a bed vizcarra to void with RN at bedside and reported she was feeling very hot. BP dropped while RN was in the room. RN went to get help and IV fluids. Patient had a very slow response time to RN. BP had improved when OB arrived in room. RN suspected vasovagal response. Passed two large clots but minimal trickle with fundal massage. DIC panel within normal limits. Hgb further decreased to 8.7 (9.7 at 0820); WBC 10.2. CT abd/pelvis and CT chest is negative. Ultrasound report was still pending. Lactic acid lab ordered. Transfuse 2 units PRBCs ordered and continue Clindamycin and Gentamicin q 8 hours. An hour later she had another event. BP decreased to 60/40's with heart rate in the 60's. O2 sat 99-100 % on RA, afebrile. Hospitalist consulted. Continue with blood transfusion and antibiotics. She is still passing some clots vaginally but minimal bleeding with fundal massage. Repeat Hgb at 1301 stable at 8.8 (8.7 at 0945). Fibrinogen within normal limits. Lactate 1.6. Transfer to ICU for levophed drip and close monitoring. Bleeding continued to be monitored. She continued to pass clots and QBL was increasing with weighing of chux pads. She was stable in the ICU. A third ultrasound was performed in the ICU to assess for clots and retained products. Still large amount of clot/retained products in the uterus. Decision was made to proceed with suction D&C. Lillian and her agreed with plan. Consent form signed. Operative findings:: 1. Cervix dilated with products of conceptions and blood clot sticking out of external os. Active bleeding present during exam 2. On bimanual exam, uterus midposition and about 14 week size, normal shape. No adnexal masses palpated Operative note:: Risks, benefits and alternatives were discussed with the patient. Risks include but are not limited to bleeding, infection, uterine perforation and VTE. Patient voiced understanding and agreed to proceed. She was wheeled back to the operating room and placed under general anesthesia without difficulty. She was placed in dorsal lithotomy position and prepped and draped in the normal sterile fashion. Straight catheter was used to drain the bladder. A bimanual exam was performed. A weighted Auvard was placed in the vaginal vault. Ringed forcep was placed on anterior lip of the cervix. Uterus sounded to 12. Cervix was dilated with products of conception and blood clots coming from external os. Ringed forcep was used to grasp and remove products at external os. Suction curettage was performed under ultrasound guidance with an 8 mm curved rwand[place] suction curette. Suction curette was advanced into the uterine cavity without difficulty and was used to suction contents of the uterus. Following removal of the products of conception, a medium sized sharp curette was advanced into the uterine cavity and was used to scrape the uterine pulido until a gritty texture was noted. At this time, the suction curette was advanced one more time to suction any remaining products of conception and blood. Instruments were removed from the vagina. Ultrasound demonstrated complete removal of blood clots and products of conception. Patient was awaken from anesthesia without difficulty. Products of conception will be sent to pathology for review. She was transported to recovery room in stable condition. She will then be transferred back to ICU for monitoring. Condition: stable Disposition: ICU Specimens:: 1. Products of conception Complications:: None
--- NOTE | 2024-11-24 19:12 | PC.NURSE ---
0937 BP 88/53 66HR 97% NRB 0940 BP 80/40 50HR 97 NRB 0942 10 mg ephedrine IV administered by Ky Chester, RN 0948 BP100/58 115 HR 100% NRB FSBS 97 0948 family to BS Team includes MD Henrietta Clemens, RN Henrietta Mena, RIGOBERTO Lee, radiology Ky Chester, SAFETY PERSON Ky Georges, DO Russel Tam, COREY Bell, RIGOBERTO Oliva, RIGOBERTO Santillan, RT Angel Wilson, RT Second Rapid Response Called at 1204 for Inital BP was 65/39 1205 [place] requested at bedside, [place] at bedside BP 96/58 66HR 100NRB 1206 Canan at bedside 1207 FSBS 100 1208 BP 96/54 70HR 100NRB 97.7 oral T
--- NOTE | 2024-11-24 19:23 | PC.NURSE ---
since arrival black from floor bp and heart rate has been variable. will maintain 130-160s for brief periods before dropping to the 60-70s. blood ready. report given.
[2024-11-24 21:54] LABS: Free T4 (Free Thyroxine) 1.03 ng/dl (0.78-2.19)
--- NOTE | 2024-11-24 22:05 | SUR.PHASEI ---
1842- Per Shahzad Castillo CRNA patient stable to be transferred to ICU at this time. Patient VSS and no C/O pain. Minimal vaginal bleeding noted on assessment. patient hooked to portable monitor and transferred via bed to ICU. Detailed report given to Russel ernst RN at bedside.
[2024-11-24] MEDS: ACETAMINOPHEN 500MG TAB 1000 MG PO (22:16)
[2024-11-24 22:36] LABS: Thyroid Stimulating Hormone 1.27 uIU/mL (0.465-4.68)
[2024-11-25] VITALS (61 sets, daily range): BP systolic 87–122; BP diastolic 46–89; PULSE 70–136; RESP 11–26; TEMP 36.1–37; O2SAT 93–99; BMI 33.7
[2024-11-25] MEDS: PIPERCILLIN/TAZO 3.375 GM in 0.9 % SODIUM CHLORIDE 50 ML IV ×4 (02:02→19:57)
[2024-11-25 02:38] LABS: Hematocrit 30.4 % (37.0-47.0); Hemoglobin 10.3 g/dL (12.2-16.2)
[2024-11-25] MEDS: VANCOMYCIN/WATER FOR INJ (PEG) 1.5 GM/300 ML PIGGYBACK IV ×3 (04:33→21:16)
--- NOTE | 2024-11-25 06:52 | PC.NURSE ---
1 unit of blood given this shift. Hemoglobin at 0230 was 10.3. Levo currently infusing @ 3 mcg/min. Pulses and capillary refill monitored closely in left arm due to contrast infiltration. Strong pulse and capillary refill < 3 seconds.
[2024-11-25] MEDS: OXYCODONE 5MG W/APAP 325MG TABLET 1 EACH PO (07:55)
--- NOTE | 2024-11-25 08:12 | HMH.PHAAMS2 ---
- Antimicrobial Stewardship Review culture & sensitivity review Stewardship interventions: 48 hour timeout review, reviewed - no change Comments: EMPIRIC THERAPY ON ZOSYN AND VANCOMYCIN FOR INFECTION SECONDARY TO RETAINED CONCEPTION
--- NOTE | 2024-11-25 08:42 | PC.NURSE ---
fundal massage done at this time. uterus is 2 below umbilicus. scan amount of bleeding. Mike notified face to face.
[2024-11-25] MEDS: LACTATED RINGERS 1000ML 500 ML IV (09:06)
--- NOTE | 2024-11-25 09:29 | PC.NURSE ---
11/24/24 1700- patient brought to preop room per Luz Marina Greenberg RN 1706- Second unit of PRBC started per NATTY Stringer 1800-PRBC stopped per Shahzad Castillo CRNA- See anesthesia record for vitals signs during transfusion.
[2024-11-25 10:03] LABS: Hematocrit 28.8 % (37.0-47.0); Hemoglobin 9.5 g/dL (12.2-16.2); Immature Granulocytes % 1.4 %; Mean Corpuscular HGB Conc 33.0 g/dL (31.8-35.4); Mean Corpuscular Hemoglobin 28.2 pg (27.0-31.2); Mean Corpuscular Volume 85.5 fl (81-99); Nucleated Red Blood Cells % 0 %; Platelet Count 233 K/mm3 (142-424); Red Blood Count 3.37 M/mm3 (4.20-5.40); Red Cell Distribution Width-SD 46.0 fL; White Blood Count 11.1 K/mm3 (4.8-10.8)
--- NOTE | 2024-11-25 11:00 | EXP.PN ---
Subjective *Date: 11/26/24 *Time: 08:05 Interval history: Patient is improving, more alert and oriented and conversational today. Pallor has resolved. Blood pressures improving. Weaning off Levophed. With static vitals normal. Continue IV antibiotics, continue to wean off Levophed. Exam Data for Last 24 hours Vital signs and Labs for Last 24 Hours: Temp Pulse Resp BP Pulse Ox O2 Del Method O2 Flow Rate 97.6 F 88 16 110/61 94 L Room Air 98 11/26/24 04:26 11/26/24 07:00 11/26/24 07:00 11/26/24 07:00 11/26/24 07:00 11/26/24 07:27 11/26/24 07:00 Laboratory Results - last 24 hr 11/25/24 09:30: WBC 11.1 H, RBC 3.37 L, Hgb 9.5 L, Hct 28.8 L, MCV 85.5, MCH 28.2, MCHC 33.0, RDW 14.9, Plt Count 233, MPV 10.3, Neut % (Auto) 78.7, Lymph % (Auto) 14.0, [place] % (Auto) 5.2, Eos % (Auto) 0.3, Baso % (Auto) 0.4, Neut # (Auto) 8.7 H, Lymph # (Auto) 1.6, [place] # (Auto) 0.6, Eos # (Auto) 0.0, Baso # (Auto) 0.0, Sodium 133 L, Potassium 3.6, Chloride 107, Carbon Dioxide 18 L, Anion Gap 11.6, BUN 7, Creatinine 0.70 D, Estimated Creat Clear 157, Estimated GFR 95, Est GFR ( Amer) 115 D, Glucose 125 H D, Calcium 7.6 L, Magnesium 1.6, Total Bilirubin 0.7, AST 17, ALT 12, Alkaline Phosphatase 45, NT-Pro-B Natriuret Pep 29.6, Total Protein 4.6 L, Albumin 2.5 L, Globulin 2.1, Albumin/Globulin Ratio 1.2 11/25/24 12:22: Urine Color Yellow, Urine Appearance Clear, Urine pH 5.5, Ur Specific [place] 1.015, Urine Protein 1+ A, Urine Glucose (UA) Negative, Urine Ketones Trace, Urine Blood 3+ A, Urine Nitrate Negative, Urine Bilirubin Negative, Urine Urobilinogen 0.2, Ur Leukocyte Esterase Trace, Urine RBC Tntc, Urine WBC None, Ur Squamous Epith Cells Occasional, Urine Bacteria None 11/25/24 12:35: Vancomycin Trough 15.6 H I & O for Last 24 hours: Intake & Output 11/23/24 11/24/24 11/25/24 11/26/24 23:59 23:59 23:59 23:59 Intake Total 7188.680 / 7188.680 2918.570 / 2918.570 470 / 470 Output Total 300 / 300 1950 / 1950 500 / 500 Balance 6888.680 / 6888.680 968.570 / 968.570 -30 / -30 Weight 82.554 kg 82.554 kg 89.7 kg 88.2 kg Microbiology Reports for the Last 24 Hours: Microbiology 11/24/24 10:25 Other Gram Stain - Final 11/24/24 10:25 Other Surgical Biopsy Culture - Preliminary Constitutional Constitutional: no acute distress *Routine HEENT Exam Head: Present normocephalic Eye: Present EOMI and PERRL ENT: Present mucous membranes moist *Routine Neck Exam Neck: Present supple; Absent lymphadenopathy *Routine Respiratory Exam Respiratory: Present CTA bilaterally *Routine Cardiovascular Exam Cardiovascular: Present RRR *Routine Abdominal Exam Abdominal: Present soft and normoactive bowel sounds; Absent tenderness *Routine Extremities Exam Extremities: Absent cyanosis, clubbing or edema *Routine Skin Exam Skin: Present warm; Absent rash *Routine Neurological Exam Neurological: Present alert and oriented X3 Assessment and Plan *Assessment and plan (1) Vasovagal response: Status: Acute Category: Medical Code(s): R55 - Syncope and collapse (2) Septic shock: Status: Acute Category: Medical Code(s): A41.9 - Sepsis, unspecified organism; R65.21 - Severe sepsis with septic shock Plan Lillian Barrett is a 34-year-old female G5, P5 who was admitted for induction of labor for unfortunate demise on ultrasound. Since delivery, patient has had hemorrhaging with concomitant episodes of hypotension at which point hospital medicine was consulted. #Suspected vasovagal response #Episodic hypotension #Possible septic shock, resolved #History of hypertension ? Unclear etiology at this time. May be multifactorial from hemorrhagic, septic, hypovolemic, vasovagal shock. Improving today, weaning off Levophed. ? Vasovagal response is often related to acute stress, and patient unfortunately had a delivery of demise at 17 weeks today. This typically improves with improvement in his stress response. ? Continue broad-spectrum antibiotics including vancomycin and Zosyn especially in the setting of retained products in the uterus. Met sepsis criteria with hypothermia, tachycardia. ? WBC, procalcitonin, CRP unremarkable. ? Orthostatic vitals normal today, ruling out hypovolemic shock. TSH, free T4 normal. ? Patient looks much better today, more alert and oriented and conversational. Pallor is resolved. ? Continue Levophed as needed if MAP < 65. Blood pressures are improving, currently on Levophed 0.5 mcg. ? Follow-up morning ECHO to rule out cardiogenic shock. ? Follow-up morning cortisol. ? Follow-up morning CBC, CMP, magnesium. # hemorrhage #Retained uterine products ? Defer to SAWMILL TALLY CLERK team. S/p D&C on 11/24/2024. ? Hemoglobin improved from 8.7-11.3 with 1/2 unit of PRBC transfusion. #Left upper extremity swelling ? Patient had an IV contrast infiltration of left upper extremity at the AC site. ? There was significant swelling, the patient denies pain at this time. She does, however, endorse mild numbness and tingling which could be related to IV infiltration in the AC where the median nerve passes through. Appreciate general orthopedic surgery recommendations. ? Discussed with orthopedic surgery, low suspicion for compartment syndrome at this time this patient has minimal pain. CK also normal. ? Keep left upper extremity elevated/raised above level of heart. Continue to monitor for signs of pain/ischemia. ? Swelling improved today, patient denies numbness and tingling. No pain. Low suspicion for compartment syndrome. #Recurrent spontaneous abortions #History of hemorrhage ? Follow-up autoimmune workup with MELISSA comprehensive panel due to history of spontaneous abortions. ? Follow-up von Willebrand factor antigen due to history of hemorrhage. Full code DVT prophylaxis: IPC's
[2024-11-25 11:09] LABS: Carbon Dioxide 18 mmol/L (22.0-30.0); Chloride 107 mmol/L (98-107); Potassium 3.6 mmoL/L (3.5-5.1); Sodium 133 mmol/L (136-145)
[2024-11-25 11:10] LABS: Alanine Aminotransferase 12 U/L (12-78); Albumin Level 2.5 g/dl (3.5-5.0); Albumin/Globulin Ratio 1.2 (1.1-1.8); Alkaline Phosphatase 45 U/L (38-126); Anion Gap 11.6 mEq/L (5-15); Aspartate Amino Transferase 17 U/L (14-36); Bilirubin,Total 0.7 mg/dl (0.2-1.3); Blood Urea Nitrogen 7 mg/dl (7-17); Calcium 7.6 mg/dl (8.4-10.2); Creatinine Clearance Estimated 157 mL/min (50-200); Creatinine,Serum 0.70 mg/dl (0.52-1.04); Estimated Glomerular Filt Rate 95 ml/min (>60); GFR (African American) 115 ML/MIN (>60); Globulin 2.1 g/dL (1.3-3.2); Glucose 125 mg/dl (74-100); Magnesium 1.6 mg/dl (1.6-2.3); Total Protein,Serum 4.6 g/dl (6.3-8.2)
--- NOTE | 2024-11-25 11:30 | PC.NURSE ---
1120 this RN rounded to radiology to check on pt in middle of 4 hr test. pt currently laying flat on radiology table. heart monitor in place, hr noted to be 72
[2024-11-25 11:45] LABS: NT Pro Brain Natriuretic Pep. 29.6 pg/mL (0-125)
[2024-11-25] MEDS: PHA TO NURSING INSTRUCTION 1 EACH NOTAPPLIC (12:47)
--- NOTE | 2024-11-25 12:53 | EXP.ACUTE.PN ---
Subjective *Date: 11/25/24 *Time: 12:53 Interval history: PPD # 1 s/p vaginal delivery, POD #1 s/p Suction D&C Resting comfortably this morning. Bleeding is light. Pain is controlled. She received 3 units PRBCs and Hgb at 0230 this morning was 10.3. She is still on Levophed for hypotension. She admits she is tired. No chest pain or shortness of breath. Her left arm is still swollen and tight from IV contrast infiltration yesterday. She is voiding on bed vizcarra but reports difficulty initiating void. She admits she is hungry and would like to eat. She also states she wants to go home later today. She initially declined AM lab draw this morning. Medical Exam Vital signs and Labs for Last 24 Hours: Vital Signs Temp Pulse Pulse Pulse Pulse Pulse Resp 11/25/24 12:18 11/25/24 12:02 91 H 114 H 136 H 11/25/24 12:00 98.4 F 73 14 11/25/24 12:00 70 11/25/24 11:45 78 15 11/25/24 11:30 86 15 11/25/24 11:15 83 14 11/25/24 11:00 80 17 11/25/24 10:56 11/25/24 10:45 98 H 16 11/25/24 10:30 87 15 11/25/24 10:15 116 H 16 11/25/24 10:00 104 H 15 11/25/24 09:45 94 H 16 11/25/24 09:30 109 H 16 11/25/24 09:15 109 H 16 11/25/24 09:00 100 H 15 11/25/24 09:00 11/25/24 08:45 95 H 16 11/25/24 08:30 98.5 F 78 16 11/25/24 08:02 11/25/24 08:00 80 11/25/24 08:00 77 18 11/25/24 07:30 96 H 19 11/25/24 07:00 82 26 H 11/25/24 06:47 11/25/24 06:30 80 18 11/25/24 06:00 75 16 11/25/24 05:30 105 H 18 11/25/24 05:01 85 18 11/25/24 05:00 11/25/24 04:00 98.5 F 11/25/24 04:00 99 H 11/25/24 03:00 11/25/24 01:00 11/25/24 00:27 112 H 11/25/24 00:00 11/24/24 23:20 16 11/24/24 23:00 11/24/24 22:20 127 H 16 11/24/24 21:20 97.7 F 16 11/24/24 21:05 96.9 F L 79 17 11/24/24 21:00 11/24/24 20:50 97.4 F L 104 H 17 11/24/24 20:35 97.5 F L 90 16 11/24/24 20:30 97 F L 76 14 11/24/24 20:25 97.8 F 74 14 11/24/24 20:20 96.7 F L 77 16 11/24/24 20:15 96.7 F L 90 16 11/24/24 20:00 76 11/24/24 20:00 11/24/24 19:35 96.8 F L 18 11/24/24 19:20 81 18 11/24/24 19:05 81 18 11/24/24 19:00 11/24/24 18:50 78 18 11/24/24 18:42 98 F 116 H 18 11/24/24 18:37 98.7 F 76 18 11/24/24 18:32 98 F 120 H 18 11/24/24 18:22 98 F 76 18 11/24/24 16:57 97.7 F 91 H 18 11/24/24 16:02 98.3 F 64 18 11/24/24 15:47 97.6 F 66 18 11/24/24 15:34 11/24/24 15:32 97.8 F 69 18 11/24/24 15:17 98.6 F 59 L 59 H 11/24/24 15:12 98.2 F 16 11/24/24 15:07 98.5 F 60 16 11/24/24 15:02 98.1 F 62 18 11/24/24 14:55 98.3 F 91 H 18 11/24/24 13:45 70 BP BP BP BP BP Pulse Ox O2 Del Method 11/25/24 12:18 Room Air 11/25/24 12:02 110/64 113/77 116/79 11/25/24 12:00 110/64 99 Room Air 11/25/24 12:00 11/25/24 11:45 106/60 L 97 Room Air 11/25/24 11:30 102/65 L 96 Room Air 11/25/24 11:15 108/62 L 95 Room Air 11/25/24 11:00 96/53 L 95 Room Air 11/25/24 10:56 Room Air 11/25/24 10:45 90/51 L 94 L Room Air 11/25/24 10:30 96/53 L 95 Room Air 11/25/24 10:15 99/62 L 96 Room Air 11/25/24 10:00 112/68 96 Room Air 11/25/24 09:45 101/58 L 95 Room Air 11/25/24 09:30 101/60 L 95 Room Air 11/25/24 09:15 87/56 L 96 Room Air 11/25/24 09:00 98/62 L 95 Room Air 11/25/24 09:00 Room Air 11/25/24 08:45 94/64 L 96 Room Air 11/25/24 08:30 103/65 L 96 Room Air 11/25/24 08:02 Room Air 11/25/24 08:00 11/25/24 08:00 109/89 L 95 Room Air 11/25/24 07:30 97/62 L 95 Room Air 11/25/24 07:00 103/77 L 97 Room Air 11/25/24 06:47 Room Air 11/25/24 06:30 93/63 L 96 Room Air 11/25/24 06:00 104/57 L 96 Room Air 11/25/24 05:30 99/64 L 96 Room Air 11/25/24 05:01 99/62 L 96 Room Air 11/25/24 05:00 Room Air 11/25/24 04:00 93/63 L 96 Room Air 11/25/24 04:00 11/25/24 03:00 Room Air 11/25/24 01:00 Room Air 11/25/24 00:27 11/25/24 00:00 93 L Room Air 11/24/24 23:20 99/66 L 93 L 11/24/24 23:00 Room Air 11/24/24 22:20 101/50 L 96 11/24/24 21:20 97/59 L 95 11/24/24 21:05 95/63 L 96 11/24/24 21:00 Room Air 11/24/24 20:50 91/63 L 96 11/24/24 20:35 91/61 L 96 11/24/24 20:30 107/70 L 96 11/24/24 20:25 106/69 L 96 11/24/24 20:20 107/66 L 96 11/24/24 20:15 109/70 L 96 11/24/24 20:00 11/24/24 20:00 96 Room Air 11/24/24 19:35 109/75 L 96 Room Air 11/24/24 19:20 116/83 97 Room Air 11/24/24 19:05 115/85 97 Room Air 11/24/24 19:00 Room Air 11/24/24 18:50 122/87 96 Room Air 11/24/24 18:42 116/82 97 Room Air 11/24/24 18:37 139/89 11/24/24 18:32 118/76 97 Room Air 11/24/24 18:22 139/89 97 Room Air 11/24/24 16:57 121/74 100 11/24/24 16:02 112/65 100 11/24/24 15:47 117/59 L 100 11/24/24 15:34 Room Air 11/24/24 15:32 122/72 100 11/24/24 15:17 100/58 L 100 11/24/24 15:12 86/50 L 100 11/24/24 15:07 77/39 L 100 11/24/24 15:02 62/39 L 100 11/24/24 14:55 104/58 L 100 11/24/24 13:45 Intake and Output 11/24/24 11/25/24 11/25/24 23:59 07:59 15:59 Intake Total 1984.846 / 7188.680 971.762 / 1663.176 691.414 / 1663.176 Output Total 300 / 300 350 / 1150 800 / 1150 Balance 1684.846 / 6888.680 621.762 / 513.176 -108.586 / 513.176 Intake: Intake, Oral Amount 180 / 180 Intake, Total IV Amount 1234.846 / 6438.680 971.762 / 1483.176 511.414 / 1483.176 0.9 % Sodium Chloride 250 ml @ 250 / 250 25 mls/hr IV .Q10H [facility] Rx#: [id number] Lactated Ringers 1000ML 500 ml 500 / 500 @ 500 mls/hr IV .Q1H [facility] Rx#: [id number] Norepinephrine Bitartrate/D5w 8 84.846 / 84.846 21.762 / 33.176 11.414 / 33.176 mg In 250 ml @ 8 MCG/MIN 15 mls/hr IV .[id number] [facility] Rx#: [id number] Pipercillin/Tazo 3.375 gm In 0. 50 / 100 100 / 100 9 % Sodium Chloride 50 ml @ 100 mls/hr IV Q6H [facility] Rx#:[id number] Vancomycin/Water For Inj (Peg) 300 / 300 600 / 600 1.5 gm In 300 ml @ 150 mls/hr IV Q8H [facility] Rx#:[id number] Intake (Blood Product) Amt 750 / 750 Red Blood Cells Unit 250 / 250 [id number] Red Blood Cells Unit 250 / 250 [id number] Red Blood Cells Unit 250 / 250 [id number] Output: Output, Urine Amount 300 / 300 350 / 1150 800 / 1150 Other: Weight 197 lb 12.074 oz Patient Weight 11/25/24 23:59 Weight 197 lb 12.074 oz Laboratory Results - last 24 hr 11/23/24 18:31: Blood Type O Positive, Antibody Screen Negative, Crossmatch (AHG) See Detail 11/24/24 09:45: Fibrinogen 243, Sodium 133 L, Potassium 3.6, Chloride 104, Carbon Dioxide 21 L, Anion Gap 11.6, BUN 8, Creatinine 0.50 L, Estimated Creat Clear 203, Estimated GFR 140, Est GFR ( Amer) 169, Glucose 89, Calcium 7.9 L, Total Bilirubin 0.5, AST 20, ALT 11 L, Alkaline Phosphatase 51, Total Creatine Kinase 33, Troponin I < 0.01, Total Protein 5.0 L, Albumin 2.8 L, Globulin 2.2, Albumin/Globulin Ratio 1.3 11/24/24 12:06: POC Glucose 100 11/24/24 13:01: WBC 9.9, RBC 3.07 L, Hgb 8.8 L, Hct 26.5 L, MCV 86.3, MCH 28.7, MCHC 33.2, RDW 14.0, Plt Count 214, MPV 10.4, Neut % (Auto) 80.8 H, Lymph % (Auto) 12.4, Wheeler % (Auto) 4.4, Eos % (Auto) 1.2, Baso % (Auto) 0.4, Neut # (Auto) 8.0 H, Lymph # (Auto) 1.2, Wheeler # (Auto) 0.4, Eos # (Auto) 0.1, Baso # (Auto) 0.0, Sodium 135 L, Potassium 4.1, Chloride 102, Carbon Dioxide 22, Anion Gap 15.1 H, BUN 7, Creatinine 0.50 L, Estimated Creat Clear 203, Estimated GFR 140, Est GFR ( Amer) 169, Glucose 84, Lactate 1.6, Calcium 7.9 L, Total Bilirubin 0.5, AST 17, ALT 10 L, Alkaline Phosphatase 53, C-Reactive Protein 9.5 H, Total Protein 5.0 L, Albumin 2.7 L, Globulin 2.3, Albumin/Globulin Ratio 1.2, Procalcitonin 0.044, TSH 1.27, Free T4 1.03 11/24/24 17:02: Hgb 11.3 L D, Hct 34.3 L 11/25/24 02:30: Hgb 10.3 L, Hct 30.4 L 11/25/24 09:30: WBC 11.1 H, RBC 3.37 L, Hgb 9.5 L, Hct 28.8 L, MCV 85.5, MCH 28.2, MCHC 33.0, RDW 14.9, Plt Count 233, MPV 10.3, Neut % (Auto) 78.7, Lymph % (Auto) 14.0, Wheeler % (Auto) 5.2, Eos % (Auto) 0.3, Baso % (Auto) 0.4, Neut # (Auto) 8.7 H, Lymph # (Auto) 1.6, Wheeler # (Auto) 0.6, Eos # (Auto) 0.0, Baso # (Auto) 0.0, Sodium 133 L, Potassium 3.6, Chloride 107, Carbon Dioxide 18 L, Anion Gap 11.6, BUN 7, Creatinine 0.70 D, Estimated Creat Clear 157, Estimated GFR 95, Est GFR ( Amer) 115 D, Glucose 125 H D, Calcium 7.6 L, Magnesium 1.6, Total Bilirubin 0.7, AST 17, ALT 12, Alkaline Phosphatase 45, NT-Pro-B Natriuret Pep 29.6, Total Protein 4.6 L, Albumin 2.5 L, Globulin 2.1, Albumin/Globulin Ratio 1.2 I & O for Labs for Last 24 Hours: Intake & Output 11/22/24 11/23/24 11/24/24 11/25/24 23:59 23:59 23:59 23:59 Intake Total 7188.680 / 7188.680 1663.176 / 1663.176 Output Total 300 / 300 1150 / 1150 Balance 6888.680 / 6888.680 513.176 / 513.176 Weight 182 lb 182 lb 197 lb 12.074 oz Microbiology Reports for the Last 24 Hours: Microbiology 11/24/24 10:25 Other Gram Stain - Final 11/24/24 10:25 Other Surgical Biopsy Culture - Preliminary NO GROWTH AFTER 24 HOURS Constitutional: Present no acute distress and cooperative Head: Present atraumatic and normocephalic ENT: Present mucous membranes moist Neck: Present normal inspection and full ROM Respiratory: Present CTA bilaterally and normal respiratory effort Cardiac: Present Reg Rate and Rhythm GI: Present soft; Absent distention, tenderness or guarding Rectal (female): Present deferred (female): Present deferred Extremities: Present full ROM and edema (swelling of left upper extremity from shoulder to hand secondary to IV infiltration yesterday); Absent cyanosis Neuro: Present alert, awake and moves all extremities Assessment and Plan *Assessment and plan (1) Status post D&C: Status: Acute Category: Surgical Code(s): Z98.890 - Other specified postprocedural states (2) Status post normal vaginal delivery: Problem Comment: early 2nd trimester spontaneous Status: Acute Category: Medical (3) hemorrhage: Status: Acute Qualifiers: hemorrhage type: unspecified Qualified Code(s): O72.1 - Other immediate hemorrhage Category: Medical Code(s): O72.1 - Other immediate hemorrhage (4) Septic shock: Status: Acute Category: Medical Code(s): A41.9 - Sepsis, unspecified organism; R65.21 - Severe sepsis with septic shock (5) Vasovagal response: Status: Acute Category: Medical Code(s): R55 - Syncope and collapse Plan Appreciate care and recommendations from hospitalist. She is still in the ICU on Levophed. Attempted wean off of Levophed this morning without success. RN is going to try again this afternoon. She is tolerating regular diet but not eating much. Voiding at bedside commode without difficulty. Bleeding is scant AM labs were drawn. WBC 11.1 and Hgb 9.5 Continue close monitoring
[2024-11-25 12:57] LABS: Microscopic, Urine URINE MICROSCOPIC (MICROSCOPIC)
[2024-11-25 13:00] LABS: Bilirubin,Urine Negative (Negative); Color,Urine YELLOW (Yellow); Glucose,Urine (UA) Negative (Negative); Ketones,Urine TRACE (Negative); Leukocyte Esterase,Urine TRACE (Negative); PH,Urine 5.5 (5.0-8.5); Protein,Urine 1+ (Negative); Specific Gravity, Urine 1.015 (1.005-1.030); Urobilinogen,Urine 0.2 EU/dl (0.2)
[2024-11-25 13:25] LABS: RBC,Urine TNTC #/hpf (0-3); Squamous Epithelial Cell,Urine Occasional #/hpf (0-5)
[2024-11-25 14:32] LABS: Vancomycin,Trough 15.6 ug/mL (5.0-10.0)
--- NOTE | 2024-11-25 14:47 | P.CONPHA_ITS ---
Pharmacy Consult Date: 11/25/24 Time: 14:48 Referring provider: DR. GAINES Reason for Consult:: VANCOMYCIN TROUGH LEVEL Allergies Allergy/AdvReac Type Severity Reaction Status Date / Time No Known Allergies Allergy Verified 11/23/24 09:01 Home Medications ?Medication ?Instructions ?Recorded ?Confirmed ?Type No Known Home Medications 11/22/24 1011/10 History New Prescriptions to Start Prescriptions: Height: 1.63 m Weight: 89.7 kg Laboratory Results:: Laboratory Results - last 24 hr 11/23/24 18:31: Blood Type O Positive, Antibody Screen Negative, Crossmatch (AHG) See Detail 11/24/24 13:01: TSH 1.27, Free T4 1.03 11/24/24 17:02: Hgb 11.3 L D, Hct 34.3 L 11/25/24 02:30: Hgb 10.3 L, Hct 30.4 L 11/25/24 09:30: WBC 11.1 H, RBC 3.37 L, Hgb 9.5 L, Hct 28.8 L, MCV 85.5, MCH 28.2, MCHC 33.0, RDW 14.9, Plt Count 233, MPV 10.3, Neut % (Auto) 78.7, Lymph % (Auto) 14.0, [place] % (Auto) 5.2, Eos % (Auto) 0.3, Baso % (Auto) 0.4, Neut # (Auto) 8.7 H, Lymph # (Auto) 1.6, [place] # (Auto) 0.6, Eos # (Auto) 0.0, Baso # (Auto) 0.0, Sodium 133 L, Potassium 3.6, Chloride 107, Carbon Dioxide 18 L, Anion Gap 11.6, BUN 7, Creatinine 0.70 D, Estimated Creat Clear 157, Estimated GFR 95, Est GFR ( Amer) 115 D, Glucose 125 H D, Calcium 7.6 L, Magnesium 1.6, Total Bilirubin 0.7, AST 17, ALT 12, Alkaline Phosphatase 45, NT-Pro-B Natriuret Pep 29.6, Total Protein 4.6 L, Albumin 2.5 L, Globulin 2.1, Albumin/Globulin Ratio 1.2 11/25/24 12:22: Urine Color Yellow, Urine Appearance Clear, Urine pH 5.5, Ur Specific [place] 1.015, Urine Protein 1+ A, Urine Glucose (UA) Negative, Urine Ketones Trace, Urine Blood 3+ A, Urine Nitrate Negative, Urine Bilirubin Negative, Urine Urobilinogen 0.2, Ur Leukocyte Esterase Trace, Urine RBC Tntc, Urine WBC None, Ur Squamous Epith Cells Occasional, Urine Bacteria None 11/25/24 12:35: Vancomycin Trough 15.6 H Medical History: Medical History (Updated 11/24/24 @ 21:26 by Seven Gaines MD) hemorrhage History of recurrent miscarriages Status post normal vaginal delivery Encounter for supervision of other normal , first trimester Endometriosis determined by laparoscopy Leukopenia Sepsis SAB (spontaneous ) Ora's disease Migraine Cholesterin granuloma Atypical chest pain Radicular neuropathy Assessment and Plan Assessment and plan all Dx Assessment and Plan for all problems:: BASED ON PATIENT FACTORS AND VANCOMYCIN TROUGH LEVEL OF 15.6, RECOMMEND CONTINUING CURRENT DOSE OF VANCOMYCIN AT 1,500MG EVERY 8 HOURS. PHARMACY WILL CONTINUE TO MONITOR AND WILL ADJUST DOSE APPROPRIATE. -SONIYA SUAREZ PHARMD
[2024-11-25] MEDS: ACETAMINOPHEN 500MG TAB 1000 MG PO (15:50)
--- NOTE | 2024-11-25 16:29 | P.PNANES_ITS ---
[facility] Anesthesia Record Part II Anesthesia Record Part II Discharge Time: 18:32 Destination: Intensive Care Unit PACU nurse assessment reviewed?: Yes Patient Condition:: Serious Anesthesia Complications:: None Swallowing reflex intact?: Yes Airway Patency: Patent Cyanosis?: No Blood Pressure: 122/87 SaO2: 96 Respiratory Rate: 18 Pulse Rate: 78 Temperature: 97.0 F Mental Status: Alert & Oriented Pain level:: 0 Nausea and/or vomitting:: None Intake, IV Amount: 0 Hydration: Adequate
--- NOTE | 2024-11-25 21:21 | CA_ITS ---
APPROVED REPORT EXAM: Comprehensive 2D, Doppler, and color-flow Echocardiogram Pull Over: NEO Tao, RVS Ht: 5 ft 4 in Wt: 182lbs BSA: 1.88 BP: 93/63 mmHg Indications: Antepartum-post spontaneous @17weeks, Hypotension, Hx-Ora's 2D Dimensions Left Atrium 1.95 cm LA Volume 62.60 mL LA Volume Index 33.803109 mL/m2 (M/F) 16-34 EF AP4 51.70 % GL Strain -16.3 % M-Mode Dimensions RVDd 1.41 cm (0.9-2.6) LA Diam 3.33 cm (1.9-4.0) LVDd 4.44 cm (3.5-5.7) LVDs 2.52 cm (3.5-5.7) IVSd 1.18 cm (0.6-1.1) PWd 1.14 cm (0.6-1.1) EF (Teich) 74.60% EPSs 0.24 cm FS 43.20% EDV (Teich) 89.60 mL TAPSE 2.22 (<1.7) ESV (Teich) 22.80 mL LV Diastology E Decel Time 190 (160-240 msec) E/A Ratio 1.32 MED A' 10.80 cm/s LAT A' 9.90 cm/s Aortic Valve MICHELL Index 1.33 cm2/m2 AoV Peak Indra. 129.0 (50-130 cm/s) AO Peak GR. 6.70 mmHg AO Mean GR. 3.40 (<5 mmHg) AO VTI 21.5 (18-25 cm) MICHELL (VTI) 2.55 (2.5-4.5 cm2) Mitral Valve MV A Velocity 45.0 (40-130 cm/s) E/A Ratio 1.32 Pulmonary Valve PV Peak Velocity 99.0 (50-150 cm/s) Left Ventricle The left ventricle is normal size. Left ventricular systolic function is hyperdynamic. There is normal left ventricular wall thickness. There is normal LV segmental wall motion. The left ventricular diastolic function is normal. LVEF is 70%. Right Ventricle The right ventricle is normal size. The right ventricular systolic function is normal. Atria The left atrium size is normal. The right atrium size is normal. There is no color Doppler evidence of interatrial shunt. Aortic Valve The aortic valve opens well. There is no hemodynamically significant aortic valvular stenosis. No aortic regurgitation is present. Mitral Valve The mitral valve is normal in structure. No evidence of mitral valve stenosis. Trace mitral regurgitation is present. Tricuspid Valve The tricuspid valve leaflets are thin and pliable. Trace tricuspid regurgitation. There is insufficient TR jet to estimate RVSP. Pulmonic Valve The pulmonary valve is grossly normal in structure. Trace pulmonic valve regurgitation is present. Great Vessels The aortic root is normal in size. IVC is normal in size and collapses >50% with inspiration. Pericardium There is no pericardial effusion. Other Information Study Quality: Fair Conclusion Hyperdynamic LV systolic function. No significant valvular stenosis or regurgitation. Electronically signed by : Adeline Arias MD 11/26/2024 21:54:11
[2024-11-26] VITALS (21 sets, daily range): BP systolic 87–118; BP diastolic 51–67; PULSE 82–114; RESP 13–22; TEMP 36.4–36.9; O2SAT 93–99; BMI 33.2
[2024-11-26] MEDS: PIPERCILLIN/TAZO 3.375 GM in 0.9 % SODIUM CHLORIDE 50 ML IV ×2 (01:30→08:00)
[2024-11-26] MEDS: VANCOMYCIN/WATER FOR INJ (PEG) 1.5 GM/300 ML PIGGYBACK IV (05:41)
[2024-11-26 07:48] LABS: Hematocrit 26.2 % (37.0-47.0); Immature Granulocytes % 1.1 %; Mean Corpuscular HGB Conc 32.1 g/dL (31.8-35.4); Mean Corpuscular Hemoglobin 28.0 pg (27.0-31.2); Mean Corpuscular Volume 87.3 fl (81-99); Nucleated Red Blood Cells % 0 %; Platelet Count 179 K/mm3 (142-424); Red Blood Count 3.00 M/mm3 (4.20-5.40); Red Cell Distribution Width-SD 48.8 fL; White Blood Count 7.0 K/mm3 (4.8-10.8)
[2024-11-26 08:18] LABS: Alanine Aminotransferase 10 U/L (12-78); Albumin Level 2.5 g/dl (3.5-5.0); Albumin/Globulin Ratio 1.2 (1.1-1.8); Alkaline Phosphatase 48 U/L (38-126); Anion Gap 10.7 mEq/L (5-15); Aspartate Amino Transferase 20 U/L (14-36); Bilirubin,Total 0.4 mg/dl (0.2-1.3); Blood Urea Nitrogen 7 mg/dl (7-17); Calcium 7.9 mg/dl (8.4-10.2); Carbon Dioxide 20 mmol/L (22.0-30.0); Chloride 111 mmol/L (98-107); Creatinine Clearance Estimated 155 mL/min (50-200); Creatinine,Serum 0.70 mg/dl (0.52-1.04); Estimated Glomerular Filt Rate 95 ml/min (>60); GFR (African American) 115 ML/MIN (>60); Globulin 2.1 g/dL (1.3-3.2); Glucose 88 mg/dl (74-100); Magnesium 1.7 mg/dl (1.6-2.3); Potassium 3.7 mmoL/L (3.5-5.1); Sodium 138 mmol/L (136-145); Total Protein,Serum 4.6 g/dl (6.3-8.2)
[2024-11-26 08:21] LABS: Hemoglobin 8.3 g/dL (12.2-16.2)
[2024-11-26] MEDS: IRON SUCROSE COMPLEX 200 MG in 0.9 % SODIUM CHLORIDE 100 ML 220 MG IV (12:11)
--- NOTE | 2024-11-26 12:22 | EXP.DC.SUM ---
General Admission date:: 11/23/24 Discharge date: 11/26/24 HPI HPI HPI: PPD # 2 s/p vaginal delivery of 17 week demise, POD # 2 s/p Suction D&C with Nolan suction Feeling well this morning. Denies pain and bleeding. Vital signs stable off of Levophed. Tolerating regular diet. Voiding without difficulty and passing flatus. Denies fever/chills, chest pain and shortness of breath. Ambulating well ad edd. Hospital Course Hospital Course Hospital Course: Mrs Lillian Sutton is a 34 yo at 17 weeks gestation admitted to [facility] L&D for induction of labor with 17 week spontaneous . She was seen in the office 11/22/24 for routine visit at 16 weeks 6 days. No heart rate and no Doppler flow to the fetus on ultrasound in the office. Formal ultrasound was performed in radiology which demonstrated 1. Nonviable fetus within the uterine cavity. heart rate activity is not seen. Fetus is in the cephalic presentation. 2. Fluid is normal around the fetus. Placenta is anterior. 3. Fetus measures at 14 weeks and 3 days. She underwent induction of labor with Cytotec. At 1:35 AM she had ruptured her membranes and there was meconium stained brown/green fluid. She has been feeling significant discomfort and cramps. She spontaneously delivered a stillborn 14 weeks size fetus at 2:57 AM. The cord was extremely thin and still attached to the fetus so I cut the cord with a pair of scissors. She received oxytocin close monitoring for delivery of placenta. She give high flow oxygen. She passed what looked to be the placenta and blood clots this morning around 0800. Bleeding slowed to a trickle after passing placenta. Placenta will be sent pathology. Aerobic and anaerobic cultures from placenta obtained. QBL was 914 by this time. Stat CBC demonstrated Hgb 9.7 and platelets 218. During bedside ultrasound 4 cm clot appeared in lower uterine segment. No retained products appreciated. Bedside transabdominal pelvic ultrasound was being performed to assess for retained products of conception. During ultrasound Lillian admitted to feeling a lot of pelvic cramping and then lost consciousness. Abigail melgoza was called overhead. BP was 80's/50's and HR was 60. She responded to intervention. A second rapid response was called about an hour and half later. Lillian was getting ready to get on a bed vizcarra to void with RN at bedside and reported she was feeling very hot. BP dropped while RN was in the room. RN went to get help and IV fluids. Patient had a very slow response time to RN. BP had improved when OB arrived in room. RN suspected vasovagal response. Passed two large clots but minimal trickle with fundal massage. DIC panel within normal limits. Hgb further decreased to 8.7 (9.7 at 0820); WBC 10.2. CT abd/pelvis and CT chest is negative. Ultrasound report was still pending. Lactic acid lab ordered. Transfuse 2 units PRBCs ordered and continue Clindamycin and Gentamicin q 8 hours. An hour later she had another event. BP decreased to 60/40's with heart rate in the 60's. O2 sat 99-100 % on RA, afebrile. Hospitalist, Dr. Mujica consulted. Continue with blood transfusion and antibiotics. She is still passing some clots vaginally but minimal bleeding with fundal massage. Repeat Hgb at 1301 stable at 8.8 (8.7 at 0945). Fibrinogen within normal limits. Lactate 1.6. Antibiotics were changed to Vanc and Zosyn. Full workup performed by hospitalist, Dr. Mujica. Transfer to ICU for hypotension requiring levophed drip and close monitoring. Bleeding continued to be monitored. She continued to pass clots and QBL was increasing with weighing of chux pads. She was stable in the ICU. A third ultrasound was performed in the ICU to assess for clots and retained products. Still large amount of clot/retained products in the uterus. Decision was made to proceed with suction D&C. She returned to ICU after D&C. Levophed drip was continued and she was transfused a 3rd unit of PRBCs. Levophed drip was discontinued around 1730 on 11/25/24. She has remained stable. She requests to go home. Labwork within normal limits and vital signs were stable. AM Hgb 8.3. She received Venofer 200 mg IV x 1 dose prior to discharge. She was tolerating regular diet and ambulating well ad edd. She was discharged home on /postop day 2. Follow-up in the office next week. Exam Data for Last 24 hours Vital signs and Labs for Last 24 Hours: Temp Pulse Resp BP Pulse Ox O2 Del Method O2 Flow Rate 98.1 F 100 H 19 118/67 97 Room Air 98 11/26/24 12:00 11/26/24 12:00 11/26/24 12:00 11/26/24 12:00 11/26/24 12:00 11/26/24 12:00 11/26/24 07:00 Laboratory Results - last 24 hr 11/25/24 12:22: Urine Color Yellow, Urine Appearance Clear, Urine pH 5.5, Ur Specific [place] 1.015, Urine Protein 1+ A, Urine Glucose (UA) Negative, Urine Ketones Trace, Urine Blood 3+ A, Urine Nitrate Negative, Urine Bilirubin Negative, Urine Urobilinogen 0.2, Ur Leukocyte Esterase Trace, Urine RBC Tntc, Urine WBC None, Ur Squamous Epith Cells Occasional, Urine Bacteria None 11/25/24 12:35: Vancomycin Trough 15.6 H 11/26/24 07:30: WBC 7.0 D, RBC 3.00 L, Hgb 8.3 L D, Hct 26.2 L, MCV 87.3, MCH 28.0, MCHC 32.1, RDW 15.6, Plt Count 179, MPV 10.1, Neut % (Auto) 65.7, Lymph % (Auto) 24.9, [place] % (Auto) 5.6, Eos % (Auto) 2.0, Baso % (Auto) 0.7, Neut # (Auto) 4.6, Lymph # (Auto) 1.8, [place] # (Auto) 0.4, Eos # (Auto) 0.1, Baso # (Auto) 0.1, Sodium 138, Potassium 3.7, Chloride 111 H, Carbon Dioxide 20 L, Anion Gap 10.7, BUN 7, Creatinine 0.70, Estimated Creat Clear 155, Estimated GFR 95, Est GFR ( Amer) 115, Glucose 88 D, Calcium 7.9 L, Magnesium 1.7, Total Bilirubin 0.4, AST 20, ALT 10 L, Alkaline Phosphatase 48, Total Protein 4.6 L, Albumin 2.5 L, Globulin 2.1, Albumin/Globulin Ratio 1.2 I & O for Last 24 hours: Intake & Output 11/23/24 11/24/24 11/25/24 11/26/24 23:59 23:59 23:59 23:59 Intake Total 7188.680 / 7188.680 2918.570 / 2918.570 520 / 520 Output Total 300 / 300 1950 / 1950 1000 / 1000 Balance 6888.680 / 6888.680 968.570 / 968.570 -480 / -480 Weight 182 lb 182 lb 197 lb 12.074 oz 194 lb 7.163 oz Microbiology Reports for the Last 24 Hours: Microbiology 11/24/24 10:25 Other Gram Stain - Final 11/24/24 10:25 Other Surgical Biopsy Culture - Preliminary Constitutional Constitutional: no acute distress and cooperative *Routine HEENT Exam Head: Present normocephalic and atraumatic Eye: Absent conjunctivae pink ENT: Present mucous membranes moist *Routine Neck Exam Neck: Present full ROM *Routine Respiratory Exam Respiratory: Present CTA bilaterally and normal respiratory effort *Routine Cardiovascular Exam Cardiovascular: Present RRR *Routine Abdominal Exam Abdominal: Present soft and normoactive bowel sounds; Absent tenderness, distended or guarding *Routine Rectal Exam Patient deferred: visual exam *Routine Exam Patient deferred: external exam *Routine Extremities Exam Extremities: Present edema (left upper extremity secondary to IV contrast infiltration - improving); Absent calf tenderness *Routine Neurological Exam Neurological: Present alert, moving all extremities and normal speech Routine Psychiatric Exam Psychiatric: Present normal affect and cooperative Results Data Completed and Pending Labs on day of discharge: Labs from last 24 hours 11/26/24 11/25/24 11/25/24 07:30 12:35 12:22 WBC 7.0 D RBC 3.00 L Hgb 8.3 L D Hct 26.2 L MCV 87.3 MCH 28.0 MCHC 32.1 RDW 15.6 Plt Count 179 MPV 10.1 Neut % (Auto) 65.7 Lymph % (Auto) 24.9 [place] % (Auto) 5.6 Eos % (Auto) 2.0 Baso % (Auto) 0.7 Neut # (Auto) 4.6 Lymph # (Auto) 1.8 [place] # (Auto) 0.4 Eos # (Auto) 0.1 Baso # (Auto) 0.1 Sodium 138 Potassium 3.7 Chloride 111 H Carbon Dioxide 20 L Anion Gap 10.7 BUN 7 Creatinine 0.70 Estimated Creat Clear 155 Estimated GFR 95 Est GFR ( Amer) 115 Glucose 88 D Calcium 7.9 L Magnesium 1.7 Total Bilirubin 0.4 AST 20 ALT 10 L Alkaline Phosphatase 48 Total Protein 4.6 L Albumin 2.5 L Globulin 2.1 Albumin/Globulin Ratio 1.2 Urine Color Yellow Urine Appearance Clear Urine pH 5.5 Ur Specific [place] 1.015 Urine Protein 1+ A Urine Glucose (UA) Negative Urine Ketones Trace Urine Blood 3+ A Urine Nitrate Negative Urine Bilirubin Negative Urine Urobilinogen 0.2 Ur Leukocyte Esterase Trace Urine RBC Tntc Urine WBC None Ur Squamous Epith Cells Occasional Urine Bacteria None Vancomycin Trough 15.6 H Preliminary micro results at discharge 11/24/24 10:25 Surgical Biopsy Culture - Preliminary Other DS: Diagnosis Discharge Diagnosis (1) Vasovagal response: Status: Acute Code(s): R55 - Syncope and collapse (2) Septic shock: Status: Acute Code(s): A41.9 - Sepsis, unspecified organism; R65.21 - Severe sepsis with septic shock (3) Status post D&C: Status: Acute Code(s): Z98.890 - Other specified postprocedural states (4) hemorrhage: Status: Acute Code(s): O72.1 - Other immediate hemorrhage Qualifiers: hemorrhage type: unspecified Qualified Code(s): O72.1 - Other immediate hemorrhage (5) Status post normal vaginal delivery: Status: Acute Problem details: early 2nd trimester spontaneous (6) Intrauterine before 20 weeks of gestation: Status: Acute Code(s): O02.1 - Missed (7) Advanced maternal age in multigravida: Status: Acute Code(s): O09.529 - Supervision of elderly multigravida, unspecified trimester Qualifiers: Trimester: second trimester Qualified Code(s): O09.522 - Supervision of elderly multigravida, second trimester (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 Problem details: 2022 and 2023 Meds Home Medications and Allergies Home Medications ?Medication ?Instructions ?Recorded ?Confirmed ?Type No Known Home Medications 11/22/24 11/24/24 History New Prescriptions to Start Prescriptions: Allergies Allergy/AdvReac Type Severity Reaction Status Date / Time No Known Allergies Allergy Verified 11/23/24 09:01 Discharge Plan Disposition Patient Disposition: Home, Self-Care Condition: Good Discharge Order Discharge Orders: Discharge Order (Routine); Ordered 11/26/24 Ordered By: Celia Georges Follow up Plan Follow up with: Georgia Ruiz DO [Staff Physician, [employer] [employer]] - 11/30/24 Referral Note: Call on thursday to schedule your follow up appointment. Prescriptions/Medication Reconciliation: No Action No Known Home Medications Problem Reconciliation Problems Reviewed?: Yes Patient Discharge Instructions ACTIVITY: No heavy lifting DIET: continue same diet and regular diet Additional Instructions: Discharge: 1. Take 800 mg Ibuprofen every 8 hours as needed for pain. You can also take 500-1000 mg of Tylenol in between doses, every 6-8 hours. 2. Nothing in the vagina for 6 weeks - no intercourse, douching or tampons. No tub baths/hot tubs or swimming pools 3. Reasons to return to L&D or call On-Call doctor - fever (greater than 100.4) - heavy vaginal bleeding (soaking through 1 pad in less than 2 hours) - vaginal discharge (malodorous and/or purulent) - severe headaches not resolved by medication or rest and leg tenderness/edema 4. depression/blues - Normal to feel anxious/overwhelmed for first 2 weeks - Talk to your doctor if: severe anxiety, trouble bonding with baby, withdrawing from other family members, thoughts of harming yourself or others Celia Georges DO [facility] [phone] Patient Instructions: DI for Hemorrhage, Depression, Miscarriage, DI for Pre-eclampsia Print Language: Bel[place]ian Providers Primary Care Provider: Provider,Referral Admit Provider: Mane León Attending Provider: Mane León
[2024-11-27 13:27] LABS: Cortisol,AM 1.9 ug/dL (6.2-19.4)
--- NOTE | 2024-11-28 10:13 | SW/DCPLANNER ---
Spoke with patient on the phone. Patient stated that she is doing well. Patient stated that she was not aware of her upcoming appointment. Patient stated that she was not prescribed any new medicine. Patient stated that she has no concerns or questions at this time. Lay Stacy
--- NOTE | 2024-12-09 14:36 | PC.NURSE ---
Late entry note QBL 2562ml.
== END 2024-11-26 13:14 | disposition home or self-care (01) | DRG 796 ==
LOC: OBOUT 18:09 → OB 18:09 → ICU 11-24 13:21
PROVIDERS: Obstetrics & Gynecology; Student in an Organized Health Care Education/Training Program; Admitting Provider Nurse Practitioner Obstetrics & Gynecology; Visit Provider Nurse Practitioner Obstetrics & Gynecology
PROC: 10D17ZZ Extraction of Products of Conception, Retained, Via Natural or Artificial Opening (ICD-10-PCS; CPT 58120; principal; 2024-11-24 17:00)
DX: O02.1 Missed abortion (principal); A41.9 Sepsis, unspecified organism; Z37.1 Single stillbirth; O75.1 Shock during or following labor and delivery; O41.1220 Chorioamnionitis, second trimester, not applicable or unspecified; O72.2 Delayed and secondary postpartum hemorrhage; O03.37 Sepsis following incomplete spontaneous abortion; D62 Acute posthemorrhagic anemia; O77.0 Labor and delivery complicated by meconium in amniotic fluid; N96 Recurrent pregnancy loss; Z3A.17 17 weeks gestation of pregnancy; T80.89XA Other complications following infusion, transfusion and therapeutic injection, initial encounter; Y84.8 Other medical procedures as the cause of abnormal reaction of the patient, or of later complication, without mention of misadventure at the time of the procedure
CPT/HCPCS: 36415; 36430; 71275; 74174; 76816; 76856; 80053; 80202; 81001; 82533; 82550; 82803; 82962; 83605; 83735; 83880; 84145; 84439; 84443; 84484; 85014; 85018; 85025; 85246; 85378; 85384; 85610; 85730; 86140; 86225; 86235; 86592; 86850; 87040; 87070; 87077; 87186; 87205; 88305; 93306; J0131; J0736; J1100; J1171; J1200; J1580; J1756; J1885; J2003; J2405; J2543; J2590; J2598; J2704; J3010; J3375; J7050; J7120; P9016; Q9967